=== PATIENT | male | born 1950 | race Caucasian/White ===

== ENCOUNTER 2017-11-30 08:11 | Emergency (ER) | payer MEDICARE, MEDICAID, SELFPAY ==
[2017-11-30 08:13] VITALS: BP 138/82; PULSE 72; RESP 18; TEMP 36.9; O2SAT 100; BMI 28.4
--- NOTE | 2017-11-30 08:28 | ED.DCSUM_ITS ---
- ER Visit Summary Date of Service: 11/30/17 Chief Complaint: Left-sided facial, jaw, throat pain History of Present Illness: The patient is a 67 M who presents with the above symptoms. Started last night. He states it hurts to eat and swallow. The pain is located on the left side of the face. He has not had a fever. He has no teeth on that side she states that that is not the cause of the issue. Denies any ear pain. Physical Examination: Vital signs are reviewed. HEENT exam reveals tenderness in the preauricular area. There is some swelling noted. TMs are clear bilaterally. Throat is not erythematous. Heart is regular. Lungs are clear. Abdomen is soft. Test Results: None indicated Emergency Department Course and Treatment: Patient likely has an acute parotitis on the left-hand side. He will be treated with naproxen and Keflex. He was also counseled to use hard candies. He will follow-up with his primary care physician Treatment Plan: [] Disposition: Discharge Impression: Left parotitis This note was generated with [employer] dictation software. It may contain incorrect words, spelling, and punctuation that were not noted in review of the chart prior to signing ED Disposition - Plan for ED Patient: Chief Complaint: Other, Pain/Inj Referrals: Jaswinder Hill DO [Primary Care Provider] -
--- NOTE | 2017-11-30 08:28 | ED.DEP ---
ED Disposition - Plan for ED Patient: Disposition: Home or Assisted Living Chief Complaint: Other, Pain/Inj Instructions: ED Sublingual Gland Swelling [facility] Prescriptions: Cephalexin [Keflex] 500 mg PO Q6 #28 cap Naproxen [Naprosyn] 500 mg PO BID PRN #20 tab Referrals: Jaswinder Hill DO [Primary Care Provider] -
[2017-11-30 09:00] VITALS: BP 142/67; PULSE 64; RESP 16; O2SAT 97
== END 2017-11-30 09:01 | disposition home or self-care (01) ==
LOC: ED 08:48
PROVIDERS: Emergency Provider Emergency Medicine; Family Provider Student in an Organized Health Care Education/Training Program; PCP Student in an Organized Health Care Education/Training Program
DX: K11.20 Sialoadenitis, unspecified (principal); I48.91 Unspecified atrial fibrillation; N40.0 Benign prostatic hyperplasia without lower urinary tract symptoms; Z72.0 Tobacco use; Z79.82 Long term (current) use of aspirin; Z79.899 Other long term (current) drug therapy
CPT/HCPCS: 99282

== ENCOUNTER → 2017-12-21 09:01 | Outpatient (CLI) | payer MEDICARE, MEDICAID, SELFPAY ==
--- NOTE | 2017-12-21 09:20 | CT_ITS ---
STUDY: CT SOFT TISSUE NECK WITHOUT CONTRAST REASON FOR EXAM: Male, 67 years old. Left facial pain and swelling RADIATION DOSAGE (If Supplied By Facility): CTDIvol = ( 18.65 ) mGy, DLP = ( 572.80 ) mGycm TECHNIQUE: The patient was scanned in a multi-detector CT scanner. High resolution transaxial imaging was performed without the administration of intravenous contrast material. Sagittal and coronal images were reconstructed. Individualized dose optimization techniques were used for this CT. COMPARISON: None. FINDINGS: Normal bilateral parotid glands. Normal bilateral dispatcher radio spaces. Normal bilateral parapharyngeal spaces. Normal bilateral carotid spaces. Normal bilateral sublingual and submandibular glands and spaces. Normal visualized nasopharynx. Normal retropharyngeal space. Normal perivertebral space. There are some calcifications within the tonsillar crypts. The visualized tongue, tongue base and oropharynx are normal. The visualized cervical lymph nodes (levels I-) are within normal size limits, and maintain normal morphology. There is no demonstrated solid or cystic mass lesion. Normal epiglottis, bilateral vallecula and hypopharynx. The pre-epiglottic and paraglottic adipose spaces are normal. Normal visualized bilateral piriform sinuses, aryepiglottic folds, vocal cords, and arytenoid-cricoid articulations. Normal subglottic trachea. Normal bilateral lobes of the thyroid gland. Emphysematous changes are seen within the lung apices. Normal visualized paranasal sinuses. Normal visualized cervical spine. CT/Soft Tissue Neck without Contr IMPRESSION: No abscess. Small calcifications within the palatine tonsils bilaterally consistent with tonsilloliths. Electronically Signed: Bebo Spangler DO at 9:59 EST Tel , Service support ,
== END ==
PROVIDERS: Family Provider Student in an Organized Health Care Education/Training Program; PCP Student in an Organized Health Care Education/Training Program; Visit Provider Otolaryngology
DX: R51 Headache (principal)
CPT/HCPCS: 70490

== ENCOUNTER → 2018-03-11 15:18 | Outpatient (CLI) | payer MEDICARE, SELFPAY ==
--- NOTE | 2018-03-11 13:30 | FLU_PTH ---
PATIENT: SERG ZAVALA LOC: [facility] U#:[id number] AGE/SX: 74/M ROOM: RE03/11/[address]: Dr. Manasa Carvajal MD : 1950 BED: DIS: SPEC #: [id number] RECD: 03/11/18 15:18 STATUS: JERRY TONE #: [id number] LUDIN: 03/11/18 13:[address]: Manasa Carvajal DEPT: CYTOLOGY RECD BY: Errol Mcmahon ENTERED: 03/12/18 12:39 SP TYPE: Fluid OTHR DR: Dr. Jaswinder Hill, DO Tissues: A - Thyroid gland, NOS B - Thyroid gland, NOS C - Thyroid gland, NOS D - Thyroid gland, NOS Procedures: Pap Stain (control) Special Stain Group II Surgery Specimen Level IV Cell Block Cytospin Fluid HEADER OPERATION: Ultrasound guided fine needle aspiration of bilateral thyroid PRE-OP DIAGNOSIS: Multinodular goiter TISSUE SUBMITTED: A. FNA right thyroid, fluid, B. FNA right thyroid, slides, C. FNA left thyroid, fluid, D. FNA left thyroid, slides DIAGNOSIS CYTOLOGY A. Right thyroid nodule, fluid, ultrasound-guided FNA (cytospin and cell block): The specimen entirely consists of blood only. B. Right thyroid nodule, ultrasound-guided FNA (smears): Nondiagnostic specimen. The specimen entirely consists of blood only. C. Left thyroid nodule, fluid, ultrasound-guided FNA (cytospin and cell block): Benign follicular cells noted. D. Left thyroid nodule, ultrasound-guided FNA (smears): Consistent with benign follicular nodule. See cytology study and comment. SJ:josue 03/13/18 COMMENT Immediate cytologic evaluation to determine adequacy is not applicable. CYTOLOGY STUDY Slides are reviewed. D. The specimen is adequate for evaluation. The specimen consists of benign follicular cells. A significant amount of colloid is not seen. CYTOLOGY GROSS A. Received is 32 ml of clear jesse fluid labeled with the patient's name and and designated per the requisition as FNA right thyroid. Submitted for cytology preparation including cell block. B. Received are 2 smears labeled with the patient's name and designated per the requisition as FNA right thyroid. Submitted for staining. C. Received is 35 ml of clear jesse fluid labeled with the patient's name and and designated per the requisition as FNA left thyroid. Submitted for cytology preparation including cell block. D. Received are 4 smears labeled with the patient's name and designated per the requisition as FNA left thyroid. Submitted for staining. / RB:cc 03/12/18 TC:5 CPT: 51613 x2, 60522 x2, 18798 x2
== END ==
PROVIDERS: Family Provider Student in an Organized Health Care Education/Training Program; PCP Student in an Organized Health Care Education/Training Program; Visit Provider Surgery
DX: E04.2 Nontoxic multinodular goiter (principal)
CPT/HCPCS: 88108; 88305; 88313

== ENCOUNTER → 2018-03-21 17:15 | Outpatient (CLI) | payer MEDICARE, MEDICAID, SELFPAY ==
--- NOTE | 2018-03-21 | FLU_PTH ---
PATIENT: SERG ZAVALA LOC: [facility] U#:[id number] AGE/SX: 74/M ROOM: RE03/21/[address]: Dr. Manasa Carvajal MD : 1950 BED: DIS: SPEC #: [id number] RECD: 03/21/18 16:58 STATUS: JERRY REWin #: [id number] LUDIN: 03/21/18 00:[address]: Manasa Carvajal DEPT: CYTOLOGY RECD BY: Binu Anaya ENTERED: 03/22/18 13:15 SP TYPE: Fluid OTHR DR: Dr. Jaswinder Hill, DO Tissues: A - Thyroid gland, NOS B - Thyroid gland, NOS Procedures: Pap Stain (control) Special Stain Group II Surgery Specimen Level IV Cell Block Cytospin Fluid HEADER OPERATION: Ultrasound-guided fine needle aspiration right thyroid PRE-OP DIAGNOSIS: Thyroid nodules TISSUE SUBMITTED: A ? FNA right thyroid nodule fluid for cytology, B - FNA right thyroid 4 slides DIAGNOSIS CYTOLOGY A. Right thyroid nodule fluid for cytology, ultrasound-guided FNA (cytospin and cell block): Macrophages and benign follicular cells are noted. See cytology study and comment. B. Right thyroid nodule, ultrasound-guided FNA (smears): Consistent with cystic follicular nodule. See cytology study and comment. SJ:rg 03/26/18 COMMENT Correlation with clinical, radiologic findings and appropriate follow up are necessary. Please make reference to previous specimen ([id number]) right thyroid nodule with diagnosis of nondiagnostic specimen, left thyroid nodule with diagnosis of consistent with benign follicular nodule. CYTOLOGY STUDY Slides are reviewed. A. The specimen consists of benign follicular cells and macrophages. B. The specimen predominantly consists of macrophages and a few benign follicular cells. The specimen meets the criteria for adequacy by combining presence of follicular cells in both specimen A and B. CYTOLOGY GROSS A - Received is 30 ml of brown, cloudy fluid labeled with the patient's name and and designated per the requisition as right thyroid. Submitted for cytology preparation including cell block. B - Received are four smears labeled with the patient's name and designated per the requisition as right thyroid. Submitted for staining. / 03/22/18 TC:5 CPT: 92488, 79378, 05261
== END ==
PROVIDERS: Family Provider Student in an Organized Health Care Education/Training Program; PCP Student in an Organized Health Care Education/Training Program; Visit Provider Surgery
DX: E04.1 Nontoxic single thyroid nodule (principal)
CPT/HCPCS: 88108; 88305; 88313

== ENCOUNTER → 2019-03-04 08:33 | Outpatient (CLI) | payer MEDICARE, MEDICAID, SELFPAY ==
--- NOTE | 2019-03-04 08:35 | ECHOD_ITS ---
Reason For Study: Afib/Flutter Procedure This was a 2D Doppler, Color Flow transthoracic echocardiogram. The exam was of adequate technical quality. Exam performed in department. Left Ventricle Normal LV size. Left ventricular systolic function is normal. The estimated ejection fraction is 60 %. The global longitudinal strain = -20 % (normal). No evidence for diastolic dysfunction. No regional wall motion abnormalities noted. Right Ventricle Normal RV size. Normal systolic function. Atria Normal left atrium. Normal right atrium. No doppler evidence for ASD. Mitral Valve There is no mitral annular calcification. Normal mitral valve. Trivial mitral valve insufficiency. Tricuspid Valve Normal tricuspid valve. Trivial tricuspid valve insufficiency. Right ventricular systolic pressure estimated to be 26 mmHg. Aortic Valve Trisinus/trileaflet aortic valve. Normal aortic valve. Trivial aortic valve insufficiency. Pulmonic Valve The pulmonic valve is not well visualized. Mild (1+) pulmonic valve insufficiency. Great Vessels Mildly dilated ascending aorta. Pericardium/Pleural No pericardial effusion. MMode/2D Measurements & Calculations LVIDd: 4.3 cm IVSd: 1.3 cm Ao root diam: 3.6 cm LVIDs: 2.5 cm LVPWd: 0.96 cm LA dimension: 4.5 cm RVDd: 2.9 cm FS: 42.0 % LAV(MOD-bp): 44.1 ml LA A4 area: 14.1 cm2 RA A4 area: 15.3 cm2 LAV(MOD-bp) Indexed: 22.1 ml/m2 LAV(MOD-sp2): 48.9 ml LAV(MOD-sp4): 37.8 ml Time Measurements MV dec time: 0.23 sec Doppler Measurements & Calculations MV E max juan ramon: 54.0 cm/sec Lat Peak E' Juan Ramon: 7.9 cm/sec Med Peak E' Juan Ramon: 4.4 cm/sec MV A max juan ramon: 77.8 cm/sec E/E' lat: 6.8 E/E' med: 12.3 MV E/A: 0.69 MV V2 max: 89.8 cm/sec MV P1/2t max juan ramon: 70.2 cm/sec Ao V2 max: 99.0 cm/sec MV max P.2 mmHg MV P1/2t: 95.6 msec Ao max P.9 mmHg MV V2 mean: 42.9 cm/sec MV dec slope: 215.2 cm/sec2 Ao V2 mean: 69.7 cm/sec MV mean P.87 mmHg MVA(P1/2t): 2.3 cm2 Ao mean P.2 mmHg MV V2 VTI: 28.0 cm Ao V2 VTI: 22.5 cm AI max juan ramon: 314.4 cm/sec LV V1 max: 80.8 cm/sec PA V2 max: 89.6 cm/sec AI max P.5 mmHg LV V1 max P.6 mmHg LV V1 mean P.1 mmHg AI dec slope: 114.5 cm/sec2 LV V1 mean: 47.0 cm/sec AI P1/2t: 804.4 msec LV V1 VTI: 17.6 cm TR max juan ramon: 237.7 cm/sec PI dec slope: 179.2 cm/sec2 TR max P.6 mmHg Interpretation Summary Left ventricular systolic function is normal. The estimated ejection fraction is 60 %. The global longitudinal strain = -20 % (normal). Trivial mitral valve insufficiency. Trivial tricuspid valve insufficiency. Trivial aortic valve insufficiency. Mild (1+) pulmonic valve insufficiency. Mildly dilated ascending aorta. (4.3 cm) Right ventricular systolic pressure estimated to be 26 mmHg. No evidence for diastolic dysfunction. Ordering Physician: Dayday Nguyen Referring Physician: Dayday Nguyen Performed By: Riley Kumari [facility]
== END ==
PROVIDERS: Family Provider Student in an Organized Health Care Education/Training Program; PCP Student in an Organized Health Care Education/Training Program; Referring Provider Internal Medicine Cardiovascular Disease; Visit Provider Internal Medicine Cardiovascular Disease
DX: I48.0 Paroxysmal atrial fibrillation (principal); I77.810 Thoracic aortic ectasia
CPT/HCPCS: 93306

== ENCOUNTER → 2019-06-17 11:15 | Outpatient (CLI) | payer MEDICARE, SELFPAY ==
[2019-03-17 14:04] VITALS: BMI 29.2
[2019-06-17 12:48] LABS: Erythrocyte Sedimentation Rate 11 mm/hr (0-20)
[2019-06-17 13:07] LABS: Vitamin B12 249 pg/mL (211-911)
[2019-06-17 13:08] LABS: Thyroid Stim Hormone (TSH) 0.15 uIU/mL (0.358-3.74)
== END ==
PROVIDERS: Family Provider Student in an Organized Health Care Education/Training Program; PCP Student in an Organized Health Care Education/Training Program; Referring Provider Psychiatry & Neurology Neurology; Visit Provider Psychiatry & Neurology Neurology
DX: R41.3 Other amnesia (principal)
CPT/HCPCS: 36415; 82607; 84443; 85652

== ENCOUNTER → 2019-06-20 12:36 | Outpatient (CLI) | payer MEDICARE, MEDICAID, SELFPAY ==
[2019-03-17 14:04] VITALS: BMI 29.2
--- NOTE | 2019-06-20 13:00 | MRI_ITS ---
STUDY: MRI BRAIN WITH AND WITHOUT CONTRAST REASON FOR EXAM: Male, 68 years old. Memory loss for one year TECHNIQUE: Standardized multiplanar fat and water weighted pulse sequences were obtained. 17 IV Dotarem was administered for the contrast portion of the examination. COMPARISON: None. FINDINGS: Normal size of the ventricles and extra-axial spaces for the patient's age. There are multiple white matter hyperintensities, distributed throughout the deep white matter tracts of the cerebral hemispheres, consistent with moderate chronic white matter ischemic changes. Normal bilateral basal ganglia. Normal thalami. There is no extra-axial fluid accumulation. Normal flow voids within the major intracranial circulation suggesting patency by spin echo criteria. Normal venous enhancement. There is no enhancing intra-axial or extra-axial abnormality. Normal sella turcica, pituitary gland, infundibular stalk, optic chiasm and hypothalamus. Normal tectal plate and pineal gland. Normal midbrain, kashmir and medulla. Normal cerebellum. Normal basal cisterns. Normal bilateral temporal bones. Normal bilateral internal auditory canals. No demonstrated orbital abnormality, within the constraints of a routine brain study. Cyst in the right maxillary sinus. Normal calvarium and skull base. Normal visualized soft tissue structures. Normal visualized upper cervical spine. MRI/Brain W/WO Contrast IMPRESSION: Moderate microangiopathic white matter disease. No evidence of acute infarct or hemorrhage. Electronically Signed: Yoshi De Dios MD at 17:59 EDT Tel , Service support ,
[2019-06-20 13:11] LABS: EGFR FINGERSTICK > 60.0000 mL/min (>60)
== END ==
PROVIDERS: Family Provider Student in an Organized Health Care Education/Training Program; PCP Student in an Organized Health Care Education/Training Program; Referring Provider Psychiatry & Neurology Neurology; Visit Provider Psychiatry & Neurology Neurology
DX: R41.3 Other amnesia (principal)
CPT/HCPCS: 70553; A9575

== ENCOUNTER → 2019-07-07 21:38 | Outpatient (CLI) | payer MEDICARE, MEDICAID, SELFPAY ==
[2019-03-17 14:04] VITALS: BMI 29.2
== END ==
PROVIDERS: Family Provider Student in an Organized Health Care Education/Training Program; PCP Student in an Organized Health Care Education/Training Program; Referring Provider Psychiatry & Neurology Neurology; Visit Provider Psychiatry & Neurology Neurology
DX: G47.33 Obstructive sleep apnea (adult) (pediatric) (principal)
CPT/HCPCS: 95810

== ENCOUNTER 2019-08-03 17:34 | Emergency (ER) | payer MEDICARE, SELFPAY ==
[2019-03-17 14:04] VITALS: BMI 29.2
[2019-08-03 17:35] VITALS: BP 140/79; PULSE 124; RESP 24; TEMP 36.4; O2SAT 98; BMI 29.5
--- NOTE | 2019-08-03 17:48 | EKG12_ITS ---
Test Reason : SOB Blood Pressure : / mmHG Vent. Rate : 118 BPM Atrial Rate : 081 BPM P-R Int : 000 ms QRS Dur : 082 ms QT Int : 456 ms P-R-T Axes : 000 012 067 degrees QTc Int : 639 ms Normal sinus rhythm Low voltage QRS Prolonged QT Abnormal ECG Confirmed by GRICELDA VALENTE ([id number]), sound editor JOSE FERRERA ([id number]) on 08/11/2019 3:52:48 PM Referred By: Clint Miller Confirmed By:GRICELDA VALENTE
--- NOTE | 2019-08-03 17:49 | ED.DCSUM_ITS ---
History of Present Illness Chief Complaint: Shortness of Breath Informant: Patient, Family Onset: Days - 2 to 3 days ago Context: Sudden Onset - At rest Timing: Continuous, Waxes and wanes - Worse with activity Quality: Shortness of breath Location: Not applicable Current Severity: Mild Maximum Severity: Severe Worsened by: Activity Relieved by: Nothing Associated Symptoms: No other symptoms Narrative: Patient is an elderly male who is a former smoker of 1.5 packs/day who presents with abrupt onset of shortness of breath that occurred at rest 2 to 3 days ago. He reports dyspnea on exertion. He denies chest pain at rest or activity. He denies pleuritic chest discomfort. He denies URI symptoms. He denies fever or chills. He denies history of PE or DVT. He denies leg pain, swelling discoloration. He has no risk factors. He denies symptoms of claudication. He denies abdominal pain. He denies food intolerance. According to daughter he has history of atrial fibrillation. He did require cardioversion. Prior similar symptoms: No Recent Illness/Hospitalization: No - Past Medical History (1) Ascending aorta dilation Status: Chronic Comment: 4.3 cm per ECHO 03/04/19 (2) Essential hypertension Status: Chronic (3) GERD (gastroesophageal reflux disease) Status: Chronic (4) Hyperlipemia Status: Chronic (5) Paroxysmal atrial fibrillation Status: Chronic Past Medical History - Allergies and Home Meds Allergies/Adverse Reactions: Allergies No Known Allergies Allergy (Verified 08/03/19 17:37) Primary Care Physician: Jaswinder Hill DO [Primary Care Provider] - Prior records reviewed: Yes Surgical History: - - parathyroidectomy Lives: Spouse/ Significant Other Smoking Status: Former smoker Alcohol: None Drugs: None - Family History Sibling Family History: Family History (Last Reviewed 09/05/18 @ 10:44 by Sandra Green) Mother Cancer Father Cancer Brother Seizures Sister Cancer Family History: Reports: - - sister- cancer Review of Systems General: Denies: Chills, Fever, Subjective, Sweats, Weight loss Eyes: Denies: Visual changes - bilaterally, Blurred Vision - bilaterally ENT: Denies: Bilateral ear pain, Rhinorrhea, Sore throat Cardiovascular: Denies: Chest pain, Palpitations, Heart racing Respiratory: Reports: Dyspnea, Dyspnea on exertion. Denies: Cough, Sputum, Orthopnea, Paroxysmal nocturnal dyspnea Gastrointestinal: Denies: Abdominal pain, Nausea, Vomiting, Diarrhea, Melena, Hematochezia Genitourinary: Denies: Dysuria, Hematuria, Frequency Musculoskeletal: Denies: Myalgias, Arthralgias, Neck pain, Back pain, Swelling, Extremity Pain, -, - Skin: Denies: Rash, Wounds Neurological: Denies: Headache, Weakness, Numbness Hematologic: Denies: Easy bruising, Easy bleeding Allergy: Denies: Uticaria Physical Exam Vital Signs/Narrative: Vital Signs Temp Pulse Resp BP Pulse Ox 08/03/19 17:35 97.6 F L 124 H 24 H 140/79 H 98 Inital Vital Signs reviewed: Yes - Patient is tachycardic and tachypneic. General: Well nourished, Well developed Head: Normocephalic, Atraumatic Eyes: Perrl, EOMI. Negative for: Pale conjunctiva, Scleral icterus ENT: Moist mucous membranes, No rhinorrhea Neck: Supple, Nontender, - - Trachea is midline. There is no cervical lymphadenopathy. There is no carotid bruit.. Negative for: No lymphadenopathy, No JVD Cardiovascular: Regular rhythm, No murmurs, Normal S1, Normal S2, Tachycardia Respiratory: CTA bilaterally, Chest nontender, Decreased Air Movement Abdomen: Soft, Nontender, Nondistended, Normal bowel sounds Rectal: Deferred Back: Nontender, Normal Inspection Extremities: Nontender, No edema, - - There is no asymmetry, swelling, discoloration, leg vein distention, palpable cords or tenderness along the distribution of the deep venous system. Skin: Normal color, No rash, No Trauma. Negative for: Cyanosis, Diaphoresis, Jaundice Neurological: Alert, Oriented x3, Cranial nerves II-XII grossly intact, Normal Strength, Normal Sensation Psychological: Normal affect Diagnostic/Tx/Re-eval Impressions Chest X-Ray 08/03/19 18:05 IMPRESSION: No acute thoracic pathology. Electronically Signed: Anirudh Sweet, at 18:23 EDT Tel , Service support , Chest CTA 08/03/19 20:05 IMPRESSION: No evidence of pulmonary embolus. Large pericardial effusion with findings suggesting right heart failure. Further evaluation with echocardiogram is recommended. Small to moderate right pleural effusion. Small left pleural effusion. No focal infiltrates. Mild emphysema. 5 mm nodule in the right middle lobe. A follow-up chest CT in 6 months is recommended. Electronically Signed: Anirudh Sweet, at 20:46 EDT Tel , Service support , ADDENDUM: 08/03/192056 IMPRESSION: No evidence of pulmonary embolus. Large pericardial effusion with findings suggesting right heart failure. Further evaluation with echocardiogram is recommended. Small to moderate right pleural effusion. Small left pleural effusion. No focal infiltrates. Mild emphysema. 5 mm nodule in the right middle lobe. A follow-up chest CT in 6 months is recommended. N.B. : The above information has been verbally conveyed by Anirudh Sweet to Michael Cannon MD, on 08/03/2019 20:50:41 (ET). Electronically Signed: Anirudh Sweet, at 20:46 EDT Tel , Service support , ADDENDUM: 08/03/192056 IMPRESSION: No evidence of pulmonary embolus. Large pericardial effusion with findings suggesting right heart failure. Further evaluation with echocardiogram is recommended. Small to moderate right pleural effusion. Small left pleural effusion. No focal infiltrates. Mild emphysema. 5 mm nodule in the right middle lobe. A follow-up chest CT in 6 months is recommended. N.B. : The above information has been verbally conveyed by Anirudh Sweet to Michael Cannon MD, on 08/03/2019 20:50:41 (ET). Electronically Signed: Anirudh Sweet, at 20:46 EDT Tel , Service support , 08/03/19 18:05 Chest PA and Lateral [RAD] Stat 08/03/19 20:05 CTA Chest W/WO Contrast [CT] Stat Laboratory Results 08/03/19 08/03/19 08/03/19 17:58 17:58 17:58 WBC 12.5 H RBC 4.98 Hgb 14.5 Hct 45.5 MCV 91.4 MCH 29.1 MCHC 31.9 L RDW Std Deviation 47.6 H RDW Coeff of Rosie 14.5 Plt Count 352 MPV 11.4 Immature Gran % (Auto) 0.400 Neut % (Auto) 68.2 Lymph % (Auto) 20.4 [place] % (Auto) 9.9 Eos % (Auto) 0.6 Baso % (Auto) 0.5 Absolute Neuts (auto) 8.5 H Absolute Lymphs (auto) 2.54 Nucleated RBC % 0 D-Dimer Quant (PE/DVT) 5.09 H* Sodium 137 Potassium 3.9 Chloride 104 Carbon Dioxide 25.0 Anion Gap 8 BUN 23 H Creatinine 1.28 Estim Creat Clear Calc 54.92 Est GFR (MDRD) Af Amer 72 Est GFR (MDRD) Non-Af 60 BUN/Creatinine Ratio 18.0 Glucose 159 H Calcium 9.1 Troponin I < 0.015 In light of work-up and findings Dr. Josue was contacted. Based on patient's symptomatology CT findings recommended transfer to [facility]. Informed patient is that he will need to be transferred to tertiary care facility and a Dr. Josue recommended at [facility]. Patient and were satisfied with this recommendation. Spoke with the nurse at the transfer line. She will contact appropriate physician partition assembler and will discuss case. Patient is presently getting a fluid bolus. - Rhythm Strip Rhythm Strip: Sinus Tach Rate: 123 Ectopy: None - EKG Initial EKG Interpretation: Sinus Tachycardia - Tachycardia with a ventricular rate of 118. NE interval is 160 ms. QRS duration 82 ms. QT duration 456 ms. There is low voltage. There is prolonged QT interval. The QTC is 639 ms. There is no acute ischemic changes noted. There is no ossific ST-T wave changes noted. - Medical Decision Making With acute onset of shortness of breath need to rule out cardiac etiology versus pulmonary. Specifically need to evaluate for pulmonary embolus since patient is tachycardic, sinus and tachypnic. Monitor reveals sinus tachycardia rate of 123. Spoke with Dr. Batista at [facility]. She accepted patient. Awaiting callback from transfer personnel with bed assignment. - Critical Care Time Critical care time (excluding procedures): 30-74 minutes - CC time 33 minutes., Discussing w/Patient &/or Family/[employer] Maker Helper, Discussing w/Consultants, Arranging Admission or Transfer ED Disposition - Plan for ED Patient: Disposition: [facility] Diagnosis: Pericardial effusion with cardiac tamponade, Sinus tachycardia by electrocardiogram, History of hypertension, History of hyperlipidemia Referrals: Jaswinder Hill DO [Primary Care Provider] -
[2019-08-03 17:53] VITALS: O2SAT 98
--- NOTE | 2019-08-03 18:05 | RAD_ITS ---
STUDY: X-RAY CHEST REASON FOR EXAM: Male, 68 years old. Shortness of breath TECHNIQUE: Frontal and lateral views of the chest COMPARISON: 04/23/2016. FINDINGS: The lungs are clear. There are no pleural effusions. There is no pneumothorax. The heart is at the upper limits of normal normal in size. The visualized osseous structures are within normal limits. RAD/Chest PA and Lateral IMPRESSION: No acute thoracic pathology. Electronically Signed: Anirudh Sweet, at 18:23 EDT Tel , Service support ,
[2019-08-03 18:12] LABS: Absolute Lymphocyte Count 2.54 X10^3/uL (0.83-4.51); Absolute Neutrophil Count 8.5 X10^3/uL (2.0-7.7); Basophil# 0.06 X10^3/uL; Basophil% 0.5 % (0-1); Eosinophil# 0.07 X10^3/uL; Eosinophils% 0.6 % (0-5); Hematocrit 45.5 % (40-54); Hemoglobin 14.5 g/dL (13.0-16.5); Lymphocyte # 2.54 X10^3/ul (4.0); Lymphocyte % 20.4 % (19-41); Mean Corp Hgb Conc 31.9 g/dL (32-36); Mean Corpuscular Hgb 29.1 pg (27.0-32.0); Mean Corpuscular Volume 91.4 fL (80-94); Mean Platelet Vol. 11.4 fl (6.2-12.0); Monocyte# 1.24 X10^3/uL; Monocyte% 9.9 % (0-10); NRBC Flagged by Analyzer 0 % (0-5); Neutrophil # 8.52 X10^3/uL (2.7-7.7); Neutrophil % 68.2 % (47-70); Platelet Count 352 K/mm3 (150-450); RBC Distribution Width CV 14.5 % (11.6-14.6); RBC Distribution Width SD 47.6 fl (35.1-43.9); Red Blood Count 4.98 M/mm3 (4.6-6.2); White Blood Count 12.5 K/mm3 (4.4-11.0)
[2019-08-03 18:48] LABS: Anion Gap 8 (5-15); BUN 23 mg/dL (7-18); Calcium,Total 9.1 mg/dL (8.5-10.1); Chloride 104 mmol/L (98-107); Creatinine, Serum 1.28 mg/dL (0.70-1.30); EST Glomerular Filtration Rate 60 mL/min (>60); Est Glom Filt Rate - Afr Amer 72 mL/min (>60); Estimated Creatinine Clearance 54.92 ml/min; Glucose 159 mg/dL (74-106); Potassium 3.9 mmol/L (3.5-5.1); Sodium Level 137 mmol/L (136-145)
[2019-08-03 19:54] VITALS: BP 138/124; PULSE 113; RESP 20; O2SAT 93
[2019-08-03 20:04] LABS: D-Dimer Quantitative (DVT/PE) 5.09 FEU/ug/m (0.27-0.49)
--- NOTE | 2019-08-03 20:04 | ED.RN ---
CRITICAL LAB VALUE RECEIVED FROM LAB. D-DIMER 5.09. DR. HENSON NOTIFIED.
--- NOTE | 2019-08-03 20:05 | CT_ITS ---
We are attempting to reach an attending provider to discuss findings. An addendum with communication details will be sent when the communication is complete. STUDY: CTA CHEST REASON FOR EXAM: Male, 68 years old. Shortness of breath. RADIATION DOSAGE (If Supplied By Facility): CTDIvol = ( 9.83 ) mGy, DLP = ( 470.83 ) mGycm TECHNIQUE: The examination was performed with the intravenous administration of IV 75mL [id number] 75. Post-processing of the angiographic images was performed, with multiplanar reformation and 3D reconstruction. Individualized dose optimization techniques were used for this CT. COMPARISON: None. FINDINGS: There is no evidence of pulmonary embolus. There is no evidence of thoracic aortic aneurysm. The contrast bolus is insufficient to exclude thoracic aortic dissection. There is a large pericardial effusion. The heart is normal in size. There is reflux of contrast into the IVC and hepatic veins, suggesting right heart failure. There is a [id number] right pleural effusion and a small left pleural effusion with overlying atelectasis. There are no focal infiltrates. There are mild emphysematous changes noted in the lungs. There is a 5 mm pleural-based nodule in the right middle lobe (image 121 series 2). There is no pneumothorax. Images through the upper abdomen demonstrate a small hiatal hernia. There are no destructive osseous lesions. CT/CTA Chest W/WO Contrast IMPRESSION: No evidence of pulmonary embolus. Large pericardial effusion with findings suggesting right heart failure. Further evaluation with echocardiogram is recommended. Small to moderate right pleural effusion. Small left pleural effusion. No focal infiltrates. Mild emphysema. 5 mm nodule in the right middle lobe. A follow-up chest CT in 6 months is recommended. Electronically Signed: Anirudh Sweet, at 20:46 EDT Tel , Service support ,
[2019-08-03 20:46] VITALS: BP 131/98; PULSE 108; RESP 30; O2SAT 96
[2019-08-03 21:44] VITALS: BP 144/105; PULSE 104; RESP 18; O2SAT 96
--- NOTE | 2019-08-03 21:47 | ED.RN ---
PATIENT HAS BEEN ACCEPTED TO [facility] [id number]
== END 2019-08-03 22:23 | disposition short-term general hospital (02) ==
PROVIDERS: Emergency Provider Emergency Medicine; Family Provider Student in an Organized Health Care Education/Training Program; PCP Student in an Organized Health Care Education/Training Program
DX: I31.3 Pericardial effusion (noninflammatory) (principal); I31.4 Cardiac tamponade; R00.0 Tachycardia, unspecified; R06.82 Tachypnea, not elsewhere classified; R94.31 Abnormal electrocardiogram [ECG] [EKG]; I48.0 Paroxysmal atrial fibrillation; I10 Essential (primary) hypertension; E78.5 Hyperlipidemia, unspecified; K21.9 Gastro-esophageal reflux disease without esophagitis; Z87.891 Personal history of nicotine dependence
CPT/HCPCS: 71046; 71275; 80048; 84484; 85025; 85379; 93005; 96360; 96361; 99285; J7030; Q9967; A4216

== ENCOUNTER → 2019-08-15 09:48 | Outpatient (CLI) | payer MEDICARE, SELFPAY ==
[2019-08-03 17:35] VITALS: BMI 29.5
--- NOTE | 2019-08-15 09:49 | ECHOL_ITS ---
Reason For Study: s/p Pericardiocentesis Procedure This was a limited 2D transthoracic echocardiogram. Myocardial strain analysis was performed in this exam to aid in the assessment of cardiac function. Limited views were obtained. Exam performed in department. Left Ventricle Normal LV size. Left ventricular systolic function is normal. The estimated ejection fraction is 65 %. The global longitudinal strain = -17% (borderline). Unable to assess diastolic dysfunction. No regional wall motion abnormalities noted. Right Ventricle Normal RV size. Normal systolic function. Atria Normal left atrium. Normal right atrium. No doppler evidence for ASD. Mitral Valve There is no mitral annular calcification. 2D echocardiographic images compatible with redundant mitral valve chordae tendonae. Trivial mitral valve insufficiency. Tricuspid Valve The tricuspid valve is not well visualized. Mild tricuspid valve insufficiency. Right ventricular systolic pressure estimated to be 27 mmHg. Aortic Valve Trisinus/trileaflet aortic valve. Normal aortic valve. Trivial aortic valve insufficiency. Pulmonic Valve The pulmonic valve is not well visualized. Great Vessels Mildly dilated ascending aorta. Pericardium/Pleural Trivial pericardial effusion. There are no echocardiographic indications of cardiac tamponade. MMode/2D Measurements & Calculations LVIDd: 3.9 cm IVSd: 1.4 cm Ao root diam: 4.3 cm LVIDs: 2.6 cm LVPWd: 1.2 cm FS: 34.0 % Doppler Measurements & Calculations TR max keysha: 244.1 cm/sec TR max P.8 mmHg Interpretation Summary Left ventricular systolic function is normal. The estimated ejection fraction is 65 %. The global longitudinal strain = -17% (borderline). 2D echocardiographic images compatible with redundant mitral valve chordae tendonae. Trivial mitral valve insufficiency. Mild tricuspid valve insufficiency. Trivial aortic valve insufficiency. Mildly dilated ascending aorta. Trivial pericardial effusion. There are no echocardiographic indications of cardiac tamponade. Right ventricular systolic pressure estimated to be 27 mmHg. Unable to assess diastolic dysfunction. Ordering Physician: Jamin Cole Referring Physician: Jaswinder Busch Performed By: Stephanie Cole, CARIDAD, RVT
== END ==
PROVIDERS: Family Provider Student in an Organized Health Care Education/Training Program; PCP Student in an Organized Health Care Education/Training Program; Referring Provider Internal Medicine Cardiovascular Disease; Visit Provider Internal Medicine Cardiovascular Disease
DX: I77.810 Thoracic aortic ectasia (principal); I48.0 Paroxysmal atrial fibrillation; I10 Essential (primary) hypertension; E78.5 Hyperlipidemia, unspecified; K21.9 Gastro-esophageal reflux disease without esophagitis; Z98.890 Other specified postprocedural states
CPT/HCPCS: 93308

== ENCOUNTER 2019-08-18 12:02 | Observation (INO) | payer MEDICARE, SELFPAY ==
[2019-08-18] VITALS (7 sets, daily range): BP systolic 96–152; BP diastolic 62–92; PULSE 65–99; RESP 16–27; TEMP 36.6; O2SAT 93–99; BMI 28.1; BMI 28.8; BMI 27.5; BMI 27.6
--- NOTE | 2019-08-18 12:18 | RAD_ITS ---
STUDY: X-RAY CHEST REASON FOR EXAM: Male, 68 years old. Dyspnea. Diaphoresis and dizziness. TECHNIQUE: Single AP portable view of the chest. COMPARISON: Comparison is made with prior study August 03, 2019. FINDINGS: EKG electrodes are seen. Scattered calcified granulomas. No acute abnormality is present. There is no demonstrated pleural abnormality. There is borderline cardiomegaly. Normal mediastinum and ashley. Normal visualized pulmonary arteries. There is atherosclerotic tortuosity of the aortic arch and descending thoracic aorta. There are diffuse degenerative changes of the visualized thoracic spine. Levoscoliosis. Normal visualized ribs, clavicles, and shoulders. There is no demonstrated abnormality of the visualized soft tissue structures of the upper abdomen. RAD/Chest 1 View (Portable) IMPRESSION: No acute abnormality is seen. Electronically Signed: Luis Darling, at 12:53 EDT , Service support ,
--- NOTE | 2019-08-18 12:19 | EKG12_ITS ---
Test Reason : PRE OP Blood Pressure : / mmHG Vent. Rate : 071 BPM Atrial Rate : 071 BPM P-R Int : 166 ms QRS Dur : 098 ms QT Int : 388 ms P-R-T Axes : 015 -29 -74 degrees QTc Int : 421 ms Normal sinus rhythm T wave abnormality, consider anterolateral ischemia Abnormal ECG When compared with ECG of 03-AUG-2019 18:03, Vent. rate has decreased BY 47 BPM Nonspecific T wave abnormality now evident in Inferior leads T wave inversion now evident in Anterolateral leads Confirmed by YESSI ZHANG, NHUNG ([id number]), book editor JOES FERRERA ([id number]) on 08/22/2019 11:44:37 AM Referred By: GUDELIA Confirmed By:NHUNG DICKSON MD
--- NOTE | 2019-08-18 12:24 | ED.DCSUM_ITS ---
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 He was seen by me earlier this month and transferred to [facility] because of concern for pericardial tamponade. He had a pericardial centesis performed with drainage of 800 cc of fluid. Fluid was positive for malignancy. Patient had recent biopsy of axillary nodes. Results are pending. He also had a PET scan. He is scheduled for chemotherapy on by Dr. Diamond Banks. He was scheduled to have a port placed by Dr. Manasa Carvajal this morning. Surgery was canceled because patient became diaphoretic with pallor and skinner in appearance and shortness of breath. EKG was obtained and reveals flipped T waves V2 through V6 which are new compared to August 03. Nitropaste was applied by anesthesia. I was informed a troponin was obtained. and daughter informed me he had a echo performed on Sunday. Echo was reviewed and interpretation reads: 1. Left ventricular systolic function is normal, EF 65% 2. Global longitudinal strain equals -17% (borderline) 3. 2D echo cardiographic images compatible with redundant mitral valve chordae tendon a 4. Trivial mitral valve insufficiency 5. Mild tricuspid valve insufficiency 6. Trivial aortic valve insufficiency 7. Mild dilatation ascending aorta 8. Trivial pericardial effusion 9. Right ventricular systolic pressure estimated to be 27 mmHg 10. Unable to assess diastolic dysfunction Prior similar symptoms: No Recent Illness/Hospitalization: Yes - Past Medical History (1) Atrial fibrillation with RVR Status: Acute (2) Malignant pericardial effusion Status: Acute (3) Ascending aorta dilation Status: Chronic Comment: 4.3 cm per ECHO 03/04/19 (4) Essential hypertension Status: Chronic (5) GERD (gastroesophageal reflux disease) Status: Chronic (6) Hyperlipemia Status: Chronic (7) Lung nodule Status: Chronic (8) Malignant neoplasm of urinary bladder Status: Chronic Past Medical History - Allergies and Home Meds Allergies/Adverse Reactions: Allergies No Known Allergies Allergy (Verified 08/18/19 12:06) Primary Care Physician: Jaswinder Hill DO [Primary Care Provider] - Prior records reviewed: Yes Surgical History: - - parathyroidectomy Lives: Spouse/ Significant Other Smoking Status: Former smoker Alcohol: None Drugs: None - Family History Sibling Family History: Family History (Last Reviewed 09/05/18 @ 10:44 by Sandra Green) Mother Cancer Father Cancer Brother Seizures Sister Cancer Family History: Reports: - - sister- cancer Review of Systems General: Reports: Weight loss. Denies: Chills, Fever, Malaise, Sweats Eyes: Denies: Visual changes - bilaterally, Blurred Vision - bilaterally, Diplopia ENT: Denies: Bilateral ear pain, Rhinorrhea, Sore throat Cardiovascular: Denies: Chest pain, Palpitations, Heart racing Respiratory: Reports: Dyspnea. Denies: Cough, Sputum, Dyspnea on exertion, Orthopnea Gastrointestinal: Denies: Abdominal pain, Nausea, Vomiting, Diarrhea, Melena, Hematochezia Genitourinary: Denies: Dysuria, Hematuria, Frequency Musculoskeletal: Reports: Neck pain - Anterior right neck and jaw pain awoke from sleep. Denies: Myalgias, Arthralgias, Back pain, Swelling, Extremity Pain, -, - Skin: Denies: Rash, Wounds Neurological: Denies: Headache, Weakness, Numbness Hematologic: Denies: Easy bruising, Easy bleeding Physical Exam Vital Signs/Narrative: Vital Signs Temp Pulse Resp BP Pulse Ox 08/18/19 12:03 98 F 65 27 H 152/92 H 98 General: Well nourished, Well developed, No Acute Distress Head: Normocephalic, Atraumatic Eyes: Perrl, EOMI ENT: Moist mucous membranes, No rhinorrhea Neck: Supple, Nontender, No lymphadenopathy, No JVD, - - Recent extraction of right lower molar. No swelling of the gum. There is no submandibular lymphadenopathy or anterior cervical lymphadenopathy. Trachea is midline. There is no stridor. There is no dysphonia. Cardiovascular: Regular rate, Regular rhythm, No murmurs, Normal S1, Normal S2 Respiratory: No distress, CTA bilaterally, Chest nontender Abdomen: Soft, Nontender, Nondistended, Normal bowel sounds Back: Nontender, Normal Inspection Extremities: Nontender, No edema, - - There is no asymmetry, swelling, di scoloration, leg vein distention, palpable cords or tenderness along the distribution of the deep venous system.. Negative for: Tenderness, Edema Skin: Normal color, No rash Neurological: Alert, Oriented x3, Cranial nerves II-XII grossly intact, Normal Strength, Normal Sensation Psychological: Normal affect, Normal Mood Diagnostic/Tx/Re-eval Chest X-Ray - ED: 1 View, Read by ED Physician, Normal, Lungs, Mediastinum, Bony Structures, No Acute Disease, - - Heart size is smaller compared to prior chest x-ray. Impressions Chest X-Ray 08/18/19 12:18 IMPRESSION: No acute abnormality is seen. Electronically Signed: Luis Lisset, at 12:53 EDT , Service support , 08/18/19 12:18 Chest 1 View (Portable) [RAD] Stat Laboratory Results 08/18/19 08/18/19 08/18/19 12:49 12:49 12:49 WBC 12.8 H RBC 5.01 Hgb 14.7 Hct 44.2 MCV 88.2 MCH 29.3 MCHC 33.3 RDW Std Deviation 43.1 RDW Coeff of Rosie 13.3 Plt Count 327 MPV 10.3 Immature Gran % (Auto) 0.500 Neut % (Auto) 79.9 H Lymph % (Auto) 12.8 L [place] % (Auto) 4.8 Eos % (Auto) 1.7 Baso % (Auto) 0.3 Absolute Neuts (auto) 10.2 H Absolute Lymphs (auto) 1.64 Nucleated RBC % 0 Sodium 139 Potassium 4.2 Chloride 106 Carbon Dioxide 27.0 Anion Gap 6 BUN 14 Creatinine 0.86 Estim Creat Clear Calc 81.74 Est GFR (MDRD) Af Amer 115 Est GFR (MDRD) Non-Af 95 BUN/Creatinine Ratio 16.4 Glucose 110 H Lactic Acid 2.0 Calcium 9.0 Total Bilirubin 0.80 AST 21 ALT 31 Alkaline Phosphatase 47 Total Protein 7.8 Albumin 3.6 Globulin 4.2 Albumin/Globulin Ratio 0.9 White count is elevated. This is a nonspecific marker. Suspect EKG changes may represent cardiac ischemia versus pericarditis. Most likely this represents pericarditis since patient had malignant pericardial effusion requiring paracentesis. Case was discussed with Dr. Waters. Recommended limited echo and serial enzymes. He suspects this represents pericarditis. He may not have pain since he is present on colchicine. - EKG Initial EKG Interpretation: Sinus Rhythm - Sinus rhythm with a ventricular rate of 66. There is evidence of incomplete right bundle branch block and lateral ischemic changes. The lateral ischemic changes are unchanged from EKG performed earlier today. These are new from August 03. CT interval is 170 ms. QS duration 94 ms. QT duration 398 ms. Walsh is to the right. The EKG is abnormal and changed from August 03. - Medical Decision Making In light of patient's history with new EKG changes EKG was repeated 30 minutes later. There is no interval change noted. With history of neck pain that awoke him from sleep and dyspnea with diaphoresis later this morning with EKG changes will obtain troponin appropriate blood work to assess for cardiac ischemia. Case will be discussed with cardiology. Since echo revealed no effusion on Sunday this was not repeated. ED Disposition - Plan for ED Patient: Disposition: Acute [facility] Diagnosis: ST segment changes on electrocardiogram, Malignant pericardial effusion Referrals: Jaswinder Hill DO [Primary Care Provider] -
[2019-08-18 13:03] LABS: Absolute Lymphocyte Count 1.64 X10^3/uL (0.83-4.51); Absolute Neutrophil Count 10.2 X10^3/uL (2.0-7.7); Basophil# 0.04 X10^3/uL; Basophil% 0.3 % (0-1); Eosinophil# 0.22 X10^3/uL; Eosinophils% 1.7 % (0-5); Hematocrit 44.2 % (40-54); Hemoglobin 14.7 g/dL (13.0-16.5); Lymphocyte # 1.64 X10^3/ul (4.0); Lymphocyte % 12.8 % (19-41); Mean Corp Hgb Conc 33.3 g/dL (32-36); Mean Corpuscular Hgb 29.3 pg (27.0-32.0); Mean Corpuscular Volume 88.2 fL (80-94); Mean Platelet Vol. 10.3 fl (6.2-12.0); Monocyte# 0.61 X10^3/uL; Monocyte% 4.8 % (0-10); NRBC Flagged by Analyzer 0 % (0-5); Neutrophil # 10.22 X10^3/uL (2.7-7.7); Neutrophil % 79.9 % (47-70); Platelet Count 327 K/mm3 (150-450); RBC Distribution Width CV 13.3 % (11.6-14.6); RBC Distribution Width SD 43.1 fl (35.1-43.9); Red Blood Count 5.01 M/mm3 (4.6-6.2); White Blood Count 12.8 K/mm3 (4.4-11.0)
[2019-08-18 13:13] LABS: ALB/GLOB Ratio 0.9 RATIO (0.9-2.4); AST(SGOT) 21 U/L (15-37); Alanine Aminotransfer ALT/SGPT 31 U/L (16-61); Albumin, Serum 3.6 g/dL (3.2-5.0); Alkaline Phosphatase 47 U/L (45-117); Anion Gap 6 (5-15); BUN 14 mg/dL (7-18); BUN/Creat Ratio 16.4 RATIO (10-20); Chloride 106 mmol/L (98-107); Creatinine, Serum 0.86 mg/dL (0.70-1.30); EST Glomerular Filtration Rate 95 mL/min (>60); Est Glom Filt Rate - Afr Amer 115 mL/min (>60); Estimated Creatinine Clearance 81.74 ml/min; Globulin 4.2 g/dL (2.2-4.2); Glucose 110 mg/dL (74-106); Potassium 4.2 mmol/L (3.5-5.1); Protein, Total 7.8 g/dL (6.4-8.2); Sodium Level 139 mmol/L (136-145)
--- NOTE | 2019-08-18 14:24 | ECHOL_ITS ---
Reason For Study: Abn EKG Procedure This was a limited 2D transthoracic echocardiogram. Exam performed portable in patient room. Left Ventricle Normal LV size. Left ventricular systolic function is normal. The estimated ejection fraction is 65 %. No regional wall motion abnormalities noted. Pericardium/Pleural No pericardial effusion. MMode/2D Measurements & Calculations LVIDd: 4.2 cm IVSd: 1.3 cm LVAd ap4: 23.0 cm2 LVIDs: 2.7 cm LVPWd: 0.95 cm EDV(MOD-sp4): 60.9 ml RVDd: 3.1 cm FS: 36.6 % EDV(sp4-el): 63.5 ml LVAs ap4: 11.4 cm2 ESV(MOD-sp4): 19.0 ml ESV(sp4-el): 19.5 ml EF(MOD-sp4): 68.7 % EF(sp4-el): 69.3 % SV(MOD-sp4): 41.8 ml SV(sp4-el): 44.0 ml Interpretation Summary Normal LV size. Left ventricular systolic function is normal. The estimated ejection fraction is 65 %. No pericardial effusion. Ordering Physician: Lio Stratton Referring Physician: Jaswinder Busch Performed By: Stephanie Cole RDCS, RVT
--- NOTE | 2019-08-18 15:36 | PCM.HP.STD ---
Problem List (1) Abnormal EKG Status: Acute (2) Neck pain on right side Status: Acute History of Present Illness Date of Admission: 08/18/19 Chief Complaint: Right-sided neck pain, EKG changes, diaphoresis The patient is a 68 year old M seen in the emergency room at [facility] with chief complaint of right-sided neck pain, right lower jaw pain, and diaphoresis. The right lower jaw pain occurred last night according to the patient but this morning he had right-sided neck pain today and he was in preop to have a Mediport inserted and he became diaphoretic and did not feel well so he was transferred to the emergency room for evaluation. Patient denied any chest pain, he denied any arm pain, patient did not complain of shortness of breath at this examiner. Patient had a history of pericardial effusion which was drained approximately 2 weeks ago at [facility], this pericardial effusion was the result of metastatic bladder cancer. Patient again was to have a Mediport inserted today for chemotherapy. Work-up in the emergency room included labs which showed a slightly elevated white blood cell count at 12.8, patient's troponin was unremarkable, and the remainder of the patient's chemistry profile was unremarkable. Patient's chest x-ray was unremarkable, his EKG showed ST-T wave changes over the anterior and lateral precordial leads-there appeared to be T wave inversions present. Cardiology was contacted by the emergency room physician, cardiology advised placing the patient in observation status, repeating a limited echocardiogram, and cycling cardiac enzymes. Cardiology did not feel they needed to see the patient unless his cardiac enzymes resulted positive or if his medical status change. Cardiology felt that the EKG changes may have been due to chronic pericarditis from the patient's metastatic bladder cancer. Patient will be placed in observation status on PCU, cardiac enzymes will be cycled, and he will have a limited echocardiogram. Past Medical History Past Medical History (Chronic Problems): Chronic Problems (Last Updated 08/15/19 @ 10:14 by Sandra Green) Lung nodule (Chronic) Malignant neoplasm of urinary bladder (Chronic) Ascending aorta dilation (Chronic) 4.3 cm per ECHO 03/04/19 GERD (gastroesophageal reflux disease) (Chronic) Essential hypertension (Chronic) Paroxysmal atrial fibrillation (Chronic) Hyperlipemia (Chronic) Medical History: Medical History (Last Updated 08/15/19 @ 10:14 by Sandra Green) Lung nodule (Chronic) R91.1 Malignant pericardial effusion (Acute) I31.3, C80.1 Malignant neoplasm of urinary bladder (Chronic) C67.9 Ascending aorta dilation (Chronic) I77.810 4.3 cm per ECHO 03/04/19 GERD (gastroesophageal reflux disease) (Chronic) K21.9 Essential hypertension (Chronic) I10 Paroxysmal atrial fibrillation (Chronic) I48.0 Hyperlipemia (Chronic) E78.5 Atrial fibrillation with RVR (Acute) I48.91 Bladder tumor D49.4 Allergies No Known Allergies Allergy (Verified 08/18/19 12:06) Home Medications: Ambulatory Orders Medication Instructions Recorded tamsulosin 0.4 mg capsule 0.4 mg PO QHS 09/03/18 sertraline 100 mg tablet 150 mg PO DAILY 03/17/19 Cyanocobalamin (Vitamin B-12) 1,000 mcg PO DAILY 08/03/19 [Vitamin B-12] Omeprazole Magnesium [Prilosec Otc] 20 mg PO DAILY 08/15/19 colchicine 0.6 mg capsule 0.6 mg PO BID 08/15/19 metoprolol tartrate 25 mg tablet 25 mg PO BID 08/15/19 ondansetron HCl 8 mg tablet 8 mg PO TID PRN 08/15/19 Cholecalciferol (Vitamin D3) 2,000 unit PO DAILY 08/18/19 [D3-2000] Rosuvastatin Calcium 10 mg PO QHS 08/18/19 Surgical History: Surgical History (Last Updated 08/15/19 @ 10:16 by Sandra Green) S/P pericardiocentesis (Resolved) Onset Date: ~08/04/19 Z98.890 History of bladder surgery Onset Date: ~06/03/18 Z98.890 x2 01/07/18, 06/03/18 History of parathyroidectomy Z98.890 Surgical History: - - parathyroidectomy Psychiatric History: No pertinent psych hx Lives: Spouse/ Significant Other Smoking Status: Former smoker Tobacco Use: Non-smoker Alcohol: None Drugs: None - *Family History Sibling Family History: Family History (Last Reviewed 09/05/18 @ 10:44 by Sandra Green) Mother Cancer Father Cancer Brother Seizures Sister Cancer History Items: - - sister- cancer Maternal Family History: Family History (Last Reviewed 09/05/18 @ 10:44 by Sandra Green) Mother Cancer Father Cancer Brother Seizures Sister Cancer History Items: No pertinent history Paternal Family History: Family History (Last Reviewed 09/05/18 @ 10:44 by Sandra Green) Mother Cancer Father Cancer Brother Seizures Sister Cancer History Items: No pertinent history Review of Systems Constitutional: Reports: Malaise, Fatigue. Denies: Anorexia, Chills, Fever, Night Sweats, Weakness, Weight Change Eyes: Denies: Cataracts, Conjunctivae Inflammation, Double vision, Drainage, Redness, Vision Change HEENT: Reports: - - Right lower tooth pain, - - Right-sided neck pain. Denies: Difficulty Swallowing, Dysphasia, Ear Pain, Eye Pain, Hearing Changes, Nasal bleeding, Nasal Congestion, Post Nasal Drip Cardiovascular: Denies: Chest Pain, Claudication, Chest Pressure, Chest Tightness, Edema, Heaviness, Palpitations Respiratory: Denies: Cough, Hemoptysis, Pleuritic Pain, Shortness of Breath, Shortness of breath at rest, Shortness of breath upon exertion, Sputum production Gastrointestinal: Reports: Nausea. Denies: Abdominal Pain, Constipation, Diarrhea, Hematemesis, Hematochezia, Melena, Vomiting Genitourinary: Denies: Dysuria, Frequency, Hematuria, Hesitancy, Nocturia, Retention, Urgency Musculoskeletal: Denies: Foot Pain, Hand Pain, Joint Pain, Joint stiffness, Joint swelling, Joint Tenderness, Leg Pain Skin: Denies: Dryness, Pruritis, Rash Neurological: Denies: Blurred vision, Double vision, Slurred speech, Difficulty swallowing, Focal weakness, Headaches, Numbness, Tingling Psychiatric: Denies: Anxiety, Depression, Homicidal Ideations, Suicidal Ideations Endocrine: Denies: Change in Body Habitus, Heat/ Cold Intolerance, Polydipsia, Polyuria Hematologic/ Lymphatic: Denies: Adenopathy, Anemia, Easy Bruising, Easy Bleeding, Petechiae, Purpura VTE Information - Inpt Only VTE Present on Admission: No VTE Mechan Device Prophylaxis: None VTE Pharm Prophylaxis ordered?: Yes Patient Problems: Active and Suspected Problems (Last Updated 08/15/19 @ 10:14 by Sandra Green) ST segment changes on electrocardiogram (Acute) Abnormal EKG (Acute) Neck pain on right side (Acute) Malignant pericardial effusion (Acute) - Physical Exam Vitals/I&O's: Vital Signs Temp Pulse Resp BP Pulse Ox 97.8 F 82 16 120/71 93 08/18/19 14:39 08/18/19 14:39 08/18/19 14:39 08/18/19 14:39 08/18/19 14:39 Oxygen Delivery Method Room Air Weight: 82.2 kg Body Mass Index (BMI) 27.5 General: Alert, Oriented x3, Cooperative, No apparent distress, Well developed, Well nourished HEENT: Atraumatic, PERRLA, EOMI, Normocephalic Oral: Moist Mucosa, No Gingival or Mucosal Lesions/ Ulcerations, - - Patient had pain on striking his right lower molar with a tongue depressor during my exam Neck: Supple, No JVD, Trachea Midline, Thyroid Normal Size and Texture Lungs: Clear to auscultation, Normal air movement, No rhonchi, No wheeze, No rales Cardiovascular: Regular rate, Regular Rhythm, Normal S1, Normal S2, No murmurs, PMI Normal, No rub noted Abdomen: Bowel Sounds Present, Soft, Non Tender, Non-Distended, No hernias noted Extremities: No clubbing, No cyanosis, No edema, Capillary Refill Less than 3 Seconds Skin: No rashes, No breakdown Musculoskeletal: No Tenderness to Palpation of Joints or Extremities Neurological: Cranial nerves II-XII grossly intact, Neuro grossly intact, Sensory exam intact to light touch and pain, Coordination normal Psych/Mental Status: Normal Affect, Appropriate, Alert and oriented to time, place, person, mood and affect Laboratory Results 08/18/19 12:49: WBC 12.8 H, RBC 5.01, Hgb 14.7, Hct 44.2, MCV 88.2, MCH 29.3, MCHC 33.3, RDW Std Deviation 43.1, RDW Coeff of Rosie 13.3, Plt Count 327, MPV 10.3, Immature Gran % (Auto) 0.500, Neut % (Auto) 79.9 H, Lymph % (Auto) 12.8 L, [place] % (Auto) 4.8, Eos % (Auto) 1.7, Baso % (Auto) 0.3, Absolute Neuts (auto) 10.2 H, Absolute Lymphs (auto) 1.64, Nucleated RBC % 0 08/18/19 12:49: Sodium 139, Potassium 4.2, Chloride 106, Carbon Dioxide 27.0, Anion Gap 6, BUN 14, Creatinine 0.86, Estim Creat Clear Calc 81.74, Est GFR (MDRD) Af Amer 115, Est GFR (MDRD) Non-Af 95, BUN/Creatinine Ratio 16.4, Glucose 110 H, Calcium 9.0, Total Bilirubin 0.80, AST 21, ALT 31, Alkaline Phosphatase 47, Total Protein 7.8, Albumin 3.6, Globulin 4.2, Albumin/Globulin Ratio 0.9 08/18/19 12:49: Lactic Acid 2.0 08/18/19 12:49: Troponin I < 0.015 Current Medications Atorvastatin Calcium (Lipitor) 20 mg PO QHS [facility] Colchicine (Colchicine) 0.6 mg PO BID [facility] Heparin Sodium (Porcine) (Heparin Na) 5,000 unit SC Q8 [facility] Metoprolol Tartrate (Lopressor (Beta Carlyle)) 25 mg PO BID [facility] Ondansetron HCl (Zofran Odt) 8 mg PO TID PRN PRN Reason: NAUSEA Pantoprazole Sodium (Protonix) 20 mg PO DAILY [facility] Sertraline HCl 100 mg/ (Sertraline HCl 50 mg) 150 mg PO DAILY [facility] Tamsulosin HCl (Flomax) 0.4 mg PO QHS [facility] Assessment/Plan All Active Problems (Last Updated 08/15/19 @ 10:14 by Sandra Green) ST segment changes on electrocardiogram (Acute) Abnormal EKG (Acute) Neck pain on right side (Acute) S/P pericardiocentesis (Resolved ~08/04/19) Malignant pericardial effusion (Acute) Pericardial effusion, acute (Acute) Atrial fibrillation with RVR (Acute) Hyperparathyroidism (Resolved) #1 ST-T wave changes over the anterior precordial leads extending into the lateral precordial leads-etiology could include chronic pericarditis, patient will be placed in observation status on PCU, limited echocardiogram will be performed, patient will have cardiac enzymes cycled. #2 chronic pericarditis-patient currently is taking colchicine, again he had a pericardiocentesis performed approximately 2 weeks ago with removal of approximately 1.2 L of fluid. #3 metastatic bladder cancer to the pericardium #4 right-sided neck pain-etiology unclear at this point, unknown whether this is an anginal equivalent #5 right lower tooth pain-this may be secondary to an infection in the right lower molar or caries, patient is to follow-up with his dentist concerning this #6 hyperlipidemia #7 history of paroxysmal atrial fib-patient is not currently on any anticoagulants secondary to his bladder cancer Code Visit OBSV E&M: 05251 Initial observation care L3
[2019-08-18 16:54] LABS: Reflex Lactate? Y
[2019-08-18] MEDS: Acetaminophen 500 MG Tablet 1000 MG PO (17:44)
[2019-08-18 18:34] LABS: Lactic Acid 1.2 mmol/L (0.4-2.0)
[2019-08-18] MEDS: Tamsulosin HCl 0.4 MG Capsule PO (21:02)
[2019-08-18] MEDS: Heparin Injection (Vial) 5,000 UNIT/ML VIAL 5000 UNIT SC (21:03)
[2019-08-18] MEDS: Atorvastatin Calcium 20 MG Tablet PO (21:03)
[2019-08-18] MEDS: Metoprolol Tartrate 25 MG Tablet PO (21:03)
[2019-08-19] VITALS (7 sets, daily range): BP systolic 96–127; BP diastolic 63–85; PULSE 66–87; RESP 16; TEMP 36.4–36.8; O2SAT 92–96
[2019-08-19] MEDS: Acetaminophen 500 MG Tablet 1000 MG PO ×2 (00:21→08:49)
[2019-08-19] MEDS: Heparin Injection (Vial) 5,000 UNIT/ML VIAL 5000 UNIT SC (05:57)
--- NOTE | 2019-08-19 09:57 | DCINST_ITS ---
- Discharge Diagnoses Current Active Problems: Current Active and Chronic Problems (Last Updated 08/15/19 @ 10:14 by Sandra Green) ST segment changes on electrocardiogram (Acute) Abnormal EKG (Acute) Neck pain on right side (Acute) Malignant pericardial effusion (Acute) You will use the following diet at home:: Cardiac Your food should be the consistency of: Regular Discharge Activity: May not drive while taking narcotic pain medications. Call your doctor if you observe: Fever of 101 or Higher, Change in Color, Inability to have a bowel movement, Shortness of breath, Dizziness, Fainting spells, Swelling in the ankles, Chest pain, Prolonged hiccoughing, Increased palpitations (irregular heartbeat), Calf discomfort, Uncontrolled pain Additional Instructions: F/U [facility] Urologist, Dr. Cobos this week Allergies/Adverse Reactions: Allergies No Known Allergies Allergy (Verified 08/18/19 12:06) Medications to take at Discharge tamsulosin 0.4 mg capsule 0.4 mg PO QHS 09/03/18 sertraline 100 mg tablet 150 mg PO DAILY 03/17/19 Cyanocobalamin (Vitamin B-12) [Vitamin B-12] 1,000 mcg PO DAILY 08/03/19 Omeprazole Magnesium [Prilosec Otc] 20 mg PO DAILY 08/15/19 colchicine 0.6 mg capsule 0.6 mg PO BID 08/15/19 metoprolol tartrate 25 mg tablet 25 mg PO BID 08/15/19 ondansetron HCl 8 mg tablet 8 mg PO TID PRN 08/15/19 Cholecalciferol (Vitamin D3) [D3-2000] 2,000 unit PO DAILY 08/18/19 Rosuvastatin Calcium 10 mg PO QHS 08/18/19 Primary Care Physician: Jaswinder Hill DO [Primary Care Provider] - Please follow up with your Primary Care Physician in: in 1-2 week Test Results: Test results from this visit will be discussed in further detail at your follow- up appointment, if applicable. Please Follow Up With: Dayday Nguyen MD When: as scheduled Please Follow Up With: Amarilis Kebede MD When: as scheduled
[2019-08-19] MEDS: Metoprolol Tartrate 25 MG Tablet PO (09:58)
[2019-08-19] MEDS: Pantoprazole Sodium 20 MG Tablet PO (09:59)
--- NOTE | 2019-08-19 09:59 | DS.PCM_ITS ---
Discharge Date and Diagnosis Date of Admission: 08/18/19 Date of Discharge: 08/19/19 - Primary Discharge Diagnosis Active and Suspected Problems (Last Updated 08/15/19 @ 10:14 by Sandra Green) ST segment changes on electrocardiogram (Acute) Abnormal EKG (Acute) Neck pain on right side (Acute) Malignant pericardial effusion (Acute) - Secondary Discharge Diagnosis Chronic Problems (Last Updated 08/15/19 @ 10:14 by Sandra Green) Lung nodule (Chronic) Malignant neoplasm of urinary bladder (Chronic) Ascending aorta dilation (Chronic) 4.3 cm per ECHO 03/04/19 GERD (gastroesophageal reflux disease) (Chronic) Essential hypertension (Chronic) Paroxysmal atrial fibrillation (Chronic) Hyperlipemia (Chronic) Hospital Course and Treatment Summary of Care Provided: The patient is a 68 year old M with recent diagnosis of bladder cancer status post BCG treatment and pericardial effusion with pericarditis about 2 weeks ago in [place] [facility] status post pericardiocentesis about 1.2 L on colchicine was admitted with EKG changes, right-sided jaw pain and diaphoresis in preop room prior to MediPort placement. [] #1 Abnormal EKG changes of ST-T wave changes over the anterior lateral precordial leads-, most likely related to recent pericarditis: Patient was admitted in PCU for observation. Serial troponin enzymes are negative. Limited echo was done. EF 65% no regional wall motion abnormality. Normal LV size and systolic function. No pericardial effusion. Acute coronary syndrome ruled out. #2 Recent/subacute pericarditis: Continue colchicine. As per patient's daughter, Rosy, US[employer], pericardiocentesis fluid was positive of bladder cancer cells. Therefore it seems most likely pericardial effusion secondary to metastatic bladder cancer. Patient had pericardiocentesis, approximately 1.2 L of fluid. #3 metastatic bladder cancer to the pericardium: Patient has follow-up with [facility] urologist, Dr. Cobos tomorrow for repeat cystoscopy. #4 right-sided neck pain-etiology unclear at this point, most likely positional. #5 right lower tooth pain, most likely the cause of right-sided neck pain-this may be secondary to right lower molar caries, patient is to follow-up with his dentist concerning this. #6 hyperlipidemia continue home medication Discharge medication reconciliation done. Discharge follow-up instructions comp leted. Discharge process discussed with the patient and all questions were answered to patient's satisfaction. Total time spent, exact 35 minutes on discharge meds reconciliation, examination, review of imaging and blood test and discussion with the patient on follow-up instructions. Subjective: Patient was admitted for right-sided neck pain, right lower jaw pain and d iaphoresis. Patient did not had chest pain but he felt diaphoretic, dizzy lightheaded in preop for MediPort placement. Of note, patient has history of bladder cancer and had cystoscopy with BCG treatment in [facility] by Dr. BAUM and he has follow-up with Dr. Cobos tomorrow. Patient had pericardial effusion and had 1.2 L pericardiocentesis about [address] [facility] and cytology came positive of bladder cancer cells as per the patient daughter, Rosy who is US[employer] in neurology. In the morning, patient is chest pain-free. There was some EKG change of T wave inversion in anterolateral leads may be related to pericarditis about 2 weeks ago. - Physical Exam Vitals/I&O's: Vital Signs Temp Pulse Resp BP Pulse Ox 97.6 F L 77 16 127/85 H 94 08/19/19 05:55 08/19/19 07:52 08/19/19 05:55 08/19/19 05:55 08/19/19 05:55 Oxygen Delivery Method Room Air Weight: 181 lb 3.52 oz Body Mass Index (BMI) 27.5 Intake and Output for Last 24 Hours 08/17/19 08/18/19 08/19/19 23:59 23:59 23:59 Intake Total 340 / 340 Balance 340 / 340 General: Alert, Oriented x3, Cooperative HEENT: Atraumatic, PERRLA, EOMI, Normocephalic Neck: Supple, No JVD, Negative Carotid Bruits Lungs: Clear to auscultation, Normal air movement, No rhonchi, No wheeze, No rales Cardiovascular: Regular rate, Regular Rhythm, Normal S1, Normal S2, No murmurs Abdomen: Bowel Sounds Present, Soft, Non Tender, Non-Distended Extremities: No edema, Capillary Refill Less than 3 Seconds Skin: No rashes, No breakdown Musculoskeletal: No Tenderness to Palpation of Joints or Extremities, Arthritic Changes Neurological: Cranial nerves II-XII grossly intact, Deep Tendon Reflexes 2+/4 and Symmetrical, Neuro grossly intact Psych/Mental Status: Normal Affect, Appropriate Laboratory Results 08/18/19 12:49: WBC 12.8 H, RBC 5.01, Hgb 14.7, Hct 44.2, MCV 88.2, MCH 29.3, MCHC 33.3, RDW Std Deviation 43.1, RDW Coeff of Rosie 13.3, Plt Count 327, MPV 10.3, Immature Gran % (Auto) 0.500, Neut % (Auto) 79.9 H, Lymph % (Auto) 12.8 L, Esmeralda % (Auto) 4.8, Eos % (Auto) 1.7, Baso % (Auto) 0.3, Absolute Neuts (auto) 10.2 H, Absolute Lymphs (auto) 1.64, Nucleated RBC % 0 08/18/19 12:49: Sodium 139, Potassium 4.2, Chloride 106, Carbon Dioxide 27.0, Anion Gap 6, BUN 14, Creatinine 0.86, Estim Creat Clear Calc 81.74, Est GFR (MDRD) Af Amer 115, Est GFR (MDRD) Non-Af 95, BUN/Creatinine Ratio 16.4, Glucose 110 H, Calcium 9.0, Total Bilirubin 0.80, AST 21, ALT 31, Alkaline Phosphatase 47, Total Protein 7.8, Albumin 3.6, Globulin 4.2, Albumin/Globulin Ratio 0.9 08/18/19 12:49: Lactic Acid 2.0 08/18/19 12:49: Troponin I < 0.015 08/18/19 15:58: Troponin I < 0.015 08/18/19 17:42: Troponin I < 0.015 08/18/19 17:42: Lactic Acid 1.2 Current Medications Acetaminophen (Tylenol) 1,000 mg PO Q6H PRN PRN Reason: Pain Score 1-08/07 Last Admin: 08/19/19 08:49 Dose: 1,000 mg Documented by: Atorvastatin Calcium (Lipitor) 20 mg PO QHS [facility] Last Admin: 08/18/19 21:03 Dose: 20 mg Documented by: Colchicine (Colchicine) 0.6 mg PO BID [facility] Last Admin: 08/18/19 21:02 Dose: 0.6 mg Documented by: Heparin Sodium (Porcine) (Heparin Na) 5,000 unit SC Q8 [facility] Last Admin: 08/19/19 05:57 Dose: 5,000 unit Documented by: Metoprolol Tartrate (Lopressor (Beta Carlyle)) 25 mg PO BID [facility] Last Admin: 08/18/19 21:03 Dose: 25 mg Documented by: Ondansetron HCl (Zofran Odt) 8 mg PO TID PRN PRN Reason: NAUSEA Pantoprazole Sodium (Protonix) 20 mg PO DAILY [facility] Sertraline HCl 100 mg/ (Sertraline HCl 50 mg) 150 mg PO DAILY [facility] Tamsulosin HCl (Flomax) 0.4 mg PO QHS [facility] Last Admin: 08/18/19 21:02 Dose: 0.4 mg Documented by: Discharge Activity: May not drive while taking narcotic pain medications. Call your doctor if you observe: Fever of 101 or Higher, Change in Color, Inability to have a bowel movement, Shortness of breath, Dizziness, Fainting spells, Swelling in the ankles, Chest pain, Prolonged hiccoughing, Increased palpitations (irregular heartbeat), Calf discomfort, Uncontrolled pain Home Medications: Medications to take at Discharge tamsulosin 0.4 mg capsule 0.4 mg PO QHS 09/03/18 sertraline 100 mg tablet 150 mg PO DAILY 03/17/19 Cyanocobalamin (Vitamin B-12) [Vitamin B-12] 1,000 mcg PO DAILY 08/03/19 Omeprazole Magnesium [Prilosec Otc] 20 mg PO DAILY 08/15/19 colchicine 0.6 mg capsule 0.6 mg PO BID 08/15/19 metoprolol tartrate 25 mg tablet 25 mg PO BID 08/15/19 ondansetron HCl 8 mg tablet 8 mg PO TID PRN 08/15/19 Cholecalciferol (Vitamin D3) [D3-2000] 2,000 unit PO DAILY 08/18/19 Rosuvastatin Calcium 10 mg PO QHS 08/18/19 Primary Care Physician: Jaswinder Hill DO [Primary Care Provider] - Please follow up with your Primary Care Physician in: in 1-2 week Please Follow Up With: Dayday Nguyen MD When: as scheduled Please Follow Up With: Amarilis Kebede MD When: as scheduled Medical Necessity - Tobacco Use Smoking Status: Former smoker Tobacco Use: Non-smoker Meaningful Use Info Meaningful Use Diagnoses (Choose all that apply): None applicable Code Visit OBSV E&M: 71158 Observation care discharge
--- NOTE | 2019-08-19 10:05 | PHA.DC.MR ---
Pharmacy Service has performed discharge medication reconciliation for this patient. Home Medications tamsulosin 0.4 mg capsule 0.4 mg PO QHS 09/03/18 sertraline 100 mg tablet 150 mg PO DAILY 03/17/19 Cyanocobalamin (Vitamin B-12) [Vitamin B-12] 1,000 mcg PO DAILY 08/03/19 Omeprazole Magnesium [Prilosec Otc] 20 mg PO DAILY 08/15/19 colchicine 0.6 mg capsule 0.6 mg PO BID 08/15/19 metoprolol tartrate 25 mg tablet 25 mg PO BID 08/15/19 ondansetron HCl 8 mg tablet 8 mg PO TID PRN 08/15/19 Cholecalciferol (Vitamin D3) [D3-2000] 2,000 unit PO DAILY 08/18/19 Rosuvastatin Calcium 10 mg PO QHS 08/18/19 The patient's discharge medication list was reviewed for discrepancies and discrepancies were resolved.
== END 2019-08-19 09:58 | disposition home or self-care (01) ==
LOC: ED 13:50 → PCU 14:02
PROVIDERS: Admitting Provider Internal Medicine; Emergency Provider Emergency Medicine; Family Provider Student in an Organized Health Care Education/Training Program; PCP Student in an Organized Health Care Education/Training Program; Visit Provider Internal Medicine
DX: R07.89 Other chest pain (principal); K08.89 Other specified disorders of teeth and supporting structures; M54.2 Cervicalgia; C67.9 Malignant neoplasm of bladder, unspecified; I10 Essential (primary) hypertension; K21.9 Gastro-esophageal reflux disease without esophagitis; I48.0 Paroxysmal atrial fibrillation; R91.1 Solitary pulmonary nodule; C79.89 Secondary malignant neoplasm of other specified sites; E78.5 Hyperlipidemia, unspecified; I31.3 Pericardial effusion (noninflammatory); R94.31 Abnormal electrocardiogram [ECG] [EKG]; Z87.891 Personal history of nicotine dependence; Z79.899 Other long term (current) drug therapy
CPT/HCPCS: 36415; 71045; 80053; 82962; 83605; 84484; 85025; 93005; 93308; 96372; 99218; 99285; J7120; A4216; G0378; J2405

== ENCOUNTER 2019-08-22 12:00 | Day surgery (SDC) | payer MEDICARE, SELFPAY ==
--- NOTE | 2019-08-17 09:48 | HP.PCM_ITS ---
History and Physical Date of Admission: 08/18/19 Gian David 1950 ? ? REFERRING PHYSICIAN: Amarilis Kebede MD ? CHIEF COMPLAINT: metastatic bladder cancer ? HPI: The patient is a 68 year old male presents with known metastatic bladder cancer. Patient requires IV access for chemotherapy. No previous central lines placed. Denies history of extremity DVT. Patient denies fevers. ? ? PAST MEDICAL HISTORY ? Arrhythmia ? ? Esophageal reflux ? ? History of adverse reaction to anesthesia ? ? Hypertension ? ? Other and unspecified hyperlipidemia ? ? Pneumothorax ? ? both at different times in the 's ? Pulmonary emphysema (HCC) 04/18/2017 ? Snoring ? ? Tamponade 08/08/2019 ? Tobacco use disorder ? ? PAST SURGICAL HISTORY ? BLADDER SURGERY HX ? 12/2017 ? COLONOS W/REM POLYP SNARE ? 05/22/2017 ? 3 [id number] year follow-up ? COLONOSCOP W/ OR W/O BRSH SPEC ? 04/06/16 ? PAST SURGICAL HISTORY OF? 1979's? collasped lung ?spontaneous ? PAST SURGICAL HISTORY OF 2 parathyroids removed ? ? Current Outpatient Medications: aspirin, enteric coated (ASPIRIN, ENTERIC COATED) 81 mg EC tablet Take 81 mg by mouth once daily. cyanocobalamin (VITAMIN B-12) 1,000 mcg tab Take 1,000 mcg by mouth once daily. ondansetron (ZOFRAN) 8 mg tablet Take 1 tablet by mouth every 8 hours as needed. OLANZapine (ZYPREXA) 5 mg tablet Take 1 tablet by mouth daily at bedtime for 3 days. After chemotherapy - cisplatin sertraline (ZOLOFT) 100 mg tablet take 1 & 1/2 pills by mouth daily at bedtime apixaban (ELIQUIS) 5 mg tab(s) Take 1 tablet by mouth twice daily. metoprolol tartrate, short acting, (LOPRESSOR) 25 mg tablet Take 1 tablet by mouth every 12 hours. colchicine 0.6 mg tablet Take 1 tablet by mouth twice daily. Blood Pressure Cuff - Home Use BLOOD PRESSURE CUFF FOR HOME USE. DX: LABILE BLOOD PRESSURE rosuvastatin (CRESTOR) 10 mg tablet Take 1 tablet by mouth once daily. tamsulosin ER (FLOMAX) 0.4 mg cap Take 1 capsule by mouth daily at bedtime. lidocaine urojet (XYLOCAINE, GLYDO) 2 % jelp Apply prior to procedure as directed. Cholecalciferol, Vitamin D3, (VITAMIN D-3) ,000 unit cap Take 1 capsule by mouth once daily. ? ? ALLERGIES: Patient has no known allergies. ? PERSONAL HISTORY: Social History Socioeconomic History Marital status: Spouse name: Erin Number of children: 3 Years of education: Not on file Highest education level: Not on file Occupational History Occupation: [email or web address] Employer: [employer] Tobacco Use Smoking status: Former Smoker Packs/day: 1.00 Years: 44.00 Pack years: 44 Types: Cigarettes Quit date: 12/17/2017 Years since quittin.6 Smokeless tobacco: Never Used Substance and Sexual Activity Alcohol use: Yes Comment: beer rarely Drug use: No ? FAMILY HISTORY ? Cancer Mother ? Lung ? Cancer Father ? stomach ? Seizures Brother ? ? Cancer Sister ? bone ? Cancer Paternal Grandmother ? ? ? REVIEW OF SYSTEMS: CONSTITUTIONAL: ?No fevers, chills, nightsweats, unintended weight loss HEENT: ?Denies frequent or severe heaches, nasal congestion/sinus symptoms, problematic allergy problems. +?Decreased hearing both?ears EYES: ?No diplopia or blurry vision. CARDIOVASCULAR: ?No chest pain, dyspnea, palpitations, orthopnea, PND, ankle edema. PULM: ?No dyspnea, unexplained cough. GI: ?No dysphagia/odynophagia, problematic reflux, constipation, diarrhea, changes in stool habits, hematochezia, melena. : ?No new urinary complaints, including dysuria, gross hematuria or pyuria. NEURO: ?No new balance problems, peripheral weakness/paresthesias or numbness of concern. MUSC-SKEL: ?No new joint pain, swelling, or erythema. PSY: ?No concerns regarding depression, anxiety or panic. INTEGUMENTARY: ?No new skin changes (rash, new or changing mole, new growth) ? PHYSICAL EXAMINATION: General: The patient is 68 year old male, well nourished, well hydrated in no acute distress. The patient is oriented to time, place, and person. VITALS: Blood pressure 108/56, pulse 96, temperature 36.7 ?C (98.1 ?F), temperature source Temporal Artery, resp. rate 20, height 172.7 cm (5' 8), weight 83.5 kg (184 lb), SpO2 93 %. Body mass index is 27.98 kg/m?. Head ? Normocephalic. EOM intact with sclera clear and no icterus noted. Mouth with mucus membranes moist. Neck - supple with no jugular venous distention noted. Trachea is midline. No carotid bruits noted. Healed collar incision from parathyroid surgery. No masses noted. Lungs ? normal breath sounds No rales/rhonchi/wheezing noted. No labored breathing noted, such as retractions.though patient is breathing heavily Heart ? normal heart sounds. No rubs/clicks/murmurs noted. Regular rate. Abdomen ? soft and benign. Normal bowel sounds Extremities ? no pitting edema noted. Skin ? normal skin integrity. Lymph ? no cervical adenopathy detected, no supraclavicular adenopathy detected, no axillary adenopathy detected Neurological ? gait normal, no focal deficits noted Psych ? calm and appropriatee ? IMPRESSION: metastatic bladder cancer, enlarged left axillary lymph node - probable metastatic disease, need for IV access for chemotherapy ? PLAN: I have discussed the above with the patient and his who is present with him. I have offered placement of portacath. I have explained the procedure to the patient. I have counseled the patient as to the risks of the procedure, including but not limited to: infection, bleeding, injury to any blood vessels/nerves, injury to the lung such as hemothorax or pneumothorax, thrombosis of vessels, non functioning of portacath, infection of portacath, scar tissue, wound infections, complications of anesthesia, etc. ? the patient understands. He agrees to proceed.? I have answered all questions to the patient?s satisfaction and the patient has no further questions. ? Diagnoses: (R59.9) Enlarged lymph nodes (primary encounter diagnosis) (C67.8) Malignant neoplasm of overlapping sites of bladder (HCC) (Z45.2) Encounter for fitting and adjustment of vascular catheter Return to Clinic: The patient is instructed to follow-up with me after the deanna damian
[2019-08-18] MEDS: Lactated Ringers 1,000 ML 75 ML IV (07:00)
[2019-08-18 11:27] VITALS: BP 122/80; PULSE 68; RESP 20; TEMP 35.8; O2SAT 100; BMI 28.1
--- NOTE | 2019-08-18 11:27 | EKG12_ITS ---
Test Reason : DIZZINESS Blood Pressure : / mmHG Vent. Rate : 066 BPM Atrial Rate : 066 BPM P-R Int : 170 ms QRS Dur : 094 ms QT Int : 398 ms P-R-T Axes : 014 -23 -55 degrees QTc Int : 417 ms Normal sinus rhythm Incomplete right bundle branch block ST & T wave abnormality, consider anterior-lateral ischemia Abnormal ECG Confirmed by GREYSON ZHANG, MARTHA ([id number]), online editor TEODORO WILSON ([id number]) on 08/27/2019 10:18:56 AM Referred By: Manasa Carvajal Confirmed By:MARTHA RUBI MD
[2019-08-18 11:30] LABS: Bedside Glucose 116 mg/dL (70-110)
[2019-08-18 14:23] VITALS: BMI 27.5
[2019-08-22 12:35] VITALS: BP 127/82; PULSE 82; RESP 16; TEMP 36.6; O2SAT 98; BMI 28.1
[2019-08-22] MEDS: Lactated Ringers 1,000 ML 100 ML IV (12:53)
--- NOTE | 2019-08-22 14:31 | SUR.OPER ---
DRESSING: CAVION, 1/4 STERI STRIPES,TELFA OPSITE X2
--- NOTE | 2019-08-22 15:12 | SUR.OPER ---
16CC OF IV NS PER DR TO IRRIGATE PORT
[2019-08-22 15:23] VITALS: BP 118/77; BP 127/82; PULSE 90; RESP 16; TEMP 36.3; O2SAT 99
[2019-08-22 15:25] VITALS: BP 114/72; BP 127/82; PULSE 92; RESP 16; O2SAT 96
--- NOTE | 2019-08-22 15:27 | RAD_ITS ---
STUDY: X-RAY CHEST REASON FOR EXAM: Male, 68 years old. Port placement. TECHNIQUE: Single AP portable view of the chest. COMPARISON: Prior chest radiograph of August 18, 2019 FINDINGS: Right jugular venous catheter ends in the proximal superior vena cava without complication of line placement. Since prior exam there is improved lung expansion with decreased evidence of right pleural effusion. Reduced cardiac/pericardial size. Normal mediastinum and ashley. Normal visualized pulmonary arteries. There is atherosclerotic tortuosity of the aortic arch and descending thoracic aorta. There are diffuse degenerative changes of the visualized thoracic spine. Normal visualized ribs, clavicles, and shoulders. There is no demonstrated abnormality of the visualized soft tissue structures of the upper abdomen. RAD/CXR for Line Placement IMPRESSION: Right jugular venous catheter ends in the proximal superior vena cava with no complication of line placement. Improved lung expansion, evidence of reduced right pleural effusion and pericardial effusion. Electronically Signed: Wendy Ba MD at 15:45 EDT , Service support ,
[2019-08-22 15:30] VITALS: BP 113/81; BP 127/82; PULSE 86; RESP 16; O2SAT 98
[2019-08-22 15:35] VITALS: BP 127/82; BP 128/80; PULSE 82; RESP 16; O2SAT 100
[2019-08-22 15:39] VITALS: BP 124/85; BP 127/82; PULSE 81; RESP 16; TEMP 36.5; O2SAT 100
--- NOTE | 2019-08-22 16:02 | PCM.DC.POR ---
Discharge Diet: No Restrictions Discharge Activity: Return to Normal Activity, May not drive while taking narcotic pain medications. Call your doctor if your incision/area has: Continuous Slow Oozing Call your doctor if you observe: Fever of 101 or Higher Additional Dressing/Incision Instructions:: Leave dressings in place. May get wet in shower. Do not soak - no tub baths/swimming Allergies/Adverse Reactions: Allergies No Known Allergies Allergy (Verified 08/22/19 12:33) Medications to take at Discharge tamsulosin 0.4 mg capsule 0.4 mg PO QHS 09/03/18 sertraline 100 mg tablet 150 mg PO DAILY 03/17/19 Cyanocobalamin (Vitamin B-12) [Vitamin B-12] 1,000 mcg PO DAILY 08/03/19 Omeprazole Magnesium [Prilosec Otc] 20 mg PO DAILY 08/15/19 colchicine 0.6 mg capsule 0.6 mg PO BID 08/15/19 metoprolol tartrate 25 mg tablet 25 mg PO BID 08/15/19 ondansetron HCl 8 mg tablet 8 mg PO TID PRN 08/15/19 Cholecalciferol (Vitamin D3) [D3-2000] 2,000 unit PO DAILY 08/18/19 Rosuvastatin Calcium 10 mg PO QHS 08/18/19 Hydrocodone Bitart/Apap 5-325 [[place] 5MG-325MG] 1 tab PO Q8H PRN PRN 5 Days #15 tab 08/22/19 The following prescriptions were given: Hydrocodone Bitart/Apap 5-325 [[place] 5MG-325MG] 1 tab PO Q8H PRN PRN 5 Days #15 tab PRN Reason: Pain Prescription Printed Primary Care Physician: Jaswinder Hill DO [Primary Care Provider] - Test Results: Test results from this visit will be discussed in further detail at your follow-up appointment, if applicable. Please Follow Up With: Manasa Carvajal MD - call When: to be seen in 7-10 days, please call for date and time, thank you
[2019-08-22] MEDS: Acetaminophen 325 MG Tablet 650 MG PO (16:04)
--- NOTE | 2019-08-22 16:09 | OP.PCM_ITS ---
Report of Operation Date of Procedure: 08/22/19 Pre-Operative Diagnosis: metastatic bladder cancer, need for IV access for chemotherapy Post-Operative Diagnosis: same Surgery/Procedure Performed:: placement of permanent indwelling tunnelled right internal jugular vein with subcutaneous port Description of Surgical Findings:: was able to aspirated right and left subclavian veins but could not advance wire, was able to enter left internal jugular vein but could not advance wire Type of Anesthesia:: Local MAC Anesthesiologist: Teresa Nieto Specimen's removed: none Estimated Blood Loss (mL): < 10 ml Fluids Replaced: see anesthesia note Description of Procedure: After informed consent was given, the patient was brought to the operating room. Appropriate time out protocol was followed. He was then placed in the supine position. He was then given IV conscious sedation for anesthesia. The patient?s upper chest and neck were then prepped with a surgical skin preparation and sterile surgical drapes were placed. After proper landmarks were ascertained, the skin at the upper right chest area was then infiltrated with 1% xylocaine with epinephrine. A needle trocar was then inserted into the right subclavian vein and there was good aspiration of venous blood. A wire was then threaded into the needle trocar. It could not be advanced, therefore the wire and needle trocar were removed and pressure applied to the insertion site. After proper landmarks were ascertained, the skin at the upper left chest area was then infiltrated with 1% xylocaine with epinephrine. A needle trocar was then inserted into the left subclavian vein and there was good aspiration of venous blood. A wire was then threaded into the needle trocar. It could not be advanced, therefore the wire and needle trocar were removed and pressure applied to the insertion site. Using the US transducer for real time ultrasound imaging, the left internal jugular vein was identified. After proper landmarks were ascertained, the skin was then infiltrated with 1% xylocaine with epinephrine. A needle trocar was then inserted into the left subclavian vein and there was good aspiration of venous blood. A wire was then threaded into the needle trocar. Under fluoroscopy, the wire was seen to be entering the left subclavian vein, it could not be manipulated toward the SVC, therefore the wire and needle trocar were removed and pressure applied to the insertion site. Using the US transducer for real time ultrasound imaging, the right internal jugular vein was identified. After proper landmarks were ascertained, the skin was then infiltrated with 1% xylocaine with epinephrine. A needle trocar was then inserted into the right internal jugular vein and there was good aspiration of venous blood. A wire was then threaded into the needle trocar and this was visualized under fluoroscopy to ensure that the wire was in the right internal jugular vein and could be advanced to the SVC. Once this was done, then the needle trocar was removed. A small skin reid was made with an 11 blade knife at the wire entrance site. The dilator with the introducer sheath attached was then placed over the wire into the right internal jugular vein via the Seldinger technique and this was visualized under fluoroscopy. The dilator and sheath were in proper position as visualized by fluoroscopy. The wire and dilator were then removed. The catheter was then threaded into the introducer sheath and was positioned with its tip at the junction of the superior vena cava and the right atrium as visualized under fluoroscopy. The catheter was flushed with a heparin saline mixture prior to placement. A subcutaneous pocket was then created caudad to the catheter insertion site. A transverse skin incision was made after the skin and subcutaneous tissues were infiltrated with local anesthetic. Blunt dissection was then used to create a space large enough for placement of the subcutaneous port. Hemostasis was carefully controlled with electrocautery. The port was sutured to the subcutaneous fascia using vicryl suture at three sites. The catheter was then tunneled into the subcutaneous pocket via the tunnelling device. The excess catheter was transected. The catheter was then attached to the subcutaneous port using gumming machine operator?s guidelines. The port was then placed in the subcutaneous pocket and the sutures were ligated. The subdermal incisional sites were reapproximated with interrupted vicryl suture. The skin was reapproximated with monocryl suture in a subcuticular fashion. Cavilon and steristrips were used for reinforcement of the skin closure and a sterile opsite dressing was applied. The patient was brought to the Recovery Room in stable condition. Grafts/Implants Used: see nursing note - Complications none noted - Admit VTE Documentation VTE Present on Admission: Yes VTE Mechan Device Prophylaxis: SCD's
== END 2019-08-22 16:35 | disposition home or self-care (01) ==
LOC: SDC 12:02 → AC 12:11
PROVIDERS: Anesthesiology; Family Provider Student in an Organized Health Care Education/Training Program; PCP Student in an Organized Health Care Education/Training Program; Referring Provider Surgery; Visit Provider Surgery
PROC: (CPT 36561; principal; 2019-08-22 13:15)
DX: Z45.2 Encounter for adjustment and management of vascular access device (principal); C67.8 Malignant neoplasm of overlapping sites of bladder; C79.9 Secondary malignant neoplasm of unspecified site; R59.0 Localized enlarged lymph nodes; J43.9 Emphysema, unspecified; I10 Essential (primary) hypertension; E78.49 Other hyperlipidemia; K21.9 Gastro-esophageal reflux disease without esophagitis; Z87.891 Personal history of nicotine dependence; Z79.899 Other long term (current) drug therapy
CPT/HCPCS: 00532; 36561; 71045; 77001; 82962; 84484; 93005; J7050; J7120; C1769; C1788; J2405

== ENCOUNTER → 2019-09-30 08:51 | Outpatient (CLI) | payer MEDICARE, SELFPAY ==
[2019-08-27 09:34] VITALS: BMI 29.2
--- NOTE | 2019-09-30 08:52 | ECHOLONC_ITS ---
Reason For Study: S/P Pericardiocentesis, Chemo Procedure This was a limited 2D transthoracic echocardiogram. Myocardial strain analysis was performed in this exam to aid in the assessment of cardiac function. The exam was of adequate technical quality. Exam performed in department. Left Ventricle Normal LV size. Left ventricular systolic function is normal. The estimated ejection fraction is 65 %. The global longitudinal strain = -19 % (normal). Unable to assess diastolic dysfunction. No regional wall motion abnormalities noted. Right Ventricle Normal RV size. Normal systolic function. Atria Normal left atrium. Normal right atrium. Agitated saline contrast study considered faintly positive for right to left interatrial shunt compatible with small PFO versus ASD. Mitral Valve There is no mitral annular calcification. 2D echocardiographic images compatible with redundant mitral valve chordae tendonae. Trivial mitral valve insufficiency. Tricuspid Valve Normal tricuspid valve. Trivial tricuspid valve insufficiency. Aortic Valve Trisinus/trileaflet aortic valve. Normal aortic valve. Pulmonic Valve The pulmonic valve is not well visualized. Trivial pulmonic valve insufficiency. Great Vessels Mildly dilated aortic root. Pericardium/Pleural Trivial pericardial effusion. There are no echocardiographic indications of cardiac tamponade. Medication Port Access. Performed a rapid injection of agitated mix of 9 cc saline and 1cc air to assess for atrial septal defect. MMode/2D Measurements & Calculations LVIDd: 3.9 cm IVSd: 1.3 cm Ao root diam: 4.3 cm LVIDs: 2.5 cm LVPWd: 1.1 cm LA dimension: 3.7 cm FS: 35.9 % LAV(MOD-sp4): 49.1 ml LVAd ap4: 25.4 cm2 SV(MOD-sp4): 45.7 ml EDV(MOD-sp4): 73.0 ml EDV(sp4-el): 74.5 ml LVAs ap4: 14.4 cm2 ESV(MOD-sp4): 27.3 ml ESV(sp4-el): 27.8 ml EF(MOD-sp4): 62.6 % EF(sp4-el): 62.6 % SV(sp4-el): 46.7 ml LA A4 area: 17.1 cm2 RA A4 area: 15.1 cm2 Interpretation Summary Left ventricular systolic function is normal. The estimated ejection fraction is 65 %. The global longitudinal strain = -19 % (normal). 2D echocardiographic images compatible with redundant mitral valve chordae tendonae. Trivial mitral valve insufficiency. Trivial tricuspid valve insufficiency. Trivial pulmonic valve insufficiency. Mildly dilated aortic root. Trivial pericardial effusion. There are no echocardiographic indications of cardiac tamponade. Agitated saline contrast study considered faintly positive for right to left interatrial shunt compatible with small PFO versus ASD. Unable to assess diastolic dysfunction. Ordering Physician: Jamin Cole Referring Physician: Jaswinder Busch Performed By: Riley Kumari RCS
== END ==
PROVIDERS: Family Provider Student in an Organized Health Care Education/Training Program; PCP Student in an Organized Health Care Education/Training Program; Referring Provider Internal Medicine Cardiovascular Disease; Visit Provider Internal Medicine Cardiovascular Disease
DX: C67.9 Malignant neoplasm of bladder, unspecified (principal); I31.3 Pericardial effusion (noninflammatory); Z98.890 Other specified postprocedural states
CPT/HCPCS: 0399T; 93308; A4216

== ENCOUNTER → 2019-12-23 10:34 | Outpatient (CLI) | payer MEDICARE, SELFPAY ==
[2019-10-08 11:38] VITALS: BMI 29.5
--- NOTE | 2019-12-23 10:38 | ECHOD_ITS ---
Reason For Study: High Risk Meds Procedure This was a 2D Doppler, Color Flow transthoracic echocardiogram. Myocardial strain analysis was performed in this exam to aid in the assessment of cardiac function. The exam was of adequate technical quality. Exam performed in department. Left Ventricle Normal LV size. Left ventricular systolic function is normal. The estimated ejection fraction is 55 %. The global longitudinal strain = -16% (abnormal). No evidence for diastolic dysfunction. No regional wall motion abnormalities noted. Right Ventricle Normal RV size. Normal systolic function. Atria Normal left atrium. Normal right atrium. No doppler evidence for ASD. Mitral Valve There is no mitral annular calcification. 2D echocardiographic images compatible with redundant mitral valve chordae tendonae. Trivial mitral valve insufficiency. Tricuspid Valve Normal tricuspid valve. Mild tricuspid valve insufficiency. Right ventricular systolic pressure estimated to be 25 mmHg. Aortic Valve Trisinus/trileaflet aortic valve. Normal aortic valve. Mild (1+) aortic valve insufficiency. Pulmonic Valve The pulmonic valve is not well visualized. Mild (1+) pulmonic valve insufficiency. Great Vessels Mildly dilated aortic root. Pericardium/Pleural No pericardial effusion. MMode/2D Measurements & Calculations LVIDd: 4.1 cm IVSd: 1.4 cm Ao root diam: 4.4 cm LVIDs: 2.6 cm LVPWd: 1.1 cm LA dimension: 3.7 cm RVDd: 3.4 cm FS: 37.1 % LAV(MOD-bp): 30.9 ml LVAd ap4: 26.4 cm2 SV(MOD-sp4): 38.7 ml LAV(MOD-bp) Indexed: 15.3 ml/m2 EDV(MOD-sp4): 77.3 ml LAV(MOD-sp2): 32.2 ml EDV(sp4-el): 80.1 ml LAV(MOD-sp4): 28.3 ml LVAs ap4: 17.0 cm2 ESV(MOD-sp4): 38.5 ml ESV(sp4-el): 38.5 ml EF(MOD-sp4): 50.1 % EF(sp4-el): 51.9 % SV(sp4-el): 41.6 ml LA A4 area: 12.4 cm2 RA A4 area: 12.3 cm2 Time Measurements MV dec time: 0.23 sec Doppler Measurements & Calculations MV E max juan ramon: 53.6 cm/sec Lat Peak E' Juan Ramon: 6.5 cm/sec Med Peak E' Juan Ramon: 5.9 cm/sec MV A max juan ramon: 77.4 cm/sec E/E' lat: 8.2 E/E' med: 9.0 MV E/A: 0.69 MV V2 max: 85.0 cm/sec MV P1/2t max juan ramon: 50.9 cm/sec Ao V2 max: 82.5 cm/sec MV max P.9 mmHg MV P1/2t: 75.5 msec Ao max P.7 mmHg MV V2 mean: 38.2 cm/sec MV mean P.72 mmHg MV dec slope: 197.4 cm/sec2 MV V2 VTI: 17.9 cm MVA(P1/2t): 2.9 cm2 AI max juan ramon: 344.2 cm/sec LV V1 max: 72.9 cm/sec PA V2 max: 100.2 cm/sec AI max P.4 mmHg LV V1 max P.1 mmHg AI dec slope: 170.8 cm/sec2 AI P1/2t: 590.2 msec PI end-d juan ramon: 106.9 cm/sec TR max juan ramon: 235.4 cm/sec TR max P.2 mmHg Interpretation Summary Left ventricular systolic function is normal. The estimated ejection fraction is 55 %. The global longitudinal strain = -16% (abnormal). 2D echocardiographic images compatible with redundant mitral valve chordae tendonae Trivial mitral valve insufficiency. Mild tricuspid valve insufficiency. Mild (1+) aortic valve insufficiency. Mild (1+) pulmonic valve insufficiency. Mildly dilated aortic root. Right ventricular systolic pressure estimated to be 25 mmHg. No evidence for diastolic dysfunction. Ordering Physician: Amarilis Kebede Referring Physician: Amarilis Kebede Performed By: Riley Kumari RCS
== END ==
PROVIDERS: PCP Student in an Organized Health Care Education/Training Program; Referring Provider Internal Medicine Hematology & Oncology; Visit Provider Internal Medicine Hematology & Oncology
DX: Z08 Encounter for follow-up examination after completed treatment for malignant neoplasm (principal); I31.3 Pericardial effusion (noninflammatory); C67.9 Malignant neoplasm of bladder, unspecified
CPT/HCPCS: 93306

== ENCOUNTER → 2020-07-23 | Outpatient (CLI) | payer MEDICARE, MEDICAID, SELFPAY ==
[2020-04-05 10:31] VITALS: BMI 30.4
--- NOTE | 2020-07-23 | AXNB_PTH ---
PATIENT: SERG ZAVALA LOC: [facility] U#:[id number] AGE/SX: 69/M ROOM: RE07/23/[address]: Dr. Manasa Carvajal MD : 1950 BED: DIS: 07/23/2020 SPEC #: [id number] RECD: 07/23/20 17:43 STATUS: JERRY REWin #: [id number] LUDIN: 07/23/20 00:[address]: Manasa Carvajal DEPT: SURGICAL PATHOLOGY RECD BY: Sneha Mosquera ENTERED: 07/26/20 10:48 SP TYPE: AX NODE BX OTHR DR: Dr. 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 See comment. AM:josue 07/27/20 COMMENT Immunohistochemistry ([id number]) supports the above diagnosis. MICROSCOPIC DESCRIPTION Slides are reviewed. GROSS DESCRIPTION Received in fixative is one container labeled with the patient's name and designated left axillary lymph node. The specimen consists of multiple elongated fragments of pink-smith soft tissue that in aggregate measure 1.5 x 1 x 0.1 cm. The specimen is totally submitted in one cassette. / AM:josue 07/26/20 TC:0 CPT: 02020 ADDENDUM ADDENDUM ADDENDUM ADDENDUM ADDENDUM ADDENDUM 08/04/2020 10:34 ADDENDUM 08/11/2020 09:15 ADDENDUM 08/16/2020 09:21 ADDENDUM 08/04/2020 10:34 ADDENDUM 08/04/2020 10:34 ADDENDUM 08/04/2020 10:34 ADDENDUM 08/04/2020 10:34 PD-L1 (KEYTRUDA) IMMUNOHISTOCHEMICAL ANALYSIS FROM [facility] RESULTS: Tumor proportion score: 5 (CPS>=1 / Expressed) Please see complete report in e-chart or EMR ONKOSIGHT NGS BRAF AND EGFR SEQUENCING REPORT FROM [facility] RESULT SUMMARY: Normal PERTINENT NEGATIVE RESULTS: The following genes are negative for clinically relevant mutations. Mutational hotspots and surrounding exonic regions were interrogated for DNA level point mutations and indels (fusions not assayed). BRAF (exons 11, 15) inclusive of V600 EGFR (exons 7, 12, 15, 18, 19, 20, 21) inclusive of T790M. Please see complete report in e-chart or EMR FLUORESCENCE IN SITU HYBRIDIZATION REPORT FROM [facility] INTERPRETATION: 1. No evidence of ALK gene rearrangement of deletion. 2. Negative for ROS1 gene rearrangement. RESULT: 2p23/ ALK rearrangement Normal Nuclei 100% XT ROS1 Normal Nuclei 100% Please see complete report in e-chart or EMR This addendum is added to incorporate an outside pathology consultation report. The case was examined at [facility] (#[id number]) and the following diagnosis was rendered. Lymph node, left axillary core biopsy: Consistent with metastatic urothelial carcinoma. Please see complete above mentioned consultation report in EMR
--- NOTE | 2020-07-23 | IMM_PTH ---
PATIENT: SERG ZAVALA LOC: [facility] U#:[id number] AGE/SX: 69/M ROOM: RE07/23/[address]: Dr. Manasa Carvajal MD : 1950 BED: DIS: 07/23/2020 SPEC #: [id number] RECD: 07/27/20 14:40 STATUS: JERRY REQ #: [id number] LUDIN: 07/23/20 00:[address]: Manasa Carvajal DEPT: IMMUNOHISTOCHEMISTRY RECD BY: Jennifer Marks ENTERED: 07/27/20 14:46 SP TYPE: IMMUNO OTHR DR: Dr. Jaswinder Hill DO Tissues: Axillary lymph node, NOS Procedures: CK20 (add) CK5-6 (add) CK7 (add) CK8 (add) SIMENTAL-2 (add) P53 (add) TTF1 (add) Vimentin (add) Pankeratin (initial) P40 (add) CD44 (add) PSAP (add) S-100 (add) PHYSICIAN [facility] INSTITUTION [address] [address] SPECIMEN INFORMATION: Tissue Source: Left axillary lymph node, core biopsy Clinical Info: Enlarged left axillary lymph node, history of bladder cancer Specimen Number: [id number] CPT code: 09234, 90273 x12 METHODOLOGY: Deparaffinized sections of prefer/formalin-fixed tissue or PAP/DQ stained slides are incubated with monoclonal/polyclonal antibodies/oligonucleotide probes. Localization is made via biotin free immunoperoxidase method. Appropriate controls are performed and reacted as expected. Results on target cell population are indicated in the following table: RESULTS: ANTIBODY / CLONE RESULT AE1-3 (AE1/AE3/PCK26) positive CK7 (OV-TL12/30) positive CK8 (62gkilZ45) positive CK20 (KS20.8) positive, focal, dim SIMENTAL-2 (SP21) positive Vimentin (V9) negative S-100 (4C4.9) negative TTF-1 (8G7G3/1) negative PSAP (PASE/4LJ) negative anti-CD44 (SP37) positive CK5-6 (D5 & 1684) positive P40 (BC28) positive P53 (DO-7) negative These tests were developed and their performance characteristics determined by [facility]. They may not have been cleared or approved by the U.S. Food and Drug Administration. The FDA has determined that such clearance or approval is not necessary. The above immunohistochemical/dualISH markers are ordered and reviewed by the Pathologist. INTERPRETATION: Left axillary lymph node, core biopsy: Metastatic non-small cell carcinoma with squamous differentiation. See comment. AM:josue 07/28/20 Comment: The IHC profile is consistent with metastatic urothelial carcinoma.
== END | disposition home or self-care (01) ==
LOC: LABSPEC 07-26 08:38
PROVIDERS: PCP Student in an Organized Health Care Education/Training Program; Referring Provider Surgery; Visit Provider Surgery
DX: R59.9 Enlarged lymph nodes, unspecified (principal); Z85.51 Personal history of malignant neoplasm of bladder
CPT/HCPCS: 88305; 88341; 88342

== ENCOUNTER 2020-10-29 17:44 | Inpatient (IN) | payer MEDICARE, MEDICAID, SELFPAY ==
[2020-04-05 10:31] VITALS: BMI 30.4
[2020-10-29] VITALS (9 sets, daily range): BP systolic 117–136; BP diastolic 65–80; PULSE 72–105; RESP 14–22; TEMP 36.4–37; O2SAT 94–99; BMI 31.8; BMI 31.3
--- NOTE | 2020-10-29 18:06 | EKG12_ITS ---
Test Reason : DYSRHYTHMIA Blood Pressure : / mmHG Vent. Rate : 084 BPM Atrial Rate : 084 BPM P-R Int : 164 ms QRS Dur : 090 ms QT Int : 374 ms P-R-T Axes : 026 -35 -07 degrees QTc Int : 441 ms Normal sinus rhythm Left axis deviation Low voltage QRS Abnormal ECG Confirmed by YESSI ZHANG, NHUNG ([id number]), newspaper editor TEODORO WILSON ([id number]) on 11/01/2020 8:55:51 AM Referred By: Confirmed By:NHUNG DICKSON MD
--- NOTE | 2020-10-29 18:07 | CT_ITS ---
STUDY: CTA CHEST REASON FOR EXAM: Male, 69 years old. SOB x 1 week, swelling to hands, feet and face, chemotherapy currently for stage IV bladder cancer, prior malignant pericardial effusion removed RADIATION DOSAGE (If Supplied By Facility): CTDIvol = ( 9.17 ) mGy, DLP = ( 485.15 ) mGycm TECHNIQUE: The examination was performed with the intravenous administration of IV 100mL Isovue-370. Post-processing of the angiographic images was performed, with multiplanar reformation and 3D reconstruction. Individualized dose optimization techniques were used for this CT. COMPARISON: 08/03/2019 FINDINGS: There is a stable subpleural 5 mm nodule within the right middle lobe. There are mild emphysematous changes present. There is minimal bilateral dependent atelectasis within the lower lobes. Normal enhancement of the main pulmonary artery and right and left pulmonary arteries. Normal enhancement of the bilateral peripheral pulmonary arteries. There is no demonstrated pulmonary embolism. There is atherosclerotic calcification of the aortic arch with tortuosity. There is a right-sided central venous catheter in place terminating within the superior vena cava. There is no demonstrated aortic dissection. There are calcifications of the coronary arteries. There is a hiatal hernia. Normal hilar regions. There are enlarged left axillary lymph nodes. Normal visualized trachea and bronchi. Normal chest wall structures. There are degenerative changes of thoracic spine. Normal visualized upper abdomen. CT/CTA Chest W/WO Contrast IMPRESSION: No demonstrated pulmonary embolism or arterial dissection. Enlarged left axillary lymph nodes, may be reactive however cannot exclude an underlying neoplastic process. Mild emphysema. Atherosclerosis. Electronically Signed: Paty Richardson MD at 20:04 EST Tel , Service support ,
--- NOTE | 2020-10-29 18:10 | ED.DCSUM_ITS ---
History of Present Illness Chief Complaint: Shortness of Breath Informant: Patient, Family Narrative: 69-year-old male presents with dyspnea on exertion and swelling of the bilateral hands and feet. Symptoms have been gradually worsening for 1 week. He has a history of stage IV bladder cancer. Just over 1 year ago he had a malignant pericardial effusion that was drained at [facility]. His last chemotherapy was almost 2 weeks ago. He denies any fevers. He notes a slight cough that is nonproductive. He notes that he has been urinating normally. He denies any chest pain or upper back pain. He states as long as he is at rest he feels okay. He denies any history of congestive heart failure. He does note a history of paroxysmal atrial fibrillation. He is not currently on any anticoagulants. - Past Medical History (1) Ascending aorta dilation Status: Chronic Comment: 4.3 cm per ECHO 03/04/19 (2) Essential hypertension Status: Chronic (3) GERD (gastroesophageal reflux disease) Status: Chronic (4) Hyperlipemia Status: Chronic (5) Malignant neoplasm of urinary bladder Status: Chronic (6) Paroxysmal atrial fibrillation Status: Chronic (7) Malignant pericardial effusion Status: Resolved Past Medical History - Allergies and Home Meds Allergies/Adverse Reactions: Allergies No Known Allergies Allergy (Verified 10/29/20 17:48) Primary Care Physician: Jaswinder Hill DO [Primary Care Provider] - Past Medical History: - - Emphysema Surgical History: - - parathyroidectomy Lives: Spouse/ Significant Other Smoking Status: Former smoker Drugs: None - Family History Maternal Family History: Family History (Last Reviewed 01/06/20 @ 10:04 by Sandra SELLERS, PA) Mother Cancer Father Cancer Brother Seizures Sister Cancer Family History: Reports: No pertinent history Paternal Family History: Family History (Last Reviewed 01/06/20 @ 10:04 by Sandra SELLERS, PA) Mother Cancer Father Cancer Brother Seizures Sister Cancer Family History: Reports: No pertinent history Sibling Family History: Family History (Last Reviewed 01/06/20 @ 10:04 by Sandra SELLERS, PA) Mother Cancer Father Cancer Brother Seizures Sister Cancer Family History: Reports: - - sister- cancer Review of Systems General: Denies: Chills, Fever, Sweats Eyes: Denies: Visual changes - bilaterally, Diplopia ENT: Denies: Rhinorrhea, Sore throat Cardiovascular: Denies: Chest pain, Palpitations Respiratory: Reports: Dyspnea, Cough. Denies: Dyspnea on exertion Gastrointestinal: Denies: Abdominal pain, Nausea, Vomiting, Diarrhea, Melena, Hematochezia Genitourinary: Denies: Dysuria, Hematuria, Frequency Musculoskeletal: Reports: Swelling. Denies: Back pain, Extremity Pain Skin: Denies: Rash, Wounds Neurological: Denies: Headache, Weakness, Numbness Physical Exam Vital Signs/Narrative: Vital Signs Temp Pulse Resp BP Pulse Ox 10/29/20 17:46 97.5 F L 93 22 H 135/65 H 99 Inital Vital Signs reviewed: Yes General: Well nourished, Well developed, No Acute Distress Head: Normocephalic, Atraumatic Eyes: Perrl, EOMI ENT: Moist mucous membranes, No rhinorrhea Neck: Supple, Nontender Cardiovascular: Regular rate, Regular rhythm, No murmurs Respiratory: No distress, CTA bilaterally, Chest nontender Abdomen: Soft, Nontender, Nondistended, Normal bowel sounds Back: Nontender, Normal Inspection Extremities: Nontender, Edema - Nonpitting edema of the feet and distal legs. Skin: Normal color, No rash Neurological: Alert, Oriented x3, Cranial nerves II-XII grossly intact, Normal Strength, Normal Sensation Psychological: Normal affect, Normal Mood Diagnostic/Tx/Re-eval Laboratory Last Values WBC 3.7 K/mm3 (4.4-11.0) L 10/29/20 18:40 RBC 1.83 M/mm3 (4.6-6.2) L 10/29/20 18:40 Hgb 6.1 g/dL (13.0-16.5) L 10/29/20 18:40 Hct 18.3 % (40-54) L 10/29/20 18:40 MCV 100.0 fL (80-94) H 10/29/20 18:40 MCH 33.3 pg (27.0-32.0) H 10/29/20 18:40 MCHC 33.3 g/dL (32-36) 10/29/20 18:40 RDW Std Deviation 61.9 fl (35.1-43.9) H 10/29/20 18:40 RDW Coeff of Rosie 18.6 % (11.6-14.6) H 10/29/20 18:40 Plt Count 26 K/mm3 (150-450) L* 10/29/20 18:40 MPV 13.3 fl (6.2-12.0) H 10/29/20 18:40 Immature Gran % (Auto) 1.600 % (0.0-0.9) H 10/29/20 18:40 Neut % (Auto) 52.4 % (47-70) 10/29/20 18:40 Lymph % (Auto) 19.2 % (19-41) 10/29/20 18:40 [place] % (Auto) 26.0 % (0-10) H 10/29/20 18:40 Eos % (Auto) 0.5 % (0-5) 10/29/20 18:40 Baso % (Auto) 0.3 % (0-1) 10/29/20 18:40 Absolute Neuts (auto) 1.9 X10^3/uL (2.0-7.7) L 10/29/20 18:40 Absolute Lymphs (auto) 0.70 X10^3/uL (0.83-4.51) L 10/29/20 18:40 Nucleated RBC % 3.8 % (0-5) 10/29/20 18:40 Diff Path Review February10/29/20 18:40 Platelet Estimate MKD DEC (ADEQ) 10/29/20 18:40 RBC Morphology N CHROM NORMAL (NORM C&C) 10/29/20 18:40 Polychromasia RARE 10/29/20 18:40 Hypochromasia 1+ 10/29/20 18:40 Anisocytosis 1+ 10/29/20 18:40 Macrocytosis 1+ 10/29/20 18:40 PT 13.6 SECONDS (11.7-14.9) 10/29/20 18:40 INR 1.1 10/29/20 18:40 APTT 44.0 Seconds (24.1-36.2) H 10/29/20 18:40 Sodium 142 mmol/L (136-145) 10/29/20 18:40 Potassium 4.1 mmol/L (3.5-5.1) 10/29/20 18:40 Chloride 110 mmol/L (98-107) H 10/29/20 18:40 Carbon Dioxide 27.0 mmol/L (21.0-32.0) 10/29/20 18:40 Anion Gap 5 (5-15) 10/29/20 18:40 BUN 20 mg/dL (7-18) H 10/29/20 18:40 Creatinine 1.13 mg/dL (0.70-1.30) 10/29/20 18:40 Estim Creat Clear Calc 61.37 ml/min 10/29/20 18:40 Est GFR (MDRD) Af Amer 83 mL/min (>60) 10/29/20 18:40 Est GFR (MDRD) Non-Af 69 mL/min (>60) 10/29/20 18:40 BUN/Creatinine Ratio 17.7 RATIO (10-20) 10/29/20 18:40 Glucose 79 mg/dL (74-106) 10/29/20 18:40 Calcium 8.2 mg/dL (8.5-10.1) L 10/29/20 18:40 Total Bilirubin 0.80 mg/dL (0.20-1.00) 10/29/20 18:40 AST 32 U/L (15-37) 10/29/20 18:40 ALT 45 U/L (16-61) 10/29/20 18:40 Alkaline Phosphatase 50 U/L (45-117) 10/29/20 18:40 Troponin I < 0.015 ng/mL (<0.045) 10/29/20 18:40 B-Natriuretic Peptide 73.8 pg/mL (0-100) 10/29/20 18:40 Total Protein 6.8 g/dL (6.4-8.2) 10/29/20 18:40 Albumin 3.1 g/dL (3.2-5.0) L 10/29/20 18:40 Globulin 3.7 g/dL (2.2-4.2) 10/29/20 18:40 Albumin/Globulin Ratio 0.8 RATIO (0.9-2.4) L 10/29/20 18:40 Clinical Impression(s) from Imaging Studies Chest CTA 10/29/20 18:07 IMPRESSION: No demonstrated pulmonary embolism or arterial dissection. Enlarged left axillary lymph nodes, may be reactive however cannot exclude an underlying neoplastic process. Mild emphysema. Atherosclerosis. Electronically Signed: Paty Richardson MD at 20:04 EST Tel , Service support , - EKG Initial EKG Interpretation: Sinus Rhythm - EKG demonstrates a normal sinus rhythm at a rate of 84. No concerning features of ACS or ectopy noted. - Medical Decision Making The patient has pancytopenia. His CTA of the chest is negative. His CMP troponin and BNP negative. I spoke with his oncologist Dr. Kebede. Patient will be transfused 2 units. He will speak with the hospitalist about admission. ED Disposition - Plan for ED Patient: Disposition: Acute Care Hospital [facility] Diagnosis: Leukopenia, Thrombocytopenia, Dyspnea, Anemia requiring transfusions Referrals: Jaswinder Hill DO [Primary Care Provider] -
[2020-10-29 19:00] LABS: Absolute Neutrophil Count 1.9 X10^3/uL (2.0-7.7); Basophil# 0.01 X10^3/uL; Basophil% 0.3 % (0-1); Eosinophil# 0.02 X10^3/uL; Eosinophils% 0.5 % (0-5); Hematocrit 18.3 % (40-54); Hemoglobin 6.1 g/dL (13.0-16.5); Lymphocyte % 19.2 % (19-41); Mean Corp Hgb Conc 33.3 g/dL (32-36); Mean Corpuscular Hgb 33.3 pg (27.0-32.0); Mean Platelet Vol. 13.3 fl (6.2-12.0); Monocyte# 0.95 X10^3/uL; NRBC Flagged by Analyzer 3.8 % (0-5); Neutrophil # 1.91 X10^3/uL (2.7-7.7); Neutrophil % 52.4 % (47-70); POSITIVE COUNT YES; RBC Distribution Width CV 18.6 % (11.6-14.6); RBC Distribution Width SD 61.9 fl (35.1-43.9); Red Blood Count 1.83 M/mm3 (4.6-6.2); White Blood Count 3.7 K/mm3 (4.4-11.0)
[2020-10-29 19:03] LABS: International Normalized Ratio 1.1; Prothrombin Time (Protime)PT. 13.6 SECONDS (11.7-14.9)
[2020-10-29 19:13] LABS: ALB/GLOB Ratio 0.8 RATIO (0.9-2.4); AST(SGOT) 32 U/L (15-37); Alanine Aminotransfer ALT/SGPT 45 U/L (16-61); Albumin, Serum 3.1 g/dL (3.2-5.0); Alkaline Phosphatase 50 U/L (45-117); Anion Gap 5 (5-15); BUN 20 mg/dL (7-18); BUN/Creat Ratio 17.7 RATIO (10-20); Calcium,Total 8.2 mg/dL (8.5-10.1); Chloride 110 mmol/L (98-107); Creatinine, Serum 1.13 mg/dL (0.70-1.30); EST Glomerular Filtration Rate 69 mL/min (>60); Est Glom Filt Rate - Afr Amer 83 mL/min (>60); Estimated Creatinine Clearance 61.37 ml/min; Globulin 3.7 g/dL (2.2-4.2); Glucose 79 mg/dL (74-106); Potassium 4.1 mmol/L (3.5-5.1); Protein, Total 6.8 g/dL (6.4-8.2); Sodium Level 142 mmol/L (136-145)
[2020-10-29 19:20] LABS: Differential Indicated SCAN CRITERIA MET
[2020-10-29 19:23] LABS: Platelet Count 26 K/mm3 (150-450)
[2020-10-29 19:27] LABS: Anisocytosis 1+; Hypochromasia 1+; Macrocytosis 1+; Platelet Estimate MKD DEC (ADEQ); Polychromasia RARE; Red Cell Morphology N CHROM NORMAL (NORM C&C)
[2020-10-29 19:50] LABS: BNP,B-Type NATRIURETIC PEPTIDE 73.8 pg/mL (0-100)
--- NOTE | 2020-10-29 20:23 | HP.PCM_ITS ---
Problem List (1) Pancytopenia Status: Acute (2) Malignant pericardial effusion Status: Resolved (3) Malignant neoplasm of urinary bladder Status: Chronic Qualifiers: Bladder location: unspecified site Qualified Code(s): C67.9 - Malignant neoplasm of bladder, unspecified (4) Ascending aorta dilation Status: Chronic Comment: 4.3 cm per ECHO 03/04/19 (5) GERD (gastroesophageal reflux disease) Status: Chronic Qualifiers: Esophagitis presence: esophagitis presence not specified Qualified Code(s): K21.9 - Gastro-esophageal reflux disease without esophagitis (6) Essential hypertension Status: Chronic (7) Paroxysmal atrial fibrillation Status: Chronic (8) Former tobacco use Status: Chronic (9) Hyperlipemia Status: Chronic Qualifiers: Hyperlipidemia type: unspecified Qualified Code(s): E78.5 - Hyperlipidemia, unspecified History of Present Illness Date of Admission: 10/29/20 Chief Complaint: Dyspnea, worsening with edema. The patient is a 69 y/o M w/ PMHx: Hx Ascending aortic dilation (03/04/19 4.3 cm), PAF, HTN, HLD, Metastatic Bladder CA with history of pericardial tamponade history noted to be malignant with ongoing chemotherapy with chronic pancytopenia following w/ Dr. Kebede with most recent chemotherapy 2 weeks prior to current presentation with recent acute onset x 1 week notable dyspnea, more exertional with onset BL hand and pedal mild non-pitting edema x 2 days prompting discussion with his Hand Funnel Coater who referred him to the ED. he does admit also recently having fallen the week prior with dizziness, appearance has been more pale and over the last 2 days he has had an occasional left-sided nosebleed which seem to have resolved. Work-up in the ED included T 97.5, heart rate 93, BP 135/65, respiratory rate 22, 99% on room air, CBC with WC 3.7, hemoglobin 6.1, platelet 26 with neutropenia with ANC 1.9 and lymphopenia with absolute lymphs 0.70, coags with PT 13.6, INR 1.1, PTT 44, CMP with chloride 110, BUN/1020/1.13, troponin less than 0.015, BNP 73.8, unremarkable hepatic profile, CTPA with no demonstrated pulmonary emboli or arterial dissection, enlarged left axillary lymph nodes possibly reactive however unable to exclude neoplastic process, emphysematous changes, atherosclerosis, EKG with sinus rhythm with no acute evidence of ischemia. Past Medical History Past Medical History (Chronic Problems): Chronic Problems (Last Reviewed 01/06/20 @ 10:04 by Sandra SELLERS, PA) Former tobacco use (Chronic) Lung nodule (Chronic) Malignant neoplasm of urinary bladder (Chronic) Ascending aorta dilation (Chronic) 4.3 cm per ECHO 03/04/19 GERD (gastroesophageal reflux disease) (Chronic) Essential hypertension (Chronic) Paroxysmal atrial fibrillation (Chronic) Hyperlipemia (Chronic) Medical History: Medical History (Last Reviewed 01/06/20 @ 10:04 by Sandra SELLERS, PA) Lung nodule (Chronic) R91.1 Malignant pericardial effusion (Resolved) I31.3, C80.1 Malignant neoplasm of urinary bladder (Chronic) C67.9 Ascending aorta dilation (Chronic) I77.810 4.3 cm per ECHO 03/04/19 GERD (gastroesophageal reflux disease) (Chronic) K21.9 Essential hypertension (Chronic) I10 Paroxysmal atrial fibrillation (Chronic) I48.0 Hyperlipemia (Chronic) E78.5 Atrial fibrillation with RVR (Acute) I48.91 Bladder tumor D49.4 Allergies No Known Allergies Allergy (Verified 10/29/20 17:48) Home Medications: Ambulatory Orders Medication Instructions Recorded tamsulosin 0.4 mg capsule 0.4 mg PO QHS 09/03/18 Cyanocobalamin (Vitamin B-12) 1,000 mcg PO DAILY 08/03/19 [Vitamin B-12] Cholecalciferol (Vitamin D3) 2,000 unit PO DAILY 08/18/19 [D3-2000] Rosuvastatin Calcium 10 mg PO QHS 08/18/19 aspirin 81 mg tablet,delayed 81 mg PO DAILY 08/27/19 release metoprolol tartrate 25 mg tablet 25 mg PO BID #180 tab 10/18/20 Ascorbic Acid [Vitamin C] 500 mg PO DAILY 10/29/20 Duloxetine Hcl [Cymbalta] 60 mg PO DAILY 10/29/20 Pantoprazole Sodium [Protonix] 20 mg PO DAILY 10/29/20 Surgical History: Surgical History (Last Reviewed 01/06/20 @ 10:04 by Sandra SELLERS, PA) S/P pericardiocentesis (Resolved) Onset Date: ~08/04/19 Z98.890 History of bladder surgery Onset Date: ~06/03/18 Z98.890 x2 01/07/18, 06/03/18 History of parathyroidectomy Z98.890 Surgical History: - - Parathyroidectomy, bladder surgery x2, pericardiocentesis, remote history of chest tube placement secondary to pneumothorax (left-sided). Psychiatric History: Anxiety, Depression Lives: Spouse/ Significant Other Smoking Status: Former smoker - Patient quit cigarette tobacco usage approximately 3 years prior to current presentation with prior to this tramaine roximately 1 pack/day cigarette tobacco usage since he had been a teenager. Tobacco Use: Non-smoker Alcohol: None Drugs: None - *Family History Sibling Family History: Family History (Last Reviewed 01/06/20 @ 10:04 by Sandra SELLERS, PA) Mother Cancer Father Cancer Brother Seizures Sister Cancer History Items: - - sister- cancer Maternal Family History: Family History (Last Reviewed 01/06/20 @ 10:04 by Sandra SELLERS, PA) Mother Cancer Father Cancer Brother Seizures Sister Cancer History Items: Cancer - Mother with a history of lung cancer. Paternal Family History: Family History (Last Reviewed 01/06/20 @ 10:04 by Sandra SELLERS, PA) Mother Cancer Father Cancer Brother Seizures Sister Cancer History Items: Cancer - Father with a history of stomach cancer. Review of Systems Constitutional: Reports: Malaise, Weakness, Fatigue. Denies: Anorexia, Chills, Fever, Weight Change HEENT: Reports: Hard of Hearing, Nasal bleeding. Denies: Head Aches, Sinus Congestion, Sinus Drainage Cardiovascular: Reports: Light Headedness. Denies: Chest Pain, Palpitations Respiratory: Reports: Shortness of Breath, Shortness of breath upon exertion. Denies: Cough, Shortness of breath at rest, Sputum production Gastrointestinal: Denies: Abdominal Pain, Nausea, Vomiting Genitourinary: Denies: Dysuria Musculoskeletal: Reports: Joint Pain. Denies: Joint Tenderness Skin: Denies: Rash, Wounds Neurological: Denies: Numbness, Tingling, Focal weakness Psychiatric: Reports: Anxiety, Depression. Denies: Homicidal Ideations, Suicidal Ideations Hematologic/ Lymphatic: Reports: Anemia, Easy Bruising, Easy Bleeding VTE Information - Inpt Only VTE Present on Admission: No VTE Mechan Device Prophylaxis: SCD's VTE Pharm Prophylaxis ordered?: No Reason prophylaxis not ordered:: Medical Contraindication - Significant pancytopenia as noted. Patient Problems: Active and Suspected Problems (Last Reviewed 01/06/20 @ 10:04 by Sandra Curry PA, PA) Leukopenia (Acute) Thrombocytopenia (Acute) Dyspnea (Acute) Anemia requiring transfusions (Acute) Subjective: Patient laying in the ED bed, fatigued appearing, pale, no acute distress. Objective: Physical Examination: General: awake, alert, oriented x 3 and cooperative, hard of hearing, seated upright in the ED bed in no apparent distress. Skin: Pale color, normal turgor, no icterus, no cyanosis. HEENT: AT/NC, EOMI, PERRLA, moderately dry MM, no carotid bruits or JVD noted, mild lower lid edema. Lungs: Diminished breath sounds, greater bases, moderate effort, no rales, ronchi or wheezing. Heart: Regular rate and rhythm; no gallop, rub audible. Abdomen: soft, NTTP, ND, mildly hyperactive BS, no HSM. Extremities: no cyanosis or clubbing, very minimal hand and pedal nonpitting edema. Neurological: patient awake, alert, oriented as noted; cognitive function appears baseline intact; pupils equally reactive to light and accomodation; cranial nerves II-XII grossly normal, moving all 4 extremities, no focal deficits, strength moderately to severely globally decreased secondary to acute presentation. Psychiatric: affect appears fatigued otherwise normal, no acute evidence of depressive or anxiety feelings. - Physical Exam Vitals/I&O's: Vital Signs Temp Pulse Resp BP Pulse Ox 97.5 F L 83 16 117/77 96 10/29/20 17:46 10/29/20 19:00 10/29/20 19:00 10/29/20 19:00 10/29/20 19:00 Oxygen Delivery Method Room Air Weight: 209 lb 10.554 oz Body Mass Index (BMI) 31.8 Laboratory Results 10/29/20 18:40: WBC 3.7 L, RBC 1.83 L, Hgb 6.1 L, Hct 18.3 L, MCV 100.0 H, MCH 33.3 H, MCHC 33.3, RDW Std Deviation 61.9 H, RDW Coeff of Rosie 18.6 H, Plt Count 26 L*, MPV 13.3 H, Immature Gran % (Auto) 1.600 H, Neut % (Auto) 52.4, Lymph % (Auto) 19.2, [place] % (Auto) 26.0 H, Eos % (Auto) 0.5, Baso % (Auto) 0.3, Absolute Neuts (auto) 1.9 L, Absolute Lymphs (auto) 0.70 L, Nucleated RBC % 3.8, Diff Path Review February, Platelet Estimate MKD DEC, RBC Morphology N CHROM, Polychromasia RARE, Hypochromasia 1+, Anisocytosis 1+, Macrocytosis 1+ 10/29/20 18:40: PT 13.6, INR 1.1, APTT 44.0 H 10/29/20 18:40: Sodium 142, Potassium 4.1, Chloride 110 H, Carbon Dioxide 27.0, Anion Gap 5, BUN 20 H, Creatinine 1.13, Estim Creat Clear Calc 61.37, Est GFR (MDRD) Af Amer 83, Est GFR (MDRD) Non-Af 69, BUN/Creatinine Ratio 17.7, Glucose 79, Calcium 8.2 L, Total Bilirubin 0.80, AST 32, ALT 45, Alkaline Phosphatase 50, Troponin I < 0.015, Total Protein 6.8, Albumin 3.1 L, Globulin 3.7, Albumin/Globulin Ratio 0.8 L 10/29/20 18:40: B-Natriuretic Peptide 73.8 Assessment/Plan All Active Problems (Last Reviewed 01/06/20 @ 10:04 by Sandra Curry PA, PA) Leukopenia (Acute) Thrombocytopenia (Acute) Dyspnea (Acute) Anemia requiring transfusions (Acute) Pancytopenia (Acute) ST segment changes on electrocardiogram (Acute) Abnormal EKG (Acute) Neck pain on right side (Acute) S/P pericardiocentesis (Resolved ~08/04/19) Malignant pericardial effusion (Resolved) Pericardial effusion, acute (Resolved) Atrial fibrillation with RVR (Acute) Hyperparathyroidism (Resolved) The patient is a 69 y/o M w/ PMHx: Hx Ascending aortic dilation (03/04/19 4.3 cm), PAF, HTN, HLD, Metastatic Bladder CA with history of pericardial tamponade history noted to be malignant with ongoing chemotherapy with chronic pancytopenia following w/ Dr. Yandy with most recent chemotherapy 2 weeks prior to current presentation with recent acute onset x 1 week notable dyspnea, more exertional with onset BL hand and pedal mild non-pitting edema x 2 days, occasional epistasis and dizziness with fall associated. 1. Acute on Chronic pancytopenia with worsening acute macrocytic anemia, acute thrombocytopenia, acute leukopenia likely secondary to recent chemotherapy with metastatic stage IV bladder cancer: Per discussion with ED physician most recent [facility] records approximately 2 weeks ago CBC w/ WBC 2.4, Hgb 9.4, Plts 180, [facility], maintain on fall precautions, monitor blood pressures with hold parameters to his medications given significantly low hemoglobin, per oncology recommendations will continue with plan 2 unit PRBC administration, plan repeat following, will continue to trend, will avoid transfusion of platelets at this time per their preference given no bleeding but will plan repeat CBC with differential in a.m., will consult oncology to follow in house, magnesium and phosphorus levels requested and will supplement if appropriate, PT/OT/case management consultation for discharge planning. 2. History of pericardial tamponade, malignant, secondary to as noted #1 metastatic bladder cancer: Recent 12/23/2019 echocardiogram with normal LV systolic function, EF 55%, trivial MVI, mild TVI, mild HU, mild PVI, mildly dilated RA aortic root, RVSP 25 mmHg, no evidence for diastolic dysfunction. 3. PAF: We will continue patient home metoprolol regimen with hold parameters, given presentation will hold aspirin therapy, not anticoagulated. 4. Ascending aortic dilation: CTPA with no mention, likely more distal, noted most recent evaluation 03/04/2019 4.3 cm, encourage outpatient continued follow- up. 5. Hypertension: Continue home regimen including metoprolol with hold parameters, PRN hydralazine. 6. Hyperlipidemia: We will continue patient home statin regimen. 7. BPH, complication secondary to #1: We will continue patient home Flomax regimen. 8. Anxiety and depression: We will continue patient home Cymbalta regimen. 9. GERD: We will continue patient PPI. 10. DVT prophylaxis: SCDs, defer any chemoprophylaxis given acute presentation with acute on chronic pancytopenia requiring blood transfusion. 11. CODE status: Patient HCPGAGANDEEP is his Daughter Rosy Louise, an ART PROFESSOR working with Dr. Miller in Neurology. She notes also his living will is in place. Discussed CODE status at length including difference between FULL code, DNR-CCA and DNR-CC status. Following discussions about the differences in these status, requested continued Full Code status. Advanced Care Planning Face to Face Time: 16 minutes. Inpatient E&M: 21933 Init Hosp L3 Procedures: 29577 Advncd Care Plan 30 Min
[2020-10-29 20:42] LABS: Bacteria 0 SEEN /hpf (None Seen); Mucous, Urine 0 SEEN /hpf (<or=2+); Squamous Epithelial Cells - UA 0 SEEN /hpf (0-5)
[2020-10-29 20:52] LABS: Color, Urine Yellow (Yellow); Glucose, Dipstick Normal (Normal); Ketone-Dipstick Negative (Negative); Leukocyte Esterase-Dipstick 25 /ul (Negative); Nitrite-Dipstick Negative (Negative); Occult Blood-Urine 150 /ul (Negative); Protein-Dipstick 15 mg/dl (Negative); Specific Gravity, Urine 1.005 (1.002-1.030); Urine Bilirubin Dipstick Negative (Negative); Urine Clarity Clear (Clear); Urine Urobilinogen 8 mg/dl (Normal)
[2020-10-29 21:06] LABS: Hyaline Cast 0-5 SEEN /lpf (0-5); Red Blood Cells-Urine 5-10 SEEN /hpf (0-5); White Blood Cells 0-5 SEEN /hpf (0-5)
[2020-10-29] MEDS: 0.9% Normal Saline 1,000 ML 100 ML IV (23:23)
[2020-10-29 23:27] LABS: Magnesium 1.5 mg/dL (1.6-2.6); Phosphorus 2.5 mg/dL (2.5-4.9)
[2020-10-29] MEDS: Acetaminophen 325 MG Tablet 650 MG PO (23:46)
[2020-10-29] MEDS: Metoprolol Tartrate 25 MG Tablet PO (23:48)
[2020-10-29] MEDS: Tamsulosin HCl 0.4 MG Capsule PO (23:48)
[2020-10-30] VITALS (22 sets, daily range): BP systolic 105–141; BP diastolic 59–90; PULSE 63–82; RESP 14–20; TEMP 36.4–36.9; O2SAT 94–99
[2020-10-30] MEDS: 0.9% Saline Lock 10 ML Syringe IV ×2 (00:38→21:14)
[2020-10-30 08:06] LABS: Absolute Lymphocyte Count 0.64 X10^3/uL (0.83-4.51); Absolute Neutrophil Count 1.7 X10^3/uL (2.0-7.7); Basophil# 0.01 X10^3/uL; Basophil% 0.3 % (0-1); Eosinophil# 0.04 X10^3/uL; Eosinophils% 1.2 % (0-5); Hematocrit 23.4 % (40-54); Hemoglobin 7.6 g/dL (13.0-16.5); Lymphocyte # 0.64 X10^3/ul (4.0); Mean Corp Hgb Conc 32.5 g/dL (32-36); Mean Corpuscular Hgb 31.7 pg (27.0-32.0); Mean Corpuscular Volume 97.5 fL (80-94); Mean Platelet Vol. 12.3 fl (6.2-12.0); Monocyte# 0.87 X10^3/uL; Monocyte% 25.9 % (0-10); NRBC Flagged by Analyzer 2.4 % (0-5); Neutrophil # 1.73 X10^3/uL (2.7-7.7); Neutrophil % 51.5 % (47-70); POSITIVE COUNT YES; RBC Distribution Width CV 19.3 % (11.6-14.6); RBC Distribution Width SD 61.3 fl (35.1-43.9); White Blood Count 3.4 K/mm3 (4.4-11.0)
[2020-10-30 08:29] LABS: ALB/GLOB Ratio 0.8 RATIO (0.9-2.4); AST(SGOT) 31 U/L (15-37); Alanine Aminotransfer ALT/SGPT 39 U/L (16-61); Alkaline Phosphatase 45 U/L (45-117); Anion Gap 5 (5-15); BUN 17 mg/dL (7-18); BUN/Creat Ratio 17.3 RATIO (10-20); Calcium,Total 8.2 mg/dL (8.5-10.1); Chloride 110 mmol/L (98-107); Creatinine, Serum 0.98 mg/dL (0.70-1.30); EST Glomerular Filtration Rate 81 mL/min (>60); Est Glom Filt Rate - Afr Amer 97 mL/min (>60); Estimated Creatinine Clearance 70.77 ml/min; Globulin 3.6 g/dL (2.2-4.2); Glucose 91 mg/dL (74-106); Magnesium 1.9 mg/dL (1.6-2.6); Potassium 4.3 mmol/L (3.5-5.1); Protein, Total 6.6 g/dL (6.4-8.2); Sodium Level 142 mmol/L (136-145)
[2020-10-30 08:34] LABS: Platelet Count 26 K/mm3 (150-450)
[2020-10-30 08:41] LABS: Differential Indicated SCAN CRITERIA MET
[2020-10-30 08:43] LABS: Differential Comment SCANNED; Platelet Estimate MKD DEC (ADEQ)
[2020-10-30] MEDS: Cyanocobalamin 500 MCG Tablet 1000 MCG PO (10:18)
[2020-10-30] MEDS: DULoxetine Hcl 60 MG Capsule PO (10:19)
[2020-10-30] MEDS: Metoprolol Tartrate 25 MG Tablet PO ×2 (10:19→21:13)
[2020-10-30] MEDS: Ascorbic Acid 500 MG Tablet PO (10:20)
[2020-10-30] MEDS: Pantoprazole Sodium 20 MG Tablet PO (10:20)
--- NOTE | 2020-10-30 12:03 | PCM.PROGNOTE ---
<AníbalMiriam AGING DEPARTMENT SUPERVISOR - Last Filed: 10/30/20 12:17> Patient Problems: Active and Suspected Problems (Last Reviewed 01/06/20 @ 10:04 by Sandra Curry PA, PA) Leukopenia (Acute) Thrombocytopenia (Acute) Dyspnea (Acute) Anemia requiring transfusions (Acute) Pancytopenia (Acute) Subjective: Patient seen and examined. Denies chest pain, shortness of breath, lightheadedness. Reports he feels tired. Denies other associated symptoms or complaints. Denies any blood in stool or dark stools. - Physical Exam Vitals/I&O's: Vital Signs Temp Pulse Resp BP Pulse Ox 97.9 F 69 14 126/77 H 97 10/30/20 10:13 10/30/20 10:19 10/30/20 10:13 10/30/20 10:13 10/30/20 10:13 Oxygen Delivery Method Room Air Weight: 207 lb 7.28 oz Body Mass Index (BMI) 31.3 Intake and Output for Last 24 Hours 10/28/20 10/29/20 10/30/20 23:59 23:59 23:59 Intake Total 43.33 / 163.33 1024 / 1024 Output Total 275 / 275 Balance 43.33 / 163.33 749 / 749 General: Alert, Oriented x3, Cooperative HEENT: Atraumatic, PERRLA, EOMI, Normocephalic Neck: Supple, No JVD, Negative Carotid Bruits Lungs: Clear to auscultation, Diminished Cardiovascular: Regular rate, No murmurs Abdomen: Bowel Sounds Present, Soft, Non Tender, Non-Distended Extremities: No clubbing, No cyanosis, No edema, Capillary Refill Less than 3 Seconds Skin: No rashes, No breakdown Musculoskeletal: No Tenderness to Palpation of Joints or Extremities Neurological: Cranial nerves II-XII grossly intact, Neuro grossly intact Psych/Mental Status: Normal Affect, Appropriate Microbiology Past 72 Hours 10/29/20 21:15 Mucosa - Nose SARS-CoV-2 Antigen (Rapid) - Final Laboratory Results 10/29/20 18:40: WBC 3.7 L, RBC 1.83 L, Hgb 6.1 L, Hct 18.3 L, MCV 100.0 H, MCH 33.3 H, MCHC 33.3, RDW Std Deviation 61.9 H, RDW Coeff of Rosie 18.6 H, Plt Count 26 L*, MPV 13.3 H, Immature Gran % (Auto) 1.600 H, Neut % (Auto) 52.4, Lymph % (Auto) 19.2, [place] % (Auto) 26.0 H, Eos % (Auto) 0.5, Baso % (Auto) 0.3, Absolute Neuts (auto) 1.9 L, Absolute Lymphs (auto) 0.70 L, Nucleated RBC % 3.8, Diff Path Review February foll, Platelet Estimate MKD DEC, RBC Morphology N CHROM, Polychromasia RARE, Hypochromasia 1+, Anisocytosis 1+, Macrocytosis 1+ 10/29/20 18:40: PT 13.6, INR 1.1, APTT 44.0 H 10/29/20 18:40: Sodium 142, Potassium 4.1, Chloride 110 H, Carbon Dioxide 27.0, Anion Gap 5, BUN 20 H, Creatinine 1.13, Estim Creat Clear Calc 61.37, Est GFR (MDRD) Af Amer 83, Est GFR (MDRD) Non-Af 69, BUN/Creatinine Ratio 17.7, Glucose 79, Calcium 8.2 L, Total Bilirubin 0.80, AST 32, ALT 45, Alkaline Phosphatase 50, Troponin I < 0.015, Total Protein 6.8, Albumin 3.1 L, Globulin 3.7, Albumin/Globulin Ratio 0.8 L 10/29/20 18:40: B-Natriuretic Peptide 73.8 10/29/20 18:40: Phosphorus 2.5, Magnesium 1.5 L 10/29/20 20:40: Urine Color Yellow, Urine Clarity Clear, Urine pH 7.0, Ur Specific Ta[place] 1.005, Urine Protein 15 H, Urine Glucose (UA) Normal, Urine Ketones Negative, Urine Occult Blood 150 H, Urine Nitrite Negative, Urine Bilirubin Negative, Urine Urobilinogen 8 H, Ur Leukocyte Esterase 25 H, Urine RBC 5-10 SEEN, Urine WBC 0-5 SEEN, Ur Squamous Epith Cells 0 SEEN, Urine Bacteria 0 SEEN, Hyaline Casts 0-5 SEEN, Urine Mucus 0 SEEN 10/29/20 20:45: Blood Type O POSITIVE, Antibody Screen NEGATIVE, Crossmatch See Detail 10/30/20 07:35: WBC 3.4 L, RBC 2.40 L, Hgb 7.6 L, Hct 23.4 L, MCV 97.5 H, MCH 31.7, MCHC 32.5, RDW Std Deviation 61.3 H, RDW Coeff of Rosie 19.3 H, Plt Count 26 L*, MPV 12.3 H, Immature Gran % (Auto) 2.100 H, Neut % (Auto) 51.5, Lymph % (Auto) 19.0, [place] % (Auto) 25.9 H, Eos % (Auto) 1.2, Baso % (Auto) 0.3, Absolute Neuts (auto) 1.7 L, Absolute Lymphs (auto) 0.64 L, Nucleated RBC % 2.4, Differential Comment SCANNED, Diff Path Review February celia, Platelet Estimate MKD 10/30/20 07:35: Sodium 142, Potassium 4.3, Chloride 110 H, Carbon Dioxide 27.0, Anion Gap 5, BUN 17, Creatinine 0.98, Estim Creat Clear Calc 70.77, Est GFR (MDRD) Af Amer 97, Est GFR (MDRD) Non-Af 81, BUN/Creatinine Ratio 17.3, Glucose 91, Calcium 8.2 L, Magnesium 1.9, Total Bilirubin 1.10 H, AST 31, ALT 39, Alkaline Phosphatase 45, Total Protein 6.6, Albumin 3.0 L, Globulin 3.6, Albumin/Globulin Ratio 0.8 L Current Medications Acetaminophen (Acetaminophen 325 Mg Tablet) 650 mg PO Q6H PRN PRN PRN Reason: Pain Score 1-10/Temp > 100.7 F Last Admin: 10/29/20 23:46 Dose: 650 mg Documented by: Al Hydroxide/Mg Hydroxide (Mag Hydrox/Al Hydrox/Simeth 30 Ml Udc) 30 ml PO Q6H PRN PRN PRN Reason: Gastric Burning Albuterol Sulfate (Albuterol 2.5 Mg/3 Ml Vial.Neb.) 2.5 mg INHALATION Q2H PRN PRN PRN Reason: Dyspnea, wheezing Ascorbic Acid (Ascorbic Acid 500 Mg Tablet) 500 mg PO DAILY [facility] Last Admin: 10/30/20 10:20 Dose: 500 mg Documented by: Atorvastatin Calcium (Atorvastatin Calcium 20 Mg Tablet) 20 mg PO QHS [facility] Cholecalciferol (Cholecalciferol (Vit D3) 1,000 Unit (25mcg)) 2,000 unit PO DAILY [facility] Last Admin: 10/30/20 10:20 Dose: 2,000 unit Documented by: Cyanocobalamin (Cyanocobalamin 500 Mcg Tablet) 1,000 mcg PO DAILY [facility] Last Admin: 10/30/20 10:18 Dose: 1,000 mcg Documented by: Duloxetine HCl (Duloxetine Hcl 60 Mg Capsule) 60 mg PO DAILY [facility] Last Admin: 10/30/20 10:19 Dose: 60 mg Documented by: Guaifenesin (Guaifenesin 10 Ml Udc (200mg/10ml)) 20 ml PO Q4H PRN PRN PRN Reason: COUGH Heparin Sodium (Beef Lung) (Heparin Pf Lock 10 Units/Ml 50 Units/5 Ml Syringe) 50 units IV UD PRN PRN Reason: Port-a-Cath (VAD)Heparin Flush Hydralazine HCl (Hydralazine 20 Mg/Ml Vial) 10 mg IV Q4H PRN PRN PRN Reason: SBP > 160 Magnesium Hydroxide (Magnesium Hydroxide 30 Ml Udc) 30 ml PO DAILY PRN PRN PRN Reason: Constipation Metoprolol Tartrate (Metoprolol Tartrate 25 Mg Tablet) 25 mg PO BID [facility] Last Admin: 10/30/20 10:19 Dose: 25 mg Documented by: Ondansetron HCl (Ondansetron 4 Mg/2 Ml Vial) 4 mg IV Q8H PRN PRN PRN Reason: NAUSEA/VOMITING Pantoprazole Sodium (Pantoprazole Sodium 20 Mg Tablet) 20 mg PO DAILY [facility] Last Admin: 10/30/20 10:20 Dose: 20 mg Documented by: Prochlorperazine Edisylate (Prochlorperazine 10 Mg/2 Ml Vial) 5 mg IV Q4H PRN PRN PRN Reason: Breakthrough nausea/vomiting Psyllium Hydrophilic Mucilloid (Psyllium 1 Packet) 1 packet PO DAILY PRN PRN PRN Reason: Constipation Senna/Docusate Sodium (Senna/Docusate Sodium 1 Tablet) 2 tablet PO BID PRN PRN PRN Reason: Constipation Sodium Chloride (0.9 % Nacl (Sterile) Posiflush 10 Ml) 10 - 40 ml IV UD PRN PRN Reason: Port access or dressing change Sodium Chloride (0.9% Saline Lock 10 Ml Syringe) 10 - 40 ml IV UD PRN PRN Reason: Port-a-Cath (VAD) Flush Last Admin: 10/30/20 00:38 Dose: 10 ml Documented by: Tamsulosin HCl (Tamsulosin Hcl 0.4 Mg Capsule) 0.[address] Last Admin: 10/29/20 23:48 Dose: 0.4 mg Documented by: Temazepam (Temazepam 15 Mg Capsule) 15 mg PO QHS PRN PRN PRN Reason: INSOMNIA Throat Lozenges (Benzocaine/Menthol 1 Lozenge) 1 lozenge MUCOUS MEM Q2H PRN PRN PRN Reason: SORE THROAT Medical Necessity - Tobacco Use Smoking Status: Former smoker Tobacco Use: Non-smoker Assessment/Plan All Active Problems (Last Reviewed 01/06/20 @ 10:04 by Sandra Curry PA, PA) Leukopenia (Acute) Thrombocytopenia (Acute) Dyspnea (Acute) Anemia requiring transfusions (Acute) Pancytopenia (Acute) ST segment changes on electrocardiogram (Acute) Abnormal EKG (Acute) Neck pain on right side (Acute) S/P pericardiocentesis (Resolved ~08/04/19) Malignant pericardial effusion (Resolved) Pericardial effusion, acute (Resolved) Atrial fibrillation with RVR (Acute) Hyperparathyroidism (Resolved) 1. Acute on chronic pancytopenia, anemia-secondary to chemotherapy regimen. Status post 2 units PRBC. Repeat hemoglobin 7.6. [facility] oncology consulted. Plan for additional PRBC if hemoglobin less than 7. Platelets stable. No evidence of active bleeding. ANC 1.7. Trend CBC. 2. Metastatic stage IV bladder cancer-oncology consulted as noted above. 3. History of malignant pericardial effusion status post pericardiocentesis at [facility] 08/04/2019 4. Paroxysmal atrial fibrillation-continue metoprolol. Aspirin on hold. Not on anticoagulation. 5. Ascending aortic aneurysm-continue outpatient follow-up. 6. Hypertension-stable, continue metoprolol. 7. Hyperlipidemia-continue statin. 8. BPH-continue Flomax. 9. Anxiety/depression-continue Cymbalta. 10. GERD-continue PPI. DVT prophylaxis-SCDs This patient was seen by EVER Schroeder under the supervision of Dr. Khan. <Christian Khan - Last Filed: 10/30/20 12:35> - Physical Exam Vitals/I&O's: Vital Signs Temp Pulse Resp BP Pulse Ox 97.9 F 69 14 126/77 H 97 10/30/20 10:13 10/30/20 10:19 10/30/20 10:13 10/30/20 10:13 10/30/20 10:13 Oxygen Delivery Method Room Air Weight: 94.1 kg Body Mass Index (BMI) 31.3 Intake and Output for Last 24 Hours 10/28/20 10/29/20 10/30/20 23:59 23:59 23:59 Intake Total 43.33 / 163.33 1024 / 1024 Output Total 275 / 275 Balance 43.33 / 163.33 749 / 749 Microbiology Past 72 Hours 10/29/20 21:15 Mucosa - Nose SARS-CoV-2 Antigen (Rapid) - Final Laboratory Results 10/29/20 18:40: WBC 3.7 L, RBC 1.83 L, Hgb 6.1 L, Hct 18.3 L, MCV 100.0 H, MCH 33.3 H, MCHC 33.3, RDW Std Deviation 61.9 H, RDW Coeff of Rosie 18.6 H, Plt Count 26 L*, MPV 13.3 H, Immature Gran % (Auto) 1.600 H, Neut % (Auto) 52.4, Lymph % (Auto) 19.2, [place] % (Auto) 26.0 H, Eos % (Auto) 0.5, Baso % (Auto) 0.3, Absolute Neuts (auto) 1.9 L, Absolute Lymphs (auto) 0.70 L, Nucleated RBC % 3.8, Diff Path Review February, Platelet Estimate MKD DEC, RBC Morphology N CHROM, Polychromasia RARE, Hypochromasia 1+, Anisocytosis 1+, Macrocytosis 1+ 10/29/20 18:40: PT 13.6, INR 1.1, APTT 44.0 H 10/29/20 18:40: Sodium 142, Potassium 4.1, Chloride 110 H, Carbon Dioxide 27.0, Anion Gap 5, BUN 20 H, Creatinine 1.13, Estim Creat Clear Calc 61.37, Est GFR (MDRD) Af Amer 83, Est GFR (MDRD) Non-Af 69, BUN/Creatinine Ratio 17.7, Glucose 79, Calcium 8.2 L, Total Bilirubin 0.80, AST 32, ALT 45, Alkaline Phosphatase 50, Troponin I < 0.015, Total Protein 6.8, Albumin 3.1 L, Globulin 3.7, Albumin/Globulin Ratio 0.8 L 10/29/20 18:40: B-Natriuretic Peptide 73.8 10/29/20 18:40: Phosphorus 2.5, Magnesium 1.5 L 10/29/20 20:40: Urine Color Yellow, Urine Clarity Clear, Urine pH 7.0, Ur Specific [place] 1.005, Urine Protein 15 H, Urine Glucose (UA) Normal, Urine Ketones Negative, Urine Occult Blood 150 H, Urine Nitrite Negative, Urine Bilirubin Negative, Urine Urobilinogen 8 H, Ur Leukocyte Esterase 25 H, Urine RBC 5-10 SEEN, Urine WBC 0-5 SEEN, Ur Squamous Epith Cells 0 SEEN, Urine Bacteria 0 SEEN, Hyaline Casts 0-5 SEEN, Urine Mucus 0 SEEN 10/29/20 20:45: Blood Type O POSITIVE, Antibody Screen NEGATIVE, Crossmatch See Detail 10/30/20 07:35: WBC 3.4 L, RBC 2.40 L, Hgb 7.6 L, Hct 23.4 L, MCV 97.5 H, MCH 31.7, MCHC 32.5, RDW Std Deviation 61.3 H, RDW Coeff of Rosie 19.3 H, Plt Count 26 L*, MPV 12.3 H, Immature Gran % (Auto) 2.100 H, Neut % (Auto) 51.5, Lymph % (Auto) 19.0, [place] % (Auto) 25.9 H, Eos % (Auto) 1.2, Baso % (Auto) 0.3, Absolute Neuts (auto) 1.7 L, Absolute Lymphs (auto) 0.64 L, Nucleated RBC % 2.4, Differential Comment SCANNED, Diff Path Review February celia, Platelet Estimate MKD 10/30/20 07:35: Sodium 142, Potassium 4.3, Chloride 110 H, Carbon Dioxide 27.0, Anion Gap 5, BUN 17, Creatinine 0.98, Estim Creat Clear Calc 70.77, Est GFR (MDRD) Af Amer 97, Est GFR (MDRD) Non-Af 81, BUN/Creatinine Ratio 17.3, Glucose 91, Calcium 8.2 L, Magnesium 1.9, Total Bilirubin 1.10 H, AST 31, ALT 39, Alkaline Phosphatase 45, Total Protein 6.6, Albumin 3.0 L, Globulin 3.6, Albumin/Globulin Ratio 0.8 L Current Medications Acetaminophen (Acetaminophen 325 Mg Tablet) 650 mg PO Q6H PRN PRN PRN Reason: Pain Score 1-10/Temp > 100.7 F Last Admin: 10/29/20 23:46 Dose: 650 mg Documented by: Al Hydroxide/Mg Hydroxide (Mag Hydrox/Al Hydrox/Simeth 30 Ml Udc) 30 ml PO Q6H PRN PRN PRN Reason: Gastric Burning Albuterol Sulfate (Albuterol 2.5 Mg/3 Ml Vial.Neb.) 2.5 mg INHALATION Q2H PRN PRN PRN Reason: Dyspnea, wheezing Ascorbic Acid (Ascorbic Acid 500 Mg Tablet) 500 mg PO DAILY [facility] Last Admin: 10/30/20 10:20 Dose: 500 mg Documented by: Atorvastatin Calcium (Atorvastatin Calcium 20 Mg Tablet) 20 mg PO QHS [facility] Cholecalciferol (Cholecalciferol (Vit D3) 1,000 Unit (25mcg)) 2,000 unit PO DAILY [facility] Last Admin: 10/30/20 10:20 Dose: 2,000 unit Documented by: Cyanocobalamin (Cyanocobalamin 500 Mcg Tablet) 1,000 mcg PO DAILY [facility] Last Admin: 10/30/20 10:18 Dose: 1,000 mcg Documented by: Duloxetine HCl (Duloxetine Hcl 60 Mg Capsule) 60 mg PO DAILY [facility] Last Admin: 10/30/20 10:19 Dose: 60 mg Documented by: Guaifenesin (Guaifenesin 10 Ml Udc (200mg/10ml)) 20 ml PO Q4H PRN PRN PRN Reason: COUGH Heparin Sodium (Beef Lung) (Heparin Pf Lock 10 Units/Ml 50 Units/5 Ml Syringe) 50 units IV UD PRN PRN Reason: Port-a-Cath (VAD)Heparin Flush Hydralazine HCl (Hydralazine 20 Mg/Ml Vial) 10 mg IV Q4H PRN PRN PRN Reason: SBP > 160 Magnesium Hydroxide (Magnesium Hydroxide 30 Ml Udc) 30 ml PO DAILY PRN PRN PRN Reason: Constipation Metoprolol Tartrate (Metoprolol Tartrate 25 Mg Tablet) 25 mg PO BID [facility] Last Admin: 10/30/20 10:19 Dose: 25 mg Documented by: Ondansetron HCl (Ondansetron 4 Mg/2 Ml Vial) 4 mg IV Q8H PRN PRN PRN Reason: NAUSEA/VOMITING Pantoprazole Sodium (Pantoprazole Sodium 20 Mg Tablet) 20 mg PO DAILY [facility] Last Admin: 10/30/20 10:20 Dose: 20 mg Documented by: Prochlorperazine Edisylate (Prochlorperazine 10 Mg/2 Ml Vial) 5 mg IV Q4H PRN PRN PRN Reason: Breakthrough nausea/vomiting Psyllium Hydrophilic Mucilloid (Psyllium 1 Packet) 1 packet PO DAILY PRN PRN PRN Reason: Constipation Senna/Docusate Sodium (Senna/Docusate Sodium 1 Tablet) 2 tablet PO BID PRN PRN PRN Reason: Constipation Sodium Chloride (0.9 % Nacl (Sterile) Posiflush 10 Ml) 10 - 40 ml IV UD PRN PRN Reason: Port access or dressing change Sodium Chloride (0.9% Saline Lock 10 Ml Syringe) 10 - 40 ml IV UD PRN PRN Reason: Port-a-Cath (VAD) Flush Last Admin: 10/30/20 00:38 Dose: 10 ml Documented by: Tamsulosin HCl (Tamsulosin Hcl 0.4 Mg Capsule) 0.4 mg PO QHS [facility] Last Admin: 10/29/20 23:48 Dose: 0.4 mg Documented by: Temazepam (Temazepam 15 Mg Capsule) 15 mg PO QHS PRN PRN PRN Reason: INSOMNIA Throat Lozenges (Benzocaine/Menthol 1 Lozenge) 1 lozenge MUCOUS MEM Q2H PRN PRN PRN Reason: SORE THROAT Assessment/Plan This patient was seen in conjunction with EVER Schroeder . I have independently interviewed and examined the patient and reviewed pertinent historical, laboratory, and other data. Please refer to EVER Schroeder note for details of this patient's presentation, findings, and recommendations. I have reviewed EVER Schroeder note and concur with documented findings. In brief, patient is a 69-year-old gentleman with metastatic bladder CA stage IV admitted with progressive generalized weakness and shortness of breath. Patient was found to be pancytopenic with hemoglobin of 6.1, platelet count of 26 WBC count of 3.4 Physical Examination: GENERAL: cooperative HEENT: Atraumatic; EYES; Anicteric, Normal Conjunctiva NECK; supple, normal thyroid, RESPIRATORY: Diminished to auscultation CARDIOVASCULAR: Regular S1 S2, GI: soft, normoactive bowel sounds, : No Renal angle tenderness; NEURO: Awake; no lateralizing signs. SKIN: No Rash PSYCH; Flat affect Assessment: 1. Chemo induced pancytopenia 2. Status post 2 unit PRBC transfusion 3. Stage IV bladder CA with metastasis 4. Paroxysmal A. fib 5. Essential hypertension 6. Dyslipidemia 7. BPH 8. Depression with anxiety 9. GERD 10. Ascending aortic aneurysm-continue outpatient follow-up. 11. DVT prophylaxis-SCDs Recommendations: 1. I have discussed the results of my overview and impressions with the patient 2. Options for management were reviewed Inpatient E&M: [id number] [facility] L[facility]
--- NOTE | 2020-10-30 13:30 | CASEMGMT ---
SANCHEZ SORIANO assessment: Face to Face with patient for initial transition planning/care coordination assessment. SANCHEZ SORIANO introduced self and role at [facility], pt voices understanding and consents to assessment at this time. Pt is sitting up in chair in no distress at this time. Pt is A/Ox4 at this time and answers all questions appropriately at this time. Pt's daughter is at bedside during assessment. Pt does wear hearing aides. Care providers, pharmacy, and demographics verified at this time. Presentation: Pt w/ SOB for about a week, has worsened the last 2 days-Pt also w/ swelling to bilat hands, feet, face Admitting dx: Acute on chronic pancytopenia PCP: Sergio Specialists: Quiana, cardio; Yandy, onc Preferred Pharmacy: [facility] Insurance: [employer] Prescription Benefit: Yes Living Will/HPOA: Pt has LW/HPOA and is aware that they are not on file at [facility] at this time. LNOK: Stacy David, ; Rosy Louise, daughter Living Arrangements: Pt states lives with in 1 story home with 3 steps in and states no concerns at home at this time. Pt states is independent with ADL's. Transportation: Pt states drives self and states no transportation concerns at this time. DME/HHC: Pt states no current DME or need for any further DME at this time. Pt states no hx of HHC or SNF. Pt states no concerns with going home at time of discharge. Pt states is retired. Pt states does not smoke cigarettes or drink ETOH. Pt states no further concerns/needs at this time. CM to follow for any further discharge planning/needs. Advised pt to ask for CM if any further questions/concerns/needs arise, voices understanding. Pt Goal: Home Plan[place] SANCHEZ SORIANO
[2020-10-30 20:11] LABS: Hematocrit 26.7 % (40-54); Hemoglobin 8.9 g/dL (13.0-16.5); Mean Corp Hgb Conc 33.3 g/dL (32-36); Mean Corpuscular Hgb 31.9 pg (27.0-32.0); Mean Corpuscular Volume 95.7 fL (80-94); Mean Platelet Vol. 12.8 fl (6.2-12.0); POSITIVE COUNT YES; RBC Distribution Width CV 19.6 % (11.6-14.6); RBC Distribution Width SD 59.7 fl (35.1-43.9); Red Blood Count 2.79 M/mm3 (4.6-6.2); White Blood Count 3.4 K/mm3 (4.4-11.0)
[2020-10-30 20:13] LABS: Platelet Count 36 K/mm3 (150-450); Scan Indicated on CBC? Y/N YES- FLAGS NOTED
[2020-10-30] MEDS: Tamsulosin HCl 0.4 MG Capsule PO (21:13)
[2020-10-30] MEDS: Atorvastatin Calcium 20 MG Tablet PO (21:13)
[2020-10-31 03:30] VITALS: BP 121/63; PULSE 74; RESP 16; TEMP 36.6; O2SAT 95
[2020-10-31 03:52] VITALS: PULSE 69
[2020-10-31 07:00] VITALS: PULSE 73
[2020-10-31 07:05] VITALS: O2SAT 96
[2020-10-31 07:47] LABS: Hematocrit 27.5 % (40-54); Mean Corp Hgb Conc 32.7 g/dL (32-36); Mean Corpuscular Hgb 31.6 pg (27.0-32.0); Mean Corpuscular Volume 96.5 fL (80-94); Mean Platelet Vol. 12.7 fl (6.2-12.0); POSITIVE COUNT YES; POSITIVE MORPHOLOGY YES; RBC Distribution Width CV 20.9 % (11.6-14.6); RBC Distribution Width SD 62.3 fl (35.1-43.9); Red Blood Count 2.85 M/mm3 (4.6-6.2); White Blood Count 3.4 K/mm3 (4.4-11.0)
[2020-10-31 07:54] LABS: Platelet Count 39 K/mm3 (150-450); Scan Indicated on CBC? Y/N YES- FLAGS NOTED
[2020-10-31 08:01] LABS: Anion Gap 6 (5-15); BUN 15 mg/dL (7-18); BUN/Creat Ratio 15.8 RATIO (10-20); Calcium,Total 8.2 mg/dL (8.5-10.1); Chloride 109 mmol/L (98-107); Creatinine, Serum 0.95 mg/dL (0.70-1.30); EST Glomerular Filtration Rate 84 mL/min (>60); Est Glom Filt Rate - Afr Amer 102 mL/min (>60); Glucose 91 mg/dL (74-106); Potassium 3.8 mmol/L (3.5-5.1); Sodium Level 142 mmol/L (136-145)
[2020-10-31 09:07] VITALS: BP 138/97; PULSE 88; RESP 16; TEMP 36.3; O2SAT 96
[2020-10-31] MEDS: Ascorbic Acid 500 MG Tablet PO (09:07)
[2020-10-31 09:08] VITALS: PULSE 88
[2020-10-31] MEDS: DULoxetine Hcl 60 MG Capsule PO (09:08)
[2020-10-31] MEDS: Cyanocobalamin 500 MCG Tablet 1000 MCG PO (09:08)
[2020-10-31] MEDS: Pantoprazole Sodium 20 MG Tablet PO (09:08)
[2020-10-31] MEDS: Metoprolol Tartrate 25 MG Tablet PO (09:08)
[2020-10-31 09:20] LABS: Differential Comment SCANNED
--- NOTE | 2020-10-31 09:41 | DCINST_ITS ---
- Discharge Diagnoses Current Active Problems: Current Active and Chronic Problems (Last Reviewed 01/06/20 @ 10:04 by Sandra Curry PA, PA) Leukopenia (Acute) Thrombocytopenia (Acute) Dyspnea (Acute) Anemia requiring transfusions (Acute) Pancytopenia (Acute) Former tobacco use (Chronic) Malignant neoplasm of urinary bladder (Chronic) Ascending aorta dilation (Chronic) 4.3 cm per ECHO 03/04/19 GERD (gastroesophageal reflux disease) (Chronic) Essential hypertension (Chronic) Paroxysmal atrial fibrillation (Chronic) Hyperlipemia (Chronic) You will use the following diet at home:: No restrictions Discharge Activity: Return to Normal Activity Call your doctor if you observe: Shortness of breath, Dizziness, Fainting spells, Chest pain Additional Instructions: You will need repeat CBC in 3-5 days which can be ordered and followed by oncology. Allergies/Adverse Reactions: Allergies No Known Allergies Allergy (Verified 10/29/20 17:48) Medications to take at Discharge tamsulosin 0.4 mg capsule 0.4 mg PO QHS 09/03/18 Cyanocobalamin (Vitamin B-12) [Vitamin B-12] 1,000 mcg PO DAILY 08/03/19 Cholecalciferol (Vitamin D3) [D3-2000] 2,000 unit PO DAILY 08/18/19 Rosuvastatin Calcium 10 mg PO QHS 08/18/19 aspirin 81 mg tablet,delayed release 81 mg PO DAILY 08/27/19 metoprolol tartrate 25 mg tablet 25 mg PO BID #180 tab 10/18/20 Ascorbic Acid [Vitamin C] 500 mg PO DAILY 10/29/20 Duloxetine Hcl [Cymbalta] 60 mg PO DAILY 10/29/20 Pantoprazole Sodium [Protonix] 20 mg PO DAILY 10/29/20 Primary Care Physician: Jaswinder Hill DO [Primary Care Provider] - Please follow up with your Primary Care Physician in: 1 Week Test Results: Test results from this visit will be discussed in further detail at your follow- up appointment, if applicable. Please Follow Up With: Amarilis Kebede MD When: 3-5 Days Proposed Discharge Date: 10/31/20
--- NOTE | 2020-10-31 09:43 | PCM.DC.SUM ---
<AníbalMiriam PHYSICIAN/ALLERGY/IMMUNOLOGY - Last Filed: 10/31/20 09:47> Discharge Date and Diagnosis - Problem List Patient Problems: Active and Suspected Problems (Last Reviewed 01/06/20 @ 10:04 by Sandra SELLERS, PA) Leukopenia (Acute) Thrombocytopenia (Acute) Dyspnea (Acute) Anemia requiring transfusions (Acute) Pancytopenia (Acute) Date of Admission: 10/29/20 Date of Discharge: 10/31/20 - Primary Discharge Diagnosis Acute Problems: Active Problems (Last Reviewed 01/06/20 @ 10:04 by Sandra SELLERS, PA) 1. Acute on chronic pancytopenia, anemia-secondary to chemotherapy regimen. 2. Metastatic stage IV bladder cancer 3. History of malignant pericardial effusion status post pericardiocentesis at [facility] 08/04/2019 4. Paroxysmal atrial fibrillation 5. Ascending aortic aneurysm 6. Hypertension 7. Hyperlipidemia 8. BPH 9. Anxiety/depression 10. GERD - Secondary Discharge Diagnosis Chronic Problems: Chronic Problems (Last Reviewed 01/06/20 @ 10:04 by Sandra SELLERS, PA) Former tobacco use (Chronic) Lung nodule (Chronic) Malignant neoplasm of urinary bladder (Chronic) Ascending aorta dilation (Chronic) 4.3 cm per ECHO 03/04/19 GERD (gastroesophageal reflux disease) (Chronic) Essential hypertension (Chronic) Paroxysmal atrial fibrillation (Chronic) Hyperlipemia (Chronic) Hospital Course and Treatment Imaging Results: Diagnostic Data Chest CTA 10/29/20 18:07 IMPRESSION: No demonstrated pulmonary embolism or arterial dissection. Enlarged left axillary lymph nodes, may be reactive however cannot exclude an underlying neoplastic process. Mild emphysema. Atherosclerosis. Electronically Signed: Paty Richardson MD at 20:04 EST Tel , Service support , Operations: None Procedures: None Summary of Care Provided: The patient is a 69 year old M admitted 10/29/2020 due to dyspnea. 1. Acute on chronic pancytopenia, anemia-secondary to chemotherapy regimen. Status post 3 units PRBC. Platelets stable. No evidence of active bleeding. Hemoglobin 9.0-day of discharge. Follow-up with oncology in 3 to 5 days. Recommend repeat CBC at that time for further monitoring. 2. Metastatic stage IV bladder [id number] with oncology as noted above. 3. History of malignant pericardial effusion status post pericardiocentesis at [facility] 08/04/2019 4. Paroxysmal atrial fibrillation-continue metoprolol, aspirin. Not on anticoagulation. 5. Ascending aortic aneurysm-continue outpatient follow-up. 6. Hypertension-stable, continue metoprolol. 7. Hyperlipidemia-continue statin. 8. BPH-continue Flomax. 9. Anxiety/depression-continue Cymbalta. 10. GERD-continue PPI. General: Alert, Oriented x3, Cooperative HEENT: Atraumatic, PERRLA, EOMI, Normocephalic Neck: Supple, No JVD, Negative Carotid Bruits Lungs: Clear to auscultation, Diminished Cardiovascular: Regular rate, No murmurs Abdomen: Bowel Sounds Present, Soft, Non Tender, Non-Distended Extremities: No clubbing, No cyanosis, No edema, Capillary Refill Less than 3 Seconds Skin: No rashes, No breakdown Musculoskeletal: No Tenderness to Palpation of Joints or Extremities Neurological: Cranial nerves II-XII grossly intact, Neuro grossly intact Psych/Mental Status: Normal Affect, Appropriate Patient seen and examined prior to discharge. Physical assessment as noted above. Patient is stable for discharge with follow up recommendations as noted above. This patient was seen by EVER Schroeder under the supervision of Dr. Khan. Patient Problems: Active and Suspected Problems (Last Reviewed 01/06/20 @ 10:04 by Sandra SELLERS, PA) Leukopenia (Acute) Thrombocytopenia (Acute) Dyspnea (Acute) Anemia requiring transfusions (Acute) Pancytopenia (Acute) - Physical Exam Vitals/I&O's: Vital Signs Temp Pulse Resp BP Pulse Ox 97.4 F L 88 16 138/97 H 96 10/31/20 09:07 10/31/20 09:08 10/31/20 09:07 10/31/20 09:07 10/31/20 09:07 Oxygen Delivery Method Room Air Weight: 210 lb 3 oz Body Mass Index (BMI) 31.3 Intake and Output for Last 24 Hours 10/29/20 10/30/20 10/31/20 23:59 23:59 23:59 Intake Total 43.33 / 163.33 1024 / 1024 Output Total 275 / 275 Balance 43.33 / 163.33 749 / 749 Microbiology Past 72 Hours 01/01/21 21:15 Mucosa - Nose SARS-CoV-2 Antigen (Rapid) - Final Laboratory Results 10/29/20 20:45: Crossmatch See Detail 10/29/20 20:45: Crossmatch See Detail 10/30/20 20:00: WBC 3.4 L, RBC 2.79 L, Hgb 8.9 L, Hct 26.7 L, MCV 95.7 H, MCH 31.9, MCHC 33.3, RDW Std Deviation 59.7 H, RDW Coeff of Rosie 19.6 H, Plt Count 36 L*, MPV 12.8 H, Differential Comment , Diff Path Review February [facility] 10/31/20 05:13: WBC 3.4 L, RBC 2.85 L, Hgb 9.0 L, Hct 27.5 L, MCV 96.5 H, MCH 31.6, MCHC 32.7, RDW Std Deviation 62.3 H, RDW Coeff of Rosie 20.9 H, Plt Count 39 L*, MPV 12.7 H, Differential Comment SCANNED, Diff Path Review February [facility] 10/31/20 05:13: Sodium 142, Potassium 3.8, Chloride 109 H, Carbon Dioxide 27.0, Anion Gap 6, BUN 15, Creatinine 0.95, Estim Creat Clear Calc 73.00, Est GFR (MDRD) Af Amer 102, Est GFR (MDRD) Non-Af 84, BUN/Creatinine Ratio 15.8, Glucose 91, Calcium 8.2 L Current Medications Acetaminophen (Acetaminophen 325 Mg Tablet) 650 mg PO Q6H PRN PRN PRN Reason: Pain Score 1-10/Temp > 100.7 F Last Admin: 10/29/20 23:46 Dose: 650 mg Documented by: Al Hydroxide/Mg Hydroxide (Mag Hydrox/Al Hydrox/Simeth 30 Ml Udc) 30 ml PO Q6H PRN PRN PRN Reason: Gastric Burning Albuterol Sulfate (Albuterol 2.5 Mg/3 Ml Vial.Neb.) 2.5 mg INHALATION Q2H PRN PRN PRN Reason: Dyspnea, wheezing Ascorbic Acid (Ascorbic Acid 500 Mg Tablet) 500 mg PO DAILY [facility] Last Admin: 10/31/20 09:07 Dose: 500 mg Documented by: Atorvastatin Calcium (Atorvastatin Calcium 20 Mg Tablet) 20 mg PO QHS [facility] Last Admin: 10/30/20 21:13 Dose: 20 mg Documented by: Cholecalciferol (Cholecalciferol (Vit D3) 1,000 Unit (25mcg)) 2,000 unit PO DAILY [facility] Last Admin: 10/31/20 09:08 Dose: 2,000 unit Documented by: Cyanocobalamin (Cyanocobalamin 500 Mcg Tablet) 1,000 mcg PO DAILY [facility] Last Admin: 10/31/20 09:08 Dose: 1,000 mcg Documented by: Duloxetine HCl (Duloxetine Hcl 60 Mg Capsule) 60 mg PO DAILY [facility] Last Admin: 10/31/20 09:08 Dose: 60 mg Documented by: Guaifenesin (Guaifenesin 10 Ml Udc (200mg/10ml)) 20 ml PO Q4H PRN PRN PRN Reason: COUGH Heparin Sodium (Beef Lung) (Heparin Pf Lock 10 Units/Ml 50 Units/5 Ml Syringe) 50 units IV UD PRN PRN Reason: Port-a-Cath (VAD)Heparin Flush Hydralazine HCl (Hydralazine 20 Mg/Ml Vial) 10 mg IV Q4H PRN PRN PRN Reason: SBP > 160 Magnesium Hydroxide (Magnesium Hydroxide 30 Ml Udc) 30 ml PO DAILY PRN PRN PRN Reason: Constipation Metoprolol Tartrate (Metoprolol Tartrate 25 Mg Tablet) 25 mg PO BID [facility] Last Admin: 10/31/20 09:08 Dose: 25 mg Documented by: Ondansetron HCl (Ondansetron 4 Mg/2 Ml Vial) 4 mg IV Q8H PRN PRN PRN Reason: NAUSEA/VOMITING Pantoprazole Sodium (Pantoprazole Sodium 20 Mg Tablet) 20 mg PO DAILY [facility] Last Admin: 10/31/20 09:08 Dose: 20 mg Documented by: Prochlorperazine Edisylate (Prochlorperazine 10 Mg/2 Ml Vial) 5 mg IV Q4H PRN PRN PRN Reason: Breakthrough nausea/vomiting Psyllium Hydrophilic Mucilloid (Psyllium 1 Packet) 1 packet PO DAILY PRN PRN PRN Reason: Constipation Senna/Docusate Sodium (Senna/Docusate Sodium 1 Tablet) 2 tablet PO BID PRN PRN PRN Reason: Constipation Sodium Chloride (0.9 % Nacl (Sterile) Posiflush 10 Ml) 10 - 40 ml IV UD PRN PRN Reason: Port access or dressing change Sodium Chloride (0.9% Saline Lock 10 Ml Syringe) 10 - 40 ml IV UD PRN PRN Reason: Port-a-Cath (VAD) Flush Last Admin: 10/30/20 21:14 Dose: 20 ml Documented by: Tamsulosin HCl (Tamsulosin Hcl 0.4 Mg Capsule) 0.[address] Last Admin: 10/30/20 21:13 Dose: 0.4 mg Documented by: Temazepam (Temazepam 15 Mg Capsule) 15 mg PO QHS PRN PRN PRN Reason: INSOMNIA Throat Lozenges (Benzocaine/Menthol 1 Lozenge) 1 lozenge MUCOUS MEM Q2H PRN PRN PRN Reason: SORE THROAT Discharge Diet: No Restrictions Discharge Activity: Return to Normal Activity Call your doctor if you observe: Shortness of breath, Dizziness, Fainting spells, Chest pain Home Medications: Medications to take at Discharge tamsulosin 0.4 mg capsule 0.4 mg PO QHS 09/03/18 Cyanocobalamin (Vitamin B-12) [Vitamin B-12] 1,000 mcg PO DAILY 08/03/19 Cholecalciferol (Vitamin D3) [D3-2000] 2,000 unit PO DAILY 08/18/19 Rosuvastatin Calcium 10 mg PO QHS 08/18/19 aspirin 81 mg tablet,delayed release 81 mg PO DAILY 08/27/19 metoprolol tartrate 25 mg tablet 25 mg PO BID #180 tab 10/18/20 Ascorbic Acid [Vitamin C] 500 mg PO DAILY 10/29/20 Duloxetine Hcl [Cymbalta] 60 mg PO DAILY 10/29/20 Pantoprazole Sodium [Protonix] 20 mg PO DAILY 10/29/20 Primary Care Physician: Jaswinder Hill DO [Primary Care Provider] - Please follow up with your Primary Care Physician in: 1 Week Please Follow Up With: Amarilis Kebede MD When: 3-5 Days Disposition: Home Minutes spent on discharge:: 35 Patient Condition:: Stable Medical Necessity - Tobacco Use Smoking Status: Former smoker Tobacco Use: Non-smoker Meaningful Use Info Meaningful Use Diagnoses (Choose all that apply): None applicable <Christian Khan - Last Filed: 10/31/20 11:10> Discharge Date and Diagnosis - Primary Discharge Diagnosis Acute Problems: Active Problems (Last Reviewed 01/06/20 @ 10:04 by Sandra SELLERS, PA) Leukopenia (Acute) Thrombocytopenia (Acute) Dyspnea (Acute) Anemia requiring transfusions (Acute) Pancytopenia (Acute) - Secondary Discharge Diagnosis Chronic Problems: Chronic Problems (Last Reviewed 01/06/20 @ 10:04 by Sandra SELLERS, PA) Former tobacco use (Chronic) Lung nodule (Chronic) Malignant neoplasm of urinary bladder (Chronic) Ascending aorta dilation (Chronic) 4.3 cm per ECHO 03/04/19 GERD (gastroesophageal reflux disease) (Chronic) Essential hypertension (Chronic) Paroxysmal atrial fibrillation (Chronic) Hyperlipemia (Chronic) Hospital Course and Treatment Summary of Care Provided: This patient was seen in conjunction with EVER Schroeder . I have independently interviewed and examined the patient and reviewed pertinent historical, laboratory, and other data. Please refer to EVER Schroeder note for details of this patient's presentation, findings, and recommendations. I have reviewed EVER Schroeder note and concur with documented findings. In brief, patient is a 69-year-old gentleman with metastatic bladder CA stage IV admitted with progressive generalized weakness and shortness of breath. Patient was found to be pancytopenic with hemoglobin of 6.1, platelet count of 26 WBC count of 3.4 Assessment: 1. Chemo induced pancytopenia 2. Status post 2 unit PRBC transfusion 3. Stage IV bladder CA with metastasis 4. Paroxysmal A. fib 5. Essential hypertension 6. Dyslipidemia 7. BPH 8. Depression with anxiety 9. GERD 10. Ascending aortic aneurysm-continue outpatient follow-up. 11. DVT prophylaxis-SCDs Hospital course; as documented above - Physical Exam Vitals/I&O's: Vital Signs Temp Pulse Resp BP Pulse Ox 97.4 F L 88 16 138/97 H 96 10/31/20 09:07 10/31/20 09:08 10/31/20 09:07 10/31/20 09:07 10/31/20 09:07 Oxygen Delivery Method Room Air Weight: 95.339 kg Body Mass Index (BMI) 31.3 Intake and Output for Last 24 Hours 10/29/20 10/30/20 10/31/20 23:59 23:59 23:59 Intake Total 43.33 / 163.33 1024 / 1024 Output Total 275 / 275 Balance 43.33 / 163.33 749 / 749 Microbiology Past 72 Hours 10/29/20 21:15 Mucosa - Nose SARS-CoV-2 Antigen (Rapid) - Final Laboratory Results 10/29/20 20:45: Crossmatch See Detail 10/29/20 20:45: Crossmatch See Detail 10/30/20 20:00: WBC 3.4 L, RBC 2.79 L, Hgb 8.9 L, Hct 26.7 L, MCV 95.7 H, MCH 31.9, MCHC 33.3, RDW Std Deviation 59.7 H, RDW Coeff of Rosie 19.6 H, Plt Count 36 L*, MPV 12.8 H, Differential Comment , Diff Path Review February [facility] 10/31/20 05:13: WBC 3.4 L, RBC 2.85 L, Hgb 9.0 L, Hct 27.5 L, MCV 96.5 H, MCH 31.6, MCHC 32.7, RDW Std Deviation 62.3 H, RDW Coeff of Rosie 20.9 H, Plt Count 39 L*, MPV 12.7 H, Differential Comment SCANNED, Diff Path Review February [facility] 10/31/20 05:13: Sodium 142, Potassium 3.8, Chloride 109 H, Carbon Dioxide 27.0, Anion Gap 6, BUN 15, Creatinine 0.95, Estim Creat Clear Calc 73.00, Est GFR (MDRD) Af Amer 102, Est GFR (MDRD) Non-Af 84, BUN/Creatinine Ratio 15.8, Glucose 91, Calcium 8.2 L Current Medications Acetaminophen (Acetaminophen 325 Mg Tablet) 650 mg PO Q6H PRN PRN PRN Reason: Pain Score 1-10/Temp > 100.7 F Last Admin: 10/29/20 23:46 Dose: 650 mg Documented by: Al Hydroxide/Mg Hydroxide (Mag Hydrox/Al Hydrox/Simeth 30 Ml Udc) 30 ml PO Q6H PRN PRN PRN Reason: Gastric Burning Albuterol Sulfate (Albuterol 2.5 Mg/3 Ml Vial.Neb.) 2.5 mg INHALATION Q2H PRN PRN PRN Reason: Dyspnea, wheezing Ascorbic Acid (Ascorbic Acid 500 Mg Tablet) 500 mg PO DAILY [facility] Last Admin: 10/31/20 09:07 Dose: 500 mg Documented by: Atorvastatin Calcium (Atorvastatin Calcium 20 Mg Tablet) 20 mg PO QHS [facility] Last Admin: 10/30/20 21:13 Dose: 20 mg Documented by: Cholecalciferol (Cholecalciferol (Vit D3) 1,000 Unit (25mcg)) 2,000 unit PO DAILY [facility] Last Admin: 10/31/20 09:08 Dose: 2,000 unit Documented by: Cyanocobalamin (Cyanocobalamin 500 Mcg Tablet) 1,000 mcg PO DAILY [facility] Last Admin: 10/31/20 09:08 Dose: 1,000 mcg Documented by: Duloxetine HCl (Duloxetine Hcl 60 Mg Capsule) 60 mg PO DAILY [facility] Last Admin: 10/31/20 09:08 Dose: 60 mg Documented by: Guaifenesin (Guaifenesin 10 Ml Udc (200mg/10ml)) 20 ml PO Q4H PRN PRN PRN Reason: COUGH Heparin Sodium (Beef Lung) (Heparin Pf Lock 10 Units/Ml 50 Units/5 Ml Syringe) 50 units IV UD PRN PRN Reason: Port-a-Cath (VAD)Heparin Flush Hydralazine HCl (Hydralazine 20 Mg/Ml Vial) 10 mg IV Q4H PRN PRN PRN Reason: SBP > 160 Magnesium Hydroxide (Magnesium Hydroxide 30 Ml Udc) 30 ml PO DAILY PRN PRN PRN Reason: Constipation Metoprolol Tartrate (Metoprolol Tartrate 25 Mg Tablet) 25 mg PO BID [facility] Last Admin: 10/31/20 09:08 Dose: 25 mg Documented by: Ondansetron HCl (Ondansetron 4 Mg/2 Ml Vial) 4 mg IV Q8H PRN PRN PRN Reason: NAUSEA/VOMITING Pantoprazole Sodium (Pantoprazole Sodium 20 Mg Tablet) 20 mg PO DAILY [facility] Last Admin: 10/31/20 09:08 Dose: 20 mg Documented by: Prochlorperazine Edisylate (Prochlorperazine 10 Mg/2 Ml Vial) 5 mg IV Q4H PRN PRN PRN Reason: Breakthrough nausea/vomiting Psyllium Hydrophilic Mucilloid (Psyllium 1 Packet) 1 packet PO DAILY PRN PRN PRN Reason: Constipation Senna/Docusate Sodium (Senna/Docusate Sodium 1 Tablet) 2 tablet PO BID PRN PRN PRN Reason: Constipation Sodium Chloride (0.9 % Nacl (Sterile) Posiflush 10 Ml) 10 - 40 ml IV UD PRN PRN Reason: Port access or dressing change Sodium Chloride (0.9% Saline Lock 10 Ml Syringe) 10 - 40 ml IV UD PRN PRN Reason: Port-a-Cath (VAD) Flush Last Admin: 10/30/20 21:14 Dose: 20 ml Documented by: Tamsulosin HCl (Tamsulosin Hcl 0.4 Mg Capsule) 0.4 mg PO QHS [facility] Last Admin: 10/30/20 21:13 Dose: 0.4 mg Documented by: Temazepam (Temazepam 15 Mg Capsule) 15 mg PO QHS PRN PRN PRN Reason: INSOMNIA Throat Lozenges (Benzocaine/Menthol 1 Lozenge) 1 lozenge MUCOUS MEM Q2H PRN PRN PRN Reason: SORE THROAT Inpatient E&M: [id number] Disch Hosp
[2020-10-31] MEDS: 0.9% Saline Lock 10 ML Syringe IV (11:16)
[2020-11-01 13:02] LABS: Pathologist Review Reviewed
[2020-11-01 13:02] LABS: Pathologist Review Reviewed
[2020-11-01 13:03] LABS: Pathologist Review Reviewed
[2020-11-01 13:03] LABS: Pathologist Review Reviewed
--- NOTE | 2020-11-01 15:24 | CASEMGMT ---
SANCHEZ SORIANO Discharge F/U Phone Call LACE: 10 Strata: 3 Discharge date: 10/31/20 Call date: 11/01/20 Call time: 1525 Admission dx: Acute on Chronic pancytopenia Pt states is a 'little tired' since discharge but 'other than that I'm good.' Pt states no questions regarding discharge instructions/medications at this time. Pt states has f/u appt's set up and plans to keep. Pt states no suggestions for [facility] at this time. Pt voices no further questions/concerns/needs at this time. [place] SANCHEZ SORIANO
== END 2020-10-31 11:51 | disposition home or self-care (01) | DRG 809 ==
LOC: ED 20:17 → PCU 10-30 07:24
PROVIDERS: Nurse Practitioner Family; Admitting Provider Family Medicine; Emergency Provider Emergency Medicine; PCP Student in an Organized Health Care Education/Training Program; Visit Provider Internal Medicine
DX: D61.810 Antineoplastic chemotherapy induced pancytopenia (principal); T45.1X5A Adverse effect of antineoplastic and immunosuppressive drugs, initial encounter; C67.9 Malignant neoplasm of bladder, unspecified; C79.9 Secondary malignant neoplasm of unspecified site; I48.0 Paroxysmal atrial fibrillation; J43.9 Emphysema, unspecified; Z20.828 Contact with and (suspected) exposure to other viral communicable diseases; I10 Essential (primary) hypertension; E78.5 Hyperlipidemia, unspecified; N40.0 Benign prostatic hyperplasia without lower urinary tract symptoms; K21.9 Gastro-esophageal reflux disease without esophagitis; F32.9 Major depressive disorder, single episode, unspecified; F41.9 Anxiety disorder, unspecified; Z79.82 Long term (current) use of aspirin; Z79.899 Other long term (current) drug therapy; Z87.891 Personal history of nicotine dependence
CPT/HCPCS: 36415; 71275; 80048; 80053; 81001; 83735; 83880; 84100; 84484; 85025; 85027; 85610; 85730; 86850; 86900; 86901; 86920; 86922; 87426; 93005; 99285; J7030; J7040; P9016; Q9967; A4216

== ENCOUNTER → 2021-07-21 13:58 | Outpatient (CLI) | payer MEDICARE, MEDICAID, SELFPAY ==
--- NOTE | 2021-07-21 13:58 | ECHODONC_ITS ---
Reason For Study: High risk meds, PAF Procedure This was a 2D Doppler, Color Flow transthoracic echocardiogram. Myocardial strain analysis was performed in this exam to aid in the assessment of cardiac function. The exam was of adequate technical quality. Exam performed in department. Left Ventricle Normal LV size. Left ventricular systolic function is normal. The estimated ejection fraction is 55 %. The global longitudinal strain = -21 % (normal). No evidence for diastolic dysfunction. No regional wall motion abnormalities noted. Right Ventricle Normal RV size. Normal systolic function. Atria Normal left atrium. Normal right atrium. No doppler evidence for ASD. Mitral Valve There is no mitral annular calcification. 2D echocardiographic images compatible with redundant mitral valve chordae tendonae. Trivial mitral valve insufficiency. Tricuspid Valve Normal tricuspid valve. Trivial tricuspid valve insufficiency. Right ventricular systolic pressure estimated to be 22 mmHg. Aortic Valve Trisinus/trileaflet aortic valve. Normal aortic valve. Mild (1+) eccentric aortic valve insufficiency. Pulmonic Valve The pulmonic valve is not well visualized. Trivial pulmonic valve insufficiency. Great Vessels Mildly dilated aortic root. Pericardium/Pleural No pericardial effusion. MMode/2D Measurements & Calculations LVIDd: 4.1 cm IVSd: 1.3 cm Ao root diam: 4.3 cm LVIDs: 2.5 cm LVPWd: 1.2 cm RVDd: 2.9 cm FS: 38.8 % LAV(MOD-bp): 28.0 ml LVAd ap4: 23.4 cm2 LVAd ap2: 24.0 cm2 LAV(MOD-bp) Indexed: 14.2 ml/m2 LVLd ap4: 7.4 cm LVLd ap2: 7.9 cm LAV(MOD-sp2): 31.4 ml EDV(MOD-sp4): 61.9 ml EDV(MOD-sp2): 63.1 ml LAV(MOD-sp4): 25.4 ml EDV(sp4-el): 62.8 ml EDV(sp2-el): 62.1 ml LVAs ap4: 15.0 cm2 LVAs ap2: 14.4 cm2 LVLs ap4: 7.0 cm LVLs ap2: 7.2 cm ESV(MOD-sp4): 27.7 ml ESV(MOD-sp2): 26.5 ml ESV(sp4-el): 27.4 ml ESV(sp2-el): 24.5 ml EF(MOD-sp4): 55.3 % EF(MOD-sp2): 58.0 % EF(sp4-el): 56.3 % SV(MOD-sp4): 34.2 ml SV(MOD-sp2): 36.6 ml SV(sp4-el): 35.4 ml LA dimension(2D): 4.4 cm LA A4 area: 12.1 cm2 RA A4 area: 11.4 cm2 Doppler Measurements & Calculations MV E max juan ramon: 42.7 cm/sec Lat Peak E' Juan Ramon: 8.0 cm/sec Med Peak E' Juan Ramon: 4.1 cm/sec MV A max juan ramon: 74.1 cm/sec E/E' lat: 5.4 E/E' med: 10.3 MV E/A: 0.58 Ao V2 max: 139.6 cm/sec LV V1 max: 93.9 cm/sec PA V2 max: 101.0 cm/sec Ao max P.8 mmHg LV V1 max P.5 mmHg TR max juan ramon: 220.0 cm/sec TR max P.4 mmHg ECHO/ONC Echo Complete Interpretation Summary Left ventricular systolic function is normal. The estimated ejection fraction is 55 %. The global longitudinal strain = -21 % (normal). 2D echocardiographic images compatible with redundant mitral valve chordae tend onae. Trivial mitral valve insufficiency. Trivial tricuspid valve insufficiency. Mild (1+) eccentric aortic valve insufficiency. Trivial pulmonic valve insufficiency. Mildly dilated aortic root. Right ventricular systolic pressure estimated to be 22 mmHg. No evidence for diastolic dysfunction. Ordering Physician: Jamin Cole/Dayday Nguyen Referring Physician: Jaswinder Hill Performed By: Nhi Diez RDCS
== END ==
PROVIDERS: PCP Student in an Organized Health Care Education/Training Program; Referring Provider Nurse Practitioner Family; Visit Provider Nurse Practitioner Family
DX: I48.0 Paroxysmal atrial fibrillation (principal); Z79.899 Other long term (current) drug therapy
CPT/HCPCS: 93306; 93356

== ENCOUNTER 2021-08-07 17:38 | Inpatient (IN) | payer MEDICARE, MEDICAID, SELFPAY ==
[2021-08-07] VITALS (13 sets, daily range): BP systolic 97–140; BP diastolic 55–105; PULSE 84–115; RESP 17–32; TEMP 36.6–37.3; O2SAT 93–97; BMI 28.7; BMI 27.8
--- NOTE | 2021-08-07 18:00 | EKG12_ITS ---
Test Reason : Blood Pressure : / mmHG Vent. Rate : 109 BPM Atrial Rate : 109 BPM P-R Int : 136 ms QRS Dur : 084 ms QT Int : 350 ms P-R-T Axes : 034 -39 -04 degrees QTc Int : 471 ms Sinus tachycardia Left axis deviation Nonspecific ST abnormality Abnormal ECG Confirmed by YESSI ZHANG, NHUNG ([id number]), non linear editor TEODORO WILSON ([id number]) on 08/08/2021 1:08:37 PM Referred By: NATIVIDAD Confirmed By:NHUNG DICKSON MD
--- NOTE | 2021-08-07 18:00 | RAD_ITS ---
STUDY: X-RAY CHEST REASON FOR EXAM: Male, 70 years old. Fever and dyspnea TECHNIQUE: 1 view COMPARISON: 08/18/2019 FINDINGS: There has been interval placement of a right-sided implanted port terminating in the mid to distal SVC. Cardiomediastinal silhouette is unremarkable. Costophrenic angles are sharp. Tiny calcified granuloma in the right midlung zone. Lungs otherwise clear. The trachea is midline. There is no pneumothorax. Multilevel thoracic spondylosis noted. RAD/Chest 1 View (Portable) IMPRESSION: No acute cardiopulmonary process. Electronically Signed: Luis Stringer MD at 19:33 EDT Tel , Service support ,
[2021-08-07 18:39] LABS: Absolute Lymphocyte Count 1.15 X10^3/uL (0.83-4.51); Absolute Neutrophil Count 8.9 X10^3/uL (2.0-7.7); Basophil# 0.03 X10^3/uL; Basophil% 0.3 % (0-1); Eosinophil# 0.12 X10^3/uL; Eosinophils% 1.1 % (0-5); Hematocrit 33.4 % (40-54); Hemoglobin 9.9 g/dL (13.0-16.5); Lymphocyte # 1.15 X10^3/ul (0.83-4.51); Lymphocyte % 10.3 % (19-41); Mean Corp Hgb Conc 29.6 g/dL (32-36); Mean Corpuscular Hgb 26.2 pg (27.0-32.0); Mean Corpuscular Volume 88.4 fL (80-94); Mean Platelet Vol. 10.2 fl (6.2-12.0); Monocyte# 0.85 X10^3/uL; Monocyte% 7.6 % (0-10); NRBC Flagged by Analyzer 0 % (0-5); Neutrophil # 8.93 X10^3/uL (2.7-7.7); Neutrophil % 80.3 % (47-70); Platelet Count 410 K/mm3 (150-450); RBC Distribution Width CV 16.2 % (11.6-14.6); RBC Distribution Width SD 52.5 fl (35.1-43.9); Red Blood Count 3.78 M/mm3 (4.6-6.2); White Blood Count 11.1 K/mm3 (4.4-11.0)
[2021-08-07 18:45] LABS: Mucous, Urine 0 SEEN /hpf (<or=2+); Squamous Epithelial Cells - UA 0 SEEN /hpf (0-5)
--- NOTE | 2021-08-07 18:52 | ED.RN ---
Pt. brought in by family for fever, increasing weakness and N/V for the last several days. Pt. recently had double nephrostomy the end of June.
[2021-08-07 19:00] LABS: Color, Urine Yellow (Yellow); Glucose, Dipstick Normal (Normal); Ketone-Dipstick 5 mg/dl (Negative); Leukocyte Esterase-Dipstick 500 /ul (Negative); Nitrite-Dipstick Negative (Negative); Occult Blood-Urine 250 /ul (Negative); Protein-Dipstick 500 mg/dl (Negative); Urine Bilirubin Dipstick Negative (Negative); Urine Clarity Cloudy (Clear); Urine Urobilinogen 4 mg/dl (Normal)
[2021-08-07 19:01] LABS: International Normalized Ratio 1.2; Prothrombin Time (Protime)PT. 14.2 SECONDS (11.7-14.9)
[2021-08-07 19:02] LABS: Partial Thromboplast Time 35.9 Seconds (24.1-36.2)
[2021-08-07 19:07] LABS: Lactic Acid 2.5 mmol/L (0.4-1.9)
[2021-08-07] MEDS: Ondansetron 4 MG/2 ML Vial IV (19:13)
[2021-08-07] MEDS: Morphine 4 MG/ML Syringe IV (19:13)
[2021-08-07 19:14] LABS: Bacteria 2+ /hpf (None Seen); Red Blood Cells-Urine 10-25 SEEN /hpf (0-5); White Blood Cells 50-100 SEEN /hpf (0-5)
[2021-08-07 19:18] LABS: ALB/GLOB Ratio 0.5 RATIO (0.9-2.4); AST(SGOT) 30 U/L (15-37); Alanine Aminotransfer ALT/SGPT 20 U/L (16-61); Albumin, Serum 2.7 g/dL (3.2-5.0); Alkaline Phosphatase 40 U/L (45-117); Anion Gap 9 (5-15); BUN 14 mg/dL (7-18); BUN/Creat Ratio 13.5 RATIO (10-20); Calcium,Total 9.2 mg/dL (8.5-10.1); Chloride 101 mmol/L (98-107); Creatinine, Serum 1.04 mg/dL (0.70-1.30); EST Glomerular Filtration Rate 75 mL/min (>60); Est Glom Filt Rate - Afr Amer 91 mL/min (>60); Estimated Creatinine Clearance 65.77 ml/min; Globulin 5.2 g/dL (2.2-4.2); Glucose 121 mg/dL (74-106); Potassium 4.1 mmol/L (3.5-5.1); Protein, Total 7.9 g/dL (6.4-8.2); Sodium Level 138 mmol/L (136-145)
--- NOTE | 2021-08-07 19:27 | EX.ED.DYSGE1 ---
HPI History of Present Illness Chief Complaint: Fever Detail of Chief Complaint: Fever and intermittent confusion Informant: patient, spouse/S.O. and family Onset/Context/Timing Onset: Today Context: Sudden Onset Timing: Intermittent Quality: Fever and confusion Location: Home Current Severity: Gone Maximum Severity: Mild Worsened by: Nothing Relieved by: Nothing Associated Symptoms Associated Symptoms: Recent nephrostomy tube placement right and left side at [facility] Narrative Narrative: Patient is a 70-year-old male with history of bladder cancer that metastasized to his left axilla status post radiation therapy with chronic left upper extremity swelling who presents because of document temperature 101.0 ?F with shaking chills and confusion. He also has gross hematuria. He was admitted the end of June and had a nephrostomy tube placed on the right and left side. He has follow-up this coming week. He has not had any recent chemo or radiation therapy. He does have history of pancytopenia and anemia. He did not require transfusion last time he was admitted. His presentation for the metastatic bladder cancer was a malignant pericardial effusion. He subsequently developed left axillary lymphadenopathy and now has recurrence in his bladder and positive lymph nodes on the right side. Prior similar symptoms: Yes Recent Illness/Hospitalization: Yes [facility] Medical History (Updated 08/07/21 @ 19:[address] Michael Cannon MD) Ascending aorta dilation Atrial fibrillation with RVR Bladder tumor Essential hypertension GERD (gastroesophageal reflux disease) Hyperlipemia Lung nodule Malignant neoplasm of urinary bladder Malignant pericardial effusion Paroxysmal atrial fibrillation Home Medications tamsulosin 0.4 mg capsule 0.4 mg PO QHS 09/03/18 [History Last Taken 08/17/19] cyanocobalamin (vitamin B-12) 1,000 mcg PO DAILY 08/03/19 [History Last Taken 08/17/19] cholecalciferol (vitamin D3) 2,000 unit PO DAILY 08/18/19 [History Last Taken 08/15/19] rosuvastatin 10 mg PO QHS 08/18/19 [History Last Taken 08/17/19] aspirin 81 mg tablet,delayed release 81 mg PO DAILY 08/27/19 [History Last Taken Unknown] metoprolol tartrate 25 mg tablet 25 mg PO BID #180 tab 10/18/20 [Rx Last Taken Unknown] ascorbic acid (vitamin C) 500 mg PO DAILY 10/29/20 [History Last Taken Unknown] duloxetine 60 mg PO DAILY 10/29/20 [History Last Taken Unknown] pantoprazole 20 mg PO DAILY 10/29/20 [History Last Taken Unknown] Allergy/AdvReac Type Severity Reaction Status Date / Time No Known Allergies Allergy Verified 10/29/20 17:48 Family History Mother Cancer Lung Father Cancer Stomach Brother Seizures Sister Cancer Bone Surgical History History of bladder surgery (~06/03/18) History of parathyroidectomy S/P pericardiocentesis (~08/04/19) Social History (Updated 08/07/21 @ 19:[address] Michael Cannon MD) household members: significant other Smoking Status: Former smoker alcohol intake: current details: rare substance use type: does not use ROS ROS ED Constitutional Constitutional ED: Reports chills, fever(s) and sweats; Denies subjective or weight loss Eyes Eyes: Denies blurry vision, change in vision or diplopia ENT ENT ED: Reports ear pain and other Details: Complains of hoarse voice ; Denies rhinorrhea or sore throat Cardiovascular Cardiovascular: Denies chest pain, orthopnea, palpitations, paroxysmal nocturnal dyspnea or racing heartbeat Respiratory/Chest Respiratory/Chest: Reports cough and dyspnea; Denies dyspnea on exertion, orthopnea, paroxysmal nocturnal dyspnea or sputum Gastrointestinal Gastrointestinal: Reports nausea; Denies abdominal pain, diarrhea or vomiting Genitourinary Genitourinary ED: Reports hematuria; Denies dysuria or urinary frequency Musculoskeletal Musculoskeletal: Reports arthralgias and myalgias; Denies back pain or neck pain Integumentary Denies rash Neurologic Neurologic: Reports weakness; Denies headache(s) or paresthesias Endocrine Endocrinology: Denies polydipsia, polyphagia or polyuria Hematologic/Lymphatic Hematologic/Lymphatic: Reports anemia; Denies easy bleeding or easy bruising EXAM Physical Exam Const Vital Signs: 08/07/21 17:38 08/07/21 17:44 08/07/21 18:35 Temperature 97.9 F 98.5 F Temperature Source Oral Oral Pulse Rate 109 H 115 H Respiratory Rate 32 H 18 Respiratory Effort Respiratory Pattern Blood Pressure 125/83 H 130/105 H Blood Pressure Mean 97 113 Pulse Ox 95 96 Oxygen Delivery Method Room Air Room Air Room Air 08/07/21 18:37 08/07/21 18:39 08/07/21 18:44 Temperature 98.5 F 98.5 F Temperature Source Oral Oral Pulse Rate 115 H 115 H Respiratory Rate 18 18 Respiratory Effort Respiratory Pattern Blood Pressure 130/105 H 130/105 H Blood Pressure Mean 113 113 Pulse Ox 96 96 Oxygen Delivery Method Room Air Room Air 08/07/21 18:52 08/07/21 19:17 Temperature 98.9 F Temperature Source Temporal Pulse Rate 105 H Respiratory Rate 17 Respiratory Effort Non-Labored Short of Breath Respiratory Pattern Normal Blood Pressure 109/80 Blood Pressure Mean 89 Pulse Ox 96 Oxygen Delivery Method Room Air Positive well nourished and well developed General Appearance ED: well developed, pallor and other He appears pale. His mentation is slow. ; Negative for cyanotic or diaphoretic HEENT Reports dry mucous membranes HEENT Narrative: Head is atraumatic normocephalic. Conjunctive is pale. Ears are normal. Nares patent. Mouth ED: Yes dry mucous membranes Mouth: dry mucous membranes Eyes PERRL and EOMs intact bilaterally General Eye ED: Yes pale conjunctiva; Negative for scleral icterus Neck no lymphadenopathy, supple and no JVD General: Negative for tenderness Chest Wall inspection of chest normal and palpation of chest normal Resp normal respiratory effort and clear to auscultation bilaterally Effort and Inspection: Negative for pain with movement Cardio regular rate, regular rhythm, S1 normal heart sound, S2 normal heart sound and no murmurs GI normal to inspection, nondistended, normoactive bowel sounds and non-tender Palpation: soft Narrative: Nephrostomy tube noted right and left. These are sutured in place with what appears to be recent fresh dressing change. Bladder / Kidney Exam: other Back/Spine no CVA tenderness Cervical Spine: Negative for cervical spine tenderness Thoracic Spine / Upper Back: Negative for thoracic spinal tenderness or paraspinal muscle tenderness Extremity normal to inspection Extremity Narrative: Patient has lymphedema of the left upper extremity. There is mild pedal edema bilaterally. General Extremety ED: Negative for edema or tenderness General Extremity: Negative for edema Neuro oriented x3 and CN's II-XII intact bilaterally Sensorium / Orientation: orientation impaired Motor Exam: strength 5/5 throughout Psych mental status grossly normal Skin no rashes or lesions noted and no wounds General Skin Exam: pallor; Negative for jaundice MDM MDM MDM Narrative Medical decision making narrative: With recent hospitalization recent procedure need infectious work-up. Will obtain urine from both nephrostomy tubes and culture both. Because he has slight cough and shortness of breath chest x-ray was obtained. Lactate was obtained to assess for severe sepsis with organ dysfunction. Electrolyte panel to assess anion gap and renal function. Lab Data Attestation: I reviewed the patient's lab results. Lab results narrative: Since patient has source with tachycardia and documented fever at home and elevated lactate concern patient has severe sepsis with organ dysfunction. Urine is consistent with infection from the right nephrostomy tube. Will treat with Rocephin since he does not have any antibiotic allergies. If blood cultures were not ordered initially will order prior to ministration of antibiotics. Labs: Laboratory Results - last 24 hr 08/07/21 08/07/21 08/07/21 18:18 18:18 18:18 WBC 11.1 H RBC 3.78 L Hgb 9.9 L Hct 33.4 L MCV 88.4 MCH 26.2 L MCHC 29.6 L RDW Std Deviation 52.5 H RDW Coeff of Rosie 16.2 H Plt Count 410 MPV 10.2 Immature Gran % (Auto) 0.400 Neut % (Auto) 80.3 H Lymph % (Auto) 10.3 L [place] % (Auto) 7.6 Eos % (Auto) 1.1 Baso % (Auto) 0.3 Absolute Neuts (auto) 8.9 H Absolute Lymphs (auto) 1.15 Nucleated RBC % 0 PT 14.2 INR 1.2 APTT 35.9 Sodium 138 Potassium 4.1 Chloride 101 Carbon Dioxide 28.0 Anion Gap 9 BUN 14 Creatinine 1.04 Estim Creat Clear Calc 65.77 Est GFR (MDRD) Af Amer 91 Est GFR (MDRD) Non-Af 75 BUN/Creatinine Ratio 13.5 Glucose 121 H Lactic Acid Calcium 9.2 Total Bilirubin 0.60 AST 30 ALT 20 Alkaline Phosphatase 40 L Total Protein 7.9 Albumin 2.7 L Globulin 5.2 H Albumin/Globulin Ratio 0.5 L Urine Color Urine Clarity Urine pH Ur Specific [place] Urine Protein Urine Glucose (UA) Urine Ketones Urine Occult Blood Urine Nitrite Urine Bilirubin Urine Urobilinogen Ur Leukocyte Esterase Urine RBC Urine WBC Ur Squamous Epith Cells Urine Bacteria Urine Mucus 08/07/21 08/07/21 18:18 18:24 WBC RBC Hgb Hct MCV MCH MCHC RDW Std Deviation RDW Coeff of Rosie Plt Count MPV Immature Gran % (Auto) Neut % (Auto) Lymph % (Auto) [place] % (Auto) Eos % (Auto) Baso % (Auto) Absolute Neuts (auto) Absolute Lymphs (auto) Nucleated RBC % PT INR APTT Sodium Potassium Chloride Carbon Dioxide Anion Gap BUN Creatinine Estim Creat Clear Calc Est GFR (MDRD) Af Amer Est GFR (MDRD) Non-Af BUN/Creatinine Ratio Glucose Lactic Acid 2.5 H* Calcium Total Bilirubin AST ALT Alkaline Phosphatase Total Protein Albumin Globulin Albumin/Globulin Ratio Urine Color Yellow Urine Clarity Cloudy Urine pH 7.0 Ur Specific [place] 1.010 Urine Protein 500 H Urine Glucose (UA) Normal Urine Ketones 5 H Urine Occult Blood 250 H Urine Nitrite Negative Urine Bilirubin Negative Urine Urobilinogen 4 H Ur Leukocyte Esterase 500 H Urine RBC 10-25 SEEN Urine WBC 50-100 SEEN Ur Squamous Epith Cells 0 SEEN Urine Bacteria 2+ Urine Mucus 0 SEEN Radiography Diagnostic Testing: Clinical Impression(s) from Imaging Studies Chest X-Ray 08/07/21 18:00 IMPRESSION: No acute cardiopulmonary process. Electronically Signed: Luis Stringer MD at 19:33 EDT Tel , Service support , EKG Initial EKG: Attestation: I personally reviewed and interpreted this EKG as follows: Interpretation: Sinus Tachycardia (Ventricular rate is 109. LA interval is 136 ms. QRS duration 84 ms QT duration 3 to 50 ms. [place] to the left. There is density changes which is actually artifact.) Critical Care Time Critical Care Time: Yes Critical care time (excluding procedures): 30-74 minutes (Minutes 32), Including time spent: (History, physical, documentation, review of prior records), Discussing w/Patient &/or Family/[employer], Discussing w/Consultants and Arranging Admission or Transfer Discharge Plan Triage Chief Complaint: Fever ED Provider: Michael Cannon Dx/Rx/DC Orders Clinical Impression: Severe sepsis with acute organ dysfunction, Acute pyelonephritis due to bacteria, Encephalopathy due to infection, Cancer of the bladder, stage IV, Hematuria, gross Prescriptions: No Action tamsulosin 0.4 mg capsule 0.4 mg PO QHS RF: 0 aspirin [Adult Aspirin Regimen] 81 mg tablet,delayed release (DR/EC) 81 mg PO DAILY RF: 0 cyanocobalamin (vitamin B-12) 1,000 MCG tablet 1,000 mcg PO DAILY RF: 0 rosuvastatin 10 MG tablet 10 mg PO QHS RF: 0 cholecalciferol (vitamin D3) 2,000 UNIT capsule 2,000 unit PO DAILY RF: 0 pantoprazole 20 MG tablet 20 mg PO DAILY RF: 0 ascorbic acid (vitamin C) 500 MG tablet 500 mg PO DAILY RF: 0 duloxetine 60 MG capsule 60 mg PO DAILY RF: 0 metoprolol tartrate 25 mg tablet 25 mg PO BID Qty: 180 RF: 3 Primary Care Provider: Jaswinder Hill Referrals: Jaswinder Hill DO [Primary Care Provider] -
--- NOTE | 2021-08-07 19:56 | HP.PCM.HOS_ITS ---
HPI - General General Date of Admission: 08/07/21 HPI Narrative SERG ZAVALA, is a 70 M with a significant history of stage IV bladder cancer with metastasis to left axilla status post bilateral nephrectomy tube who presents to the emergency department with fever that started on the same day of presentation. Reportedly at home his temperature was 101 Fahrenheit. Associated with symptoms is nausea, vomiting, chills, shortness of breath, weakness, and lightheadedness. The rest of his symptoms started a day before presentation. Patient follows up with urology in the [facility] system. Patient has gross hematuria for about a month that reportedly his urologist said is expect ed. [facility] Medical History (Updated 08/07/21 @ 22:[address] Santosh Perez MD) Ascending aorta dilation Atrial fibrillation with RVR Bladder tumor Essential hypertension GERD (gastroesophageal reflux disease) Hyperlipemia Lung nodule Malignant neoplasm of urinary bladder Malignant pericardial effusion Paroxysmal atrial fibrillation Home Medications tamsulosin 0.4 mg capsule 0.4 mg PO QHS 09/03/18 [History Last Taken 08/17/19] cyanocobalamin (vitamin B-12) 1,000 mcg PO DAILY 08/03/19 [History Last Taken 08/17/19] cholecalciferol (vitamin D3) 2,000 unit PO DAILY 08/18/19 [History Last Taken 08/15/19] rosuvastatin 10 mg PO QHS 08/18/19 [History Last Taken 08/17/19] aspirin 81 mg tablet,delayed release 81 mg PO DAILY 08/27/19 [History Last Taken Unknown] duloxetine 60 mg PO DAILY 10/29/20 [History Last Taken Unknown] duloxetine 30 mg PO DAILY 08/07/21 [History Last Taken Unknown] metoprolol tartrate 25 mg PO BID 08/07/21 [History Last Taken Unknown] omeprazole 20 mg PO DAILY 08/07/21 [History Last Taken Unknown] oxybutynin chloride 10 mg PO DAILY 08/07/21 [History Last Taken Unknown] Allergy/AdvReac Type Severity Reaction Status Date / Time No Known Allergies Allergy Verified 10/29/20 17:48 Family History Mother Cancer Lung Father Cancer Stomach Brother Seizures Sister Cancer Bone Surgical History History of bladder surgery (~06/03/18) History of parathyroidectomy S/P pericardiocentesis (~08/04/19) Social History household members: significant other Smoking Status: Former smoker alcohol intake: current details: rare substance use type: does not use ROS ROS Narrative Constitutional: Reports fever, chills, fatigue, and anorexia . Eyes: Denies blurry vision, change in eye color, change in vision, discharge from eye(s), double vision, erythema, eye pain, loss of vision or other HEENT: Denies abnormal hearing, dysphagia, ear pain, epistaxis, headache(s), hearing loss, nasal congestion, nasal discharge, post nasal drip, sinus pressure, sore throat or other Cardiovascular: Denies chest pain or palpitations. Respiratory/Chest: Reports shortness of breath. Denies cough. Gastrointestinal: Reports abdominal pain, nausea and vomiting. Denies , hematemesis, hematochezia, loose stools, melena, or other Genitourinary: Reports gross hematuria. Has nephrostomy tube bilaterally. Musculoskeletal: Denies arthralgias, back pain, joint pain, joint stiffness, joint swelling, myalgias, neck pain or other Neurologic: Reports abnormal gait and some confusion. Denies paresthesias, seizure-like activity, seizures, syncope, tingling, tremor(s) or other Psychiatric: Denies homicidal ideation, suicidal ideation or other Endocrinology: Denies change in body appearance, cold intolerance, excessive sweating, heat intolerance, polydipsia, polyuria or other Hematologic/Lymphatic: Denies easy bruising. Integumentary: Denies rashes Allergic/Immunologic: Denies rhinitis, hives, eczema, asthma or other Vital Signs Vital Signs Vital Signs: 08/07/21 17:38 08/07/21 17:44 08/07/21 18:35 Temperature 97.9 F 98.5 F Temperature Source Oral Oral Pulse Rate 109 H 115 H Respiratory Rate 32 H 18 Respiratory Effort Respiratory Pattern Blood Pressure 125/83 H 130/105 H Blood Pressure Mean 97 113 Pulse Ox 95 96 Oxygen Delivery Method Room Air Room Air Room Air 08/07/21 18:37 08/07/21 18:39 08/07/21 18:44 Temperature 98.5 F 98.5 F Temperature Source Oral Oral Pulse Rate 115 H 115 H Respiratory Rate 18 18 Respiratory Effort Respiratory Pattern Blood Pressure 130/105 H 130/105 H Blood Pressure Mean 113 113 Pulse Ox 96 96 Oxygen Delivery Method Room Air Room Air 08/07/21 18:52 08/07/21 19:17 Temperature 98.9 F Temperature Source Temporal Pulse Rate 105 H Respiratory Rate 17 Respiratory Effort Non-Labored Short of Breath Respiratory Pattern Normal Blood Pressure 109/80 Blood Pressure Mean 89 Pulse Ox 96 Oxygen Delivery Method Room Air Weight Weight: 85.729 kg Body Mass Index (BMI) 28.7 Physical Exam Narrative Physical exam: General: Sickly looking. Head: Normocephalic, atraumatic, no tenderness Eyes: PERRLA, EOMI ENT, no trauma, moist mucous membranes, no rhinorrhea Neck: Nontender, full range of motion. CVS: Tachycardia. S1-S2 present. No murmur, gallop or rub. Respiratory : Tachypnea; clear to auscultation bilaterally, chest wall nontender, no wheezing Abdomen: Soft, nontender, nondistended, normal bowel sounds. Bilateral nephrostomy tube in place. : Deferred Back: Nontender, no CVA tenderness, no midline spinal tenderness, deformities, step-offs Extremities: Swelling of left upper extremity; no trauma Skin: Normal color, no trauma, abrasions Neuro: Lethargic, oriented, cranial nerves II through XII grossly intact. Psychiatry: Depressed. Not anxious. Results Lab / Micro Data Result Diagrams: 08/07/21 18:18 08/07/21 18:18 Labs: Laboratory Results - last 24 hr 08/07/21 18:18: WBC 11.1 H, RBC 3.78 L, Hgb 9.9 L, Hct 33.4 L, MCV 88.4, MCH 26.2 L, MCHC 29.6 L, RDW Std Deviation 52.5 H, RDW Coeff of Rosie 16.2 H, Plt Count 410, MPV 10.2, Immature Gran % (Auto) 0.400, Neut % (Auto) 80.3 H, Lymph % (Auto) 10.3 L, [place] % (Auto) 7.6, Eos % (Auto) 1.1, Baso % (Auto) 0.3, Absolute Neuts (auto) 8.9 H, Absolute Lymphs (auto) 1.15, Nucleated RBC % 0 08/07/21 18:18: PT 14.2, INR 1.2, APTT 35.9 08/07/21 18:18: Sodium 138, Potassium 4.1, Chloride 101, Carbon Dioxide 28.0, Anion Gap 9, BUN 14, Creatinine 1.04, Estim Creat Clear Calc 65.77, Est GFR (MDRD) Af Amer 91, Est GFR (MDRD) Non-Af 75, BUN/Creatinine Ratio 13.5, Glucose 121 H, Calcium 9.2, Total Bilirubin 0.60, AST 30, ALT 20, Alkaline Phosphatase 40 L, Total Protein 7.9, Albumin 2.7 L, Globulin 5.2 H, Albumin/Globulin Ratio 0.5 L 08/07/21 18:18: Lactic Acid 2.5 H* 08/07/21 18:24: Urine Color Yellow, Urine Clarity Cloudy, Urine pH 7.0, Ur Specific [place] 1.010, Urine Protein 500 H, Urine Glucose (UA) Normal, Urine Ketones 5 H, Urine Occult Blood 250 H, Urine Nitrite Negative, Urine Bilirubin Negative, Urine Urobilinogen 4 H, Ur Leukocyte Esterase 500 H, Urine RBC 10-25 SEEN, Urine WBC 50-100 SEEN, Ur Squamous Epith Cells 0 SEEN, Urine Bacteria 2+, Urine Mucus 0 SEEN Radiology Impression Chest X-Ray 08/07/21 18:00 IMPRESSION: No acute cardiopulmonary process. Electronically Signed: Luis Stringer MD at 19:33 EDT Tel , Service support , Assessment & Plan Assessment/Plan (1) Sepsis: QUALIFIERS: Sepsis acute organ dysfunction status: with acute o rgan dysfunction Sepsis type: sepsis due to unspecified organism Severe sepsis acute organ dysfunction type: unspecified Severe sepsis shock status: without septic shock Qualified Code(s): A41.9 - Sepsis, unspecified organism; R65.20 - Severe sepsis without septic shock (2) Pyelonephritis: PLAN: Sepsis secondary to pyonephritis SIRS criteria: Respiratory rate more than 20; heart rate more than 90. Organ dysfunction: Lactic acid of 2.5. Trend lactic acid. Review of records shows that on 10/31/2020 white count was 3.4. And on 10/30/2020 white count was 3.4. On presentation white count is 11.1. Review of records in October 2020 patient had a platelet count of 26 239. On presentation platelet count was 410. Likely reactive. qSOFA criteria: Reported confusion; respiratory rate more than 22 Source of infection: Urinalysis reviewed showed abnormal urinalysis. Urine culture was ordered at the emergency department; follow. Gentle IV hydration. With nephrectomy tube placed about a month ago: Received cefepime at emergency department and continued. Admit intensive care unit and consults general internal medicine doctor. Chest x-ray independently interpreted by myself and by radiology showed no acute cardiopulmonary process. Patient has been vaccinated against Covid 19 virus. Chest x-ray does not look like Covid. Hold home metoprolol and monitor blood pressure. Gross hematuria Noted gross hematuria in urinal at the ED. Family states this been ongoing for about 1 month. Hold aspirin. Trend CBC. BPH Tamsulosin continued. DVT prophylaxis: SCD. Patient is not a candidate for chemical thromboprophylaxis secondary to gross hematuria. Charges/Coding Visit Charges Inpatient E&M: 76763 Init Hosp L3
--- NOTE | 2021-08-07 20:27 | ED.RN ---
report given to ICU nurse
[2021-08-07] MEDS: 0.9% Normal Saline 1,000 ML 75 ML IV (22:08)
[2021-08-07 22:35] LABS: Reflex Lactate? Y
[2021-08-07 23:24] LABS: Lactic Acid 1.1 mmol/L (0.4-1.9)
[2021-08-08] VITALS (19 sets, daily range): BP systolic 99–142; BP diastolic 56–91; PULSE 73–132; RESP 12–26; TEMP 36.3–37.4; O2SAT 88–99
[2021-08-08] MEDS: Acetaminophen 325 MG Tablet 650 MG PO ×3 (01:38→19:32)
[2021-08-08] MEDS: Morphine 4 MG/ML Syringe IV (02:20)
[2021-08-08 04:45] LABS: Absolute Lymphocyte Count 0.88 X10^3/uL (0.83-4.51); Absolute Neutrophil Count 6.7 X10^3/uL (2.0-7.7); Basophil# 0.01 X10^3/uL; Basophil% 0.1 % (0-1); Eosinophil# 0.13 X10^3/uL; Eosinophils% 1.5 % (0-5); Hematocrit 28.2 % (40-54); Hemoglobin 8.3 g/dL (13.0-16.5); Lymphocyte # 0.88 X10^3/ul (0.83-4.51); Lymphocyte % 10.1 % (19-41); Mean Corp Hgb Conc 29.4 g/dL (32-36); Mean Corpuscular Hgb 26.3 pg (27.0-32.0); Mean Corpuscular Volume 89.2 fL (80-94); Mean Platelet Vol. 9.5 fl (6.2-12.0); Monocyte# 1.01 X10^3/uL; Monocyte% 11.6 % (0-10); NRBC Flagged by Analyzer 0 % (0-5); Neutrophil # 6.67 X10^3/uL (2.7-7.7); Neutrophil % 76.2 % (47-70); Platelet Count 279 K/mm3 (150-450); RBC Distribution Width CV 16.2 % (11.6-14.6); RBC Distribution Width SD 53.5 fl (35.1-43.9); Red Blood Count 3.16 M/mm3 (4.6-6.2); White Blood Count 8.7 K/mm3 (4.4-11.0)
[2021-08-08 05:25] LABS: Anion Gap 9 (5-15); BUN 16 mg/dL (7-18); BUN/Creat Ratio 17.5 RATIO (10-20); Calcium,Total 8.5 mg/dL (8.5-10.1); Chloride 102 mmol/L (98-107); Creatinine, Serum 0.91 mg/dL (0.70-1.30); EST Glomerular Filtration Rate 88 mL/min (>60); Est Glom Filt Rate - Afr Amer 106 mL/min (>60); Estimated Creatinine Clearance 75.16 ml/min; Glucose 115 mg/dL (74-106); Potassium 3.2 mmol/L (3.5-5.1); Sodium Level 140 mmol/L (136-145)
--- NOTE | 2021-08-08 07:38 | EX.PCM.CONCC ---
Assessment & Plan Assessment/Plan (1) Sepsis: QUALIFIERS: Sepsis type: sepsis due to unspecified organism Sepsis acute organ dysfunction status: with acute organ dysfunction Severe sepsis acute organ dysfunction type: unspecified Severe sepsis shock status: without septic shock Qualified Code(s): A41.9 - Sepsis, unspecified organism; R65.20 - Severe sepsis without septic shock (2) Cancer of the bladder, stage IV: (3) Ascending aorta dilation: (4) Malignant pericardial effusion: (5) Paroxysmal atrial fibrillation: PLAN: RECOMMENDATIONS: 1. Continue empiric antibiotics pending culture results 2. Encourage incentive spirometer. Wean oxygen as tolerated 3. Transfuse for hemoglobin less than 8 4. Potentially transfer from the intensive care unit later today 5. Okay to reinitiate baseline antihypertensives from my perspective IMPRESSIONS: 1. Severe sepsis secondary to probable UTI with nephrostomy tubes Patient's UA is suggestive of a possible urinary tract infection complicated by indwelling nephrostomy tubes. Patient is on empiric antibiotics at this time. We will continue with gentle IV hydration. Patient is not requiring pressor therapy. High clinical suspicion for gram-negative's, but given nephrostomy tubes, gram-positive's cannot be excluded. We will add vancomycin if patient starts to decompensate. 2. Acute blood loss anemia secondary to hematuria secondary to bladder cancer Clinical suspicion for drop in hemoglobin secondary to acute blood loss from urination versus hemodilution. No indication for transfusion at this time, but will have to follow closely. 3. Stage IV bladder cancer/recent malignant pericardial effusion/GERD/hypertension/history of A. fib Complicates care, management, recovery and prognosis. Majority of care at the [facility]. Patient is currently a full code, but long-term prognosis is guarded. We will have to watch closely for signs or symptoms of recurrent pericardial effusion. Okay to continue with baseline medications for hypertension from my perspective. Patient does not appear to be in A. fib, but this would be more likely if pericardial effusion recurs. HPI Consult Data Date of Consult: 08/08/21 HPI Narrative HPI Narrative: SERG ZAVALA is a 70 M, with past medical history listed below, who presents [facility] on 08/07/2021 secondary to fever while at home. Patient had reportedly also had confusion associated with this fever. Patient recently had a nephrostomy placed at [facility] and is status post radiation therapy in his left upper axilla secondary to bladder cancer. Patient reportedly is expected to have hematuria for the next month, but has not recently had any chemo or radiation. Patient does have a history of pancytopenia, but did not require transfusion his last admission. In the ER, patient was afebrile and normotensive. Patient was tachycardic as high as 115 bpm. Patient was saturating well on room air. Patient was noted to have significantly enlarged left upper extremity, but this is reportedly his baseline. Patient had a hemoglobin of 9.9 and a white blood cell count of 11.1 with 80% neutrophils. Coagulation studies and chemistries were relatively unremarkable. Patient did have an elevated lactate of 2.5 and a urinalysis suggestive of possible urinary tract infection. Chest x-ray was unremarkable. EKG showed sinus tachycardia. There is clinical suspicion for possible infection of the right nephrostomy tube, so patient was given Rocephin and admitted to the intensive care unit. On my evaluation the intensive care unit, patient was refusing to provide additional history. Patient states he did not get much sleep overnight secondary to his ER visit and being moved to the ICU. Patient did not report any significant pain, nausea or vomiting. Patient was unaware of any recurrence of fever. Patient does not normally require supplemental oxygen. Unable to obtain a full review of systems secondary to patient cooperation. [facility] Medical History (Updated 08/07/21 @ 22:[address] Santosh Perez MD) Ascending aorta dilation Atrial fibrillation with RVR Bladder tumor Essential hypertension GERD (gastroesophageal reflux disease) Hyperlipemia Lung nodule Malignant neoplasm of urinary bladder Malignant pericardial effusion Paroxysmal atrial fibrillation Home Medications tamsulosin 0.4 mg capsule 0.4 mg PO QHS 09/03/18 [History Last Taken 08/17/19] cyanocobalamin (vitamin B-12) 1,000 mcg PO DAILY 08/03/19 [History Last Taken 08/17/19] cholecalciferol (vitamin D3) 2,000 unit PO DAILY 08/18/19 [History Last Taken 08/15/19] rosuvastatin 10 mg PO QHS 08/18/19 [History Last Taken 08/17/19] aspirin 81 mg tablet,delayed release 81 mg PO DAILY 08/27/19 [History Last Taken Unknown] duloxetine 60 mg PO DAILY 10/29/20 [History Last Taken Unknown] duloxetine 30 mg PO DAILY 08/07/21 [History Last Taken Unknown] metoprolol tartrate 25 mg PO BID 08/07/21 [History Last Taken Unknown] omeprazole 20 mg PO DAILY 08/07/21 [History Last Taken Unknown] oxybutynin chloride 10 mg PO DAILY 08/07/21 [History Last Taken Unknown] Allergy/AdvReac Type Severity Reaction Status Date / Time No Known Allergies Allergy Verified 10/29/20 17:48 Family History Mother Cancer Lung Father Cancer Stomach Brother Seizures Sister Cancer Bone Surgical History History of bladder surgery (~06/03/18) History of parathyroidectomy S/P pericardiocentesis (~08/04/19) Social History household members: significant other Smoking Status: Former smoker alcohol intake: current details: rare substance use type: does not use ROS Review of Systems ROS Unobtainable: other Details: Patient cooperation Physical Exam Const alert and oriented x3 General Appearance: cooperative and ill appearing Positive for acutely HEENT normocephalic, head/scalp atraumatic and moist oral mucous membranes Eyes PERRL and EOMs intact bilaterally Neck full ROM and no lymphadenopathy Chest inspection of chest normal Resp normal respiratory effort and no use of accessory muscles Effort and Inspection: able to speak in complete sentences Auscultation: clear to auscultation bilaterally; Negative for rales, rhonchi or wheezes Percussion: Negative for dullness Cardio regular rhythm, S1 normal heart sound, S2 normal heart sound, no murmurs, no rub and no gallops Rate: tachycardic GI normal to inspection, nondistended, normoactive bowel sounds Narrative: Bilateral nephrostomy tubes Extremity Extremity Narrative: Significant swelling of left upper extremity. General Extremity: Negative for clubbing or cyanosis Skin no rashes or lesions noted Neuro oriented x3, CN's II-XII intact bilaterally, moves all extremities and no focal motor deficits Psych cooperative and affect normal Lab / Micro Data Result Diagrams: 08/08/21 04:25 08/08/21 04:25 Labs: Laboratory Results - last 24 hr 08/07/21 18:18: WBC 11.1 H, RBC 3.78 L, Hgb 9.9 L, Hct 33.4 L, MCV 88.4, MCH 26.2 L, MCHC 29.6 L, RDW Std Deviation 52.5 H, RDW Coeff of Rosie 16.2 H, Plt Count 410, MPV 10.2, Immature Gran % (Auto) 0.400, Neut % (Auto) 80.3 H, Lymph % (Auto) 10.3 L, [place] % (Auto) 7.6, Eos % (Auto) 1.1, Baso % (Auto) 0.3, Absolute Neuts (auto) 8.9 H, Absolute Lymphs (auto) 1.15, Nucleated RBC % 0 08/07/21 18:18: PT 14.2, INR 1.2, APTT 35.9 08/07/21 18:18: Sodium 138, Potassium 4.1, Chloride 101, Carbon Dioxide 28.0, Anion Gap 9, BUN 14, Creatinine 1.04, Estim Creat Clear Calc 65.77, Est GFR (MDRD) Af Amer 91, Est GFR (MDRD) Non-Af 75, BUN/Creatinine Ratio 13.5, Glucose 121 H, Calcium 9.2, Total Bilirubin 0.60, AST 30, ALT 20, Alkaline Phosphatase 40 L, Total Protein 7.9, Albumin 2.7 L, Globulin 5.2 H, Albumin/Globulin Ratio 0.5 L 08/07/21 18:18: Lactic Acid 2.5 H* 08/07/21 18:24: Urine Color Yellow, Urine Clarity Cloudy, Urine pH 7.0, Ur Specific [place] 1.010, Urine Protein 500 H, Urine Glucose (UA) Normal, Urine Ketones 5 H, Urine Occult Blood 250 H, Urine Nitrite Negative, Urine Bilirubin Negative, Urine Urobilinogen 4 H, Ur Leukocyte Esterase 500 H, Urine RBC 10-25 SEEN, Urine WBC 50-100 SEEN, Ur Squamous Epith Cells 0 SEEN, Urine Bacteria 2+, Urine Mucus 0 SEEN 08/07/21 22:55: Lactic Acid 1.1 08/08/21 04:25: WBC 8.7, RBC 3.16 L, Hgb 8.3 L, Hct 28.2 L, MCV 89.2, MCH 26.3 L, MCHC 29.4 L, RDW Std Deviation 53.5 H, RDW Coeff of Rosie 16.2 H, Plt Count 279, MPV 9.5, Immature Gran % (Auto) 0.500, Neut % (Auto) 76.2 H, Lymph % (Auto) 10.1 L, [place] % (Auto) 11.6 H, Eos % (Auto) 1.5, Baso % (Auto) 0.1, Absolute Neuts (auto) 6.7, Absolute Lymphs (auto) 0.88, Nucleated RBC % 0 08/08/21 04:25: Sodium 140, Potassium 3.2 L, Chloride 102, Carbon Dioxide 29.0, Anion Gap 9, BUN 16, Creatinine 0.91, Estim Creat Clear Calc 75.16, Est GFR (MDRD) Af Amer 106, Est GFR (MDRD) Non-Af 88, BUN/Creatinine Ratio 17.5, Glucose 115 H, Calcium 8.5 Radiology Impression Chest X-Ray 08/07/21 18:00 IMPRESSION: No acute cardiopulmonary process. Electronically Signed: Luis Stringer MD at 19:33 EDT Tel , Service support , Charges/Coding Visit Charges Inpatient E&M: 56599 Init Hosp L3
[2021-08-08] MEDS: Potassium Chloride Oral Tablet 20 MEQ 40 MEQ PO (10:25)
[2021-08-08] MEDS: DULoxetine Hcl 30 MG Capsule PO (10:25)
[2021-08-08] MEDS: Pantoprazole Sodium 20 MG Tablet PO (10:25)
[2021-08-08] MEDS: DULoxetine Hcl 60 MG Capsule PO (11:54)
[2021-08-08] MEDS: Cyanocobalamin 500 MCG Tablet 1000 MCG PO (11:55)
[2021-08-08] MEDS: Cholecalciferol (VIT D3) 25 MCG TABLET (1,000 UNITS) 50 MCG PO (11:55)
[2021-08-08] MEDS: Tolterodine Tartrate 2 MG CAP.SA PO (11:55)
[2021-08-08] MEDS: 0.9% Saline Lock 10 ML Syringe IV ×3 (12:14→22:50)
--- NOTE | 2021-08-08 15:13 | PCM.CONS.P ---
Assessment & Plan Assessment/Plan (1) Dyspnea: QUALIFIERS: Dyspnea type: dyspnea on exertion Qualified Code(s): R06.00 - Dyspnea, unspecified (2) Cancer of the bladder, stage IV: (3) Nausea: (4) Pancytopenia: (5) Acute pyelonephritis due to bacteria: (6) Encephalopathy due to infection: (7) Ascending aorta dilation: PLAN: 70-year-old male with stage IV metastatic bladder cancer, presented with fever and chills, confusion, and weakness. Seen today for palliative consultation for symptom management of chemo-induced neuropathy, anxiety, and cancer related pain. Patient was actually set up for an outpatient consultation with palliative, however ended up in the hospital. 1. Dyspnea: Has a history of malignant pericardial effusions, none currently. He was initially on oxygen but is now saturating well on room air. He does have a known lung nodule. Follows at the [facility]. No indication for opioids to manage shortness of breath at this time. We will continue to follow him closely as an outpatient. 2. Stage IV bladder cancer: Follows at [facility]. No significant cancer related pain at this time. He does take Tylenol as needed at home. He had a prescription for Percocet after his surgery, however reports it was ineffective for his surgical pain. I will obtain his records and follow-up as an outpatient. 3. Nausea: Acute, has had intermittent for the last couple of days. He has Zofran 4 mg IV every 8 hours already ordered, we can increase this to every 6 hours if need be. 4. Acute pyelonephritis/pancytopenia/encephalopathy/ascending aorta dilation: Complicates overall care, management, recovery, and prognosis. Patient was in remission however recent new findings. Recent nephrostomy tubes placed. He is feeling quite weak. He would benefit from some therapy. I called his daughter, Rosy and discussed plan of care, medications, and further history. Thank you for the opportunity to participate in this patient's care, please do not hesitate to contact [facility] with any further questions or concerns. Palliative direct line is [phone]. Patient already signed consents for palliative prior to his admission to the hospital. Greater than 50% of F visit dedicated to education and counseling of palliative care services, medications, comorbid conditions and potential assistance with management, and plan of care moving forward. Start time: 1513 End time: 1639 HPI Consult Data Date of Consult: 08/08/21 HPI Narrative HPI Narrative: SERG ZAVALA, is a 70 M who presented to [facility] 08/07/2021 with complaints of fever, chills, and intermittent confusion. There is a history of stage IV metastatic bladder cancer involving left axilla s/p radiation and chemotherapy. Patient had been doing fairly well with his bladder cancer the past few years up until June of this year, at which time he had some complications and bilateral nephrostomy tubes placed. He has required pericardiocentesis in the past. Work-up in the ED showed evidence of urinary infection and severe sepsis with organ dysfunction. Chest x-ray was unremarkable. He was placed on antibiotics and admitted to the ICU for further evaluation and management. Glove Turner was consulted. Patient has chronic gross hematuria and follows with urologist from [facility], Dr. Rey. Most of his care is provided through [facility]. Other history includes ascending aorta dilation, A. fib with RVR, HTN, lung nodule, malignant pericardial effusions, and PAF. He is not currently anticoagulated. It appears his white count has returned within normal limits. His hemoglobin dropped a little from 9.9-8.3. He did have some IV fluids for hydration and sepsis protocol. Lactate has returned to normal. BP currently 99/57, pulse has improved to 79. T-high during this hospitalization was today at noon with a temp of 99.4 ?F. Patient reports he feels much better since being admitted to the hospital. He is having some intermittent nausea, mostly with movement. He has not had any emesis. Takes Zofran at home as needed. He denies any dizziness or syncope. No abdominal pain. He does have chronic bladder spasms for which he takes oxybutynin at home. He does have some chronic back pain and takes as needed Tylenol. In the acute setting, he has morphine sulfate 4 mg IV every 3 hours as needed for pain. 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 Also complains of insomnia and anxiety. His left upper extremity is chronically edematous related to his cancer and radiation. He denies any lower extremity edema. No chest pain. He does have dyspnea on exertion, none at rest and no orthopnea. He is currently on room air and appears comfortable. He feels very fatigued and weak. Patient lives at home with his , Stacy, in a one-story home, 3 steps to enter. He is independent with ADLs and drives himself. He does not currently have any DME. He is retired and denies any alcohol consumption or smoking. He is hard of hearing but has hearing aids that help. Reports he was told he needs a sleep study but declines. He does not wear oxygen at home. Patient has 3 daughters. His daughter Rosy is an INSERTING MACHINE OPERATOR and his HC POA. [facility] Medical History (Updated 08/08/21 @ 16:51 by Vanessa Jones NP-Yam[place]) Ascending aorta dilation Atrial fibrillation with RVR Bladder tumor Essential hypertension GERD (gastroesophageal reflux disease) Hyperlipemia Lung nodule Malignant neoplasm of urinary bladder Malignant pericardial effusion Paroxysmal atrial fibrillation Home Medications tamsulosin 0.4 mg capsule 0.4 mg PO QHS 09/03/18 [History Last Taken 08/17/19] cyanocobalamin (vitamin B-12) 1,000 mcg PO DAILY 08/03/19 [History Last Taken 08/17/19] cholecalciferol (vitamin D3) 2,000 unit PO DAILY 08/18/19 [History Last Taken 08/15/19] rosuvastatin 10 mg PO QHS 08/18/19 [History Last Taken 08/17/19] aspirin 81 mg tablet,delayed release 81 mg PO DAILY 08/27/19 [History Last Taken Unknown] duloxetine 60 mg PO DAILY 10/29/20 [History Last Taken Unknown] duloxetine 30 mg PO DAILY 08/07/21 [History Last Taken Unknown] metoprolol tartrate 25 mg PO BID 08/07/21 [History Last Taken Unknown] omeprazole 20 mg PO DAILY 08/07/21 [History Last Taken Unknown] oxybutynin chloride 10 mg PO DAILY 08/07/21 [History Last Taken Unknown] Allergy/AdvReac Type Severity Reaction Status Date / Time No Known Allergies Allergy Verified 10/29/20 17:48 Family History Mother Cancer Lung Father Cancer Stomach Brother Seizures Sister Cancer Bone Surgical History History of bladder surgery (~06/03/18) History of parathyroidectomy S/P pericardiocentesis (~08/04/19) Social History household members: significant other Smoking Status: Former smoker alcohol intake: current details: rare substance use type: does not use ROS ROS Narrative Review of systems otherwise negative from a constitutional, HEENT, respiratory, cardiovascular, GI, genitourinary, musculoskeletal, skin, neurologic, psychiatric and hematologic system unless stated above. Physical Exam Const alert, oriented x3 and no apparent distress General Appearance: cooperative and comfortable HEENT normocephalic Eyes General Eye: normal appearance of both eyes Neck supple General: trachea midline Lymph Lymphatic: lymphedema moderate (LUE) Resp normal respiratory effort Effort and Inspection: able to speak in complete sentences and symmetric chest movement Auscultation: clear to auscultation bilaterally and diminished lung sounds Cardio regular rate, regular rhythm, S1 normal heart sound and S2 normal heart sound GI normal to inspection, nondistended, normoactive bowel sounds Bladder / Kidney Exam: other Bilateral nephrostomy tubes draining dark/jesse urine Extremity General Extremity: edema Skin General Skin Exam: no breakdown Neuro CN's II-XII intact bilaterally, moves all extremities and no focal motor deficits Psych Appearance: grossly normal Attitude: calm and engaged Activity / Motor Behavior: appropriate eye contact Speech: normal speech Mood & Affect: flat affect
--- NOTE | 2021-08-08 15:15 | CASEMGMT ---
Addendum entered by Gennaro Metzger 08/08/21 18:46: Palliative Care: Per [facility], pt just signed up w/them recently and 1st home-visit scheduled for next week. Dr Kapoor made aware and asks for Palliative care to come see pt while admitted. Call placed to [facility] and they were notified. Rosy, dtr, was made aware and she voices appreciation. Original Note: RN CM FREIGHT BRAKEMAN CM to room to meet with patient for initial transition planning/care coordination assessment. SANCHEZ SORIANO introduced self and role at [facility]. Pt resting in bed in no distress at this time. Pt voices understanding and able to answer some questions, but asked SANCHEZ SORIANO to call his daughter, Rosy, stating, She takes care of everything. He also stated re: discharge planning, Whatever she decides. Call placed to dtr, Rosy. The following information obtained. Care providers, pharmacy, and demographics verified/updated at this time. PCP: Dr Hill Specialists: Dr Santiago and Dr Bravo--urology @ [facility], Dr Christie-oncology @ [facility] Preferred Pharmacy: [facility] Retail Insurance: [employer] Prescription Benefit: Yes Living Will/HPOA: Has both LW and HPOA and Rosy states she is POA. She was made aware copies are not on e-file @ [facility]. She states she will bring these in. LNOK: , Stacy. Dtr/POA, Rosy. 2 other dtrs Living Arrangements: Lives w/ in mobile home in a group home community. 4 steps to enter. Pt able to navigate the stairs w/one assist. Pt able to mostly bath and dress himself. assists w/his back and nephrostomy tubes. does home mgmt tasks. Rosy manages medications and appts. Transportation: and Rosy. Rosy takes him to his appts. DME: States has the following DME: shower chair, walker. Rosy states pt needs a W/C w/leg rests and wants to get it through [employer]. States no need for further DME at this time. HHC/SNF: No hx of SNF. Active w/[facility]: SN only. Pt and Rosy wish for pt to return home w/[facility]. Rosy asks for PT to be added. Call placed to [facility]. They were notified pt has been admitted to [facility] and that plans are to return home w/[facility] and for PT to be added. CM to follow for any further discharge planning/needs. Rosy voices no further concerns/needs at this time. PLAN: Home w/family support and [facility] for SN. Add PT Dtr would like W/C w/leg rests through [facility] JULIENN RN CM
--- NOTE | 2021-08-08 16:26 | PN.HOSP_ITS ---
Subjective Subjective Follow-up on severe sepsis/acute complicated UTI: Patient was seen and examined. His is at the bedside. Not on pressors. Urine cultures growing gram-negative sid, possible Pseudomonas Objective Data Objective Data Vital Signs: Vital Signs Temp Pulse Resp BP Pulse Ox 97.7 F L 92 20 H 119/73 93 08/08/21 15:45 08/08/21 15:45 08/08/21 15:45 08/08/21 15:45 08/08/21 15:53 Oxygen Flow Rate (L/min) 2 Oxygen Delivery Method Room Air Weight: 84.504 kg Body Mass Index (BMI) 27.8 Intake & Output: Intake and Output for Last 24 Hours 08/06/21 08/07/21 08/08/21 23:59 23:59 23:59 Intake Total 100 / 100 1250 / 1250 Output Total 725 / 725 Balance 85 / 35 525 / 525 Lab / Micro Data Result Diagrams: 08/08/21 04:25 08/08/21 04:25 Labs: Laboratory Results - last 24 hr 08/07/21 18:18: WBC 11.1 H, RBC 3.78 L, Hgb 9.9 L, Hct 33.4 L, MCV 88.4, MCH 26.2 L, MCHC 29.6 L, RDW Std Deviation 52.5 H, RDW Coeff of Rosie 16.2 H, Plt Count 410, MPV 10.2, Immature Gran % (Auto) 0.400, Neut % (Auto) 80.3 H, Lymph % (Auto) 10.3 L, [place] % (Auto) 7.6, Eos % (Auto) 1.1, Baso % (Auto) 0.3, Absolute Neuts (auto) 8.9 H, Absolute Lymphs (auto) 1.15, Nucleated RBC % 0 08/07/21 18:18: PT 14.2, INR 1.2, APTT 35.9 08/07/21 18:18: Sodium 138, Potassium 4.1, Chloride 101, Carbon Dioxide 28.0, Anion Gap 9, BUN 14, Creatinine 1.04, Estim Creat Clear Calc 65.77, Est GFR (MDRD) Af Amer 91, Est GFR (MDRD) Non-Af 75, BUN/Creatinine Ratio 13.5, Glucose 121 H, Calcium 9.2, Total Bilirubin 0.60, AST 30, ALT 20, Alkaline Phosphatase 40 L, Total Protein 7.9, Albumin 2.7 L, Globulin 5.2 H, Albumin/Globulin Ratio 0.5 L 08/07/21 18:18: Lactic Acid 2.5 H* 08/07/21 18:24: Urine Color Yellow, Urine Clarity Cloudy, Urine pH 7.0, Ur Specific [place] 1.010, Urine Protein 500 H, Urine Glucose (UA) Normal, Urine Ketones 5 H, Urine Occult Blood 250 H, Urine Nitrite Negative, Urine Bilirubin Negative, Urine Urobilinogen 4 H, Ur Leukocyte Esterase 500 H, Urine RBC 10-25 SEEN, Urine WBC 50-100 SEEN, Ur Squamous Epith Cells 0 SEEN, Urine Bacteria 2+, Urine Mucus 0 SEEN 08/07/21 22:55: Lactic Acid 1.1 08/08/21 04:25: WBC 8.7, RBC 3.16 L, Hgb 8.3 L, Hct 28.2 L, MCV 89.2, MCH 26.3 L , MCHC 29.4 L, RDW Std Deviation 53.5 H, RDW Coeff of Rosie 16.2 H, Plt Count 279, MPV 9.5, Immature Gran % (Auto) 0.500, Neut % (Auto) 76.2 H, Lymph % (Auto) 10.1 L, [place] % (Auto) 11.6 H, Eos % (Auto) 1.5, Baso % (Auto) 0.1, Absolute Neuts (auto) 6.7, Absolute Lymphs (auto) 0.88, Nucleated RBC % 0 08/08/21 04:25: Sodium 140, Potassium 3.2 L, Chloride 102, Carbon Dioxide 29.0, Anion Gap 9, BUN 16, Creatinine 0.91, Estim Creat Clear Calc 75.16, Est GFR (MDRD) Af Amer 106, Est GFR (MDRD) Non-Af 88, BUN/Creatinine Ratio 17.5, Glucose 115 H, Calcium 8.5 Micro: Microbiology 08/07/21 18:30 Urine, Nephrostomy Urine Culture - Preliminary GNR Poss Pseudomonas sp 08/07/21 18:24 Urine, Nephrostomy Urine Culture - Preliminary GNR Poss Pseudomonas sp Radiography Diagnostic Testing: Radiology Impression Chest X-Ray 08/07/21 18:00 IMPRESSION: No acute cardiopulmonary process. Electronically Signed: Luis Stringer MD at 19:33 EDT Tel , Service support , Physical Exam Narrative Physical exam: General: Alert, Oriented x3, Cooperative, appears unwell, not on oxygen HEENT: Atraumatic Oral: Moist Mucosa Neck: Supple Lungs: Clear to auscultation Cardiovascular: HS I+II, regular, no murmurs Abdomen: Bowel Sounds Present, Soft, Non Tender, bilateral nephrostomy tubes with cloudy urine Extremities: No edema Assessment & Plan Assessment/Plan (1) Severe sepsis with acute organ dysfunction: (2) Pyelonephritis: (3) Hypokalemia: (4) UTI (urinary tract infection): QUALIFIERS: Urinary tract infection type: acute pyelonephritis Qualified Code(s): N10 - Acute pyelonephritis PLAN: 1. Severe sepsis secondary to acute bilateral pyelonephritis, l ikely secondary to bilateral nephrostomy tubes Patient with bilateral nephrostomy tubes. History of bladder CA with metastasis Urine cultures growing gram-negative sid, possibly pseudomonas Continue on IV cefepime, follow-up on cultures 2. Gross hematuria, chronic secondary to bladder CA with mets Charges/Coding Visit Charges Inpatient E&M: 71460 Subs Hosp L3
[2021-08-08] MEDS: Ondansetron 4 MG/2 ML Vial IV (20:38)
[2021-08-08] MEDS: Tamsulosin HCl 0.4 MG Capsule PO (21:27)
[2021-08-08] MEDS: Atorvastatin Calcium 20 MG Tablet PO (21:27)
[2021-08-09] MEDS: Acetaminophen 325 MG Tablet 650 MG PO (01:32)
[2021-08-09 03:20] VITALS: BP 120/78; PULSE 98; RESP 16; TEMP 36.1; O2SAT 95
[2021-08-09 06:36] LABS: Absolute Lymphocyte Count 0.95 X10^3/uL (0.83-4.51); Absolute Neutrophil Count 6.1 X10^3/uL (2.0-7.7); Basophil# 0.02 X10^3/uL; Basophil% 0.3 % (0-1); Eosinophils% 2.5 % (0-5); Hematocrit 28.9 % (40-54); Hemoglobin 8.4 g/dL (13.0-16.5); Lymphocyte # 0.95 X10^3/ul (0.83-4.51); Mean Corp Hgb Conc 29.1 g/dL (32-36); Mean Corpuscular Hgb 25.8 pg (27.0-32.0); Mean Corpuscular Volume 88.7 fL (80-94); Mean Platelet Vol. 9.5 fl (6.2-12.0); Monocyte% 7.6 % (0-10); NRBC Flagged by Analyzer 0 % (0-5); Neutrophil % 77.1 % (47-70); Platelet Count 275 K/mm3 (150-450); RBC Distribution Width CV 15.8 % (11.6-14.6); Red Blood Count 3.26 M/mm3 (4.6-6.2); White Blood Count 7.9 K/mm3 (4.4-11.0)
[2021-08-09 07:27] LABS: ALB/GLOB Ratio 0.4 RATIO (0.9-2.4); AST(SGOT) 28 U/L (15-37); Alanine Aminotransfer ALT/SGPT 17 U/L (16-61); Alkaline Phosphatase 31 U/L (45-117); Anion Gap 8 (5-15); BUN 16 mg/dL (7-18); BUN/Creat Ratio 19.4 RATIO (10-20); Calcium,Total 8.7 mg/dL (8.5-10.1); Chloride 105 mmol/L (98-107); Creatinine, Serum 0.82 mg/dL (0.70-1.30); EST Glomerular Filtration Rate 99 mL/min (>60); Est Glom Filt Rate - Afr Amer 119 mL/min (>60); Estimated Creatinine Clearance 83.41 ml/min; Globulin 4.5 g/dL (2.2-4.2); Glucose 111 mg/dL (74-106); Potassium 4.2 mmol/L (3.5-5.1); Protein, Total 6.5 g/dL (6.4-8.2); Sodium Level 141 mmol/L (136-145)
[2021-08-09] MEDS: Morphine 4 MG/ML Syringe IV (08:00)
[2021-08-09] MEDS: 0.9% Saline Lock 10 ML Syringe IV ×2 (08:01→13:06)
--- NOTE | 2021-08-09 08:19 | PN.CC_ITS ---
Assessment & Plan Assessment/Plan (1) Sepsis: QUALIFIERS: Sepsis type: sepsis due to unspecified organism Sepsis acute organ dysfunction status: with acute organ dysfunction Severe sepsis acute organ dysfunction type: unspecified Severe sepsis shock status: without septic shock Qualified Code(s): A41.9 - Sepsis, unspecified organism; R65.20 - Severe sepsis without septic shock (2) Cancer of the bladder, stage IV: (3) Ascending aorta dilation: (4) Malignant pericardial effusion: (5) Paroxysmal atrial fibrillation: PLAN: RECOMMENDATIONS: 1. Continue IV antibiotics for now, likely okay to transition to p.o. antibiotics to complete 10 days 2. Encourage incentive spirometer. Walking oximetry prior to discharge 3. Transfuse for hemoglobin less than 8 4. Hemodynamically stable on room air. Will sign off from a critical care perspective 5. Okay to reinitiate baseline antihypertensives from my perspective IMPRESSIONS: 1. Severe sepsis secondary to Pseudomonas UTI with nephrostomy tubes Patient's UA is suggestive of a possible urinary tract infection complicated by indwelling nephrostomy tubes. Patient is on empiric antibiotics, but appears to be growing pansensitive Pseudomonas from the nephrostomy tubes. We will continue with gentle IV hydration. Patient is not requiring pressor therapy. Patient should likely continue IV antibiotics while in the hospital, but can be transitioned to p.o. to complete a 10-day course on discharge. Patient currently is hemodynamically stable on room air. Will sign off from a critical care perspective 2. Acute blood loss anemia secondary to hematuria secondary to bladder cancer Clinical suspicion for drop in hemoglobin secondary to acute blood loss from urination versus hemodilution. No indication for transfusion at this time, but will have to follow closely. H&H has been stable. 3. Stage IV bladder cancer/recent malignant pericardial effusion/GERD/hy pertension/history of A. fib Complicates care, management, recovery and prognosis. Majority of care at the [facility]. Patient is currently a full code, but long-term prognosis is guarded. We will have to watch closely for signs or symptoms of recurrent pericardial effusion. Okay to continue with baseline medications for hypertension from my perspective. Patient does not appear to be in A. fib, but this would be more likely if pericardial effusion recurs. Subjective Subjective Patient did well overnight. No acute issues were reported. Patient currently tolerating room air and asking to go home. Patient states pain is controlled. Objective Data Objective Data Vital Signs: Vital Signs Temp Pulse Resp BP Pulse Ox 36.1 C L 98 16 120/78 95 08/09/21 03:20 08/09/21 03:20 08/09/21 03:20 08/09/21 03:20 08/09/21 03:20 Oxygen Flow Rate (L/min) 2 Oxygen Delivery Method Room Air Weight: 84.5 kg Body Mass Index (BMI) 27.8 Intake & Output: Intake and Output for Last 24 Hours 08/07/21 08/08/21 08/09/21 23:59 23:59 23:59 Intake Total 100 / 100 1590 / 1590 220 / 220 Output Total 15 / 65 1015 / 1015 210 / 210 Balance 85 / 35 575 / 575 Lab / Micro Data Result Diagrams: 08/09/21 06:20 08/09/21 06:20 Labs: Laboratory Results - last 24 hr 08/07/21 18:24: Urine Color Yellow, Urine Clarity Cloudy, Urine pH 7.0, Ur Specific [place] 1.010, Urine Protein 500 H, Urine Glucose (UA) Normal, Urine Ketones 5 H, Urine Occult Blood 250 H, Urine Nitrite Negative, Urine Bilirubin Negative, Urine Urobilinogen 4 H, Ur Leukocyte Esterase 500 H, Urine RBC 10-25 SEEN, Urine WBC 50-100 SEEN, Ur Squamous Epith Cells 0 SEEN, Urine Bacteria 2+, Urine Mucus 0 SEEN 08/09/21 06:20: WBC 7.9, RBC 3.26 L, Hgb 8.4 L, Hct 28.9 L, MCV 88.7, MCH 25.8 L , MCHC 29.1 L, RDW Std Deviation 51.0 H, RDW Coeff of Rosie 15.8 H, Plt Count 275, MPV 9.5, Immature Gran % (Auto) 0.500, Neut % (Auto) 77.1 H, Lymph % (Auto) 12.0 L, [place] % (Auto) 7.6, Eos % (Auto) 2.5, Baso % (Auto) 0.3, Absolute Neuts (auto) 6.1, Absolute Lymphs (auto) 0.95, Nucleated RBC % 0 08/09/21 06:20: Sodium 141, Potassium 4.2, Chloride 105, Carbon Dioxide 28.0, Anion Gap 8, BUN 16, Creatinine 0.82, Estim Creat Clear Calc 83.41, Est GFR (MDRD) Af Amer 119, Est GFR (MDRD) Non-Af 99, BUN/Creatinine Ratio 19.4, Glucose 111 H, Calcium 8.7, Total Bilirubin 0.30, AST 28, ALT 17, Alkaline Phosphatase 31 L, Total Protein 6.5, Albumin 2.0 L, Globulin 4.5 H, Albumin/Globulin Ratio 0.4 L Micro: Microbiology 08/07/21 18:30 Urine, Nephrostomy Urine Culture - Preliminary Pseudomonas aeroginosa 08/07/21 18:24 Urine, Nephrostomy Urine Culture - Final Pseudomonas aeroginosa Physical Exam Const alert and oriented x3 General Appearance: cooperative HEENT normocephalic, head/scalp atraumatic and moist oral mucous membranes Eyes PERRL and EOMs intact bilaterally Neck full ROM and no lymphadenopathy Chest inspection of chest normal Resp normal respiratory effort and no use of accessory muscles Effort and Inspection: able to speak in complete sentences Auscultation: clear to auscultation bilaterally; Negative for rales, rhonchi or wheezes Percussion: Negative for dullness Cardio regular rhythm, S1 normal heart sound, S2 normal heart sound, no murmurs, no rub and no gallops Rate: tachycardic GI normal to inspection, nondistended, normoactive bowel sounds Narrative: Bilateral nephrostomy tubes Extremity Extremity Narrative: Significant swelling of left upper extremity. General Extremity: Negative for clubbing or cyanosis Skin no rashes or lesions noted Neuro oriented x3, CN's II-XII intact bilaterally, moves all extremities and no focal motor deficits Psych cooperative and affect normal Charges/Coding Visit Charges Inpatient E&M: 44679 Subs Hosp L2
[2021-08-09 09:20] VITALS: BP 110/65; PULSE 109; RESP 18; TEMP 35.9; O2SAT 99
[2021-08-09 09:30] VITALS: BP 110/65; PULSE 109; RESP 18; TEMP 35.9; O2SAT 99
[2021-08-09] MEDS: Tolterodine Tartrate 2 MG CAP.SA PO (09:44)
[2021-08-09] MEDS: Cyanocobalamin 500 MCG Tablet 1000 MCG PO (09:44)
[2021-08-09] MEDS: Pantoprazole Sodium 20 MG Tablet PO (09:45)
[2021-08-09] MEDS: DULoxetine Hcl 60 MG Capsule PO (09:45)
[2021-08-09] MEDS: DULoxetine Hcl 30 MG Capsule PO (09:45)
[2021-08-09] MEDS: Cholecalciferol (VIT D3) 25 MCG TABLET (1,000 UNITS) 50 MCG PO (09:45)
--- NOTE | 2021-08-09 09:46 | CASEMGMT ---
Social Work Note Per street roller engineer questions, pt has completed HCPOA and LW, hasn't provided copies to [facility] and pt unable to bring in copies. Araceli Tomlinson BIAZZI NITRATOR OPERATOR, CONTINUOUS IMPROVEMENT ENGINEER
[2021-08-09 10:00] VITALS: O2SAT 99
[2021-08-09] MEDS: oxyCODONE 5 MG Tablet 10 MG PO ×2 (10:21→18:35)
--- NOTE | 2021-08-09 12:13 | PN.HOSP_ITS ---
Subjective Subjective Follow-up on severe sepsis/acute complicated UTI: Patient was seen and examined. He was in severe pain earlier on. IV morphine was not holding for him. Oxycodone was added and that was better for him. He denied any fever or chills. Objective Data Objective Data Vital Signs: Vital Signs Temp Pulse Resp BP Pulse Ox 96.7 F L 109 H 18 110/65 99 08/09/21 09:20 08/09/21 09:20 08/09/21 09:20 08/09/21 09:20 08/09/21 10:00 Oxygen Flow Rate (L/min) 2 Oxygen Delivery Method Room Air Weight: 84.5 kg Body Mass Index (BMI) 27.8 Intake & Output: Intake and Output for Last 24 Hours 08/07/21 08/08/21 08/09/21 23:59 23:59 23:59 Intake Total 100 / 100 1590 / 1590 220 / 220 Output Total 15 / 65 1015 / 1015 510 / 510 Balance 85 / 35 575 / 575 -290 / -290 Lab / Micro Data Result Diagrams: 08/09/21 06:20 08/09/21 06:20 Labs: Laboratory Results - last 24 hr 08/09/21 06:20: WBC 7.9, RBC 3.26 L, Hgb 8.4 L, Hct 28.9 L, MCV 88.7, MCH 25.8 L , MCHC 29.1 L, RDW Std Deviation 51.0 H, RDW Coeff of Rosie 15.8 H, Plt Count 275, MPV 9.5, Immature Gran % (Auto) 0.500, Neut % (Auto) 77.1 H, Lymph % (Auto) 12.0 L, [place] % (Auto) 7.6, Eos % (Auto) 2.5, Baso % (Auto) 0.3, Absolute Neuts (auto) 6.1, Absolute Lymphs (auto) 0.95, Nucleated RBC % 0 08/09/21 06:20: Sodium 141, Potassium 4.2, Chloride 105, Carbon Dioxide 28.0, Anion Gap 8, BUN 16, Creatinine 0.82, Estim Creat Clear Calc 83.41, Est GFR (MDRD) Af Amer 119, Est GFR (MDRD) Non-Af 99, BUN/Creatinine Ratio 19.4, Glucose 111 H, Calcium 8.7, Total Bilirubin 0.30, AST 28, ALT 17, Alkaline Phosphatase 31 L, Total Protein 6.5, Albumin 2.0 L, Globulin 4.5 H, Albumin/Globulin Ratio 0.4 L Micro: Microbiology 08/07/21 18:30 Urine, Nephrostomy Urine Culture - Preliminary Pseudomonas aeroginosa 08/07/21 18:24 Urine, Nephrostomy Urine Culture - Final Pseudomonas aeroginosa Physical Exam Narrative Physical exam: General: Alert, Oriented x3, Cooperative, appears unwell, not on oxygen HEENT: Atraumatic Oral: Moist Mucosa Neck: Supple Lungs: Clear to auscultation Cardiovascular: HS I+II, regular, no murmurs Abdomen: Bowel Sounds Present, Soft, non-tender, bilateral nephrostomy tubes with cloudy urine Extremities: No edema Assessment & Plan Assessment/Plan (1) Severe sepsis with acute organ dysfunction: (2) Pyelonephritis: (3) Hypokalemia: (4) UTI (urinary tract infection): QUALIFIERS: Urinary tract infection type: acute pyelonephritis Qualified Code(s): N10 - Acute pyelonephritis PLAN: 1. Severe sepsis secondary to acute bilateral pseudomonas pyelonephritis, likely secondary to bilateral nephrostomy tubes Patient with bilateral nephrostomy tubes. History of bladder CA with metastasis Urine cultures growing pseudomonas, pansensitive Continue on IV cefepime for today and switch to IV Levaquin from tomorrow 2. Gross hematuria, chronic secondary to bladder CA with mets Palliative care consulted Charges/Coding Visit Charges Inpatient E&M: 09079 Subs Hosp L3
[2021-08-09] MEDS: Ondansetron 4 MG/2 ML Vial IV (13:06)
[2021-08-09 14:00] VITALS: BP 141/84; PULSE 113; RESP 16; TEMP 36.4; O2SAT 96
[2021-08-09] MEDS: Tamsulosin HCl 0.4 MG Capsule PO (21:35)
[2021-08-09] MEDS: Atorvastatin Calcium 20 MG Tablet PO (21:35)
[2021-08-09] MEDS: Senna/Docusate Sodium 1 Tablet 2 TABLET PO (21:36)
[2021-08-09] MEDS: Acetaminophen 500 MG Tablet 1000 MG PO (21:36)
[2021-08-09 22:00] VITALS: BP 110/63; PULSE 114; RESP 16; TEMP 36.6; O2SAT 92; O2SAT 93
[2021-08-10 03:14] VITALS: BP 89/54; PULSE 81; RESP 16; TEMP 36.3; O2SAT 94
[2021-08-10 05:00] VITALS: BP 138/98; PULSE 92; RESP 22; TEMP 36.4; O2SAT 98
[2021-08-10] MEDS: Acetaminophen 500 MG Tablet 1000 MG PO (05:04)
[2021-08-10 07:04] VITALS: BP 101/60; PULSE 80; RESP 16; TEMP 36.4; O2SAT 94
[2021-08-10 07:11] LABS: Absolute Lymphocyte Count 0.79 X10^3/uL (0.83-4.51); Absolute Neutrophil Count 6.4 X10^3/uL (2.0-7.7); Basophil# 0.02 X10^3/uL; Basophil% 0.2 % (0-1); Eosinophil# 0.26 X10^3/uL; Eosinophils% 3.2 % (0-5); Hematocrit 28.4 % (40-54); Hemoglobin 8.2 g/dL (13.0-16.5); Lymphocyte # 0.79 X10^3/ul (0.83-4.51); Lymphocyte % 9.8 % (19-41); Mean Corp Hgb Conc 28.9 g/dL (32-36); Mean Corpuscular Hgb 25.5 pg (27.0-32.0); Mean Corpuscular Volume 88.5 fL (80-94); Mean Platelet Vol. 9.8 fl (6.2-12.0); Monocyte# 0.61 X10^3/uL; Monocyte% 7.5 % (0-10); NRBC Flagged by Analyzer 0 % (0-5); Neutrophil # 6.37 X10^3/uL (2.7-7.7); Neutrophil % 78.8 % (47-70); Platelet Count 309 K/mm3 (150-450); RBC Distribution Width CV 15.9 % (11.6-14.6); RBC Distribution Width SD 51.4 fl (35.1-43.9); Red Blood Count 3.21 M/mm3 (4.6-6.2); White Blood Count 8.1 K/mm3 (4.4-11.0)
[2021-08-10 07:40] LABS: ALB/GLOB Ratio 0.5 RATIO (0.9-2.4); AST(SGOT) 25 U/L (15-37); Alanine Aminotransfer ALT/SGPT 15 U/L (16-61); Alkaline Phosphatase 32 U/L (45-117); Anion Gap 7 (5-15); BUN 16 mg/dL (7-18); BUN/Creat Ratio 22.8 RATIO (10-20); Calcium,Total 8.9 mg/dL (8.5-10.1); Chloride 106 mmol/L (98-107); EST Glomerular Filtration Rate 119 mL/min (>60); Est Glom Filt Rate - Afr Amer 143 mL/min (>60); Globulin 4.4 g/dL (2.2-4.2); Glucose 105 mg/dL (74-106); Potassium 3.3 mmol/L (3.5-5.1); Protein, Total 6.4 g/dL (6.4-8.2); Sodium Level 140 mmol/L (136-145)
[2021-08-10 08:03] VITALS: O2SAT 95
[2021-08-10] MEDS: DULoxetine Hcl 30 MG Capsule PO ×2 (09:46)
[2021-08-10] MEDS: Tolterodine Tartrate 2 MG CAP.SA PO (09:47)
[2021-08-10] MEDS: DULoxetine Hcl 60 MG Capsule PO (09:47)
[2021-08-10] MEDS: Pantoprazole Sodium 20 MG Tablet PO (09:48)
[2021-08-10] MEDS: Senna/Docusate Sodium 1 Tablet 2 TABLET PO (09:48)
[2021-08-10] MEDS: Cyanocobalamin 500 MCG Tablet 1000 MCG PO (09:49)
[2021-08-10] MEDS: Cholecalciferol (VIT D3) 25 MCG TABLET (1,000 UNITS) 50 MCG PO (09:49)
[2021-08-10] MEDS: Potassium Chloride Oral Tablet 20 MEQ 60 MEQ PO (09:59)
[2021-08-10] MEDS: levoFLOXacin IV 500 MG/100 ML BAG 100 MG IV (10:00)
[2021-08-10] MEDS: 0.9% Saline Lock 10 ML Syringe IV (10:09)
--- NOTE | 2021-08-10 10:29 | PCM.DC ---
Discharge Instructions Diet Discharge Diet: No restrictions Activity Discharge Activity: Return to Normal Activity Follow Up Care Test Results: Test results from this visit will be discussed in further detail at your follow-up appointment, if applicable. Discharge Plan Admission Admit Date/Time: 08/07/21 19:48 Primary Reason for Your Visit: Severe sepsis/acute pyelonephritis Attending Provider: Eveline Kapoor Primary Care Provider: Jaswinder Hill Consulting Providers: Wilmer Calzada Instructions Additional Instructions / Restrictions: Take note of changes to your medications. You have been prescribed oxycodone and Lidoderm patches for your back pain. Complete your antibiotics. Take your potassium pills as prescribed. You will need repeat blood work within 1 week. Start to take your metoprolol from tomorrow. Take your blood pressure every day and monitor for extremely low blood pressures less than 90 persistently. You will be followed up with home health care and palliative care. Discharge Orders/Prescriptions Prescriptions: New sennosides-docusate sodium [Stool Softener-Stimulant Laxat] 8.6-50 mg Tablet 2 tab PO BID 30 Days Qty: 120 RF: 0 acetaminophen 500 mg Tablet 1,000 mg PO TID Qty: 0 RF: 0 ondansetron HCl [Zofran] 4 mg tablet 4 mg PO Q8H 10 Days Qty: 30 RF: 0 lidocaine 5 % Adhesive Patch,Medicated 3 patch topical DAILY 20 Days Qty: 60 RF: 0 potassium chloride [Klor-Con M20] 20 mEq tablet,ER particles/crystals 20 meq PO DAILY 5 Days Qty: 5 RF: 0 metoprolol succinate 25 mg tablet extended release 24 hr 12.5 mg PO DAILY 30 Days Qty: 15 RF: 0 oxycodone 5 mg Tablet 10 mg PO Q4H PRN PRN (Reason: Pain Score 6-10) 7 Days Qty: 28 RF: 0 levofloxacin 500 mg tablet 500 mg PO DAILY 5 Days Qty: 5 RF: 0 Continued tamsulosin 0.4 mg capsule 0.4 mg PO QHS RF: 0 aspirin [Adult Aspirin Regimen] 81 mg tablet,delayed release (DR/EC) 81 mg PO DAILY RF: 0 cyanocobalamin (vitamin B-12) 1,000 MCG tablet 1,000 mcg PO DAILY RF: 0 rosuvastatin 10 MG tablet 10 mg PO QHS RF: 0 cholecalciferol (vitamin D3) 2,000 UNIT capsule 2,000 unit PO DAILY RF: 0 duloxetine 60 MG capsule 60 mg PO DAILY RF: 0 omeprazole 20 mg Capsule,Delayed Release(Dr/Ec) 20 mg PO DAILY RF: 0 duloxetine 30 mg capsule,delayed release(DR/EC) 30 mg PO DAILY RF: 0 oxybutynin chloride 10 mg tablet extended release 24hr 10 mg PO DAILY RF: 0 Discontinued metoprolol tartrate 25 mg tablet 25 mg PO BID RF: 0 Referrals / Follow Up: Jaswinder Hill DO [Primary Care Provider] - Within 2 Weeks Disposition Disposition (needs filled in before D/C Order can be placed): Home Health Service
[2021-08-10] MEDS: Lidocaine 5% Patch 3 PATCH TOPICAL ×2 (10:39→11:53)
--- NOTE | 2021-08-10 10:54 | CASEMGMT ---
Addendum entered by Araceli Wong 08/10/21 12:22: Clinical information faxed to [facility] urologist. SANCHEZ SORIANO faxed discharge instructions and summary with KAHLIL order to [facility]. SANCHEZ SORIANO updated patient and , had no further questions or concerns. Original Note: SANCHEZ SORIANO spoke with daughterRosy regarding discharge to home with wheelchair. Daughter prefers wheelchair be delivered to patient's room. Daughter Rosy requesting clinical information be faxed to patient's Urologist, Demetrio Fall at [phone]. SANCHEZ SORIANO will faxed discharge information when available to urologist and [facility]. SANCHEZ SORIANO called and faxed referral for wheelchair to [facility] [place] and arranged for delivery to patient's room prior to discharge.
--- NOTE | 2021-08-10 10:58 | PCM.DC.SUM ---
Providers Date of Admission: 08/07/21 Date of Discharge: 08/10/21 Primary Care Physician: Dr. Jaswinder Hill, Consultations 08/07/21 21:44 Consult: Investment Accountant / Pulmonary Medicine Routine Consulting Provider: Wilmer Calzada Reason for Consult: Pyelonephritis with sepsis EMERGENT Consult: No MD Notified: Yes Date Notified: 08/07/21 Time Notified: 19:53 Method of Notification: Text Reason For Visit: SEPSIS Diagnosis Discharge Diagnosis (1) Severe sepsis with acute organ dysfunction: Status: Resolved Code(s): A41.9 - Sepsis, unspecified organism; R65.20 - Severe sepsis without septic shock (2) Pyelonephritis: Status: Acute Code(s): N12 - Tubulo-interstitial nephritis, not specified as acute or chronic (3) Hypokalemia: Status: Acute Code(s): E87.6 - Hypokalemia (4) UTI (urinary tract infection): Status: Acute Code(s): N39.0 - Urinary tract infection, site not specified Qualifiers: Urinary tract infection type: acute pyelonephritis Qualified Code(s): N10 - Acute pyelonephritis Medications at Discharge Home Medications tamsulosin 0.4 mg capsule 0.4 mg PO QHS 09/03/18 cyanocobalamin (vitamin B-12) 1,000 mcg PO DAILY 08/03/19 cholecalciferol (vitamin D3) 2,000 unit PO DAILY 08/18/19 rosuvastatin 10 mg PO QHS 08/18/19 aspirin 81 mg tablet,delayed release 81 mg PO DAILY 08/27/19 duloxetine 60 mg PO DAILY 10/29/20 duloxetine 30 mg PO DAILY 08/07/21 omeprazole 20 mg PO DAILY 08/07/21 oxybutynin chloride 10 mg PO DAILY 08/07/21 acetaminophen 1,000 mg PO TID #0 tab 08/10/21 levofloxacin 500 mg PO DAILY 5 Days #5 tab 08/10/21 lidocaine 3 patch TOPICAL DAILY 20 Days #60 ea 08/10/21 metoprolol succinate 12.5 mg PO DAILY 30 Days #15 tab 08/10/21 ondansetron HCl [Zofran] 4 mg PO Q8H 10 Days #30 tab 08/10/21 oxycodone 10 mg PO Q4H PRN PRN 7 Days #28 tab 08/10/21 potassium chloride [Klor-Con M20] 20 meq PO DAILY 5 Days #5 tab 08/10/21 sennosides-docusate sodium [Stool Softener-Stimulant Laxat] 2 tab PO BID 30 Days #120 tab 08/10/21 Hospital Course Operations None Procedures None Summary of Care Provided Minutes Spent on Discharge: 45 Hospital Course: 70-year-old male with past medical history of stage IV bladder CA with mets to the left axilla, status post bilateral nephrectomy tube comes in with fever, shortness of breath, nausea and vomiting. Patient usually follows up with urology in the [facility]. He has gross hematuria that has been ongoing. Patient was initially admitted to ICU with severe sepsis secondary to acute pyelonephritis. His urine cultures grew Pseudomonas that was pansensitive. Patient was initially managed on IV cefepime and that was transitioned to Levaquin for total of 10 days at discharge. He had relative hypotension and did not have his metoprolol continued. His metoprolol dose was decreased to 12.5 mg daily at discharge. He had hypokalemia that was replaced. He was discharged home also with potassium pills and will need repeat BMP within a week to follow-up on kidney function. Palliative care was consulted during this admission. Patient had intractable back pain that improved with scheduled Tylenol as well as oxycodone and Lidoderm patches. He was given a wheelchair at discharge to assist with ambulation with the intractable back pain. Physical Exam Narrative Physical exam: General: Alert, Oriented x3, Cooperative, appears comfortable today HEENT: Atraumatic Oral: Moist Mucosa Neck: Supple Lungs: Clear to auscultation Cardiovascular: HS I+II, regular, no murmurs Abdomen: Bowel Sounds Present, Soft, non-tender, bilateral nephrostomy tubes with cloudy urine Extremities: No edema Weight / BMI Weight Weight: 84.8 kg Body Mass Index (BMI) 27.8 ABG / Lab / Microbiology Data Result Diagrams: 08/10/21 06:40 08/10/21 06:40 Laboratory: Laboratory Results - last 24 hr 08/07/21 18:24: Urine Color Yellow, Urine Clarity Cloudy, Urine pH 7.0, Ur Specific [place] 1.010, Urine Protein 500 H, Urine Glucose (UA) Normal, Urine Ketones 5 H, Urine Occult Blood 250 H, Urine Nitrite Negative, Urine Bilirubin Negative, Urine Urobilinogen 4 H, Ur Leukocyte Esterase 500 H, Urine RBC 10-25 SEEN, Urine WBC 50-100 SEEN, Ur Squamous Epith Cells 0 SEEN, Urine Bacteria 2+, Urine Mucus 0 SEEN 08/10/21 06:40: WBC 8.1, RBC 3.21 L, Hgb 8.2 L, Hct 28.4 L, MCV 88.5, MCH 25.5 L, MCHC 28.9 L, RDW Std Deviation 51.4 H, RDW Coeff of Rosie 15.9 H, Plt Count 309, MPV 9.8, Immature Gran % (Auto) 0.500, Neut % (Auto) 78.8 H, Lymph % (Auto) 9.8 L, [place] % (Auto) 7.5, Eos % (Auto) 3.2, Baso % (Auto) 0.2, Absolute Neuts (auto) 6.4, Absolute Lymphs (auto) 0.79 L, Nucleated RBC % 0 08/10/21 06:40: Sodium 140, Potassium 3.3 L, Chloride 106, Carbon Dioxide 27.0, Anion Gap 7, BUN 16, Creatinine 0.70, Estim Creat Clear Calc 68.40, Est GFR (MDRD) Af Amer 143, Est GFR (MDRD) Non-Af 119, BUN/Creatinine Ratio 22.8 H, Glucose 105, Calcium 8.9, Total Bilirubin 0.40, AST 25, ALT 15 L, Alkaline Phosphatase 32 L, Total Protein 6.4, Albumin 2.0 L, Globulin 4.4 H, Albumin/Globulin Ratio 0.5 L Microbiology: Microbiology 08/07/21 18:30 Urine, Nephrostomy Urine Culture - Preliminary Pseudomonas aeroginosa GPC Poss Enterococcus sp 08/07/21 18:24 Urine, Nephrostomy Urine Culture - Preliminary Pseudomonas aeroginosa GPC Poss Enterococcus sp D/C Instructions Discharge Diet: No restrictions Meaningful Use Info Meaningful Use Diagnoses (Choose all that apply): None applicable Discharge Plan Admission Admit Date/Time: 08/07/21 19:48 Primary Reason for Your Visit: Severe sepsis/acute pyelonephritis Attending Provider: Eveline Kapoor Primary Care Provider: Jaswinder Hill Consulting Providers: Wilmer Calzada Instructions Additional Instructions / Restrictions: Take note of changes to your medications. You have been prescribed oxycodone and Lidoderm patches for your back pain. Complete your antibiotics. Take your potassium pills as prescribed. You will need repeat blood work within 1 week. Start to take your metoprolol from tomorrow. Take your blood pressure every day and monitor for extremely low blood pressures less than 90 persistently. You will be followed up with home health care and palliative care. Discharge Orders/Prescriptions Prescriptions: New sennosides-docusate sodium [Stool Softener-Stimulant Laxat] 8.6-50 mg Tablet 2 tab PO BID 30 Days Qty: 120 RF: 0 acetaminophen 500 mg Tablet 1,000 mg PO TID Qty: 0 RF: 0 ondansetron HCl [Zofran] 4 mg tablet 4 mg PO Q8H 10 Days Qty: 30 RF: 0 lidocaine 5 % Adhesive Patch,Medicated 3 patch topical DAILY 20 Days Qty: 60 RF: 0 potassium chloride [Klor-Con M20] 20 mEq tablet,ER particles/crystals 20 meq PO DAILY 5 Days Qty: 5 RF: 0 metoprolol succinate 25 mg tablet extended release 24 hr 12.5 mg PO DAILY 30 Days Qty: 15 RF: 0 oxycodone 5 mg Tablet 10 mg PO Q4H PRN PRN (Reason: Pain Score 6-10) 7 Days Qty: 28 RF: 0 levofloxacin 500 mg tablet 500 mg PO DAILY 5 Days Qty: 5 RF: 0 Continued tamsulosin 0.4 mg capsule 0.4 mg PO QHS RF: 0 aspirin [Adult Aspirin Regimen] 81 mg tablet,delayed release (DR/EC) 81 mg PO DAILY RF: 0 cyanocobalamin (vitamin B-12) 1,000 MCG tablet 1,000 mcg PO DAILY RF: 0 rosuvastatin 10 MG tablet 10 mg PO QHS RF: 0 cholecalciferol (vitamin D3) 2,000 UNIT capsule 2,000 unit PO DAILY RF: 0 duloxetine 60 MG capsule 60 mg PO DAILY RF: 0 omeprazole 20 mg Capsule,Delayed Release(Dr/Ec) 20 mg PO DAILY RF: 0 duloxetine 30 mg capsule,delayed release(DR/EC) 30 mg PO DAILY RF: 0 oxybutynin chloride 10 mg tablet extended release 24hr 10 mg PO DAILY RF: 0 Discontinued metoprolol tartrate 25 mg tablet 25 mg PO BID RF: 0 Referrals / Follow Up: Hill,Jaswinder, DO [Primary Care Provider] - Within 2 Weeks Disposition Disposition (needs filled in before D/C Order can be placed): Home Health Service Charges/Coding Visit Charges Inpatient E&M: 17330 Disch Hosp
[2021-08-10 11:08] LABS: Platelet Count 313 K/mm3 (150-450); RET-HE 25.4 pg (30-35); Reticulocyte Count 2.76 % (0.5-1.5)
[2021-08-10 11:23] LABS: Ferritin 474 ng/mL (26-388); Iron 32 ug/dL (65-175); Iron Binding Capacity,Total 210 ug/dL (250-450); PERCENT IRON SATURATION 15.2 % (15.0-55.0)
[2021-08-10] MEDS: oxyCODONE 5 MG Tablet 10 MG PO (11:35)
[2021-08-10 12:01] VITALS: BP 130/90; PULSE 102; RESP 16; TEMP 36; O2SAT 99
--- NOTE | 2021-08-11 14:26 | CASEMGMT ---
SANCHEZ SORIANO Discharge Follow-up Phone Call: YSABEL: Elizabeth Strata: 3 Call Date: 08/11/21 Discharge Date: 08/10/21 Time of Call: 1425 Duration: 1 min Admitting Diagnosis: Sepsis RN CHRISTIE attempted to complete follow-up phone call after recent hospitalization. No answer, voice message left with return contact information.
== END 2021-08-10 14:48 | disposition home health service (06) | DRG 698 ==
LOC: ED 19:43 → ICU 21:28 → MS2 08-08 19:12
PROVIDERS: Admitting Provider Hospitalist; Emergency Provider Emergency Medicine; PCP Student in an Organized Health Care Education/Training Program; Visit Provider Internal Medicine
DX: T83.512A Infection and inflammatory reaction due to nephrostomy catheter, initial encounter (principal); R65.20 Severe sepsis without septic shock; A41.52 Sepsis due to Pseudomonas; N10 Acute pyelonephritis; B96.5 Pseudomonas (aeruginosa) (mallei) (pseudomallei) as the cause of diseases classified elsewhere; G93.49 Other encephalopathy; E87.6 Hypokalemia; C67.9 Malignant neoplasm of bladder, unspecified; R31.0 Gross hematuria; I48.0 Paroxysmal atrial fibrillation; I10 Essential (primary) hypertension; E78.5 Hyperlipidemia, unspecified; I89.0 Lymphedema, not elsewhere classified; Y73.8 Miscellaneous gastroenterology and urology devices associated with adverse incidents, not elsewhere classified; Y92.9 Unspecified place or not applicable; G62.9 Polyneuropathy, unspecified; G89.29 Other chronic pain; N40.0 Benign prostatic hyperplasia without lower urinary tract symptoms; K21.9 Gastro-esophageal reflux disease without esophagitis; G47.00 Insomnia, unspecified; F41.9 Anxiety disorder, unspecified; Z79.82 Long term (current) use of aspirin; Z79.890 Hormone replacement therapy; Z85.51 Personal history of malignant neoplasm of bladder; Z92.3 Personal history of irradiation; Z87.891 Personal history of nicotine dependence; Z93.6 Other artificial openings of urinary tract status; Z92.21 Personal history of antineoplastic chemotherapy
CPT/HCPCS: 36415; 71045; 80048; 80053; 81001; 82728; 83540; 83550; 83605; 85025; 85045; 85610; 85730; 87040; 87077; 87086; 87088; 87184; 87186; 93005; 97162; 97166; 97530; 99285; J7030; A4216; J2405

== ENCOUNTER → 2021-08-18 09:08 | Outpatient (CLI) | payer MEDICARE, MEDICAID, SELFPAY ==
--- NOTE | 2021-08-18 09:13 | RAD_ITS ---
PROCEDURE: Right nephrostomy tube exchange. DATE OF EXAMINATION: 08/18/2021. INDICATION: Male, 70 years old. Right ureteral obstruction. PHYSICIAN: Dr. CAPRI Matute FLUOROSCOPY TIME (if supplied): (85 seconds) minutes/seconds. 2 images were obtained. Under direct fluoroscopic guidance, the indwelling 8 [place] catheter was replaced with a new 10 [place] nephrostomy catheter. There is good positioning. RAD/Nephrostomy Tube Exchange IMPRESSION: Successful exchange of the indwelling 8 [place] nephrostomy catheter with a new 10 [place] nephrostomy catheter. Electronically Signed: Luis Darling MD at 12:36 EDT , Service support ,
--- NOTE | 2021-08-18 09:17 | RAD_ITS ---
PROCEDURE: Left nephrostomy catheter exchange. DATE OF EXAMINATION: 08/18/2021. INDICATION: Male, 70 years old. Chronic ureteral obstruction. PHYSICIAN: Dr. CAPRI Matute FLUOROSCOPY TIME (if supplied): (55 seconds) minutes/seconds. One image was obtained. Under direct fluoroscopic guidance, the indwelling 8 [place] nephrostomy catheter was removed over a glide wire. Following this, a 10 [place] nephrostomy tube was placed. The tip is in the renal pelvis. RAD/Nephrostomy Tube Exchange IMPRESSION: Exchange of the 8 [place] percutaneous nephrostomy catheter for a new 10 [place] nephrostomy catheter. Electronically Signed: Luis Darling MD at 12:35 EDT , Service support ,
[2021-08-18] MEDS: Lidocaine 2% (5ml sdv) 5 ML VIAL.MPF INFILT (09:30)
== END | disposition home or self-care (01) ==
PROVIDERS: PCP Student in an Organized Health Care Education/Training Program
DX: C67.9 Malignant neoplasm of bladder, unspecified (principal); N29 Other disorders of kidney and ureter in diseases classified elsewhere
CPT/HCPCS: 50435

== ENCOUNTER 2021-08-18 10:25 | Inpatient (IN) | payer MEDICARE, MEDICAID, SELFPAY ==
[2021-08-18] VITALS (20 sets, daily range): BP systolic 98–141; BP diastolic 67–86; PULSE 84–113; RESP 13–24; TEMP 36.1–36.9; O2SAT 94–100; BMI 28.7; BMI 27.4
--- NOTE | 2021-08-18 10:50 | EDS_ITS ---
HPI History of Present Illness Chief Complaint: Complaint Informant: patient and family Narrative Narrative: 70-year-old male presenting to the emergency department out of concern for pyelonephritis. Patient has a history of stage IV bladder cancer. He is currently in palliative care. He has bilateral nephrostomy tubes. His care team is at the [facility]. Patient was admitted here recently with pyelonephritis. Today he came to have his nephrostomy tubes replaced. Per the radiologist when they removed him there was a significant amount of purulence with them. Patient continues to have significant right flank pain that is not new. He is now having chills and nausea vomiting. Family notes some mild confusion. They have not documented a fever but states this is how it started the last presentation. Reportedly he grew out Pse udomonas and was discharged home with 5 additional days of Levaquin. [facility] Medical History (Updated 08/18/21 @ 13:[address] Javon Hernandez, DO) Ascending aorta dilation Atrial fibrillation with RVR Bladder tumor Essential hypertension GERD (gastroesophageal reflux disease) Hyperlipemia Lung nodule Malignant neoplasm of urinary bladder Malignant pericardial effusion Paroxysmal atrial fibrillation Home Medications tamsulosin 0.4 mg capsule 0.4 mg PO QHS 09/03/18 [History Last Taken 08/17/19] cyanocobalamin (vitamin B-12) 1,000 mcg PO DAILY 08/03/19 [History Last Taken 08/17/19] cholecalciferol (vitamin D3) 2,000 unit PO DAILY 08/18/19 [History Last Taken 08/15/19] rosuvastatin 10 mg PO QHS 08/18/19 [History Last Taken 08/17/19] aspirin 81 mg tablet,delayed release 81 mg PO DAILY 08/27/19 [History Last Taken Unknown] duloxetine 60 mg PO DAILY 10/29/20 [History Last Taken Unknown] duloxetine 30 mg PO DAILY 08/07/21 [History Last Taken Unknown] omeprazole 20 mg PO DAILY 08/07/21 [History Last Taken Unknown] oxybutynin chloride 10 mg PO DAILY 08/07/21 [History Last Taken Unknown] acetaminophen 1,000 mg PO TID #0 tab 08/10/21 [Rx Last Taken Unknown] lidocaine 3 patch TOPICAL DAILY 20 Days #60 ea 08/10/21 [Rx Last Taken Unknown] metoprolol succinate 12.5 mg PO DAILY 30 Days #15 tab 08/10/21 [Rx Last Taken Unknown] ondansetron HCl [Zofran] 4 mg PO Q8H 10 Days #30 tab 08/10/21 [Rx Last Taken Unknown] oxycodone 10 mg PO Q4H PRN PRN 7 Days #28 tab 08/10/21 [Rx Last Taken Unknown] potassium chloride [Klor-Con M20] 20 meq PO DAILY 5 Days #5 tab 08/10/21 [Rx Last Taken Unknown] sennosides-docusate sodium [Stool Softener-Stimulant Laxat] 2 tab PO BID 30 Days #120 tab 08/10/21 [Rx Last Taken Unknown] Allergy/AdvReac Type Severity Reaction Status Date / Time No Known Allergies Allergy Verified 10/29/20 17:48 Family History Mother Cancer Lung Father Cancer Stomach Brother Seizures Sister Cancer Bone Surgical History History of bladder surgery (~06/03/18) History of parathyroidectomy S/P pericardiocentesis (~08/04/19) Social History household members: significant other Smoking Status: Former smoker alcohol intake: current details: rare substance use type: does not use ROS ROS ED Constitutional Constitutional ED: Reports chills and sweats; Denies fever(s) or weight loss Eyes Eyes: Denies change in vision or diplopia ENT ENT ED: Denies ear pain, rhinorrhea or sore throat Cardiovascular Cardiovascular: Denies chest pain, orthopnea, palpitations or racing heartbeat Respiratory/Chest Respiratory/Chest: Denies cough, dyspnea or orthopnea Gastrointestinal Gastrointestinal: Reports abdominal pain, nausea and vomiting; Denies diarrhea Genitourinary Genitourinary ED: Denies dysuria, hematuria or urinary frequency Musculoskeletal Musculoskeletal: Reports back pain; Denies arthralgias or myalgias Integumentary Denies abscess or rash Neurologic Neurologic: Reports other Details: Mild confusion ; Denies headache(s) or weakness Psychiatric Psychiatric: Denies anxiety, depression, suicidal ideation or suicidal thoughts Endocrine Endocrinology: Denies polydipsia, polyphagia or polyuria Allergic/Immunologic Allergic/Immunologic ED: Denies mouth swelling, tongue swelling or urticaria EXAM Physical Exam Const Vital Signs: 08/18/21 10:26 08/18/21 11:20 08/18/21 11:29 Temperature 97 F L 97.5 F L Temperature Source Temporal Temporal Pulse Rate 98 93 Respiratory Rate 18 14 Blood Pressure 117/79 138/74 H 129/81 H Blood Pressure Mean 91 95 97 Pulse Ox 100 97 Oxygen Delivery Method Room Air Nasal Cannula Oxygen Flow Rate (L/min) 2 08/18/21 12:00 08/18/21 13:00 Temperature 98 F 97.9 F Temperature Source Temporal Temporal Pulse Rate 103 H 107 H Respiratory Rate 14 18 Blood Pressure 110/72 98/67 Blood Pressure Mean 84 77 Pulse Ox 95 96 Oxygen Delivery Method Nasal Cannula Nasal Cannula Oxygen Flow Rate (L/min) 2 2 Positive well nourished and well developed General Appearance ED: well developed HEENT Reports normocephalic, head/scalp atraumatic, TM's clear and moist mucous membranes Negative for trauma Tympanic Membrane ED: Yes TM's clear Eyes PERRL and EOMs intact bilaterally Neck no lymphadenopathy, supple and no JVD Resp normal respiratory effort and clear to auscultation bilaterally Cardio regular rate, regular rhythm and no murmurs GI normal to inspection, nondistended, normoactive bowel sounds and non-tender Palpation: soft Back/Spine normal ROM Back/Spine Narrative: Bilateral nephrostomy tubes are present. General Back: CVA tenderness right Extremity normal to inspection General Extremety ED: Yes edema General Extremity: edema Neuro oriented x3 and CN's II-XII intact bilaterally Sensorium / Orientation: alert Motor Exam: strength 5/5 throughout Psych mental status grossly normal Mood & Affect: Negative for depressed or tearful Skin no rashes or lesions noted and no wounds MDM MDM MDM Narrative Medical decision making narrative: Patient's white blood cell count is 12.2. Lactic acid slightly elevated 2.2. We obtained urine from each of the nephrostomy tubes. Because of the Pseudomonas infection he received cefepime. Plan will be to admit the patient to the hospital for further care Lab Data Attestation: I reviewed the patient's lab results. Labs: Laboratory Results - last 24 hr 08/18/21 08/18/21 08/18/21 11:15 11:15 11:15 WBC 12.2 H RBC 3.55 L Hgb 9.2 L Hct 30.2 L MCV 85.1 MCH 25.9 L MCHC 30.5 L RDW Std Deviation 49.8 H RDW Coeff of Rosie 16.0 H Plt Count 350 MPV 9.9 Immature Gran % (Auto) 0.600 Neut % (Auto) 85.4 H Lymph % (Auto) 5.6 L [place] % (Auto) 7.2 Eos % (Auto) 1.0 Baso % (Auto) 0.2 Absolute Neuts (auto) 10.4 H Absolute Lymphs (auto) 0.68 L Nucleated RBC % 0 PT 13.7 INR 1.1 APTT 40.0 H Sodium 138 Potassium 3.4 L Chloride 99 Carbon Dioxide 28.0 Anion Gap 11 BUN 19 H Creatinine 0.88 Estim Creat Clear Calc 77.73 Est GFR (MDRD) Af Amer 111 Est GFR (MDRD) Non-Af 91 BUN/Creatinine Ratio 21.6 H Glucose 112 H Lactic Acid Calcium 8.8 Total Bilirubin 0.50 AST 40 H ALT 21 Alkaline Phosphatase 41 L Troponin I High Sens 5 Total Protein 7.2 Albumin 2.3 L Globulin 4.9 H Albumin/Globulin Ratio 0.5 L Urine Color Urine Clarity Urine pH Ur Specific [place] Urine Protein Urine Glucose (UA) Urine Ketones Urine Occult Blood Urine Nitrite Urine Bilirubin Urine Urobilinogen Ur Leukocyte Esterase Urine RBC Urine WBC Ur Squamous Epith Cells Urine Bacteria Urine Mucus 08/18/21 08/18/21 08/18/21 11:15 12:00 12:05 WBC RBC Hgb Hct MCV MCH MCHC RDW Std Deviation RDW Coeff of Rosie Plt Count MPV Immature Gran % (Auto) Neut % (Auto) Lymph % (Auto) [place] % (Auto) Eos % (Auto) Baso % (Auto) Absolute Neuts (auto) Absolute Lymphs (auto) Nucleated RBC % PT INR APTT Sodium Potassium Chloride Carbon Dioxide Anion Gap BUN Creatinine Estim Creat Clear Calc Est GFR (MDRD) Af Amer Est GFR (MDRD) Non-Af BUN/Creatinine Ratio Glucose Lactic Acid 2.2 H* Calcium Total Bilirubin AST ALT Alkaline Phosphatase Troponin I High Sens Total Protein Albumin Globulin Albumin/Globulin Ratio Urine Color Yellow Ema Urine Clarity Sl. Cloudy Cloudy Urine pH 6.0 5.0 Ur Specific [place] 1.020 1.015 Urine Protein 100 H 500 H Urine Glucose (UA) Normal Normal Urine Ketones 5 H 5 H Urine Occult Blood 250 H 250 H Urine Nitrite Negative Positive H Urine Bilirubin Negative 1 H Urine Urobilinogen 1 H 1 H Ur Leukocyte Esterase 500 H 500 H Urine RBC 25-50 SEEN 25-50 SEEN Urine WBC 25-50 SEEN 25-50 SEEN Ur Squamous Epith Cells 0-5 SEEN 0-5 SEEN Urine Bacteria 0 SEEN 1+ Urine Mucus 0 SEEN 0 SEEN EKG Initial EKG: Attestation: I personally reviewed and interpreted this EKG as follows: Comments: Sinus tachycardia with a ventricular rate of 115 bpm Discharge Plan Dx/Rx/DC Orders Clinical Impression: Acute pyelonephritis due to bacteria, Cancer of the bladder, stage IV, Sepsis Disposition Disposition: Acute Care Hospital [facility]
[2021-08-18 11:28] LABS: Absolute Lymphocyte Count 0.68 X10^3/uL (0.83-4.51); Absolute Neutrophil Count 10.4 X10^3/uL (2.0-7.7); Basophil# 0.03 X10^3/uL; Basophil% 0.2 % (0-1); Eosinophil# 0.12 X10^3/uL; Hematocrit 30.2 % (40-54); Hemoglobin 9.2 g/dL (13.0-16.5); Lymphocyte # 0.68 X10^3/ul (0.83-4.51); Lymphocyte % 5.6 % (19-41); Mean Corp Hgb Conc 30.5 g/dL (32-36); Mean Corpuscular Hgb 25.9 pg (27.0-32.0); Mean Corpuscular Volume 85.1 fL (80-94); Mean Platelet Vol. 9.9 fl (6.2-12.0); Monocyte# 0.88 X10^3/uL; Monocyte% 7.2 % (0-10); NRBC Flagged by Analyzer 0 % (0-5); Neutrophil # 10.37 X10^3/uL (2.7-7.7); Neutrophil % 85.4 % (47-70); Platelet Count 350 K/mm3 (150-450); RBC Distribution Width SD 49.8 fl (35.1-43.9); Red Blood Count 3.55 M/mm3 (4.6-6.2); White Blood Count 12.2 K/mm3 (4.4-11.0)
[2021-08-18] MEDS: Ondansetron 4 MG/2 ML Vial IV (11:30)
[2021-08-18] MEDS: HYDROmorphone 1 MG/ML Syringe IV (11:30)
[2021-08-18 11:40] LABS: International Normalized Ratio 1.1; Prothrombin Time (Protime)PT. 13.7 SECONDS (11.7-14.9)
[2021-08-18 11:48] LABS: ALB/GLOB Ratio 0.5 RATIO (0.9-2.4); AST(SGOT) 40 U/L (15-37); Alanine Aminotransfer ALT/SGPT 21 U/L (16-61); Albumin, Serum 2.3 g/dL (3.2-5.0); Alkaline Phosphatase 41 U/L (45-117); Anion Gap 11 (5-15); BUN 19 mg/dL (7-18); BUN/Creat Ratio 21.6 RATIO (10-20); Calcium,Total 8.8 mg/dL (8.5-10.1); Chloride 99 mmol/L (98-107); Creatinine, Serum 0.88 mg/dL (0.70-1.30); EST Glomerular Filtration Rate 91 mL/min (>60); Est Glom Filt Rate - Afr Amer 111 mL/min (>60); Estimated Creatinine Clearance 77.73 ml/min; Globulin 4.9 g/dL (2.2-4.2); Glucose 112 mg/dL (74-106); Potassium 3.4 mmol/L (3.5-5.1); Protein, Total 7.2 g/dL (6.4-8.2); Sodium Level 138 mmol/L (136-145); Troponin-I HS 5 pg/mL (3.0-78.0)
[2021-08-18 11:54] LABS: Lactic Acid 2.2 mmol/L (0.4-1.9)
[2021-08-18] MEDS: 0.9% Normal Saline 1,000 ML 150 ML IV (11:54)
[2021-08-18 12:24] LABS: Mucous, Urine 0 SEEN /hpf (<or=2+)
[2021-08-18 12:24] LABS: Bacteria 0 SEEN /hpf (None Seen); Mucous, Urine 0 SEEN /hpf (<or=2+)
[2021-08-18 12:58] LABS: Color, Urine Yellow (Yellow); Glucose, Dipstick Normal (Normal); Ketone-Dipstick 5 mg/dl (Negative); Leukocyte Esterase-Dipstick 500 /ul (Negative); Nitrite-Dipstick Negative (Negative); Occult Blood-Urine 250 /ul (Negative); Protein-Dipstick 100 mg/dl (Negative); Urine Bilirubin Dipstick Negative (Negative); Urine Clarity Sl. Cloudy (Clear); Urine Urobilinogen 1 mg/dl (Normal)
[2021-08-18 12:59] LABS: Color, Urine Amber (Yellow); Glucose, Dipstick Normal (Normal); Ketone-Dipstick 5 mg/dl (Negative); Leukocyte Esterase-Dipstick 500 /ul (Negative); Nitrite-Dipstick Positive (Negative); Occult Blood-Urine 250 /ul (Negative); Protein-Dipstick 500 mg/dl (Negative); Specific Gravity, Urine 1.015 (1.002-1.030); Urine Clarity Cloudy (Clear); Urine Urobilinogen 1 mg/dl (Normal)
[2021-08-18 13:06] LABS: Urine Bilirubin Dipstick 1 mg/dL (Negative)
[2021-08-18 13:09] LABS: Red Blood Cells-Urine 25-50 SEEN /hpf (0-5); Squamous Epithelial Cells - UA 0-5 SEEN /hpf (0-5); White Blood Cells 25-50 SEEN /hpf (0-5)
[2021-08-18 13:11] LABS: Bacteria 1+ /hpf (None Seen); Red Blood Cells-Urine 25-50 SEEN /hpf (0-5); Squamous Epithelial Cells - UA 0-5 SEEN /hpf (0-5); White Blood Cells 25-50 SEEN /hpf (0-5)
[2021-08-18] MEDS: 0.9% Normal Saline 1,000 ML 1000 ML IV (13:59)
--- NOTE | 2021-08-18 14:02 | PCM.HP.STD ---
HPI - General HPI Narrative SERG ZAVALA, is a 70 M who presented to the department [facility] on 08/18/2021 after being seen by interventional radiology for nephrostomy tube replacement. Per the radiologist, when bilateral nephrology ostomy tubes were removed there was a significant amount of purulent drainage with them. The patient indicates he has not been feeling well since approximately Sunday and feels like he has in the past when he is getting pyelonephritis. He was recently admitted here from August 07, 2021 until August 10, 2021 for similar symptoms and had urine culture growth of Pseudomonas, Enterococcus, and Propionibacterium acnes. Blood cultures were negative at that time. He was discharged home and has completed his antibiotics. At baseline he has stage IV bladder cancer and is no longer undergoing aggressive management and is involved with palliative care. He reports they he has chronic low back pain that has been worse in the recent few days and that is why he is also concerned he has pyelonephritis. He states that he is to be started on methadone by palliative care but has not started the medication yet. He complains of chills, nausea, and vomiting along with his back pain. He has chronic gross hematuria and constipation with 3 relationship to his chronic pain medication. At his last hospitalization the bacterium were pansensitive and he was discharged home on Levaquin. In the emergency department he was noted to be tachycardic, relatively hypotensive, have a leukocytosis of 12.2 with a left shift, mild mental status changes, and elevated lactate with mild AST elevation. His troponin was normal and his renal function was normal at this time. A UA was obtained from both nephrostomy tubes and they both appear consistent with acute urinary tract infection. He was initiated on cefepime in the emergency department and 1 L IV fluid bolus was given. He will be admitted to the intensive care unit for gram-negative pyelonephritis with possible bacteremia. Blood cultures are pending and were obtained prior to antibiotics being given. [facility] Medical History (Updated 08/18/21 @ 14:[address] Solange Cantu DO) Ascending aorta dilation Atrial fibrillation with RVR Bladder tumor Essential hypertension GERD (gastroesophageal reflux disease) Hyperlipemia Lung nodule Malignant neoplasm of urinary bladder Malignant pericardial effusion Paroxysmal atrial fibrillation Home Medications tamsulosin 0.4 mg capsule 0.4 mg PO QHS 09/03/18 [History Last Taken 08/17/19] cyanocobalamin (vitamin B-12) 1,000 mcg PO DAILY 08/03/19 [History Last Taken 08/17/19] cholecalciferol (vitamin D3) 2,000 unit PO DAILY 08/18/19 [History Last Taken 08/15/19] rosuvastatin 10 mg PO QHS 08/18/19 [History Last Taken 08/17/19] aspirin 81 mg tablet,delayed release 81 mg PO DAILY 08/27/19 [History Last Taken Unknown] duloxetine 60 mg PO DAILY 10/29/20 [History Last Taken Unknown] duloxetine 30 mg PO DAILY 08/07/21 [History Last Taken Unknown] omeprazole 20 mg PO DAILY 08/07/21 [History Last Taken Unknown] oxybutynin chloride 10 mg PO DAILY 08/07/21 [History Last Taken Unknown] acetaminophen 1,000 mg PO TID #0 tab 08/10/21 [Rx Last Taken Unknown] lidocaine 3 patch TOPICAL DAILY 20 Days #60 ea 08/10/21 [Rx Last Taken Unknown] metoprolol succinate 12.5 mg PO DAILY 30 Days #15 tab 08/10/21 [Rx Last Taken Unknown] ondansetron HCl [Zofran] 4 mg PO Q8H 10 Days #30 tab 08/10/21 [Rx Last Taken Unknown] oxycodone 10 mg PO Q4H PRN PRN 7 Days #28 tab 08/10/21 [Rx Last Taken Unknown] potassium chloride [Klor-Con M20] 20 meq PO DAILY 5 Days #5 tab 08/10/21 [Rx Last Taken Unknown] sennosides-docusate sodium [Stool Softener-Stimulant Laxat] 2 tab PO BID 30 Days #120 tab 08/10/21 [Rx Last Taken Unknown] Allergy/AdvReac Type Severity Reaction Status Date / Time No Known Allergies Allergy Verified 10/29/20 17:48 Family History Mother Cancer Lung Father Cancer Stomach Brother Seizures Sister Cancer Bone Surgical History History of bladder surgery (~06/03/18) History of parathyroidectomy S/P pericardiocentesis (~08/04/19) Social History household members: significant other Smoking Status: Former smoker alcohol intake: current details: rare substance use type: does not use ROS Constitutional Constitutional: Reports chills, fatigue, malaise and weakness; Denies anorexia, change in weight, fever(s), night sweats or other Eyes Eyes: Denies blurry vision, change in eye color, change in vision, discharge from eye(s), double vision, erythema, eye pain, loss of vision or other ENT HEENT: Denies abnormal hearing, dysphagia, ear pain, epistaxis, headache(s), hearing loss, nasal congestion, nasal discharge, post nasal drip, sinus pressure, sore throat or other Cardiovascular Cardiovascular: Denies chest pain, claudication, dyspnea on exertion, edema, lightheadedness, orthopnea, palpitations, paroxysmal nocturnal dyspnea, rapid heart rate, syncope or other Respiratory/Chest Respiratory/Chest: Denies cough, dyspnea, excessive phlegm production, hemoptysis, productive cough, shortness of breath at rest, shortness of breath with exertion, wheezing or other Gastrointestinal Gastrointestinal: Reports constipation; Denies abdominal pain, coffee ground emesis, diarrhea, dyspepsia, hematemesis, hematochezia, loose stools, melena, nausea, vomiting or other Genitourinary Genitourinary: Reports hematuria and other Details: Back pain ; Denies burning urination, difficulty urinating, dysuria, nocturia, urinary frequency, urinary hesitancy, urinary incontinence or urinary urgency Musculoskeletal Musculoskeletal: Reports back pain; Denies arthralgias, joint pain, joint stiffness, joint swelling, myalgias, neck pain or other Neurologic Neurologic: Denies abnormal gait, abnormal speech, confusion, disequilibrium, dizziness, focal weakness, headache(s), numbness, paresthesias, seizure-like activity, seizures, syncope, tingling, tremor(s) or other Psychiatric Psychiatric: Denies anxiety, depression, homicidal ideation, suicidal ideation or other Endocrine Endocrinology: Denies change in body appearance, cold intolerance, excessive sweating, heat intolerance, polydipsia, polyuria or other Hematologic/Lymphatic Hematologic/Lymphatic: Denies anemia, easy bleeding, easy bruising, lymphadenopathy or other Allergic/Immunologic Allergic/Immunologic: Denies rhinitis, hives, eczemia, asthma or other Vital Signs Vital Signs Vital Signs: 10/21/21 10:26 08/18/21 11:20 08/18/21 11:29 Temperature 97 F L 97.5 F L Temperature Source Temporal Temporal Pulse Rate 98 93 Respiratory Rate 18 14 Blood Pressure 117/79 138/74 H 129/81 H Blood Pressure Mean 91 95 97 Pulse Ox 100 97 Oxygen Delivery Method Room Air Nasal Cannula Oxygen Flow Rate (L/min) 2 08/18/21 12:00 08/18/21 13:00 Temperature 98 F 97.9 F Temperature Source Temporal Temporal Pulse Rate 103 H 107 H Respiratory Rate 14 18 Blood Pressure 110/72 98/67 Blood Pressure Mean 84 77 Pulse Ox 95 96 Oxygen Delivery Method Nasal Cannula Nasal Cannula Oxygen Flow Rate (L/min) 2 2 Weight Weight: 85.729 kg Body Mass Index (BMI) 28.7 Physical Exam Const alert Constitutional Narrative: Upper middle-aged white male who appears much older than stated age, lying in left side-lying on a hospital bed, nontoxic but appears as if he is not feeling well, oriented x3 but intermittent confusion, is at the bedside General Appearance: cooperative HEENT normocephalic, head/scalp atraumatic, hearing grossly normal bilaterally, moist oral mucous membranes and oropharynx normal HEENT Narrative: Fair dentition, Mallampati 2 Mouth: oral and palatal mucosa normal Eyes PERRL, EOMs intact bilaterally and conjunctivae normal Eyes Narrative: No scleral icterus Neck no lymphadenopathy, supple and no JVD Neck Narrative: Trachea midline without thyroid enlargement Resp normal respiratory effort, no retractions, no use of accessory muscles and clear to auscultation bilaterally Resp Narrative: Diminished diffusely bilaterally Auscultation: Negative for crackles, rales, rhonchi or wheezes Cardio regular rhythm, S1 normal heart sound, S2 normal heart sound, no murmurs, no rub, no gallops, no clicks and no JVD Cardio Narrative: Mild tachycardia GI normal to inspection, nondistended, normoactive bowel sounds, soft to palpation, non-tender and non-distended Extremity no clubbing, cyanosis or edema Peripheral Pulses: Yes pulses 2+ throughout Skin no rashes or lesions noted, no wounds, skin turgor normal, no jaundice, no petechiae and no mottling Neuro oriented x3, CN's II-XII intact bilaterally, moves all extremities and no focal motor deficits Neuro Narrative: Generalized weakness Sensorium / Orientation: awake and alert Speech: speech normal Psych Psych Narrative: Intermittent confusion, affect is flat, mood seems depressed Results Lab / Micro Data Attestation: I reviewed the patient's lab results. Result Diagrams: 08/18/21 11:15 08/18/21 11:15 Labs: Laboratory Results - last 24 hr 08/18/21 11:15: WBC 12.2 H, RBC 3.55 L, Hgb 9.2 L, Hct 30.2 L, MCV 85.1, MCH 25.9 L, MCHC 30.5 L, RDW Std Deviation 49.8 H, RDW Coeff of Rosie 16.0 H, Plt Count 350, MPV 9.9, Immature Gran % (Auto) 0.600, Neut % (Auto) 85.4 H, Lymph % (Auto) 5.6 L, [place] % (Auto) 7.2, Eos % (Auto) 1.0, Baso % (Auto) 0.2, Absolute Neuts (auto) 10.4 H, Absolute Lymphs (auto) 0.68 L, Nucleated RBC % 0 08/18/21 11:15: PT 13.7, INR 1.1, APTT 40.0 H 08/18/21 11:15: Sodium 138, Potassium 3.4 L, Chloride 99, Carbon Dioxide 28.0, Anion Gap 11, BUN 19 H, Creatinine 0.88, Estim Creat Clear Calc 77.73, Est GFR (MDRD) Af Amer 111, Est GFR (MDRD) Non-Af 91, BUN/Creatinine Ratio 21.6 H, Glucose 112 H, Calcium 8.8, Total Bilirubin 0.50, AST 40 H, ALT 21, Alkaline Phosphatase 41 L, Troponin I High Sens 5, Total Protein 7.2, Albumin 2.3 L, Globulin 4.9 H, Albumin/Globulin Ratio 0.5 L 08/18/21 11:15: Lactic Acid 2.2 H* 08/18/21 12:00: Urine Color Yellow, Urine Clarity Sl. Cloudy, Urine pH 6.0, Ur Specific [place] 1.020, Urine Protein 100 H, Urine Glucose (UA) Normal, Urine Ketones 5 H, Urine Occult Blood 250 H, Urine Nitrite Negative, Urine Bilirubin Negative, Urine Urobilinogen 1 H, Ur Leukocyte Esterase 500 H, Urine RBC 25-50 SEEN, Urine WBC 25-50 SEEN, Ur Squamous Epith Cells 0-5 SEEN, Urine Bacteria 0 SEEN, Urine Mucus 0 SEEN 08/18/21 12:05: Urine Color Ema, Urine Clarity Cloudy, Urine pH 5.0, Ur Specific [place] 1.015, Urine Protein 500 H, Urine Glucose (UA) Normal, Urine Ketones 5 H, Urine Occult Blood 250 H, Urine Nitrite Positive H, Urine Bilirubin 1 H, Urine Urobilinogen 1 H, Ur Leukocyte Esterase 500 H, Urine RBC 25-50 SEEN, Urine WBC 25-50 SEEN, Ur Squamous Epith Cells 0-5 SEEN, Urine Bacteria 1+, Urine Mucus 0 SEEN Micro: Microbiology 08/18/21 12:00 Nasal Secretion SARS-CoV-2 Antigen (Rapid) - Final Assessment & Plan Assessment/Plan (1) Sepsis: (2) Acute pyelonephritis due to bacteria: (3) Intractable back pain: (4) Hypokalemia: (5) Lactic acidosis: (6) Chronic anemia: (7) Cancer of the bladder, stage IV: PLAN: Sepsis secondary to acute pyelonephritis/UTI -tachycardic, relatively hypotensive, have a leukocytosis of 12.2 with a left shift, mild mental status changes, and elevated lactate with mild AST elevation -Patient has chronic bilateral nephrostomy tubes secondary to stage IV bladder CA -Has frequent infections -Nephrostomy tubes were changed today by IR with purulent drainage noted -Blood and urine cultures are pending -Check MRSA PCR -Most recent cultures grew Pseudomonas, Enterococcus, and Propionibacterium acnes -Continue cefepime and vancomycin -Fluid bolus with 30 cc/kg -We will monitor in the ICU Hypokalemia -We will replace with IV replacement given nausea and vomiting -Check a.m. magnesium level -Repeat a.m. BMP Lactic acidosis -Likely related to #1 -Should resolve with volume replacement Intractable back pain -Continue home oxycodone -Patient was recently started on methadone--> patient has not yet started taking -Discussed with palliative care and dosing was 5 mg 1/2 tablet in the morning and 5 mg at at bedtime -We will use Dilaudid for breakthrough pain -Stool regimen is ordered -Palliative care is following as an outpatient Chronic normocytic anemia -Hemoglobin is stable -Patient with chronic gross hematuria -We will continue to monitor Chronic hematuria -Mild as patient has nephrostomy tubes -Monitor hemoglobin -We will use SCDs as DVT prophylaxis GERD -Continue Meprazole Hypertension -Hold metoprolol 12.5 mg twice daily for now given blood pressure and restart when able Hyperlipidemia -Continue Crestor Stage IV bladder CA -No further options for aggressive treatment -Patient is enrolled in palliative care -Continue chronic medications Depression -Continue duloxetine DVT prophylaxis -With gross hematuria will avoid chemical prophylaxis -SCDs CODE STATUS -DNR CCA no intubation as per discussion the emergency department upon admission Charges/Coding Visit Charges Inpatient E&M: 13611 Init Hosp L3
[2021-08-18 15:24] LABS: Reflex Lactate? Y
[2021-08-18 16:33] LABS: Lactic Acid 1.4 mmol/L (0.4-1.9)
[2021-08-18] MEDS: 0.9% Normal Saline 1,000 ML 999 ML IV ×2 (18:10→19:14)
[2021-08-18] MEDS: oxyCODONE 5 MG Tablet 10 MG PO ×2 (18:34→22:33)
[2021-08-18] MEDS: Atorvastatin Calcium 20 MG Tablet PO (20:50)
[2021-08-18] MEDS: Tamsulosin HCl 0.4 MG Capsule PO (20:50)
[2021-08-18] MEDS: Senna/Docusate Sodium 1 Tablet 2 TABLET PO (20:51)
[2021-08-18] MEDS: Acetaminophen 325 MG Tablet 650 MG PO (22:33)
[2021-08-18 22:47] LABS: M R Staph aureus DNA By PCR Negative (Negative); Probe Check PASS; Specimen Processing Control PASS
[2021-08-18] MEDS: 0.9% Normal Saline 1,000 ML 75 ML IV (23:45)
[2021-08-19] VITALS (14 sets, daily range): BP systolic 108–131; BP diastolic 57–81; PULSE 67–107; RESP 12–20; TEMP 36.6–36.8; O2SAT 93–100
[2021-08-19 03:35] LABS: Absolute Neutrophil Count 8.2 X10^3/uL (2.0-7.7); Basophil# 0.02 X10^3/uL; Basophil% 0.2 % (0-1); Eosinophil# 0.11 X10^3/uL; Eosinophils% 1.1 % (0-5); Hematocrit 28.2 % (40-54); Hemoglobin 8.3 g/dL (13.0-16.5); Lymphocyte % 8.9 % (19-41); Mean Corp Hgb Conc 29.4 g/dL (32-36); Mean Corpuscular Hgb 25.5 pg (27.0-32.0); Mean Corpuscular Volume 86.8 fL (80-94); Mean Platelet Vol. 9.8 fl (6.2-12.0); Monocyte# 0.89 X10^3/uL; Monocyte% 8.8 % (0-10); NRBC Flagged by Analyzer 0 % (0-5); Neutrophil # 8.15 X10^3/uL (2.7-7.7); Neutrophil % 80.6 % (47-70); Platelet Count 303 K/mm3 (150-450); RBC Distribution Width SD 51.2 fl (35.1-43.9); Red Blood Count 3.25 M/mm3 (4.6-6.2); White Blood Count 10.1 K/mm3 (4.4-11.0)
[2021-08-19 03:51] LABS: ALB/GLOB Ratio 0.5 RATIO (0.9-2.4); AST(SGOT) 32 U/L (15-37); Alanine Aminotransfer ALT/SGPT 15 U/L (16-61); Albumin, Serum 1.9 g/dL (3.2-5.0); Alkaline Phosphatase 34 U/L (45-117); Anion Gap 7 (5-15); BUN 15 mg/dL (7-18); BUN/Creat Ratio 21.5 RATIO (10-20); Calcium,Total 8.3 mg/dL (8.5-10.1); Chloride 105 mmol/L (98-107); EST Glomerular Filtration Rate 119 mL/min (>60); Est Glom Filt Rate - Afr Amer 144 mL/min (>60); Globulin 4.1 g/dL (2.2-4.2); Glucose 101 mg/dL (74-106); Magnesium 1.2 mg/dL (1.6-2.6); Potassium 3.7 mmol/L (3.5-5.1); Sodium Level 140 mmol/L (136-145)
[2021-08-19] MEDS: 0.9% Saline Lock 10 ML Syringe IV ×4 (05:08→18:48)
[2021-08-19] MEDS: Magnesium Sulfate 4gm/100mL 4 GM/100 ML IV.SOLN. IV (07:05)
[2021-08-19] MEDS: oxyCODONE 5 MG Tablet 10 MG PO ×2 (08:13→14:53)
[2021-08-19] MEDS: Ondansetron 4 MG/2 ML Vial IV ×2 (09:18→18:47)
[2021-08-19] MEDS: HYDROmorphone 0.5 MG/0.5 ML SYRINGE IV ×3 (09:18→18:48)
--- NOTE | 2021-08-19 09:23 | PCS.PANDOC ---
PANDEMIC DOCUMENTATION INITIATED: Date: 06/13/2021 Time: 190
[2021-08-19] MEDS: Pantoprazole Sodium 20 MG Tablet PO (09:30)
[2021-08-19] MEDS: DULoxetine Hcl 30 MG Capsule PO (09:30)
[2021-08-19] MEDS: Aspirin E.C. 81 MG Tablet PO (09:31)
[2021-08-19] MEDS: Senna/Docusate Sodium 1 Tablet 2 TABLET PO ×2 (09:31→21:17)
[2021-08-19] MEDS: Cyanocobalamin 500 MCG Tablet 1000 MCG PO (09:38)
[2021-08-19] MEDS: Lidocaine 5% Patch 3 PATCH TOPICAL (09:38)
[2021-08-19] MEDS: DULoxetine Hcl 60 MG Capsule PO (09:38)
[2021-08-19] MEDS: Tolterodine Tartrate 2 MG CAP.SA PO (09:38)
[2021-08-19] MEDS: Enoxaparin 40 MG/0.4 ML Syringe SC (09:39)
--- NOTE | 2021-08-19 11:37 | CASEMGMT ---
SW spoke w/ and pt in room, offered support. spoke about pt's nephrostomy tubes, states that this is the first time since pt had the tubes placed on July 27 that pt has not had blood in his urine. spoke about being very glad about this. states pt has had the diagnosis of bladder cancer for four years. Pt is current w/palliative and with [facility] home health. does not anticipate any additional homegoing needs. SW called [facility], spoke w/Sapna in palliative at [facility], let her know pt is here. SW remains available for any additional support or needs. KATHRYN Davidson
--- NOTE | 2021-08-19 13:19 | PCM.PN.HOSP ---
Subjective Subjective Patient reports he is feeling better today. Back pain is much improved, although he states he started to have pain again now. Feels that the methadone was helpful. Is asking if he can go home today. Was a bit frustrated when I told him he is not yet ready. Objective Data Objective Data Vital Signs: Vital Signs Temp Pulse Resp BP Pulse Ox 98.2 F 87 18 123/75 H 100 08/19/21 08:58 08/19/21 08:58 08/19/21 08:58 08/19/21 08:58 08/19/21 07:00 Oxygen Flow Rate (L/min) 2 Oxygen Delivery Method Room Air Weight: 83.5 kg Body Mass Index (BMI) 27.4 Intake & Output: Intake and Output for Last 24 Hours 08/17/21 08/18/21 08/19/21 23:59 23:59 23:59 Intake Total 4450 / 4450 1380 / 1380 Output Total 450 / 450 585 / 585 Balance 4000 / 4000 795 / 795 Lab / Micro Data Result Diagrams: 08/19/21 03:25 08/19/21 03:25 Labs: Laboratory Results - last 24 hr 08/18/21 15:47: Lactic Acid 1.4 08/18/21 21:15: MRSA (PCR) Negative 08/19/21 03:25: WBC 10.1, RBC 3.25 L, Hgb 8.3 L, Hct 28.2 L, MCV 86.8, MCH 25.5 L, MCHC 29.4 L, RDW Std Deviation 51.2 H, RDW Coeff of Rosie 16.0 H, Plt Count 303, MPV 9.8, Immature Gran % (Auto) 0.400, Neut % (Auto) 80.6 H, Lymph % (Auto) 8.9 L, [place] % (Auto) 8.8, Eos % (Auto) 1.1, Baso % (Auto) 0.2, Absolute Neuts (auto) 8.2 H, Absolute Lymphs (auto) 0.90, Nucleated RBC % 0 08/19/21 03:25: Sodium 140, Potassium 3.7, Chloride 105, Carbon Dioxide 28.0, Anion Gap 7, BUN 15, Creatinine 0.70, Estim Creat Clear Calc 68.40, Est GFR (MDRD) Af Amer 144, Est GFR (MDRD) Non-Af 119, BUN/Creatinine Ratio 21.5 H, Glucose 101, Calcium 8.3 L, Phosphorus 4.0, Magnesium 1.2 L, Total Bilirubin 0.40, AST 32, ALT 15 L, Alkaline Phosphatase 34 L, Total Protein 6.0 L, Albumin 1.9 L, Globulin 4.1, Albumin/Globulin Ratio 0.5 L Micro: Microbiology 08/18/21 12:05 Urine, Nephrostomy Urine Culture - Preliminary Culture exhibits no growth. 08/18/21 12:00 Urine, Nephrostomy Urine Culture - Preliminary Culture exhibits no growth. 08/18/21 12:00 Nasal Secretion SARS-CoV-2 Antigen (Rapid) - Final Physical Exam Const alert Constitutional Narrative: Upper middle-aged white male who appears much older than stated age, lying in right side-lying on a hospital bed, appears as if he is feeling much better today, nontoxic General Appearance: cooperative Exam Limitations: no limitations HEENT normocephalic, head/scalp atraumatic, hearing grossly normal bilaterally, moist oral mucous membranes and oropharynx normal Head and Scalp: normocephalic Eyes Eyes Narrative: s Resp normal respiratory effort, no retractions, no use of accessory muscles and clear to auscultation bilaterally Resp Narrative: Diminished diffusely bilaterally Auscultation: Negative for crackles, rales, rhonchi or wheezes Cardio regular rate, regular rhythm, S1 normal heart sound, S2 normal heart sound, no murmurs, no rub, no gallops, no clicks and no JVD GI normal to inspection, nondistended, normoactive bowel sounds, soft to palpation, non-tender and non-distended Extremity no clubbing, cyanosis or edema Peripheral Pulses: Yes pulses 2+ throughout Skin Skin Narrative: Bilateral nephrostomy tubes in place Neuro oriented x3, moves all extremities and no focal motor deficits Neuro Narrative: Generalized weakness Sensorium / Orientation: awake and alert Speech: speech normal Psych affect normal Psych Narrative: Frustrated that he is not able to go home yet today Assessment & Plan Assessment/Plan (1) Sepsis: (2) Acute pyelonephritis due to bacteria: (3) Intractable back pain: (4) Hypokalemia: (5) Lactic acidosis: (6) Chronic anemia: (7) Cancer of the bladder, stage IV: PLAN: Sepsis secondary to acute pyelonephritis/UTI -Resolving -tachycardic, relatively hypotensive, have a leukocytosis of 12.2 with a left shift, mild mental status changes, and elevated lactate with mild AST elevation -All above factors are resolving and sepsis is clearing -Patient has chronic bilateral nephrostomy tubes secondary to stage IV bladder CA -Has frequent infections -Nephrostomy tubes were changed on 08/18/2021 by IR with purulent drainage noted -Shockingly both urine cultures are showing no growth from bilateral nephrostomy tubes -Blood cultures are pending -MRSA PCR is negative -Most recent cultures grew Pseudomonas, Enterococcus, and Propionibacterium acnes -ID has switched the patient to Zosyn -Transfer to general medical floor -Probable discharge tomorrow if remains stable Hypokalemia -Resolved Hypomagnesemia -4 g placement -Recheck in a.m. Lactic acidosis -Resolved Intractable back pain -Improved with made changes -Continue home oxycodone -Patient was recently started on methadone--> patient has not yet started taking -Discussed with palliative care and dosing was 5 mg 1/2 tablet in the morning and 5 mg at at bedtime -We will use Dilaudid for breakthrough pain -Stool regimen is ordered -Palliative care is following as an outpatient Chronic normocytic anemia -Hemoglobin is stable -Patient with chronic gross hematuria -We will continue to monitor Chronic hematuria -Mild as patient has nephrostomy tubes -Monitor hemoglobin -We will use SCDs as DVT prophylaxis GERD -Continue Meprazole Hypertension -Hold metoprolol 12.5 mg twice daily for now given blood pressure and restart when able Hyperlipidemia -Continue Crestor Stage IV bladder CA -No further options for aggressive treatment -Patient is enrolled in palliative care -Continue chronic medications Depression -Continue duloxetine DVT prophylaxis -With gross hematuria will avoid chemical prophylaxis -SCDs CODE STATUS -DNR CCA no intubation as per discussion the emergency department upon admission Charges/Coding Visit Charges Inpatient E&M: 65142 Subs Hosp L2
[2021-08-19 13:59] LABS: Magnesium 2.1 mg/dL (1.6-2.6)
[2021-08-19] MEDS: Ascorbic Acid 500 MG Tablet PO (14:49)
[2021-08-19] MEDS: Metoprolol(XL)Succ 25 MG Tablet 12.5 MG PO (14:50)
[2021-08-19] MEDS: Acetaminophen 325 MG Tablet 650 MG PO (14:53)
[2021-08-19] MEDS: 0.9% Normal Saline 1,000 ML 75 ML IV (15:02)
--- NOTE | 2021-08-19 15:24 | CON.PCM.ID_ITS ---
Assessment & Plan Assessment/Plan (1) Acute pyelonephritis due to bacteria: PLAN: Ucxs from both neph tubes is pending. Recent admit with ucx with PsA, enterococcus, and p.acnes. On cefepime, will change to zosyn to cover those previous organisms. Will follow, thank you (2) Cancer of the bladder, stage IV: HPI Consult Data Date of Consult: 08/19/21 HPI Narrative HPI Narrative: SERG ZAVALA, is a 70 M who presented with 3-4 days of back pain, not feeling well. Has bilat neph tubes with associated purulence; changed by IR 08/18. Admitted here for uti, ucx with PsA, enterococcus, and p. acnes. Given cefepime inpatient, discharged on levaquin. Developed new symptoms after abx completed, now admitted on cefepime, feeling better. He and are covid vaccinated. Full ROS performed and neg except as noted above. [facility], [facility] Medical History Ascending aorta dilation Atrial fibrillation with RVR Bladder tumor Chronic pain Essential hypertension Former smoker GERD (gastroesophageal reflux disease) GERD (gastroesophageal reflux disease) Hyperlipemia Kidney disease Lung nodule Malignant neoplasm of urinary bladder Malignant pericardial effusion Paroxysmal atrial fibrillation Home Medications tamsulosin 0.4 mg capsule 0.4 mg PO QHS 09/03/18 [History Last Taken 08/17/21] cyanocobalamin (vitamin B-12) 1,000 mcg PO DAILY 08/03/19 [History Last Taken 08/17/21] cholecalciferol (vitamin D3) 2,000 unit PO DAILY 08/18/19 [History Last Taken 08/17/21] rosuvastatin 10 mg PO QHS 08/18/19 [History Last Taken 08/17/21] aspirin 81 mg tablet,delayed release 81 mg PO DAILY 08/27/19 [History Last Taken 08/17/21] duloxetine 60 mg PO DAILY 10/29/20 [History Last Taken 08/17/21] duloxetine 30 mg PO DAILY 08/07/21 [History Last Taken 08/17/21] oxybutynin chloride 10 mg PO DAILY 08/07/21 [History Last Taken 08/17/21] oxycodone 10 mg PO Q4H PRN PRN 7 Days #28 tab 08/10/21 [Rx Last Taken 08/17/21] acetaminophen 1,000 mg PO TID PRN 08/18/21 [History Last Taken 08/17/21] ascorbic acid (vitamin C) 500 mg PO DAILY 08/18/21 [History Last Taken 08/17/21] ferrous sulfate 325 mg PO DAILY 08/18/21 [History Last Taken 08/17/21] lidocaine 3 patch TOPICAL DAILY 08/18/21 [History Last Taken 08/17/21] methadone 5 mg PO BID 08/18/21 [History Last Taken Unknown] metoprolol succinate 12.5 mg PO DAILY 08/18/21 [History Last Taken 08/16/21] omeprazole magnesium [Prilosec OTC] 20 mg PO DAILY 08/18/21 [History Last Taken 08/18/21] ondansetron HCl [Zofran] 4 mg PO Q8H 08/18/21 [History Last Taken 08/18/21] polyethylene glycol 3350 [Miralax] 17 g PO DAILY PRN 08/18/21 [History Last Taken 08/17/21] sennosides-docusate sodium [Stool Softener-Stimulant Laxat] 2 tab PO BID 08/18/21 [History Last Taken Unknown] Allergy/AdvReac Type Severity Reaction Status Date / Time No Known Allergies Allergy Verified 10/29/20 17:48 Family History Mother Cancer Lung Father Cancer Stomach Brother Seizures Sister Cancer Bone Surgical History History of bladder surgery (~06/03/18) History of parathyroidectomy S/P pericardiocentesis (~08/04/19) Social History household members: significant other Smoking Status: Former smoker alcohol intake: current details: rare substance use type: does not use Physical Exam Const alert, oriented x3 and no apparent distress General Appearance: cooperative Exam Limitations: no limitations HEENT normocephalic and head/scalp atraumatic Eyes PERRL and EOMs intact bilaterally Neck supple and No nodes Resp normal air movement and clear to auscultation bilaterally Cardio regular rate and regular rhythm GI normal to inspection, nondistended, normoactive bowel sounds Extremity no clubbing, cyanosis or edema Skin no rashes or lesions noted Neuro CN's II-XII intact bilaterally Medical Records Data Medical Nutrition Assessment Dietitian: Malnutrition Criteria Met Start: 08/19/21 14:25 Freq: Status: Active Protocol: Document 08/19/21 14:25 AG (Rec: 08/19/21 14:25 AG [id number]) Nutrition Malnutrition Evidence of Malnutrition Exists Yes Malnutrition (moderate): Chronic Evidenced By Suboptimal Energy Intake ( Moderate),Weight Loss ( Moderate) Clinical Problem Chronic Disease or Condition Related Malnutrition Etiology moderate, chronic malnutrition r/t inadequate energy intake w/ increased energy needs d/t stage IV bladder cancer Signs/Symptoms as evidenced by unintentional wt loss of 26.1#/12.4% wt loss x 9 months, estimated PO intake meeting <75% of estimated nutritional needs >3 months Status Active Problem Recommendation Dietitian Recommendations/Changes continue regular diet; will add 120mL ensure enlive 4x/day w/ medpass for additional calories/protein if consumed. Lab / Micro Data Result Diagrams: 08/19/21 03:25 08/19/21 03:25 Labs: Laboratory Results - last 24 hr 08/18/21 15:47: Lactic Acid 1.4 08/18/21 21:15: MRSA (PCR) Negative 08/19/21 03:25: WBC 10.1, RBC 3.25 L, Hgb 8.3 L, Hct 28.2 L, MCV 86.8, MCH 25.5 L, MCHC 29.4 L, RDW Std Deviation 51.2 H, RDW Coeff of Rosie 16.0 H, Plt Count 303, MPV 9.8, Immature Gran % (Auto) 0.400, Neut % (Auto) 80.6 H, Lymph % (Auto) 8.9 L, Pet[place] % (Auto) 8.8, Eos % (Auto) 1.1, Baso % (Auto) 0.2, Absolute Neuts (auto) 8.2 H, Absolute Lymphs (auto) 0.90, Nucleated RBC % 0 08/19/21 03:25: Sodium 140, Potassium 3.7, Chloride 105, Carbon Dioxide 28.0, Anion Gap 7, BUN 15, Creatinine 0.70, Estim Creat Clear Calc 68.40, Est GFR (MDRD) Af Amer 144, Est GFR (MDRD) Non-Af 119, BUN/Creatinine Ratio 21.5 H, Glucose 101, Calcium 8.3 L, Phosphorus 4.0, Magnesium 1.2 L, Total Bilirubin 0.40, AST 32, ALT 15 L, Alkaline Phosphatase 34 L, Total Protein 6.0 L, Albumin 1.9 L, Globulin 4.1, Albumin/Globulin Ratio 0.5 L 08/19/21 13:40: Magnesium 2.1 Micro: Microbiology 08/18/21 12:05 Urine, Nephrostomy Urine Culture - Preliminary Culture exhibits no growth. 08/18/21 12:00 Urine, Nephrostomy Urine Culture - Preliminary Culture exhibits no growth. 08/18/21 12:00 Nasal Secretion SARS-CoV-2 Antigen (Rapid) - Final
--- NOTE | 2021-08-19 15:33 | CASEMGMT ---
SANCHEZ SORIANO Chart review: Patient was admitted 08/07/21-08/10/21 for sepsis. See SANCHEZ SORIANO assessment from 08/08/21. Patient was discharged home with resumption of HHC with [facility], wheelchair, PO Levaquin, and palliative care. Patient returned to [facility] on 08/18/21 for complaint. Patient follows urologist at [facility] [place] and had nephrostomy tubes replaced, per patient had purulence. Patient currently on zosyn and ID consulted. Patient to return home with resumption of HHC wiht [facility]. Green sheet on chart for discharge.
[2021-08-19] MEDS: Tamsulosin HCl 0.4 MG Capsule PO (21:17)
[2021-08-19] MEDS: Atorvastatin Calcium 20 MG Tablet PO (21:17)
[2021-08-20 03:35] VITALS: BP 108/50; PULSE 88; RESP 18; TEMP 36.9; O2SAT 93
[2021-08-20] MEDS: 0.9% Normal Saline 1,000 ML 75 ML IV (03:37)
[2021-08-20] MEDS: oxyCODONE 5 MG Tablet 10 MG PO ×2 (04:26→09:59)
[2021-08-20] MEDS: Acetaminophen 325 MG Tablet 650 MG PO (04:26)
[2021-08-20] MEDS: HYDROmorphone 0.5 MG/0.5 ML SYRINGE IV ×2 (06:23→10:17)
[2021-08-20] MEDS: 0.9% Saline Lock 10 ML Syringe IV ×2 (06:23→14:28)
[2021-08-20 08:13] VITALS: O2SAT 95
[2021-08-20 08:20] LABS: Absolute Lymphocyte Count 0.75 X10^3/uL (0.83-4.51); Absolute Neutrophil Count 8.2 X10^3/uL (2.0-7.7); Basophil# 0.02 X10^3/uL; Basophil% 0.2 % (0-1); Eosinophil# 0.19 X10^3/uL; Eosinophils% 1.9 % (0-5); Hematocrit 29.6 % (40-54); Hemoglobin 8.9 g/dL (13.0-16.5); Lymphocyte # 0.75 X10^3/ul (0.83-4.51); Lymphocyte % 7.4 % (19-41); Mean Corp Hgb Conc 30.1 g/dL (32-36); Mean Corpuscular Hgb 26.1 pg (27.0-32.0); Mean Corpuscular Volume 86.8 fL (80-94); Mean Platelet Vol. 10.2 fl (6.2-12.0); Monocyte# 0.88 X10^3/uL; Monocyte% 8.7 % (0-10); NRBC Flagged by Analyzer 0 % (0-5); Neutrophil # 8.24 X10^3/uL (2.7-7.7); Neutrophil % 81.2 % (47-70); Platelet Count 324 K/mm3 (150-450); RBC Distribution Width CV 15.9 % (11.6-14.6); RBC Distribution Width SD 50.5 fl (35.1-43.9); Red Blood Count 3.41 M/mm3 (4.6-6.2); White Blood Count 10.1 K/mm3 (4.4-11.0)
[2021-08-20 08:36] LABS: Anion Gap 6 (5-15); BUN 14 mg/dL (7-18); BUN/Creat Ratio 19.3 RATIO (10-20); Calcium,Total 8.4 mg/dL (8.5-10.1); Chloride 106 mmol/L (98-107); Creatinine, Serum 0.72 mg/dL (0.70-1.30); EST Glomerular Filtration Rate 114 mL/min (>60); Est Glom Filt Rate - Afr Amer 138 mL/min (>60); Glucose 110 mg/dL (74-106); Magnesium 1.5 mg/dL (1.6-2.6); Potassium 3.4 mmol/L (3.5-5.1); Sodium Level 139 mmol/L (136-145)
[2021-08-20] MEDS: Pantoprazole Sodium 20 MG Tablet PO (09:37)
[2021-08-20] MEDS: DULoxetine Hcl 30 MG Capsule PO (09:37)
[2021-08-20] MEDS: Aspirin E.C. 81 MG Tablet PO (09:37)
[2021-08-20] MEDS: Senna/Docusate Sodium 1 Tablet 2 TABLET PO (09:37)
[2021-08-20] MEDS: Ascorbic Acid 500 MG Tablet PO (09:37)
[2021-08-20] MEDS: Polyethylene Glycol 3350 17 GM PACKET PO (09:37)
[2021-08-20] MEDS: DULoxetine Hcl 60 MG Capsule PO (09:38)
[2021-08-20] MEDS: Tolterodine Tartrate 2 MG CAP.SA PO (09:38)
[2021-08-20] MEDS: Lidocaine 5% Patch 3 PATCH TOPICAL (09:38)
[2021-08-20] MEDS: Ferrous Sulfate 325 MG Tablet PO (09:39)
[2021-08-20] MEDS: Enoxaparin 40 MG/0.4 ML Syringe SC (09:39)
[2021-08-20] MEDS: Cyanocobalamin 500 MCG Tablet 1000 MCG PO (09:39)
[2021-08-20 09:41] VITALS: PULSE 87
[2021-08-20] MEDS: Metoprolol(XL)Succ 25 MG Tablet 12.5 MG PO (09:41)
[2021-08-20 10:28] VITALS: BP 101/60; PULSE 89; RESP 18; TEMP 36.8; O2SAT 95
--- NOTE | 2021-08-20 11:19 | PCM.DC.SUM ---
Providers Date of Admission: 08/18/21 Primary Care Physician: Dr. Jaswinder Hill DO Consultations 08/18/21 17:23 Consult: Infectious Disease Routine Consulting Provider: Reymundo Campuzano Reason for Consult: Complicated UTI/Pyelo EMERGENT Consult: No MD Notified: Yes Date Notified: 08/18/21 Time Notified: 18:08 Method of Notification: Text Reason For Visit: SEPSIS 2/2 PYELONEPHRITIS Diagnosis Discharge Diagnosis (1) Acute pyelonephritis due to bacteria: Status: Acute Code(s): N10 - Acute pyelonephritis; B96.89 - Other specified bacterial agents as the cause of diseases classified elsewhere (2) Cancer of the bladder, stage IV: Status: Acute Code(s): C67.9 - Malignant neoplasm of bladder, unspecified Medications at Discharge Home Medications tamsulosin 0.4 mg capsule 0.4 mg PO QHS 09/03/18 cyanocobalamin (vitamin B-12) 1,000 mcg PO DAILY 08/03/19 cholecalciferol (vitamin D3) 2,000 unit PO DAILY 08/18/19 rosuvastatin 10 mg PO QHS 08/18/19 aspirin 81 mg tablet,delayed release 81 mg PO DAILY 08/27/19 duloxetine 60 mg PO DAILY 10/29/20 duloxetine 30 mg PO DAILY 08/07/21 oxybutynin chloride 10 mg PO DAILY 08/07/21 oxycodone 10 mg PO Q4H PRN PRN 7 Days #28 tab 08/10/21 acetaminophen 1,000 mg PO TID PRN 08/18/21 ascorbic acid (vitamin C) 500 mg PO DAILY 08/18/21 ferrous sulfate 325 mg PO DAILY 08/18/21 lidocaine 3 patch TOPICAL DAILY 08/18/21 methadone 5 mg PO BID 08/18/21 metoprolol succinate 12.5 mg PO DAILY 08/18/21 omeprazole magnesium [Prilosec OTC] 20 mg PO DAILY 08/18/21 ondansetron HCl [Zofran] 4 mg PO Q8H 08/18/21 polyethylene glycol 3350 [Miralax] 17 g PO DAILY PRN 08/18/21 sennosides-docusate sodium [Stool Softener-Stimulant Laxat] 2 tab PO BID 08/18/21 levofloxacin 750 mg PO DAILY #10 tab 08/20/21 Hospital Course Operations None Procedures None Summary of Care Provided Minutes Spent on Discharge: 41 Hospital Course: Mr. David is a 70-year-old male who presented to the emergency department at [facility] on 2021-08-18 after being seen by interventional radiology for nephrostomy tube replacements. Per the radiologist who was performing the procedure, when bilateral nephrostomy tubes were removed there was a significant amount of purulent drainage with them and the patient was complaining of increased back pain. In the emergency department the patient indicated that he had not been feeling well since approximately Sunday prior to admission and he felt like he has in the past when he is getting pyelonephritis. He had a recent admission here from August 07 until July 31 for similar symptoms and had a urine culture that grew out Pseudomonas, Enterococcus, and Propionibacterium acnes. Blood cultures were negative at that time. He was discharged home and completed 5 days of Levaquin. At baseline he has stage IV bladder cancer and is no longer undergoing aggressive management and is involved with palliative care. On admission he complained of chills, nausea, and vomiting along with his back pain. He has chronic gross hematuria and constipation. In the emergency department he was noted to be tachycardic, relatively hypotensive, to have a leukocytosis of 12.2 with a left shift, and mild mental status changes along with an elevated lactate and a mild AST elevation. His troponin and renal function were normal on admission. UAs were obtained from both nephrostomy tubes and both of them appeared consistent with acute urinary tract infection. He was initiated on vancomycin and cefepime and a 1 L fluid bolus was given in emergency department. He was admitted to the intensive care and treated with broad-spectrum antibiotics as well as given 30 cc/kg bolus of IV fluids for his septic picture. Blood and urine cultures from both nephrostomy tubes were obtained prior to antibiotics. On 2021-08-19 he had stabilized his heart rate was better and his blood pressures were stable with a normalized leukocytosis and we will able to transfer him out of the ICU. He never required vasopressors. Blood and urine were followed and actually had no growth. There is some question whether or not his urine cultures did not have a growth because he was recently on oral antibiotics. ID was consulted on the day of admission and they recommended continuing Levaquin for 10 days at discharge with follow-up in the infectious disease office in 2 weeks. Early on the day of discharge I went and evaluated the patient he appeared to have mental status change. I discussed the case with his daughter who came in and initially felt that his mentation was not his baseline. Later in the afternoon he had worked with therapy and family was still at bedside and reported that he had returned to baseline and would like to be able to take him home if he was still medically stable to do so. Given his resolution of mental status and family wanting to take him home he was discharged home with a course of 10 days of Levaquin and instructions to follow-up with ID in 2 weeks and his PCP in 1 week. Prescription for the Levaquin was faxed to his pharmacy. Prior to discharge she was bolused with magnesium and potassium for low levels on a.m. lab. Discharge diagnoses: Sepsis secondary to acute pyelonephritis/UTI-resolved Hypokalemia Hypomagnesemia Lactic acid elevation Intractable low back pain Metabolic encephalopathy Chronic normocytic anemia Chronic hematuria GERD Hypertension Hyperlipidemia Stage IV bladder CA Depression/anxiety Physical Exam Const alert, no apparent distress, average body habitus and no limitations Constitutional Narrative: Oriented only to self General Appearance: comfortable, well kempt, well developed and uncooperative Orientation / Consciousness: awake Nutritional Appearance: overweight HEENT normocephalic, head/scalp atraumatic, hearing grossly normal bilaterally and moist oral mucous membranes Eyes PERRL, EOMs intact bilaterally and conjunctivae normal Eyes Narrative: No scleral icterus Neck no lymphadenopathy, supple and no JVD Neck Narrative: Trachea midline, no thyroid enlargement Resp normal respiratory effort, no retractions, no use of accessory muscles and clear to auscultation bilaterally Auscultation: Negative for crackles, rales, rhonchi or wheezes Cardio regular rate, regular rhythm, S1 normal heart sound, S2 normal heart sound, no murmurs, no rub, no gallops, no clicks and no JVD GI normal to inspection, nondistended, normoactive bowel sounds, soft to palpation, non-tender and non-distended; Negative for hepatosplenomegaly Extremity normal to inspection and no clubbing, cyanosis or edema Skin no rashes or lesions noted, no wounds, skin turgor normal and no jaundice Skin Narrative: Bilateral nephrostomy tubes in place with dressings intact no drainage Neuro Neuro Narrative: Oriented only to self, knew he was in the hospital, told me it was August 2012 and was unable to come up with the name of the executive vice president Sensorium / Orientation: awake and alert Psych Psych Narrative: Agitated Medical Records Data Medical Nutrition Assessment Dietitian: Malnutrition Criteria Met Start: 08/19/21 14:25 Freq: Status: Active Protocol: Document 08/19/21 14:25 AG (Rec: 08/19/21 14:25 AG [id number]) Nutrition Malnutrition Evidence of Malnutrition Exists Yes Malnutrition (moderate): Chronic Evidenced By Suboptimal Energy Intake ( Moderate),Weight Loss ( Moderate) Clinical Problem Chronic Disease or Condition Related Malnutrition Etiology moderate, chronic malnutrition r/t inadequate energy intake w/ increased energy needs d/t stage IV bladder cancer Signs/Symptoms as evidenced by unintentional wt loss of 26.1#/12.4% wt loss x 9 months, estimated PO intake meeting <75% of estimated nutritional needs >3 months Status Active Problem Recommendation Dietitian Recommendations/Changes continue regular diet; will add 120mL ensure enlive 4x/day w/ medpass for additional calories/protein if consumed. Weight / BMI Weight Weight: 85.7 kg Body Mass Index (BMI) 27.4 ABG / Lab / Microbiology Data Result Diagrams: 08/20/21 07:38 08/20/21 07:38 Laboratory: Laboratory Results - last 24 hr 08/19/21 13:40: Magnesium 2.1 08/20/21 07:38: WBC 10.1, RBC 3.41 L, Hgb 8.9 L, Hct 29.6 L, MCV 86.8, MCH 26.1 L, MCHC 30.1 L, RDW Std Deviation 50.5 H, RDW Coeff of Rosie 15.9 H, Plt Count 324, MPV 10.2, Immature Gran % (Auto) 0.600, Neut % (Auto) 81.2 H, Lymph % (Auto) 7.4 L, [place] % (Auto) 8.7, Eos % (Auto) 1.9, Baso % (Auto) 0.2, Absolute Neuts (auto) 8.2 H, Absolute Lymphs (auto) 0.75 L, Nucleated RBC % 0 08/20/21 07:38: Sodium 139, Potassium 3.4 L, Chloride 106, Carbon Dioxide 27.0, Anion Gap 6, BUN 14, Creatinine 0.72, Estim Creat Clear Calc 68.40, Est GFR (MDRD) Af Amer 138, Est GFR (MDRD) Non-Af 114, BUN/Creatinine Ratio 19.3, Glucose 110 H, Calcium 8.4 L, Magnesium 1.5 L Microbiology: Microbiology 08/18/21 11:05 Blood Culture (Wb) - Anticubital Left Blood Culture - Preliminary No growth in 48 hours. 08/18/21 11:15 Blood Culture (Wb) - Port Blood Culture - Preliminary No growth in 48 hours. 08/18/21 12:05 Urine, Nephrostomy Urine Culture - Preliminary Culture exhibits no growth. 08/18/21 12:00 Urine, Nephrostomy Urine Culture - Preliminary Culture exhibits no growth. 08/18/21 12:00 Nasal Secretion SARS-CoV-2 Antigen (Rapid) - Final D/C Instructions Discharge Diet: No restrictions Discharge Activity: Return to Normal Activity Meaningful Use Info Meaningful Use Diagnoses (Choose all that apply): None applicable Discharge Plan Admission Admit Date/Time: 08/18/21 13:38 Primary Reason for Your Visit: Sepsis 2/2 Pyelonephritis Attending Provider: Solange Cantu Primary Care Provider: Jaswinder Hill Consulting Providers: Reymundo Campuzano Instructions Additional Instructions / Restrictions: -I would recommend not starting the methadone until the Levaquin has completed course as both can prolong QT interval and cause cardiac arrhythmias -If there is a need to start methadone prior I would recommend an EKG with an 48 hours of starting the methadone Discharge Orders/Prescriptions Prescriptions: New levofloxacin 750 mg tablet 750 mg PO DAILY Qty: 10 RF: 0 Continued tamsulosin 0.4 mg capsule 0.4 mg PO QHS RF: 0 aspirin [Adult Aspirin Regimen] 81 mg tablet,delayed release (DR/EC) 81 mg PO DAILY RF: 0 cyanocobalamin (vitamin B-12) 1,000 MCG tablet 1,000 mcg PO DAILY RF: 0 rosuvastatin 10 MG tablet 10 mg PO QHS RF: 0 cholecalciferol (vitamin D3) 2,000 UNIT capsule 2,000 unit PO DAILY RF: 0 duloxetine 60 MG capsule 60 mg PO DAILY RF: 0 duloxetine 30 mg capsule,delayed release(DR/EC) 30 mg PO DAILY RF: 0 oxybutynin chloride 10 mg tablet extended release 24hr 10 mg PO DAILY RF: 0 oxycodone 5 mg Tablet 10 mg PO Q4H PRN PRN (Reason: Pain Score 6-10) 7 Days Qty: 28 RF: 0 ascorbic acid (vitamin C) 500 mg Tablet 500 mg PO DAILY RF: 0 ferrous sulfate 325 mg (65 mg iron) Tablet 325 mg PO DAILY RF: 0 polyethylene glycol 3350 [Miralax] 17 gram/dose Powder 17 g PO DAILY PRN (Reason: Constipation) RF: 0 methadone 5 mg Tablet 5 mg PO BID RF: 0 omeprazole magnesium [Prilosec OTC] 20 mg Tablet,Delayed Release (Dr/Ec) 20 mg PO DAILY RF: 0 ondansetron HCl [Zofran] 4 mg tablet 4 mg PO Q8H RF: 0 sennosides-docusate sodium [Stool Softener-Stimulant Laxat] 8.6-50 mg tablet 2 tab PO BID RF: 0 acetaminophen 500 mg tablet 1,000 mg PO TID PRN (Reason: Pain) RF: 0 lidocaine 5 % adhesive patch,medicated 3 patch topical DAILY RF: 0 metoprolol succinate 25 mg tablet extended release 24 hr 12.5 mg PO DAILY RF: 0 Referrals / Follow Up: Jaswinder Hill DO [Primary Care Provider] - In 1 Week Reymundo Campuzano MD [STAFF PHYSICIAN] - Within 2 Weeks Disposition Disposition (needs filled in before D/C Order can be placed): Home, Self Care Charges/Coding Visit Charges Inpatient E&M: 02205 Disch Hosp
--- NOTE | 2021-08-20 11:32 | PCM.DC ---
Discharge Instructions Diet Discharge Diet: No restrictions Follow Up Care Test Results: Test results from this visit will be discussed in further detail at your follow-up appointment, if applicable. Discharge Plan Admission Admit Date/Time: 08/18/21 13:38 Primary Reason for Your Visit: Sepsis 2/2 Pyelonephritis Attending Provider: Solange Cantu Primary Care Provider: Jaswinder Hill Consulting Providers: Reymundo Campuzano Instructions Additional Instructions / Restrictions: -I would recommend not starting the methadone until the Levaquin has completed course as both can prolong QT interval and cause cardiac arrhythmias -If there is a need to start methadone prior I would recommend an EKG with an 48 hours of starting the methadone Discharge Orders/Prescriptions Prescriptions: New levofloxacin 750 mg tablet 750 mg PO DAILY Qty: 10 RF: 0 Continued tamsulosin 0.4 mg capsule 0.4 mg PO QHS RF: 0 aspirin [Adult Aspirin Regimen] 81 mg tablet,delayed release (DR/EC) 81 mg PO DAILY RF: 0 cyanocobalamin (vitamin B-12) 1,000 MCG tablet 1,000 mcg PO DAILY RF: 0 rosuvastatin 10 MG tablet 10 mg PO QHS RF: 0 cholecalciferol (vitamin D3) 2,000 UNIT capsule 2,000 unit PO DAILY RF: 0 duloxetine 60 MG capsule 60 mg PO DAILY RF: 0 duloxetine 30 mg capsule,delayed release(DR/EC) 30 mg PO DAILY RF: 0 oxybutynin chloride 10 mg tablet extended release 24hr 10 mg PO DAILY RF: 0 oxycodone 5 mg Tablet 10 mg PO Q4H PRN PRN (Reason: Pain Score 6-10) 7 Days Qty: 28 RF: 0 ascorbic acid (vitamin C) 500 mg Tablet 500 mg PO DAILY RF: 0 ferrous sulfate 325 mg (65 mg iron) Tablet 325 mg PO DAILY RF: 0 polyethylene glycol 3350 [Miralax] 17 gram/dose Powder 17 g PO DAILY PRN (Reason: Constipation) RF: 0 methadone 5 mg Tablet 5 mg PO BID RF: 0 omeprazole magnesium [Prilosec OTC] 20 mg Tablet,Delayed Release (Dr/Ec) 20 mg PO DAILY RF: 0 ondansetron HCl [Zofran] 4 mg tablet 4 mg PO Q8H RF: 0 sennosides-docusate sodium [Stool Softener-Stimulant Laxat] 8.6-50 mg tablet 2 tab PO BID RF: 0 acetaminophen 500 mg tablet 1,000 mg PO TID PRN (Reason: Pain) RF: 0 lidocaine 5 % adhesive patch,medicated 3 patch topical DAILY RF: 0 metoprolol succinate 25 mg tablet extended release 24 hr 12.5 mg PO DAILY RF: 0 Referrals / Follow Up: Jaswinder Hill DO [Primary Care Provider] - In 1 Week Reymundo Campuzano MD [STAFF PHYSICIAN] - Within 2 Weeks Disposition Disposition (needs filled in before D/C Order can be placed): Home, Self Care
[2021-08-20] MEDS: Potassium Chloride Oral Tablet 20 MEQ 60 MEQ PO (11:59)
[2021-08-20 14:31] VITALS: BP 142/72; PULSE 84; RESP 20; TEMP 36.1; O2SAT 94
--- NOTE | 2021-08-22 14:54 | CASEMGMT ---
RN CM Discharge Follow-up Phone Call: YSABEL: Elizabeth Strata: 3 Call Date: 08/22/21 Discharge Date: 08/20/21 Time of Call: 1455 Duration: 1 min Admitting Diagnosis: sepsis secondary to pyelonephritis RN CHRISTIE attempted to complete follow-up phone call after recent hospitalization. No answer, voice message left with return contact information.
== END 2021-08-20 14:40 | disposition home or self-care (01) | DRG 698 ==
LOC: ED 13:58 → ICU 15:05 → MS2 08-19 08:29
PROVIDERS: Family Medicine; Admitting Provider Internal Medicine; Emergency Provider Emergency Medicine; PCP Student in an Organized Health Care Education/Training Program; Visit Provider Internal Medicine
DX: T83.512A Infection and inflammatory reaction due to nephrostomy catheter, initial encounter (principal); A41.9 Sepsis, unspecified organism; E87.2 Acidosis; N10 Acute pyelonephritis; C67.9 Malignant neoplasm of bladder, unspecified; D64.9 Anemia, unspecified; E78.5 Hyperlipidemia, unspecified; I48.0 Paroxysmal atrial fibrillation; E83.42 Hypomagnesemia; E87.6 Hypokalemia; I10 Essential (primary) hypertension; K21.9 Gastro-esophageal reflux disease without esophagitis; F41.9 Anxiety disorder, unspecified; G89.29 Other chronic pain; R31.0 Gross hematuria; Y84.6 Urinary catheterization as the cause of abnormal reaction of the patient, or of later complication, without mention of misadventure at the time of the procedure; Y92.9 Unspecified place or not applicable; Z20.822 Contact with and (suspected) exposure to COVID-19; F32.A Depression, unspecified; Z79.82 Long term (current) use of aspirin; Z79.890 Hormone replacement therapy; Z79.899 Other long term (current) drug therapy; Z87.891 Personal history of nicotine dependence
CPT/HCPCS: 36415; 50435; 80048; 80053; 81001; 83605; 83735; 84100; 84484; 85025; 85610; 85730; 87040; 87086; 87426; 87641; 93005; 97162; 97165; 97802; 99251; 99283; J7030; J7050; A4216; G0463; J2405

== ENCOUNTER → 2021-08-23 07:59 | Outpatient (CLI) | payer MEDICARE, MEDICAID, SELFPAY ==
[2021-08-23] VITALS (10 sets, daily range): BP systolic 103–170; BP diastolic 74–137; PULSE 108–129; RESP 18–30; TEMP 36.8–36.9; O2SAT 90–98; BMI 28.7
--- NOTE | 2021-08-23 08:02 | CT_ITS ---
PROCEDURE: COMPUTER TOMOGRAPHIC GUIDANCE DURING PERCUTANEOUS NEPHROSTOMY PROCEDURE. DATE OF EXAMINATION: 08/23/2021. INDICATION: Male, 70 years old. Bilateral ureteral obstruction. PHYSICIAN: Luis Darling M.D. CONSENT: The patient''s history and physical findings were reviewed. Prior to the procedure the percutaneous nephrostomy insertion and possible complications including infection and bleeding were described to the patient who then signed a consent. SEDATION: 4 mg of VERSED and 50 mcg of FENTANYL intravenously. Conscious sedation was started at 9:18 AM and terminated at 10:09 AM. The patient was independently monitored by the department nurse. In the visualized vessels optimization techniques were utilized. CTDl vol: 14. DLP : 1189.15 TECHNIQUE: A percutaneous 8 Slovak right nephrostomy catheter was inserted under CT guidance. Contrast was injected through the right nephrostomy catheter which opacified the right upper collecting system and right ureter. A loop of the pigtail catheter was formed within the right renal pelvis and locked in this position. There is dilatation of the upper collecting system and dilatation of the right ureter to the bladder. No contrast passed into the urinary bladder. . The catheter was secured to the skin surface and covered with a sterile dressing. The catheter was attached to a drainage bag attached to the patient''s leg. CT/Nephrotube Placement CT IMPRESSION: 1. The percutaneous right nephrostomy catheter is in good position with the pigtail portion located in the right renal pelvis. 2. Conscious sedation protocol was followed. Electronically Signed: Luis Darling MD at 11:00 EDT , Service support ,
--- NOTE | 2021-08-23 08:04 | CT_ITS ---
PROCEDURE: COMPUTED TOMOGRAPHIC GUIDANCE DURING PERCUTANEOUS NEPHROSTOMY PROCEDURE. DATE OF EXAMINATION: 08/23/2021. INDICATION: Male, 70 years old. Bilateral ureteral obstruction. PHYSICIAN: Luis Darling M.D. CONSENT: The patient''s history and physical findings were reviewed. Prior to the procedure the percutaneous nephrostomy and possible complications including infection and bleeding were described to the patient who then signed a consent. SEDATION: 4 mg of VERSED and 50 mcg of FENTANYL intravenously. Conscious sedation was started at 9:18 AM activity at 10 0 9:00 AM. The patient was independently monitored by the department nurse. TECHNIQUE: A percutaneous left nephrostomy catheter was inserted under CT guidance. Contrast was injected through the right nephrostomy catheter which opacified the left upper collecting system and left ureter. A loop of the pigtail catheter was formed within the left renal pelvis and locked in this position. There is dilatation of the upper collecting system and dilatation of the left ureter to the bladder. No contrast passed into the urinary bladder. The catheter was secured to the skin surface and covered with a sterile dressing. The catheter was attached to a drainage bag attached to the patient''s leg. CT/Nephrotube Placement CT IMPRESSION: 1. The percutaneous left nephrostomy catheter is in good position with the pigtail portion located in the right renal pelvis. 2. The conscious sedation protocol was followed. Electronically Signed: Luis Darling MD at 11:02 EDT , Service support ,
[2021-08-23] MEDS: 0.9 % NaCl (Sterile) Posiflush 10 mL IV (08:30)
[2021-08-23] MEDS: Midazolam 2 MG/2 ML Syringe IV ×2 (09:18→09:42)
[2021-08-23] MEDS: fentaNYL 100 MCG/2 ML Ampul IV (09:21)
[2021-08-23] MEDS: Lidocaine 2% (20 ml mdv) 20 ML Vial INFILT (09:26)
[2021-08-23] MEDS: 0.9% Saline Lock 10 ML Syringe IV (11:15)
== END | disposition home or self-care (01) ==
PROVIDERS: PCP Student in an Organized Health Care Education/Training Program
DX: C67.9 Malignant neoplasm of bladder, unspecified (principal); N13.5 Crossing vessel and stricture of ureter without hydronephrosis
CPT/HCPCS: 50432; 99156; 99157; J7040; A4216

== ENCOUNTER → 2021-08-31 11:33 | Outpatient (CLI) | payer MEDICARE, MEDICAID, SELFPAY ==
[2021-08-31] VITALS (9 sets, daily range): BP systolic 114–146; BP diastolic 68–104; PULSE 102–115; RESP 16–27; TEMP 36.6; O2SAT 2–97; BMI 28.7
--- NOTE | 2021-08-31 11:37 | CT_ITS ---
PROCEDURE: COMPUTER TOMOGRAPHIC GUIDANCE DURING PERCUTANEOUS NEPHROSTOMY PROCEDURE. DATE OF EXAMINATION: 08/31/2021. INDICATION: Male, 70 years old. Right ureteral obstruction. PHYSICIAN: Luis Darling M.D. CONSENT: The patient''s history and physical findings were reviewed. Prior to the procedure the percutaneous nephrostomy as well as the benefits and possible complications were described to the patient and his daughter who then signed a consent. SEDATION: Conscious sedation was performed. The patient received 2 mg of VERSED and 50 mcg of FENTANYL intravenously. Conscious sedation was started at 1:02 PM and terminated at 1:34 PM. The patient was independently monitored by the department nurse. CTDIvol : 19.89 DLP : 1751.63. Individualized dose optimization techniques were utilized. TECHNIQUE: A percutaneous 8 Nepali right nephrostomy catheter was inserted under CT guidance. Contrast was injected through the right nephrostomy catheter which opacified the right upper collecting system and right ureter. A loop of the pigtail catheter was formed within the right renal pelvis and locked in this position. There is dilatation of the upper collecting system and dilatation of the right ureter to the bladder. No contrast passed into the urinary bladder. The catheter was secured to the skin surface and covered with a sterile dressing. The catheter was attached to a drainage bag attached to the patient''s leg. CT/Nephrotube Placement CT IMPRESSION: 1. The percutaneous right nephrostomy catheter is in good position with the pigtail portion located in the right renal pelvis. 2. Conscious sedation protocol was followed. The patient tolerated the procedure well. Electronically Signed: Luis Darling MD at 14:08 EDT , Service support ,
[2021-08-31] MEDS: Midazolam 2 MG/2 ML Syringe IV (13:02)
[2021-08-31] MEDS: fentaNYL 100 MCG/2 ML Ampul IV (13:04)
== END ==
PROVIDERS: PCP Student in an Organized Health Care Education/Training Program
DX: C67.9 Malignant neoplasm of bladder, unspecified (principal); N13.5 Crossing vessel and stricture of ureter without hydronephrosis
CPT/HCPCS: 50432; 99156; 99157; J7040; A4216

== ENCOUNTER → 2021-09-06 09:54 | Outpatient (CLI) | payer MEDICARE, MEDICAID, SELFPAY ==
--- NOTE | 2021-09-06 10:00 | VDLE_ITS ---
Reason For Study: edema Procedure LEFT This is a venous duplex using B-mode, color GSV is normal. flow and spectral Doppler. CFV is compressible, spontaneous, phasic, Exam performed in department. competent, and demonstrates normal The exam was abbreviated due to the COVID 19 augmentation. protocol. FV is compressible, spontaneous, phasic, The exam was of fair technical quality due competent and demonstrates normal to pt movement. augmentation. A preliminary report was called and/or faxed POP V is compressible, spontaneous, phasic, to Opal Delaney [facility] [facility] at [facility]. competent and demonstrates normal augmentation. T/P Trunk is compressible. PTV is compressible. LT PerV is compressible. VL/Venous Duplex US, Unilateral Interpretation Summary Deep veins of the left lower extremity are patent and compressible segmentally. There is no evidence of left lower extremity deep vein thrombosis. Valvular competence appears intac t within the proximal deep venous system on the left . The left great saphenous vein appears patent a nd compressible segmentally. Ordering Physician: Opal Delaney Performed By: Gerard Odom RVT
== END ==
PROVIDERS: PCP Student in an Organized Health Care Education/Training Program; Referring Provider Nurse Practitioner Acute Care; Visit Provider Nurse Practitioner Acute Care
DX: R60.0 Localized edema (principal); I48.91 Unspecified atrial fibrillation; Z85.9 Personal history of malignant neoplasm, unspecified
CPT/HCPCS: 93971

== ENCOUNTER → 2021-09-12 08:46 | Outpatient (CLI) | payer MEDICARE, MEDICAID, SELFPAY ==
[2021-09-12] VITALS (8 sets, daily range): BP systolic 110–129; BP diastolic 70–89; PULSE 106–127; RESP 16–22; O2SAT 91–96; BMI 28.1
--- NOTE | 2021-09-12 08:48 | CT_ITS ---
PROCEDURE: COMPUTERIZED TOMOGRAPHIC GUIDANCE DURING PERCUTANEOUS NEPHROSTOMY PROCEDURE. DATE OF EXAMINATION: 09/12/2021. INDICATION: Male, 70 years old. PHYSICIAN: Luis Darling M.D. CONSENT: The patient''s history and physical findings were reviewed. Prior to the procedure the percutaneous nephrostomy and attempted right ureteral stent insertion were described to the patient and patient''s who then signed a consent. SEDATION: 2 mg of VERSED and 50 mcg of FENTANYL intravenously. Conscious patient was started at 10:05 AM and terminated at 1025 the patient was independently monitored by the department nurse. CTDIvol : 11 DLP : 400.24 Individualized dose optimization techniques were utilized. TECHNIQUE: A 8 Iraqi percutaneous right nephrostomy catheter was inserted under CT guidance. Contrast was injected through the right nephrostomy catheter which opacified the right upper collecting system A loop of the pigtail catheter was formed within the right renal pelvis and locked in this position. There is dilatation of the upper collecting system . The catheter was secured to the skin surface and covered with a sterile dressing. The catheter was attached to a drainage bag attached to the patient''s leg. CT/Nephrotube Placement CT IMPRESSION: 1. The percutaneous right nephrostomy catheter is in good position with the pigtail portion located in the right renal pelvis. 2. Conscious sedation protocol was followed. Electronically Signed: Luis Darling MD at 10:46 EST , Service support ,
--- NOTE | 2021-09-12 09:21 | NURSING ---
PT'S STS DOES NOT KNOW HOME MEDS BUT DOES KNOW HE HAS A NEW RX FOR SEROQUEL AND A MUSCLE RELAXER.
[2021-09-12] MEDS: fentaNYL 100 MCG/2 ML Ampul IV (10:05)
[2021-09-12] MEDS: Midazolam 2 MG/2 ML Syringe IV (10:05)
[2021-09-12] MEDS: Lidocaine 2% (20 ml mdv) 20 ML Vial INFILT (10:20)
[2021-09-12] MEDS: 0.9% Saline Lock 10 ML Syringe IV (11:25)
== END | disposition home or self-care (01) ==
PROVIDERS: PCP Student in an Organized Health Care Education/Training Program
DX: N13.5 Crossing vessel and stricture of ureter without hydronephrosis (principal); C67.9 Malignant neoplasm of bladder, unspecified; I48.0 Paroxysmal atrial fibrillation; I10 Essential (primary) hypertension; E78.5 Hyperlipidemia, unspecified; K21.9 Gastro-esophageal reflux disease without esophagitis; Z79.82 Long term (current) use of aspirin; Z79.899 Other long term (current) drug therapy; Z87.891 Personal history of nicotine dependence
CPT/HCPCS: 50432; 99156; J7040; A4216

== ENCOUNTER 2021-09-16 14:24 | Inpatient (IN) | payer MEDICARE, MEDICAID, SELFPAY ==
[2021-09-16] VITALS (7 sets, daily range): BP systolic 82–101; BP diastolic 52–80; PULSE 101–112; RESP 16–22; TEMP 36.3–37.2; O2SAT 93–98; BMI 29.5
--- NOTE | 2021-09-16 15:25 | EX.ED.DYSGE1 ---
HPI History of Present Illness Chief Complaint: Weakness Detail of Chief Complaint: Weakness and concern for sepsis Informant: family Narrative Narrative: Patient presents to the emergency department with generalized weakness for the last for 5 days. Patient has stage IV bladder cancer that is metastatic to lymph nodes. Patient not currently receiving any further chemotherapy. Patient was placed on hospice recently. Family noted that he had a fever 4 days ago and has been more lethargic. Family started to notice some drainage from the left nephrostomy tube and there is concern for sepsis as he has had sepsis in the past. The right nephrostomy tube was changed within the last week. Patient is DNR Comfort Care arrest and family does not want intubation or CPR. They are comfortable with fluids and antibiotics and comfort measures. Patient had had narcotic pain medication prior to arrival in the emergency department and really cannot give much history. Family states that patient had blood work yesterday that showed an elevated white blood cell count and a low hemoglobin. Prior similar symptoms: Yes PFSH PFSH Medical History Ascending aorta dilation Atrial fibrillation with RVR Bladder tumor Chronic pain Essential hypertension Former smoker GERD (gastroesophageal reflux disease) GERD (gastroesophageal reflux disease) Hyperlipemia Kidney disease Lung nodule Malignant neoplasm of urinary bladder Malignant pericardial effusion Paroxysmal atrial fibrillation Home Medications tamsulosin 0.4 mg capsule 0.4 mg PO QHS 09/03/18 [History Last Taken 1 Week Ago ~09/09/21] cyanocobalamin (vitamin B-12) 1,000 mcg PO DAILY 08/03/19 [History Last Taken 1 Week Ago ~09/09/21] cholecalciferol (vitamin D3) 2,000 unit PO DAILY 08/18/19 [History Last Taken 1 Week Ago ~09/09/21] rosuvastatin 10 mg PO QHS 08/18/19 [History Last Taken 1 Week Ago ~09/09/21] aspirin 81 mg tablet,delayed release 81 mg PO DAILY 08/27/19 [History Last Taken 3 Days Ago ~09/13/21] duloxetine 60 mg PO DAILY 10/29/20 [History Last Taken 2 Days Ago ~09/14/21] duloxetine 30 mg PO DAILY 08/07/21 [History Last Taken 2 Days Ago ~09/14/21] oxybutynin chloride 10 mg PO DAILY 08/07/21 [History Last Taken 09/16/21] oxycodone 10 mg PO Q4H PRN PRN 7 Days #28 tab 08/10/21 [Rx Last Taken 09/16/21] acetaminophen 1,000 mg PO TID PRN 08/18/21 [History Last Taken 2 Days Ago ~09/14/21] ascorbic acid (vitamin C) 500 mg PO DAILY 08/18/21 [History Last Taken 1 Week Ago ~09/09/21] lidocaine 3 patch TOPICAL DAILY 08/18/21 [History Last Taken 3 Days Ago ~09/13/21] omeprazole magnesium [Prilosec OTC] 20 mg PO DAILY 08/18/21 [History Last Taken 09/16/21] ondansetron HCl [Zofran] 4 mg PO Q8H 08/18/21 [History Last Taken 2 Days Ago ~09/14/21] polyethylene glycol 3350 [Miralax] 17 g PO DAILY PRN 08/18/21 [History Last Taken 2 Weeks Ago ~09/02/21] sennosides-docusate sodium [Stool Softener-Stimulant Laxat] 2 tab PO BID 08/18/21 [History Last Taken Unknown] levofloxacin 750 mg PO DAILY #10 tab 08/20/21 [Rx Last Taken 09/16/21] metoprolol tartrate 25 mg tablet 25 mg PO BID 08/26/21 [History Last Taken 1 Week Ago ~09/09/21] Allergy/AdvReac Type Severity Reaction Status Date / Time No Known Allergies Allergy Verified 09/16/21 14:38 Family History Mother Cancer Lung Father Cancer Stomach Brother Seizures Sister Cancer Bone Surgical History History of bladder surgery (~06/03/18) History of parathyroidectomy S/P pericardiocentesis (~08/04/19) Social History household members: significant other Smoking Status: Former smoker alcohol intake: current details: rare substance use type: does not use ROS ROS ED Constitutional Constitutional ED: Reports systems reviewed and no addt'l complaints, except as documented and fever(s); Denies body ache(s), change in weight or chills Eyes Eyes: Denies acute decrease in peripheral vision, change in vision, double vision or loss of vision ENT ENT ED: Reports none; Denies ear pain, lip swelling, loss taste/smell, neck pain, otalgia or sore throat Cardiovascular Cardiovascular: Reports none; Denies abdominal pain, chest pain with activity, leg edema, lightheadedness, palpitations, rapid heart rate or syncope Respiratory/Chest Respiratory/Chest: Reports none; Denies change in mental status, dry cough, dyspnea, hemoptysis, shortness of breath at rest or shortness of breath with exertion Gastrointestinal Gastrointestinal: Reports none; Denies abdominal pain, change in stool character, diarrhea, hematemesis, hematochezia, melena, rectal bleeding or vomiting Genitourinary Genitourinary ED: Reports none; Denies abdominal discomfort, anuria, dysuria, genital pain or polyuria Musculoskeletal Musculoskeletal: Reports none and back pain; Denies arthralgias, difficulty walking, extremity pain, muscle weakness or myalgias Integumentary Reports none; Denies abscess or rash Neurologic Neurologic: Reports none and weakness; Denies abnormal gait, confusion, focal weakness, frequent falls, headache(s), loss of vision, numbness, paresthesias, radicular pain or vertigo Psychiatric Psychiatric: Reports systems reviewed and no addt'l complaints, except as documented and none; Denies behavioral changes, confusion, difficulty concentrating, hallucinations, suicidal ideation, tactile hallucinations or visual hallucinations Endocrine Endocrinology: Denies none, cold intolerance, excessive sweating, fatigue or heat intolerance Hematologic/Lymphatic Hematologic/Lymphatic: Reports none; Denies anemia, easy bleeding or easy bruising Allergic/Immunologic Allergic/Immunologic ED: Denies as per HPI, none, lip swelling, mouth swelling, throat swelling, tongue swelling or hives EXAM Physical Exam Const Vital Signs: 09/16/21 14:25 09/16/21 14:38 09/16/21 16:09 Temperature 97.3 F L 97.3 F L 98.9 F Temperature Source Temporal Temporal Temporal Pulse Rate 111 H 111 H 112 H Respiratory Rate 18 18 22 H Respiratory Effort Normal Non-Labored Blood Pressure 95/56 L 95/56 L 88/52 L Blood Pressure Mean 69 69 64 Pulse Ox 96 96 98 Oxygen Delivery Method Nasal Cannula Nasal Cannula Nasal Cannula Oxygen Flow Rate (L/min) 2 2 2 09/16/21 17:01 Temperature 98.9 F Temperature Source Temporal Pulse Rate 110 H Respiratory Rate 18 Respiratory Effort Blood Pressure 101/80 Blood Pressure Mean 87 Pulse Ox 97 Oxygen Delivery Method Nasal Cannula Oxygen Flow Rate (L/min) 2 Positive well nourished and well developed General Appearance ED: well developed and NAD HEENT Reports TM's clear and moist mucous membranes normocephalic and atraumatic; Negative for trauma or tenderness Tympanic Membrane ED: Yes TM's clear Eyes PERRL and EOMs intact bilaterally General Eye ED: Negative for pale conjunctiva or scleral icterus Neck no lymphadenopathy, supple and no JVD General: Negative for tenderness Chest Wall inspection of chest normal and palpation of chest normal Chest: Negative for tenderness Resp normal respiratory effort and clear to auscultation bilaterally Effort and Inspection: Negative for respiratory distress or pain with movement Auscultation: Negative for rhonchi, wheezes or diminished lung sounds Cardio regular rate, regular rhythm, S1 normal heart sound, S2 normal heart sound and no murmurs Peripheral Pulses: pulses 2+ throughout GI soft to palpation and no masses Inspection: abdominal distention Palpation: tender Back/Spine no CVA tenderness and no thoracic nor lumbar tenderness Extremity normal to inspection General Extremety ED: Negative for edema General Extremity: Negative for edema Neuro oriented x3, CN's II-XII intact bilaterally, no sensory deficits noted and gait normal Sensorium / Orientation: awake, alert, oriented to person, oriented to place and oriented to time Motor Exam: strength 5/5 throughout and strength abnormal Psych mental status grossly normal Appearance: other Somnolent and paucity of speech Skin no rashes or lesions noted and no wounds MDM MDM MDM Narrative Medical decision making narrative: IV line established on arrival via his port in his right chest. Blood cultures were ordered. Patient was empirically started on Zosyn and vancomycin IV. Patient initially had low blood pressures with systolic in the 90s and did respond to fluids and currently is with systolic in the 110s. Patient's white blood cell count is gone from 16,000 yesterday to 26,000 today. Patient's lactate 3.6 and he has acute kidney injury. Lab Data Attestation: I reviewed the patient's lab results. Labs: Laboratory Results - last 24 hr 09/16/21 09/16/21 09/16/21 16:04 16:04 16:04 WBC 26.1 H RBC 3.40 L Hgb 8.1 L Hct 28.8 L MCV 84.7 MCH 23.8 L MCHC 28.1 L RDW Std Deviation 55.7 H RDW Coeff of Rosie 18.6 H Plt Count 409 MPV 10.9 Immature Gran % (Auto) 1.200 H Neut % (Auto) 93.2 H Lymph % (Auto) 1.8 L [place] % (Auto) 3.7 Eos % (Auto) 0.0 Baso % (Auto) 0.1 Absolute Neuts (auto) 24.4 H Absolute Lymphs (auto) 0.47 L Nucleated RBC % 0.1 Differential Comment SEE COMMENTS Diff Path Review May foll Platelet Estimate SLT INC RBC Morphology N CHROM Hypochromasia RARE Anisocytosis RARE Sodium 138 Potassium 4.6 Chloride 100 Carbon Dioxide 17.0 L Anion Gap 21 H BUN 98 H Creatinine 2.83 H Estim Creat Clear Calc 24.17 Est GFR (MDRD) Af Amer 29 L Est GFR (MDRD) Non-Af 24 L BUN/Creatinine Ratio 34.6 H Glucose 108 H Lactic Acid 3.6 H* Calcium 8.9 Total Bilirubin 0.40 AST 180 H ALT 39 Alkaline Phosphatase 168 H Total Protein 6.4 Albumin 1.6 L Globulin 4.8 H Albumin/Globulin Ratio 0.3 L Urine Color Urine Clarity Urine pH Ur Specific Harrison U Specif Grav (Refrac) Urine Protein Urine Glucose (UA) Urine Ketones Urine Occult Blood Urine Nitrite Urine Bilirubin Urine Urobilinogen Ur Leukocyte Esterase Urine RBC Urine WBC Ur Squamous Epith Cells Ur Transition Epith Cell Ur Renal Epithelial Cell Calcium Oxalate Crystal Uric Acid Crystals Triple Phos Crystals Other Crystals Amorphous Sediment Urine Bacteria Hyaline Casts Fine Granular Casts Coarse Granular Casts Waxy Casts RBC Casts WBC Casts Urine Mucus Urine Trichomonas Urine Yeast 09/16/21 16:58 WBC RBC Hgb Hct MCV MCH MCHC RDW Std Deviation RDW Coeff of Rosie Plt Count MPV Immature Gran % (Auto) Neut % (Auto) Lymph % (Auto) [place] % (Auto) Eos % (Auto) Baso % (Auto) Absolute Neuts (auto) Absolute Lymphs (auto) Nucleated RBC % Differential Comment Diff Path Review Platelet Estimate RBC Morphology Hypochromasia Anisocytosis Sodium Potassium Chloride Carbon Dioxide Anion Gap BUN Creatinine Estim Creat Clear Calc Est GFR (MDRD) Af Amer Est GFR (MDRD) Non-Af BUN/Creatinine Ratio Glucose Lactic Acid Calcium Total Bilirubin AST ALT Alkaline Phosphatase Total Protein Albumin Globulin Albumin/Globulin Ratio Urine Color Cancelled Urine Clarity Cancelled Urine pH Cancelled Ur Specific [place] Cancelled U Specif Grav (Refrac) Cancelled Urine Protein Cancelled Urine Glucose (UA) Cancelled Urine Ketones Cancelled Urine Occult Blood Cancelled Urine Nitrite Cancelled Urine Bilirubin Cancelled Urine Urobilinogen Cancelled Ur Leukocyte Esterase Cancelled Urine RBC Cancelled Urine WBC Cancelled Ur Squamous Epith Cells Cancelled Ur Transition Epith Cell Cancelled Ur Renal Epithelial Cell Cancelled Calcium Oxalate Crystal Cancelled Uric Acid Crystals Cancelled Triple Phos Crystals Cancelled Other Crystals Cancelled Amorphous Sediment Cancelled Urine Bacteria Cancelled Hyaline Casts Cancelled Fine Granular Casts Cancelled Coarse Granular Casts Cancelled Waxy Casts Cancelled RBC Casts Cancelled WBC Casts Cancelled Urine Mucus Cancelled Urine Trichomonas Cancelled Urine Yeast Cancelled Radiography Chest X-Ray - ED: 1 View Diagnostic Testing: Clinical Impression(s) from Imaging Studies Chest X-Ray 09/16/21 16:05 IMPRESSION: Diminished inspiratory effort and mild diffuse interstitial thickening more pronounced the lower lobes. Possibility of inflammatory disease not excluded and clinical correlation is recommended Electronically Signed: Gil Knight MD at 16:36 EST , Service support , X-ray obtained interpreted by myself as increased markings lower lobes and suspect this may be atelectasis. Radiology in agreement although they raise possibility of inflammatory disease not being excluded. Discharge Plan Triage Chief Complaint: Weakness ED Provider: Kilo Gonzales Dx/Rx/DC Orders Clinical Impression: Sepsis, Acute kidney injury, Acute UTI, Weakness Prescriptions: No Action tamsulosin 0.4 mg capsule 0.4 mg PO QHS RF: 0 aspirin [Adult Aspirin Regimen] 81 mg tablet,delayed release (DR/EC) 81 mg PO DAILY RF: 0 cyanocobalamin (vitamin B-12) 1,000 MCG tablet 1,000 mcg PO DAILY RF: 0 rosuvastatin 10 MG tablet 10 mg PO QHS RF: 0 cholecalciferol (vitamin D3) 2,000 UNIT capsule 2,000 unit PO DAILY RF: 0 duloxetine 60 MG capsule 60 mg PO DAILY RF: 0 duloxetine 30 mg capsule,delayed release(DR/EC) 30 mg PO DAILY RF: 0 oxybutynin chloride 10 mg tablet extended release 24hr 10 mg PO DAILY RF: 0 oxycodone 5 mg Tablet 10 mg PO Q4H PRN PRN (Reason: Pain Score 6-10) 7 Days Qty: 28 RF: 0 ascorbic acid (vitamin C) 500 mg Tablet 500 mg PO DAILY RF: 0 polyethylene glycol 3350 [Miralax] 17 gram/dose Powder 17 g PO DAILY PRN (Reason: Constipation) RF: 0 omeprazole magnesium [Prilosec OTC] 20 mg Tablet,Delayed Release (Dr/Ec) 20 mg PO DAILY RF: 0 ondansetron HCl [Zofran] 4 mg tablet 4 mg PO Q8H RF: 0 sennosides-docusate sodium [Stool Softener-Stimulant Laxat] 8.6-50 mg tablet 2 tab PO BID RF: 0 acetaminophen 500 mg tablet 1,000 mg PO TID PRN (Reason: Pain) RF: 0 lidocaine 5 % adhesive patch,medicated 3 patch topical DAILY RF: 0 levofloxacin 750 mg tablet 750 mg PO DAILY Qty: 10 RF: 0 metoprolol tartrate 25 mg tablet 25 mg PO BID RF: 0 Primary Care Provider: Jaswinder Hill Referrals: Jaswinder Hill DO [Primary Care Provider] - Disposition Disposition: Acute Care Hospital [facility]
[2021-09-16] MEDS: 0.9% Normal Saline 1,000 ML 1000 ML IV (15:50)
--- NOTE | 2021-09-16 16:05 | RAD_ITS ---
STUDY: X-RAY CHEST REASON FOR EXAM: Male, 70 years old. weakness TECHNIQUE: AP portable COMPARISON: 08/07/2021 FINDINGS: Less than optimal inspiratory effort is noted Mildly diffusely increased interstitial thickening more pronounced in the lower lobes.. Cannot definitively exclude possibility of inflammatory disease There is no demonstrated pleural abnormality. Mediport catheter seen on the right with tip at the atrial caval junction. Borderline cardiac enlargement Normal mediastinum and ashley. Normal visualized pulmonary arteries. Tortuous aortic arch and descending thoracic aorta. Normal visualized thoracic spine. Normal visualized ribs, clavicles, and shoulders. There is no demonstrated abnormality of the visualized soft tissue structures of the upper abdomen. RAD/Chest 1 View (Portable) IMPRESSION: Diminished inspiratory effort and mild diffuse interstitial thickening more pronounced the lower lobes. Possibility of inflammatory disease not excluded and clinical correlation is recommended Electronically Signed: Gil Knight MD at 16:36 EST , Service support ,
[2021-09-16 16:12] LABS: Absolute Lymphocyte Count 0.47 X10^3/uL (0.83-4.51); Absolute Neutrophil Count 24.4 X10^3/uL (2.0-7.7); Basophil# 0.03 X10^3/uL; Basophil% 0.1 % (0-1); Hematocrit 28.8 % (40-54); Hemoglobin 8.1 g/dL (13.0-16.5); Lymphocyte # 0.47 X10^3/ul (0.83-4.51); Lymphocyte % 1.8 % (19-41); Mean Corp Hgb Conc 28.1 g/dL (32-36); Mean Corpuscular Hgb 23.8 pg (27.0-32.0); Mean Corpuscular Volume 84.7 fL (80-94); Mean Platelet Vol. 10.9 fl (6.2-12.0); Monocyte# 0.97 X10^3/uL; Monocyte% 3.7 % (0-10); NRBC Flagged by Analyzer 0.1 % (0-5); Neutrophil # 24.35 X10^3/uL (2.7-7.7); Neutrophil % 93.2 % (47-70); POSITIVE DIFFERENTIAL YES; Platelet Count 409 K/mm3 (150-450); RBC Distribution Width CV 18.6 % (11.6-14.6); RBC Distribution Width SD 55.7 fl (35.1-43.9); White Blood Count 26.1 K/mm3 (4.4-11.0)
[2021-09-16 16:16] LABS: Differential Indicated SCAN CRITERIA MET
[2021-09-16 16:32] LABS: ALB/GLOB Ratio 0.3 RATIO (0.9-2.4); AST(SGOT) 180 U/L (15-37); Alanine Aminotransfer ALT/SGPT 39 U/L (16-61); Albumin, Serum 1.6 g/dL (3.2-5.0); Alkaline Phosphatase 168 U/L (45-117); Anion Gap 21 (5-15); BUN 98 mg/dL (7-18); BUN/Creat Ratio 34.6 RATIO (10-20); Calcium,Total 8.9 mg/dL (8.5-10.1); Chloride 100 mmol/L (98-107); Creatinine, Serum 2.83 mg/dL (0.70-1.30); EST Glomerular Filtration Rate 24 mL/min (>60); Est Glom Filt Rate - Afr Amer 29 mL/min (>60); Estimated Creatinine Clearance 24.17 ml/min; Globulin 4.8 g/dL (2.2-4.2); Glucose 108 mg/dL (74-106); Potassium 4.6 mmol/L (3.5-5.1); Protein, Total 6.4 g/dL (6.4-8.2); Sodium Level 138 mmol/L (136-145)
[2021-09-16 16:33] LABS: Differential Comment SEE COMMENTS; Platelet Estimate SLT INC (ADEQ)
[2021-09-16 16:34] LABS: Anisocytosis RARE; Hypochromasia RARE; Red Cell Morphology N CHROM NORMAL (NORM C&C)
[2021-09-16 16:54] LABS: Lactic Acid 3.6 mmol/L (0.4-1.9)
[2021-09-16] MEDS: 0.9% Normal Saline 1,000 ML 999 ML IV (17:23)
--- NOTE | 2021-09-16 17:25 | HP.PCM.HOS_ITS ---
HPI - General HPI Narrative SERG ZAVALA, is a 70 M with a PMH as outlined who presents via the ED on 09/16/2021 with a complaint of generalised weakness for 5 days prior to admission. Radha was placed on hospice recently for metastatic bladder cancer. He had a fever about 4 days ago, and had become more lethargic. He also has a nephrostomy tube in place and family had noted some drainage from it, so there concern for infection. Patient couldnt give much of a history. Vitals showed Bp of 101/80, MT of 110, RR of 18 and temp of 98.9F with oxygen sats of 97% on 2L of oxygen. CBC showed wbc of 26.1, and Hb of 8.1, and platelets of 409. Chemistry showed sodium of 138 with bicarb of 17, and anion gap of 21. Cr was 2.83 and lactic acid of 3.6. He was initially hypotensive, but BP responded to fluids. He is being admitted to be managed for sepsis due to possible infected nephrostomy tube. [facility] Medical History Ascending aorta dilation Atrial fibrillation with RVR Bladder tumor Chronic pain Essential hypertension Former smoker GERD (gastroesophageal reflux disease) GERD (gastroesophageal reflux disease) Hyperlipemia Kidney disease Lung nodule Malignant neoplasm of urinary bladder Malignant pericardial effusion Paroxysmal atrial fibrillation Home Medications tamsulosin 0.4 mg capsule 0.4 mg PO QHS 09/03/18 [History Last Taken 1 Week Ago ~09/09/21] cyanocobalamin (vitamin B-12) 1,000 mcg PO DAILY 08/03/19 [History Last Taken 1 Week Ago ~09/09/21] cholecalciferol (vitamin D3) 2,000 unit PO DAILY 08/18/19 [History Last Taken 1 Week Ago ~09/09/21] rosuvastatin 10 mg PO QHS 08/18/19 [History Last Taken 1 Week Ago ~09/09/21] aspirin 81 mg tablet,delayed release 81 mg PO DAILY 08/27/19 [History Last Taken 3 Days Ago ~09/13/21] duloxetine 60 mg PO DAILY 10/29/20 [History Last Taken 2 Days Ago ~09/14/21] duloxetine 30 mg PO DAILY 08/07/21 [History Last Taken 2 Days Ago ~09/14/21] oxybutynin chloride 10 mg PO DAILY 08/07/21 [History Last Taken 09/16/21] oxycodone 10 mg PO Q4H PRN PRN 7 Days #28 tab 08/10/21 [Rx Last Taken 09/16/21] acetaminophen 1,000 mg PO TID PRN 08/18/21 [History Last Taken 2 Days Ago ~09/14/21] ascorbic acid (vitamin C) 500 mg PO DAILY 08/18/21 [History Last Taken 1 Week Ago ~09/09/21] lidocaine 3 patch TOPICAL DAILY 08/18/21 [History Last Taken 3 Days Ago ~09/13/21] omeprazole magnesium [Prilosec OTC] 20 mg PO DAILY 08/18/21 [History Last Taken 09/16/21] ondansetron HCl [Zofran] 4 mg PO Q8H 08/18/21 [History Last Taken 2 Days Ago ~09/14/21] polyethylene glycol 3350 [Miralax] 17 g PO DAILY PRN 08/18/21 [History Last Taken 2 Weeks Ago ~09/02/21] sennosides-docusate sodium [Stool Softener-Stimulant Laxat] 2 tab PO BID 08/18/21 [History Last Taken Unknown] levofloxacin 750 mg PO DAILY #10 tab 08/20/21 [Rx Last Taken 09/16/21] metoprolol tartrate 25 mg tablet 25 mg PO BID 08/26/21 [History Last Taken 1 Week Ago ~09/09/21] Allergy/AdvReac Type Severity Reaction Status Date / Time No Known Allergies Allergy Verified 09/16/21 14:38 Family History Mother Cancer Lung Father Cancer Stomach Brother Seizures Sister Cancer Bone Surgical History History of bladder surgery (~06/03/18) History of parathyroidectomy S/P pericardiocentesis (~08/04/19) Social History household members: significant other Smoking Status: Former smoker alcohol intake: current details: rare substance use type: does not use ROS Review of Systems ROS Unobtainable: due to encephalopathy Vital Signs Vital Signs Vital Signs: 09/16/21 14:25 09/16/21 14:38 09/16/21 16:09 Temperature 97.3 F L 97.3 F L 98.9 F Temperature Source Temporal Temporal Temporal Pulse Rate 111 H 111 H 112 H Respiratory Rate 18 18 22 H Respiratory Effort Normal Non-Labored Blood Pressure 95/56 L 95/56 L 88/52 L Blood Pressure Mean 69 69 64 Pulse Ox 96 96 98 Oxygen Delivery Method Nasal Cannula Nasal Cannula Nasal Cannula Oxygen Flow Rate (L/min) 2 2 2 09/16/21 17:01 Temperature 98.9 F Temperature Source Temporal Pulse Rate 110 H Respiratory Rate 18 Respiratory Effort Blood Pressure 101/80 Blood Pressure Mean 87 Pulse Ox 97 Oxygen Delivery Method Nasal Cannula Oxygen Flow Rate (L/min) 2 Weight Weight: 194 lb 7.163 oz Body Mass Index (BMI) 29.5 Physical Exam Const Constitutional Narrative: lethargic, HEENT normocephalic, head/scalp atraumatic and hearing grossly normal bilaterally HEENT Narrative: dry mucosal membranes Eyes PERRL, EOMs intact bilaterally and conjunctivae normal Neck no lymphadenopathy Resp normal respiratory effort, no retractions, no use of accessory muscles and clear to auscultation bilaterally Cardio regular rate, regular rhythm, S1 normal heart sound, S2 normal heart sound and no murmurs GI normal to inspection, nondistended, normoactive bowel sounds, soft to palpation, non-tender and non-distended GI Narrative: has bilateral nephrostomy tubes in place Extremity normal to inspection, full ROM and no clubbing, cyanosis or edema Peripheral Pulses: Yes pulses 2+ throughout Skin no rashes or lesions noted Neuro Neuro Narrative: lethargic. Psych Psych Narrative: lethargic, drowsy Results Lab / Micro Data Result Diagrams: 09/16/21 16:04 09/16/21 16:04 Labs: Laboratory Results - last 24 hr 09/16/21 16:04: WBC 26.1 H, RBC 3.40 L, Hgb 8.1 L, Hct 28.8 L, MCV 84.7, MCH 23.8 L, MCHC 28.1 L, RDW Std Deviation 55.7 H, RDW Coeff of Rosie 18.6 H, Plt C ount 409, MPV 10.9, Immature Gran % (Auto) 1.200 H, Neut % (Auto) 93.2 H, Lymph % (Auto) 1.8 L, [place] % (Auto) 3.7, Eos % (Auto) 0.0, Baso % (Auto) 0.1, Absolute Neuts (auto) 24.4 H, Absolute Lymphs (auto) 0.47 L, Nucleated RBC % 0.1, Differential Comment SEE COMMENTS, Diff Path Review May foll, Platelet Estimate SLT INC, RBC Morphology N CHROM, Hypochromasia RARE, Anisocytosis RARE 09/16/21 16:04: Sodium 138, Potassium 4.6, Chloride 100, Carbon Dioxide 17.0 L, Anion Gap 21 H, BUN 98 H, Creatinine 2.83 H, Estim Creat Clear Calc 24.17, Est GFR (MDRD) Af Amer 29 L, Est GFR (MDRD) Non-Af 24 L, BUN/Creatinine Ratio 34.6 H , Glucose 108 H, Calcium 8.9, Total Bilirubin 0.40, AST 180 H, ALT 39, Alkaline Phosphatase 168 H, Total Protein 6.4, Albumin 1.6 L, Globulin 4.8 H, A lbumin/Globulin Ratio 0.3 L 09/16/21 16:04: Lactic Acid 3.6 H* 09/16/21 16:58: Urine Color Cancelled, Urine Clarity Cancelled, Urine pH Cancelled, Ur Specific [place] Cancelled, U Specif Grav (Refrac) Cancelled, Urine Protein Cancelled, Urine Glucose (UA) Cancelled, Urine Ketones Cancelled, Urine Occult Blood Cancelled, Urine Nitrite Cancelled, Urine Bilirubin Cancelled, Urine Urobilinogen Cancelled, Ur Leukocyte Esterase Cancelled, Urine RBC Cancelled, Urine WBC Cancelled, Ur Squamous Epith Cells Cancelled, Ur Tra nsition Epith Cell Cancelled, Ur Renal Epithelial Cell Cancelled, Calcium Oxalate Crystal Cancelled, Uric Acid Crystals Cancelled, Triple Phos Crystals Cancelled, Other Crystals Cancelled, Amorphous Sediment Cancelled, Urine Bacteria Cancelled, Hyaline Casts Cancelled, Fine Granular Casts Cancelled, Coarse Granular Casts Cancelled, Waxy Casts Cancelled, RBC Casts Cancelled, WBC Casts Cancelled, Urine Mucus Cancelled, Urine Trichomonas Cancelled, Urine Yeast Cancelled Micro: Microbiology 09/16/21 16:04 Nasal Secretion SARS-CoV-2 Antigen (Rapid) - Final Radiology Impression Chest X-Ray 09/16/21 16:05 IMPRESSION: Diminished inspiratory effort and mild diffuse interstitial thickening more pronounced the lower lobes. Possibility of inflammatory disease not excluded and clinical correlation is recommended Electronically Signed: Gil Knight MD at 16:36 EST , Service support , Assessment & Plan Assessment/Plan (1) Pyelonephritis: (2) UTI (urinary tract infection): QUALIFIERS: Urinary tract infection type: acute pyelonephritis Qualified Code(s): N10 - Acute pyelonephritis (3) Sepsis: PLAN: #Sepsis due to infected nephrostomy tube * WBC is elevated 26,000 he was also tachycardic on admission and there is a source of infection being the nephrostomy tube and UTI * Admit to PCU. Hydrate aggressively with IV fluids. * Get blood cultures and urine cultures * Nephrostomy tube will have to be changed. This will likely have to wait till Sunday when radiology is available * Started on broad-spectrum antibiotics namely IV vancomycin and Zosyn * Consult ID #Acute metabolic encephalopathy due to UTI and infected nephrostomy tube #Lactic acidosis: Lactic acid is 3.6. This is likely due to sepsis. Should improve with hydration and treatment of infection. #Anion gap metabolic acidosis due to UTI * This is likely due to sepsis. Hydrate with IV fluid and start on empiric antibiotics and monitor. #SILVIA: Creatinine is 2.83 with a baseline of around 0.72. Will hydrate with IV fluids and trend. #History of metastatic bladder cancer * Currently no longer on treatment as patient had opted for hospice care * On Flomax and oxybutynin * #DVT prophylaxis: Lovenox renally dosed CODE STATUS: * DNR CCA no intubation * I discussed CODE STATUS with patient's and daughter at length. Patient was initially placed on hospice about 3 days ago because family thought his deterioration was due to cancer. However they wish to revoke hospice now since it is clear he has an infection and want to give him a chance to improve. According to his daughter, they want patient to from cancer not from anything that they can help him with. As such they are okay with antibiotics and pain medication as well as blood if needed and also okay with vasopressors but do not want any intubation or CPR. * Total algu-am-yocc time 17 minutes. Charges/Coding Visit Charges Inpatient E&M: 48017 Init Hosp L3
[2021-09-16] MEDS: Morphine 4 MG/ML Syringe IV (17:33)
[2021-09-16] MEDS: 0.9% Normal Saline 1,000 ML 150 ML IV (19:30)
--- NOTE | 2021-09-16 19:46 | PCM.RX.CS ---
Consult Pharmacy has been consulted to manage selected antiobiotic: Vancomycin Type of Consult: New start Suspected Infection: Sepsis Labs: Sodium 138 mmol/L (136-145) 09/16/21 16:04 Potassium 4.6 mmol/L (3.5-5.1) 09/16/21 16:04 Chloride 100 mmol/L (98-107) 09/16/21 16:04 Carbon Dioxide 17.0 mmol/L (21.0-32.0) L 09/16/21 16:04 Anion Gap 21 (5-15) H 09/16/21 16:04 BUN 98 mg/dL (7-18) H 09/16/21 16:04 Creatinine 2.83 mg/dL (0.70-1.30) H 09/16/21 16:04 Est GFR (MDRD) Af Amer 29 mL/min (>60) L 09/16/21 16:04 Est GFR (MDRD) Non-Af 24 mL/min (>60) L 09/16/21 16:04 BUN/Creatinine Ratio 34.6 RATIO (10-20) H 09/16/21 16:04 Glucose 108 mg/dL (74-106) H 09/16/21 16:04 Microbiology: Microbiology 09/16/21 16:04 Nasal Secretion SARS-CoV-2 Antigen (Rapid) - Final Goal Trough: 15-20 mcg/mL Pharmacy Plan for Drug Dosing: NEW START IV VANCOMYCIN Consulting Physician: Dr. Landin Indication: Sepsis Goal Trough: 15-20 SrCr: 2.83 CrCl: 24 mL/min Comments: Had 1250mg IV x1 in ED 09/16/21 @1724. Loading dose ordered upon admission- will start scheduled dosing earlier in lieu of a supplemental dose Vancomcyin Dose: 1250mg IV Q24hr to start 09/17/21 @1300 Pending Level: 09/18/21 @1230, prior to 4th total dose per protocol Pharmacy Service will continue to monitor and adjust dosing as required.
[2021-09-16 20:08] LABS: Reflex Lactate? Y
--- NOTE | 2021-09-16 20:17 | NURSING ---
attempted to get admit questions completed, pt would only tell me his name, i tryed multiple times to ask him questions about his history and why he has a med port and nephrostomy tubes and he would not say a thing. while sitting in the room he was moaning occ. and calling out other peoples names when i asked him who they were that he was calling out for he would not answer me, bed alarm is on, call light within reach
--- NOTE | 2021-09-16 20:30 | NURSING ---
pt would not talk to RN or follow commands, so hs PO meds were held
[2021-09-16 22:23] LABS: Lactic Acid 2.9 mmol/L (0.4-1.9)
--- NOTE | 2021-09-16 23:17 | PCS.PANDOC ---
PANDEMIC DOCUMENTATION INITIATED: Date: 06/13/2021 Time: 190
[2021-09-17] VITALS (11 sets, daily range): BP systolic 101–127; BP diastolic 61–85; PULSE 100–115; RESP 14–20; TEMP 36.2–36.6; O2SAT 93–94
[2021-09-17] MEDS: 0.9% Normal Saline 1,000 ML 150 ML IV ×2 (02:15→11:29)
[2021-09-17 06:39] LABS: Absolute Lymphocyte Count 0.48 X10^3/uL (0.83-4.51); Absolute Neutrophil Count 18.3 X10^3/uL (2.0-7.7); Basophil# 0.04 X10^3/uL; Basophil% 0.2 % (0-1); Hematocrit 28.7 % (40-54); Hemoglobin 8.3 g/dL (13.0-16.5); Lymphocyte # 0.48 X10^3/ul (0.83-4.51); Lymphocyte % 2.4 % (19-41); Mean Corp Hgb Conc 28.9 g/dL (32-36); Mean Corpuscular Hgb 24.1 pg (27.0-32.0); Mean Corpuscular Volume 83.4 fL (80-94); Mean Platelet Vol. 10.5 fl (6.2-12.0); Monocyte# 0.95 X10^3/uL; Monocyte% 4.7 % (0-10); NRBC Flagged by Analyzer 0 % (0-5); Neutrophil # 18.31 X10^3/uL (2.7-7.7); Neutrophil % 91.4 % (47-70); POSITIVE DIFFERENTIAL YES; Platelet Count 373 K/mm3 (150-450); RBC Distribution Width CV 18.6 % (11.6-14.6); RBC Distribution Width SD 54.3 fl (35.1-43.9); Red Blood Count 3.44 M/mm3 (4.6-6.2); White Blood Count 20.1 K/mm3 (4.4-11.0)
[2021-09-17 06:40] LABS: Differential Indicated SCAN CRITERIA MET
[2021-09-17 06:54] LABS: Anisocytosis 2+; Polychromasia 1+
[2021-09-17 07:04] LABS: Anion Gap 19 (5-15); BUN 96 mg/dL (7-18); BUN/Creat Ratio 39.7 RATIO (10-20); Calcium,Total 8.7 mg/dL (8.5-10.1); Chloride 104 mmol/L (98-107); Creatinine, Serum 2.42 mg/dL (0.70-1.30); EST Glomerular Filtration Rate 28 mL/min (>60); Est Glom Filt Rate - Afr Amer 34 mL/min (>60); Estimated Creatinine Clearance 28.26 ml/min; Glucose 97 mg/dL (74-106); Potassium 4.2 mmol/L (3.5-5.1); Sodium Level 139 mmol/L (136-145)
[2021-09-17] MEDS: Lidocaine 5% Patch 3 PATCH TOPICAL (09:36)
[2021-09-17] MEDS: Tolterodine Tartrate 4 MG CAP.SA PO (09:40)
[2021-09-17] MEDS: Senna/Docusate Sodium 1 Tablet 2 TABLET PO ×2 (09:41→21:52)
[2021-09-17] MEDS: Ascorbic Acid 500 MG Tablet PO (09:41)
[2021-09-17] MEDS: Enoxaparin 30 MG/0.3 ML Syringe SC (09:42)
[2021-09-17] MEDS: Aspirin E.C. 81 MG Tablet PO (09:42)
[2021-09-17] MEDS: DULoxetine Hcl 30 MG Capsule PO (09:42)
[2021-09-17] MEDS: Pantoprazole Sodium 20 MG Tablet PO (09:43)
[2021-09-17] MEDS: DULoxetine Hcl 60 MG Capsule PO (09:43)
[2021-09-17] MEDS: Cyanocobalamin 500 MCG Tablet 1000 MCG PO (09:44)
[2021-09-17] MEDS: Cholecalciferol (VIT D3) 25 MCG TABLET (1,000 UNITS) 50 MCG PO (09:44)
[2021-09-17] MEDS: Ondansetron 8 MG Tablet PO ×2 (09:46→13:38)
[2021-09-17] MEDS: oxyCODONE 5 MG Tablet 10 MG PO ×2 (09:48→17:39)
[2021-09-17 10:28] LABS: Color, Urine Yellow (Yellow); Glucose, Dipstick Normal (Normal); Ketone-Dipstick 5 mg/dl (Negative); Leukocyte Esterase-Dipstick 500 /ul (Negative); Mucous, Urine 0 SEEN /hpf (<or=2+); Nitrite-Dipstick Negative (Negative); Occult Blood-Urine 250 /ul (Negative); Protein-Dipstick 30 mg/dl (Negative); Specific Gravity, Urine 1.025 (1.002-1.030); Urine Bilirubin Dipstick Negative (Negative); Urine Clarity Cloudy (Clear); Urine Urobilinogen Normal (Normal)
[2021-09-17 10:36] LABS: Amorphous Sediment 3+; Red Blood Cells-Urine 0-5 SEEN /hpf (0-5); White Blood Cells 50-100 SEEN /hpf (0-5)
[2021-09-17 10:37] LABS: Bacteria 1+ /hpf (None Seen); Squamous Epithelial Cells - UA 0-5 SEEN /hpf (0-5)
--- NOTE | 2021-09-17 15:25 | CASEMGMT ---
Readmission chart review: 08/07-08/10/21 Sepsis-Home w/ HHC, palliative and W/C 08/18-08/20/21 Sepsis 2nd pyelo-Home w/ [facility] 09/16/21-current Sepsis Pt with multiple admits for sepsis and per notes, had just recently been placed on hospice for metastatic bladder cancer but family revoked due to wanting antibx treatment for his sepsis. Pt does have nephrostomy tubes and family is worried that they are infected. SW aware and to place call to hospice/palliative regarding pt. Pt tachycardic on admission with elev WBC's and plan is for nephrostomy tube to be changed. ID is consulte. CM to follow for further discharge planning/needs. SSttalia BRADFORD CM
--- NOTE | 2021-09-17 16:12 | PN.HOSP_ITS ---
Subjective Subjective Patient seen and examined. He still lethargic but more responsive today. No active events overnight. He still remains tachycardic. WBC is trending downwards. Review of systems otherwise negative. Creatinine trended down to 2.42 lactic acid also trended downwards. Objective Data Objective Data Vital Signs: Vital Signs Temp Pulse Resp BP Pulse Ox 98 F 113 H 14 101/61 94 09/17/21 13:42 09/17/21 15:15 09/17/21 13:42 09/17/21 13:42 09/17/21 13:42 Oxygen Flow Rate (L/min) 2 Oxygen Delivery Method Nasal Cannula Weight: 186 lb 8.177 oz Body Mass Index (BMI) 29.5 Intake & Output: Intake and Output for Last 24 Hours 09/15/21 09/16/21 09/17/21 23:59 23:59 23:59 Intake Total 2375 / 2375 2812.5 / 2812.5 Output Total 550 / 550 Balance 2375 / 2375 2262.5 / 2262.5 Medical Nutrition Assessment Dietitian: Malnutrition Criteria Met Start: 09/17/21 12:27 Freq: Status: Active Protocol: Document 09/17/21 12:27 AG (Rec: 09/17/21 12:27 [id number]) Nutrition Malnutrition Evidence of Malnutrition Exists Yes Malnutrition (severe): Chronic Evidenced By Suboptimal Energy Intake ( Severe),Weight Loss (Severe) Clinical Problem Chronic Disease or Condition Related Malnutrition Etiology severe, chronic malnutrition r /t inadequate energy intake w/ increased energy needs d/t metastatic disease Signs/Symptoms as evidenced by estimated PO intake meeting <75% of estimated nutritional needs >3 months; unintentional wt loss of 23.7#/11.2% over past 3-4 months Status Active Problem Recommendation Dietitian Recommendations/Changes liberalize diet to regular given malnutrition; 4 oz ensure compact w/ meals Lab / Micro Data Result Diagrams: 09/17/21 06:22 09/17/21 06:22 Labs: Laboratory Results - last 24 hr 09/16/21 16:04: WBC 26.1 H, RBC 3.40 L, Hgb 8.1 L, Hct 28.8 L, MCV 84.7, MCH 23.8 L, MCHC 28.1 L, RDW Std Deviation 55.7 H, RDW Coeff of Rosie 18.6 H, Plt Count 409, MPV 10.9, Immature Gran % (Auto) 1.200 H, Neut % (Auto) 93.2 H, Lymph % (Auto) 1.8 L, [place] % (Auto) 3.7, Eos % (Auto) 0.0, Baso % (Auto) 0.1, Absolute Neuts (auto) 24.4 H, Absolute Lymphs (auto) 0.47 L, Nucleated RBC % 0.1, Differential Comment SEE COMMENTS, Diff Path Review Shaunna yang, Platelet Estimate SLT INC, RBC Morphology N CHROM, Hypochromasia RARE, Anisocytosis RARE 09/16/21 16:04: Sodium 138, Potassium 4.6, Chloride 100, Carbon Dioxide 17.0 L, Anion Gap 21 H, BUN 98 H, Creatinine 2.83 H, Estim Creat Clear Calc 24.17, Est GFR (MDRD) Af Amer 29 L, Est GFR (MDRD) Non-Af 24 L, BUN/Creatinine Ratio 34.6 H , Glucose 108 H, Calcium 8.9, Total Bilirubin 0.40, AST 180 H, ALT 39, Alkaline Phosphatase 168 H, Total Protein 6.4, Albumin 1.6 L, Globulin 4.8 H, Albumin/Globulin Ratio 0.3 L 09/16/21 16:04: Lactic Acid 3.6 H* 09/16/21 16:58: Urine Color Cancelled, Urine Clarity Cancelled, Urine pH Cancelled, Ur Specific [place] Cancelled, U Specif Grav (Refrac) Cancelled, Urine Protein Cancelled, Urine Glucose (UA) Cancelled, Urine Ketones Cancelled, Urine Occult Blood Cancelled, Urine Nitrite Cancelled, Urine Bilirubin Cancelled, Urine Urobilinogen Cancelled, Ur Leukocyte Esterase Cancelled, Urine RBC Cancelled, Urine WBC Cancelled, Ur Squamous Epith Cells Cancelled, Ur Transition Epith Cell Cancelled, Ur Renal Epithelial Cell Cancelled, Calcium Oxalate Crystal Cancelled, Uric Acid Crystals Cancelled, Triple Phos Crystals Cancelled, Other Crystals Cancelled, Amorphous Sediment Cancelled, Urine Bacteria Cancelled, Hyaline Casts Cancelled, Fine Granular Casts Cancelled, Coarse Granular Casts Cancelled, Waxy Casts Cancelled, RBC Casts Cancelled, WBC Casts Cancelled, Urine Mucus Cancelled, Urine Trichomonas Cancelled, Urine Yeast Cancelled 09/16/21 21:03: Lactic Acid 2.9 H* 09/17/21 06:22: WBC 20.1 H, RBC 3.44 L, Hgb 8.3 L, Hct 28.7 L, MCV 83.4, MCH 24.1 L, MCHC 28.9 L, RDW Std Deviation 54.3 H, RDW Coeff of Rosie 18.6 H, Plt Count 373, MPV 10.5, Immature Gran % (Auto) 1.300 H, Neut % (Auto) 91.4 H, Lymph % (Auto) 2.4 L, [place] % (Auto) 4.7, Eos % (Auto) 0.0, Baso % (Auto) 0.2, Absolute Neuts (auto) 18.3 H, Absolute Lymphs (auto) 0.48 L, Nucleated RBC % 0, Polychromasia 1+, Anisocytosis 2+ 09/17/21 06:22: Sodium 139, Potassium 4.2, Chloride 104, Carbon Dioxide 16.0 L, Anion Gap 19 H, BUN 96 H, Creatinine 2.42 H, Estim Creat Clear Calc 28.26, Est GFR (MDRD) Af Amer 34 L, Est GFR (MDRD) Non-Af 28 L, BUN/Creatinine Ratio 39.7 H , Glucose 97, Calcium 8.7 09/17/21 09:20: Urine Color Yellow, Urine Clarity Cloudy, Urine pH 5.0, Ur Specific [place] 1.025, Urine Protein 30 H, Urine Glucose (UA) Normal, Urine Ketones 5 H, Urine Occult Blood 250 H, Urine Nitrite Negative, Urine Bilirubin Negative, Urine Urobilinogen Normal, Ur Leukocyte Esterase 500 H, Urine RBC 0-5 SEEN, Urine WBC 50-100 SEEN, Ur Squamous Epith Cells 0-5 SEEN, Amorphous Sediment 3+, Urine Bacteria 1+, Urine Mucus 0 SEEN Micro: Microbiology 09/16/21 16:58 Urine, Clean Catch Urine Culture - Preliminary Mixed Gram Positive Organisms 09/16/21 16:04 Nasal Secretion SARS-CoV-2 Antigen (Rapid) - Final Radiography Diagnostic Testing: Radiology Impression Chest X-Ray 09/16/21 16:05 IMPRESSION: Diminished inspiratory effort and mild diffuse interstitial thickening more pronounced the lower lobes. Possibility of inflammatory disease not excluded and clinical correlation is recommended Electronically Signed: Gil Knight MD at 16:36 EST , Service support , Physical Exam Const Constitutional Narrative: lethargic, Exam Limitations: altered mental status HEENT normocephalic, head/scalp atraumatic and hearing grossly normal bilaterally Head and Scalp: normocephalic Eyes PERRL, EOMs intact bilaterally and conjunctivae normal Neck no lymphadenopathy Resp normal respiratory effort, no retractions, no use of accessory muscles and clear to auscultation bilaterally Cardio regular rate, regular rhythm, S1 normal heart sound, S2 normal heart sound and no murmurs GI normal to inspection, nondistended, normoactive bowel sounds, soft to palpation, non-tender and non-distended GI Narrative: has bilateral nephrostomy tubes in place, draining pus like urine. Extremity normal to inspection, full ROM and no clubbing, cyanosis or edema Peripheral Pulses: Yes pulses 2+ throughout Skin no rashes or lesions noted Neuro Neuro Narrative: lethargic. Psych Psych Narrative: lethargic, drowsy Assessment & Plan Assessment/Plan (1) Pyelonephritis: (2) UTI (urinary tract infection): QUALIFIERS: Urinary tract infection type: acute pyelonephritis Qualified Code(s): N10 - Acute pyelonephritis (3) Sepsis: PLAN: #Sepsis due to infected nephrostomy tube and UTI * WBC has trended down to 20,000 today * ID consulted the patient will be seen on Sunday. On IV vancomycin and Zosyn. * Blood and urine cultures pending. * Continue hydration with IV fluids. * #Acute metabolic encephalopathy due to UTI and infected nephrostomy tube * Management as above #Lactic acidosis: This trended downwards. Will monitor. This is due to sepsis and SILVIA #Anion gap metabolic acidosis due to UTI * Bicarb is down to 16 today with anion gap of 19. Will hydrate with Ringer's lactate. * #SILVIA: * Creatinine is down to 2.42 with hydration. * BUN is 96. Continue hydration. * We will switch Ringer's lactate now. * If it persists consult nephrology. * * #History of metastatic bladder cancer * Currently no longer on treatment as patient had opted for hospice care * On Flomax and oxybutynin * #DVT prophylaxis: Lovenox renally dosed CODE STATUS: * DNR CCA no intubation * Charges/Coding Visit Charges Inpatient E&M: 52113 Subs Hosp L3
--- NOTE | 2021-09-17 16:37 | CM.ED ---
SW Note SW was advised that patient was on hospice but revoked it. NEVILLE called [facility] and spoke to Heidy, distribution analyst. SHe said that patient revoked Hospice on 09/16/21. She indicated patient wanted more advanced treatment, at that time, when the Hospice team, including the social service liaison met with them on 09/16/21. She is unsure of the future plans regarding patient and if the families desire. NEVILLE updated CM Leanne Dorantes
[2021-09-17] MEDS: Lactated Ringers 1,000 ML 125 ML IV (17:34)
[2021-09-18] VITALS (13 sets, daily range): BP systolic 91–107; BP diastolic 54–69; PULSE 99–108; RESP 14–18; TEMP 36.3–36.7; O2SAT 90–96
[2021-09-18] MEDS: Morphine 2 MG/ML Syringe IV ×3 (00:39→23:06)
[2021-09-18] MEDS: 0.9% Saline Lock 10 ML Syringe IV ×2 (00:39→23:09)
[2021-09-18] MEDS: Lactated Ringers 1,000 ML 125 ML IV ×2 (02:11→10:35)
--- NOTE | 2021-09-18 05:54 | PCM.HOSP.N ---
Hospitalist Note Right nephrostomy tube displaced. Patient currently being treated for sepsis, infected potential urostomy tube (L sided). Given this new findings, likely occurred while moving in bed, will request Urology consultation.
[2021-09-18 06:07] LABS: Absolute Lymphocyte Count 0.57 X10^3/uL (0.83-4.51); Absolute Neutrophil Count 20.6 X10^3/uL (2.0-7.7); Basophil# 0.03 X10^3/uL; Basophil% 0.1 % (0-1); Eosinophil# 0.02 X10^3/uL; Eosinophils% 0.1 % (0-5); Hematocrit 29.2 % (40-54); Hemoglobin 8.4 g/dL (13.0-16.5); Lymphocyte # 0.57 X10^3/ul (0.83-4.51); Lymphocyte % 2.5 % (19-41); Mean Corp Hgb Conc 28.8 g/dL (32-36); Mean Corpuscular Hgb 24.1 pg (27.0-32.0); Mean Corpuscular Volume 83.9 fL (80-94); Mean Platelet Vol. 10.8 fl (6.2-12.0); Monocyte# 1.03 X10^3/uL; Monocyte% 4.5 % (0-10); NRBC Flagged by Analyzer 0.1 % (0-5); Neutrophil # 20.63 X10^3/uL (2.7-7.7); Neutrophil % 91.1 % (47-70); POSITIVE DIFFERENTIAL YES; Platelet Count 402 K/mm3 (150-450); RBC Distribution Width CV 19.2 % (11.6-14.6); RBC Distribution Width SD 55.6 fl (35.1-43.9); Red Blood Count 3.48 M/mm3 (4.6-6.2); White Blood Count 22.7 K/mm3 (4.4-11.0)
[2021-09-18 06:14] LABS: Differential Indicated SCAN CRITERIA MET
[2021-09-18 06:34] LABS: Anion Gap 16 (5-15); BUN 96 mg/dL (7-18); BUN/Creat Ratio 42.9 RATIO (10-20); Calcium,Total 8.9 mg/dL (8.5-10.1); Chloride 107 mmol/L (98-107); Creatinine, Serum 2.24 mg/dL (0.70-1.30); EST Glomerular Filtration Rate 31 mL/min (>60); Est Glom Filt Rate - Afr Amer 38 mL/min (>60); Estimated Creatinine Clearance 30.54 ml/min; Glucose 99 mg/dL (74-106); Potassium 3.9 mmol/L (3.5-5.1); Sodium Level 141 mmol/L (136-145)
[2021-09-18] MEDS: Enoxaparin 30 MG/0.3 ML Syringe SC (08:42)
[2021-09-18] MEDS: Lidocaine 5% Patch 3 PATCH TOPICAL (08:42)
[2021-09-18] MEDS: Cyanocobalamin 500 MCG Tablet 1000 MCG PO (08:43)
[2021-09-18] MEDS: Senna/Docusate Sodium 1 Tablet 2 TABLET PO ×2 (08:43→22:15)
[2021-09-18] MEDS: DULoxetine Hcl 60 MG Capsule PO (08:43)
[2021-09-18] MEDS: DULoxetine Hcl 30 MG Capsule PO (08:43)
[2021-09-18] MEDS: Aspirin E.C. 81 MG Tablet PO (08:44)
[2021-09-18] MEDS: Ondansetron 8 MG Tablet PO ×2 (08:44→22:28)
[2021-09-18] MEDS: Tolterodine Tartrate 4 MG CAP.SA PO (08:44)
[2021-09-18] MEDS: Ascorbic Acid 500 MG Tablet PO (08:45)
[2021-09-18] MEDS: Pantoprazole Sodium 20 MG Tablet PO (08:45)
[2021-09-18] MEDS: Cholecalciferol (VIT D3) 25 MCG TABLET (1,000 UNITS) 50 MCG PO (08:46)
[2021-09-18] MEDS: oxyCODONE 5 MG Tablet 10 MG PO (08:54)
--- NOTE | 2021-09-18 11:22 | PN.HOSP_ITS ---
Subjective Subjective Patient seen and examined. He is more alert today but still does have some confusion. Unable to do review of systems on account of confusion. His blood pressure remains marginally low at 91/54. He is otherwise hemodynamically stable. He is on 2 L of oxygen. Objective Data Objective Data Vital Signs: Vital Signs Temp Pulse Resp BP Pulse Ox 97.8 F 100 15 91/54 L 94 09/18/21 08:31 09/18/21 08:31 09/18/21 08:31 09/18/21 08:31 09/18/21 08:31 Oxygen Flow Rate (L/min) 2 Oxygen Delivery Method Nasal Cannula Weight: 186 lb 8.177 oz Body Mass Index (BMI) 29.5 Intake & Output: Intake and Output for Last 24 Hours 09/16/21 09/17/21 09/18/21 23:59 23:59 23:59 Intake Total 2375 / 2375 4047.91 / 4047.91 1332.92 / 1332.92 Output Total 700 / 840 260 / 260 Balance 2375 / 2375 3347.91 / 3207.91 1072.92 / 1072.92 Medical Nutrition Assessment Dietitian: Malnutrition Criteria Met Start: 09/17/21 12:27 Freq: Status: Active Protocol: Document 09/17/21 12:27 AG (Rec: 09/17/21 12:27 AG [id number]) Nutrition Malnutrition Evidence of Malnutrition Exists Yes Malnutrition (severe): Chronic Evidenced By Suboptimal Energy Intake ( Severe),Weight Loss (Severe) Clinical Problem Chronic Disease or Condition Related Malnutrition Etiology severe, chronic malnutrition r /t inadequate energy intake w/ increased energy needs d/t metastatic disease Signs/Symptoms as evidenced by estimated PO intake meeting <75% of estimated nutritional needs >3 months; unintentional wt loss of 23.7#/11.2% over past 3-4 months Status Active Problem Recommendation Dietitian Recommendations/Changes liberalize diet to regular given malnutrition; 4 oz ensure compact w/ meals Lab / Micro Data Result Diagrams: 09/18/21 05:20 09/18/21 05:20 Labs: Laboratory Results - last 24 hr 09/18/21 05:20: WBC 22.7 H, RBC 3.48 L, Hgb 8.4 L, Hct 29.2 L, MCV 83.9, MCH 24.1 L, MCHC 28.8 L, RDW Std Deviation 55.6 H, RDW Coeff of Rosie 19.2 H, Plt Count 402, MPV 10.8, Immature Gran % (Auto) 1.700 H, Neut % (Auto) 91.1 H, Lymph % (Auto) 2.5 L, [place] % (Auto) 4.5, Eos % (Auto) 0.1, Baso % (Auto) 0.1, Absolute Neuts (auto) 20.6 H, Absolute Lymphs (auto) 0.57 L, Nucleated RBC % 0.1 09/18/21 05:20: Sodium 141, Potassium 3.9, Chloride 107, Carbon Dioxide 18.0 L, Anion Gap 16 H, BUN 96 H, Creatinine 2.24 H, Estim Creat Clear Calc 30.54, Est GFR (MDRD) Af Amer 38 L, Est GFR (MDRD) Non-Af 31 L, BUN/Creatinine Ratio 42.9 H , Glucose 99, Calcium 8.9 Micro: Microbiology 09/16/21 16:58 Urine, Clean Catch Urine Culture - Preliminary Presumptive Lactobacillus sp. Coag Negative Staph 09/16/21 16:04 Nasal Secretion SARS-CoV-2 Antigen (Rapid) - Final Physical Exam Const Constitutional Narrative: lethargic, confused Exam Limitations: altered mental status HEENT normocephalic, head/scalp atraumatic and hearing grossly normal bilaterally Head and Scalp: normocephalic Eyes PERRL, EOMs intact bilaterally and conjunctivae normal Neck no lymphadenopathy Resp normal respiratory effort, no retractions, no use of accessory muscles and clear to auscultation bilaterally Cardio regular rate, regular rhythm, S1 normal heart sound, S2 normal heart sound and no murmurs GI normal to inspection, nondistended, normoactive bowel sounds, soft to palpation, non-tender and non-distended GI Narrative: has left nephrostomy tube in place. Right nephrostomy tube fell out Extremity normal to inspection, full ROM and no clubbing, cyanosis or edema Peripheral Pulses: Yes pulses 2+ throughout Skin no rashes or lesions noted Neuro Neuro Narrative: lethargic. Psych Psych Narrative: lethargic, drowsy Assessment & Plan Assessment/Plan (1) Pyelonephritis: (2) UTI (urinary tract infection): QUALIFIERS: Urinary tract infection type: acute pyelonephritis Qualified Code(s): N10 - Acute pyelonephritis (3) Sepsis: PLAN: #Sepsis due to infected nephrostomy tube and UTI * wbc is up to 22 today * ON IV vancomycin and zosyn. ID consulted. * blood and urine cultures pending. * to have nephrostomy tubes changed by radiology tomorrow * #Acute metabolic encephalopathy due to UTI and infected nephrostomy tube * Management as above #Lactic acidosis: This trended downwards. Will monitor. This is due to sepsis and SILVIA #Anion gap metabolic acidosis due to UTI * Bicarb is 18 today, with anion gap of 16. * remains on Ringer's lactate. * #SILVIA: * Creatinine is down to 2.24 with hydration. * BUN is 96. Continue hydration. * on Ringer's lactate * consult nephrology; will likely improve once nephrostomy tubes are changed. * his baseline is ~ 0.72 * #History of metastatic bladder cancer * Currently no longer on treatment as patient had opted for hospice care * On Flomax and oxybutynin * #DVT prophylaxis: Lovenox renally dosed CODE STATUS: * DNR CCA no intubation * Prognosis: poor. Daughter is his healthcare POA. She says she wants her dad to from cancer, and not from anything else that can be treated. Family the refore wants him to have antibiotics and fluids as well as blood if needed. Charges/Coding Visit Charges Inpatient E&M: 31441 Subs Hosp L3
[2021-09-18] MEDS: fentaNYL 25 MCG Patch TD (11:34)
[2021-09-18 12:48] LABS: Vancomycin, Trough Level 12.8 ug/mL (5.0-15.0)
[2021-09-18] MEDS: Morphine 2 MG/ML Syringe 1 MG IV (13:00)
--- NOTE | 2021-09-18 14:21 | PCM.RX.CS ---
Consult Pharmacy has been consulted to manage selected antiobiotic: Vancomycin Type of Consult: Follow-up Labs: Sodium 141 mmol/L (136-145) 09/18/21 05:20 Potassium 3.9 mmol/L (3.5-5.1) 09/18/21 05:20 Chloride 107 mmol/L (98-107) 09/18/21 05:20 Carbon Dioxide 18.0 mmol/L (21.0-32.0) L 09/18/21 05:20 Anion Gap 16 (5-15) H 09/18/21 05:20 BUN 96 mg/dL (7-18) H 09/18/21 05:20 Creatinine 2.24 mg/dL (0.70-1.30) H 09/18/21 05:20 Est GFR (MDRD) Af Amer 38 mL/min (>60) L 09/18/21 05:20 Est GFR (MDRD) Non-Af 31 mL/min (>60) L 09/18/21 05:20 BUN/Creatinine Ratio 42.9 RATIO (10-20) H 09/18/21 05:20 Glucose 99 mg/dL (74-106) 09/18/21 05:20 Vancomycin Trough 12.8 ug/mL (5.0-15.0) 09/18/21 12:10 Microbiology: Microbiology 09/17/21 09:20 Urine, Nephrostomy Urine Culture - Preliminary Yeast 09/17/21 09:20 Urine, Nephrostomy Urine Culture - Preliminary Staphylococcus species Presumptive Lactobacillus sp. 09/16/21 16:58 Urine, Clean Catch Urine Culture - Preliminary Presumptive Lactobacillus sp. Coag Negative Staph 09/16/21 16:04 Nasal Secretion SARS-CoV-2 Antigen (Rapid) - Final Goal Trough: 15-20 mcg/mL Pharmacy Plan for Drug Dosing: VANCOMYCIN LEVEL RECEIVED Current Vancomycin Dose: 750mg q24h (1300) Number of Doses Received: 1250mg x1, 750mg x1 Vancomycin Level: 12.8 Hours Since Last Dose: 22.5 Renal Function: SrCr 2.24 Renal Function Trend: SrCr decreasing (2.83, 2.4, now 2.24) Lab/Micro: Vancomycin Plan/Comments: pt likely not at steady state yet. recommend continuing current dose of 750mg q24. checking trough before the 3rd dose Pending Level: 09/20/21 at 1230 Pharmacy Service will continue to monitor and adjust dosing as required. Follow-Up Labs: Trough Vancomycin - 09/20/21 at 1230
[2021-09-18] MEDS: Atorvastatin Calcium 20 MG Tablet PO (22:14)
[2021-09-18] MEDS: Tamsulosin HCl 0.4 MG Capsule PO (22:14)
[2021-09-18] MEDS: QUEtiapine 25 MG Tablet PO (22:20)
[2021-09-19] VITALS (27 sets, daily range): BP systolic 84–133; BP diastolic 50–107; PULSE 77–132; RESP 13–25; TEMP 36.3–36.8; O2SAT 90–97; BMI 28.7
[2021-09-19 05:32] LABS: Absolute Lymphocyte Count 0.48 X10^3/uL (0.83-4.51); Absolute Neutrophil Count 18.1 X10^3/uL (2.0-7.7); Basophil# 0.02 X10^3/uL; Basophil% 0.1 % (0-1); Eosinophil# 0.01 X10^3/uL; Eosinophils% 0.1 % (0-5); Hematocrit 27.9 % (40-54); Lymphocyte # 0.48 X10^3/ul (0.83-4.51); Lymphocyte % 2.4 % (19-41); Mean Corp Hgb Conc 28.7 g/dL (32-36); Mean Corpuscular Hgb 24.3 pg (27.0-32.0); Mean Corpuscular Volume 84.8 fL (80-94); Monocyte# 0.86 X10^3/uL; Monocyte% 4.4 % (0-10); NRBC Flagged by Analyzer 0 % (0-5); Neutrophil # 18.14 X10^3/uL (2.7-7.7); POSITIVE DIFFERENTIAL YES; Platelet Count 313 K/mm3 (150-450); RBC Distribution Width CV 19.7 % (11.6-14.6); RBC Distribution Width SD 57.6 fl (35.1-43.9); Red Blood Count 3.29 M/mm3 (4.6-6.2); White Blood Count 19.7 K/mm3 (4.4-11.0)
[2021-09-19 05:45] LABS: Differential Indicated SCAN CRITERIA MET
[2021-09-19 05:46] LABS: Anion Gap 16 (5-15); BUN 97 mg/dL (7-18); BUN/Creat Ratio 40.2 RATIO (10-20); Chloride 108 mmol/L (98-107); Creatinine, Serum 2.41 mg/dL (0.70-1.30); EST Glomerular Filtration Rate 29 mL/min (>60); Est Glom Filt Rate - Afr Amer 35 mL/min (>60); Estimated Creatinine Clearance 28.38 ml/min; Glucose 92 mg/dL (74-106); Potassium 4.3 mmol/L (3.5-5.1); Sodium Level 142 mmol/L (136-145)
[2021-09-19 07:26] LABS: Anisocytosis 1+; Hypochromasia 2+; Platelet Estimate ADEQUATE (ADEQ); Polychromasia RARE; Stomatocyte RARE
--- NOTE | 2021-09-19 07:53 | PN.HOSP_ITS ---
Objective Data Objective Data Vital Signs: Vital Signs Temp Pulse Resp BP Pulse Ox 97.8 F 110 H 18 100/58 L 94 09/19/21 06:20 09/19/21 06:20 09/19/21 06:20 09/19/21 06:20 09/19/21 06:20 Oxygen Flow Rate (L/min) 2 Oxygen Delivery Method Nasal Cannula Weight: 186 lb 8.177 oz Body Mass Index (BMI) 29.5 Intake & Output: Intake and Output for Last 24 Hours 09/17/21 09/18/21 09/19/21 23:59 23:59 23:59 Intake Total 4047.91 / 4047.91 2967.92 / 2967.92 Output Total 700 / 840 380 / 600 250 / 250 Balance 3347.91 / 3207.91 2587.92 / 2367.92 -250 / -250 Medical Nutrition Assessment Dietitian: Malnutrition Criteria Met Start: 09/17/21 12:27 Freq: Status: Active Protocol: Document 09/17/21 12:27 AG (Rec: 09/17/21 12:27 [id number]) Nutrition Malnutrition Evidence of Malnutrition Exists Yes Malnutrition (severe): Chronic Evidenced By Suboptimal Energy Intake ( Severe),Weight Loss (Severe) Clinical Problem Chronic Disease or Condition Related Malnutrition Etiology severe, chronic malnutrition r /t inadequate energy intake w/ increased energy needs d/t metastatic disease Signs/Symptoms as evidenced by estimated PO intake meeting <75% of estimated nutritional needs >3 months; unintentional wt loss of 23.7#/11.2% over past 3-4 months Status Active Problem Recommendation Dietitian Recommendations/Changes liberalize diet to regular given malnutrition; 4 oz ensure compact w/ meals Lab / Micro Data Result Diagrams: 09/19/21 04:44 09/19/21 04:44 Labs: Laboratory Results - last 24 hr 09/18/21 12:10: Vancomycin Trough 12.8 09/19/21 04:44: WBC 19.7 H, RBC 3.29 L, Hgb 8.0 L, Hct 27.9 L, MCV 84.8, MCH 24.3 L, MCHC 28.7 L, RDW Std Deviation 57.6 H, RDW Coeff of Rosie 19.7 H, Plt Count 313, MPV 11.0, Immature Gran % (Auto) 1.000 H, Neut % (Auto) 92.0 H, Lymph % (Auto) 2.4 L, [place] % (Auto) 4.4, Eos % (Auto) 0.1, Baso % (Auto) 0.1, Absolute Neuts (auto) 18.1 H, Absolute Lymphs (auto) 0.48 L, Nucleated RBC % 0, Platelet Estimate ADEQUATE, Polychromasia RARE, Hypochromasia 2+, Anisocytosis 1+, Stomatocytes RARE 09/19/21 04:44: Sodium 142, Potassium 4.3, Chloride 108 H, Carbon Dioxide 18.0 L , Anion Gap 16 H, BUN 97 H, Creatinine 2.41 H, Estim Creat Clear Calc 28.38, Est GFR (MDRD) Af Amer 35 L, Est GFR (MDRD) Non-Af 29 L, BUN/Creatinine Ratio 40.2 H , Glucose 92, Calcium 9.0 Micro: Microbiology 09/17/21 09:20 Urine, Nephrostomy Urine Culture - Preliminary Yeast 09/17/21 09:20 Urine, Nephrostomy Urine Culture - Preliminary Staphylococcus species Presumptive Lactobacillus sp. 09/16/21 16:58 Urine, Clean Catch Urine Culture - Preliminary Presumptive Lactobacillus sp. Coag Negative Staph 09/16/21 16:04 Nasal Secretion SARS-CoV-2 Antigen (Rapid) - Final Assessment & Plan Assessment/Plan (1) Pyelonephritis: (2) UTI (urinary tract infection): QUALIFIERS: Urinary tract infection type: acute pyelonephritis Qualified Code(s): N10 - Acute pyelonephritis (3) Sepsis: PLAN: #Sepsis due to infected nephrostomy tube and UTI * wbc is up to 22 today * ON IV vancomycin and zosyn. ID consulted. * blood and urine cultures pending. * to have nephrostomy tubes changed by radiology tomorrow * #Acute metabolic encephalopathy due to UTI and infected nephrostomy tube * Management as above #Lactic acidosis: This trended downwards. Will monitor. This is due to sepsis and SILVIA #Anion gap metabolic acidosis due to UTI * Bicarb is 18 today, with anion gap of 16. * remains on Ringer's lactate. * #SILVIA: * Creatinine is down to 2.24 with hydration. * BUN is 96. Continue hydration. * on Ringer's lactate * consult nephrology; will likely improve once nephrostomy tubes are changed. * his baseline is ~ 0.72 * #History of metastatic bladder cancer * Currently no longer on treatment as patient had opted for hospice care * On Flomax and oxybutynin * #DVT prophylaxis: Lovenox renally dosed CODE STATUS: * DNR CCA no intubation * Prognosis: poor. Daughter is his healthcare POA. She says she wants her dad to from cancer, and not from anything else that can be treated. Family therefore wants him to have antibiotics and fluids as well as blood if needed.
[2021-09-19 09:24] LABS: International Normalized Ratio 1.3; Prothrombin Time (Protime)PT. 15.3 SECONDS (11.7-14.9)
[2021-09-19 09:25] LABS: Partial Thromboplast Time 30.4 Seconds (24.1-36.2)
--- NOTE | 2021-09-19 10:00 | RAD_ITS ---
PROCEDURE: Nephrostomy tube exchange DATE OF EXAMINATION: 09/19/2021 INDICATION: Male, 70 years old. Bladder cancer obstruction PHYSICIAN: Janett FLUOROSCOPY TIME (if supplied): (4 minutes 10 seconds) minutes/seconds CONSENT: The risks, benefits and alternatives to the procedure were explained to the patient, and the patient agreed to the procedure and signed the consent. SEDATION: VERSED 1 mg +1 mg and FENTANYL 50 mcg PROCEDURE/TECHNIQUE: (All elements of maximal sterile barrier technique followed, including US elements as applicable) The risks, benefits, and alternatives to the procedure were explained to the patient and his daughter, and they agreed to the procedure and consent was signed for the procedure. A timeout was performed to confirm the patient''s identity, the type of procedure, to be performed and the site of entry. The patient was draped and prepared in sterile fashion. The left nephrostomy tube was cut. The string was isolated. A floppy end .035 wire advanced to the pigtail. However there was a kink in the pigtail. I attempted twisting and manipulating the tube but it was fixed. I finally retracted the tube and the wire didn''t advance curling in the collecting system. I then removed the old tube and placed a new 8 Georgian catheter. When I injected contrast there is opacification of what was felt to represent the collecting system and normal caliber proximal right ureter. However on subsequent CT the pigtail is not within the collecting system. Therefore this catheter is ultimately removed. Procedure patient entered the room at 10:29 AM and was exiting at 11:34 AM. Patient subsequently went to CT for nephrostomy tube placement on the right. The anterior the CT suite at 11:39 AM and exited 12:34 PM. RAD/Nephrostomy Tube Exchange IMPRESSION: Exchange of right sided nephrostomy tube. However, this tube is subsequently found at CT to not be within the collecting system and was removed. However it is reassuring that there is no hydronephrosis and the right ureter is of expected caliber. Therefore a right nephrostomy tube was not replaced. Electronically Signed: Aroldo Rowland MD at 16:23 EST Tel , Service support ,
[2021-09-19] MEDS: Midazolam 2 MG/2 ML Syringe IV (10:29)
--- NOTE | 2021-09-19 10:30 | CT_ITS ---
PROCEDURE: CT guided left nephrostomy tube placement DATE OF EXAMINATION: 09/19/2021 INDICATION: Male, 70 years old. Hydronephrosis, bladder cancer PHYSICIAN: Janett CONSENT: The risks, benefits and alternatives to the procedure were explained to the patient and his daughter, and they both agreed to the procedure and the consent was signed. Typical risks including pain bleeding infection and allergic reaction damage to adjacent structures and need for further intervention was explained to the patient. SEDATION: VERSED and FENTANYL with dosing as recorded in nurse charting. STERILE BARRIER TECHNIQUE: The following sterile barrier precautions were used during the procedure: hand hygiene; use of 2% chlorhexidine aseptic; use of a mask, sterile gloves, sterile body drape, and a sterile sheet. PROCEDURE/TECHNIQUE A timeout was performed to confirm the patient''s identity, the type of procedure, to be performed and the site of entry. Initial CT performed. The nephrostomy tube that was previously exchanged on the right is in not within the collecting system. There is contrast within the collecting system of the right kidney suggesting the tube was in place but is no longer. However, there is no hydronephrosis of the right kidney. Therefore, I did not replace the right nephrostomy tube. I did plan for approach to place a new left-sided nephrostomy tube at the mid pole left kidney. Patient with was draped and prepared in sterile fashion. Approximately 5 cc LIDOCAINE 1% used as local anesthetic. AccuStick kit used. 21-gauge needle used to access the collecting system using CT fluoroscopy. Microcatheter wire was coiled in the renal pelvis. Then I placed a 4 [place]ian dilator and exchange for a typical 0.038 wire. 7 [place]ian and 8 Namibian dilator used to create tract. Finally an 8 Namibian drain was placed in the collecting system. There is excellent urine return. Urine was slightly bloody but it was clearing during the short time while in CT. Postprocedural imaging also confirmed good placement. CT/Nephrotube Placement CT IMPRESSION: Placement of left sided 8 [place]ibian nephrostomy tube. Conscious sedation utilized. Right nephrostomy tube was removed. There is no hydronephrosis on the right; therefore, the right nephrostomy tube was not replaced. Electronically Signed: Aroldo Rowland MD at 13:17 EST Tel , Service support ,
[2021-09-19] MEDS: fentaNYL 100 MCG/2 ML Ampul IV (10:31)
--- NOTE | 2021-09-19 11:07 | CON.PCM.RE_ITS ---
Assessment & Plan Assessment/Plan (1) Acute kidney injury: PLAN: Baseline creatinine is normal. Admitted with a creatinine of around 2 and has been around the same number since then. Today is about 2.4. Has pyelonephritis currently on antibiotics. Nephrostomy tube came out on the right side. Scheduled for left nephrostomy exchange and new placement of right nephrostomy today. I think most likely cause of SILVIA is pyelonephritis, nephrostomy tube malfunction. We'll repeat kidney function after tube replacement/exchange. No acute indications for dialysis. Blood pressure is borderline low. Discussed with hospitalist HPI Consult Data Date of Consult: 09/19/21 HPI Narrative HPI Narrative: SERG ZAVALA, is a 70 M who presents to the hospital with pyelonephritis. Nephrology consulted for acute renal failure. He has known history of bladder cancer with mets. Presented to the hospital late last week with pyelonephritis. Was treated with antibiotics. He has a longstanding history of bilateral nephrostomy tubes. He was noted to have some discharge from one of the tube sites. During the hospital course, he pulled out one of his nephrostomy tubes. He is scheduled for exchange of left nephrostomy and placement of new right nephrostomy today. [facility] Medical History Ascending aorta dilation Atrial fibrillation with RVR Bladder tumor Chronic pain Essential hypertension Former smoker GERD (gastroesophageal reflux disease) GERD (gastroesophageal reflux disease) Hyperlipemia Kidney disease Lung nodule Malignant neoplasm of urinary bladder Malignant pericardial effusion Paroxysmal atrial fibrillation Home Medications tamsulosin 0.4 mg capsule 0.4 mg PO QHS 09/03/18 [History Last Taken 1 Week Ago ~09/09/21] cyanocobalamin (vitamin B-12) 1,000 mcg PO DAILY 08/03/19 [History Last Taken 1 Week Ago ~09/09/21] cholecalciferol (vitamin D3) 2,000 unit PO DAILY 08/18/19 [History Last Taken 1 Week Ago ~09/09/21] rosuvastatin 10 mg PO QHS 08/18/19 [History Last Taken 1 Week Ago ~09/09/21] aspirin 81 mg tablet,delayed release 81 mg PO DAILY 08/27/19 [History Last Taken 3 Days Ago ~09/13/21] duloxetine 60 mg PO DAILY 10/29/20 [History Last Taken 2 Days Ago ~09/14/21] duloxetine 30 mg PO DAILY 08/07/21 [History Last Taken 2 Days Ago ~09/14/21] oxybutynin chloride 10 mg PO DAILY 08/07/21 [History Last Taken 09/16/21] oxycodone 10 mg PO Q4H PRN PRN 7 Days #28 tab 08/10/21 [Rx Last Taken 09/16/21] acetaminophen 1,000 mg PO TID PRN 08/18/21 [History Last Taken 2 Days Ago ~09/14/21] ascorbic acid (vitamin C) 500 mg PO DAILY 08/18/21 [History Last Taken 1 Week Ago ~09/09/21] lidocaine 3 patch TOPICAL DAILY 08/18/21 [History Last Taken 3 Days Ago ~09/13/21] omeprazole magnesium [Prilosec OTC] 20 mg PO DAILY 08/18/21 [History Last Taken 09/16/21] ondansetron HCl [Zofran] 4 mg PO Q8H 08/18/21 [History Last Taken 2 Days Ago ~09/14/21] polyethylene glycol 3350 [Miralax] 17 g PO DAILY PRN 08/18/21 [History Last Taken 2 Weeks Ago ~09/02/21] sennosides-docusate sodium [Stool Softener-Stimulant Laxat] 2 tab PO BID 08/18/21 [History Last Taken Unknown] levofloxacin 750 mg PO DAILY #10 tab 08/20/21 [Rx Last Taken 09/16/21] metoprolol tartrate 25 mg tablet 25 mg PO BID 08/26/21 [History Last Taken 1 Week Ago ~09/09/21] quetiapine [Seroquel] 25 mg PO QHS 09/18/21 [History Last Taken Unknown] Allergy/AdvReac Type Severity Reaction Status Date / Time No Known Allergies Allergy Verified 09/16/21 14:38 Family History Mother Cancer Lung Father Cancer Stomach Brother Seizures Sister Cancer Bone Surgical History History of bladder surgery (~06/03/18) History of parathyroidectomy S/P pericardiocentesis (~08/04/19) Social History household members: significant other Smoking Status: Former smoker alcohol intake: current details: rare substance use type: does not use ROS ROS Narrative Except history Physical Exam Narrative no obvious distress no pallor no icterus no JVD s1s2 no murmurs lungs clear abdomen soft no organomegaly no edema no cyanosis Nephrostomy Medical Records Data Medical Nutrition Assessment Dietitian: Malnutrition Criteria Met Start: 09/17/21 12:27 Freq: Status: Active Protocol: Document 09/17/21 12:27 AG (Rec: 09/17/21 12:27 [id number]) Nutrition Malnutrition Evidence of Malnutrition Exists Yes Malnutrition (severe): Chronic Evidenced By Suboptimal Energy Intake ( Severe),Weight Loss (Severe) Clinical Problem Chronic Disease or Condition Related Malnutrition Etiology severe, chronic malnutrition r /t inadequate energy intake w/ increased energy needs d/t metastatic disease Signs/Symptoms as evidenced by estimated PO intake meeting <75% of estimated nutritional needs >3 months; unintentional wt loss of 23.7#/11.2% over past 3-4 months Status Active Problem Recommendation Dietitian Recommendations/Changes liberalize diet to regular given malnutrition; 4 oz ensure compact w/ meals Lab / Micro Data Result Diagrams: 09/19/21 04:44 09/19/21 04:44 Labs: Laboratory Results - last 24 hr 09/18/21 12:10: Vancomycin Trough 12.8 09/19/21 04:44: WBC 19.7 H, RBC 3.29 L, Hgb 8.0 L, Hct 27.9 L, MCV 84.8, MCH 24.3 L, MCHC 28.7 L, RDW Std Deviation 57.6 H, RDW Coeff of Rosie 19.7 H, Plt Count 313, MPV 11.0, Immature Gran % (Auto) 1.000 H, Neut % (Auto) 92.0 H, Lymph % (Auto) 2.4 L, [place] % (Auto) 4.4, Eos % (Auto) 0.1, Baso % (Auto) 0.1, Absolute Neuts (auto) 18.1 H, Absolute Lymphs (auto) 0.48 L, Nucleated RBC % 0, Platelet Estimate ADEQUATE, Polychromasia RARE, Hypochromasia 2+, Anisocytosis 1+, Stomatocytes RARE 09/19/21 04:44: Sodium 142, Potassium 4.3, Chloride 108 H, Carbon Dioxide 18.0 L , Anion Gap 16 H, BUN 97 H, Creatinine 2.41 H, Estim Creat Clear Calc 28.38, Est GFR (MDRD) Af Amer 35 L, Est GFR (MDRD) Non-Af 29 L, BUN/Creatinine Ratio 40.2 H , Glucose 92, Calcium 9.0 09/19/21 09:10: PT 15.3 H, INR 1.3, APTT 30.4 Micro: Microbiology 09/16/21 16:58 Urine, Clean Catch Urine Culture - Final Presumptive Lactobacillus sp. Staphylococcus epidermidis 09/17/21 09:20 Urine, Nephrostomy Urine Culture - Preliminary Yeast 09/17/21 09:20 Urine, Nephrostomy Urine Culture - Preliminary Staphylococcus species Presumptive Lactobacillus sp.
--- NOTE | 2021-09-19 13:39 | CASEMGMT ---
SW met with patient's daughter and . Introduced self and role at [facility]. Patient's daughter, Rosy said up until a week ago patient was independent. Rosy said the plan is home, but they need to see how he does medically. SW told them that SW will continue to follow and assist with d/c planning. Nahomy Godwin [employer] [facility]
--- NOTE | 2021-09-19 13:41 | PN.HOSP_ITS ---
Documented by User: Jamin SELLERS 09/19/21 13:54 Subjective Subjective Patient is a 70-year-old male lying in bed and recovering status post nephrostomy tube replacement. Patient unable to provide insight into his current condition as he was sleeping at the time of my evaluation. Does not appear to be in acute distress. Objective Data Objective Data Vital Signs: Vital Signs Temp Pulse Resp BP Pulse Ox 97.8 F 113 H 19 H 94/56 L 93 09/19/21 13:16 09/19/21 13:16 09/19/21 13:16 09/19/21 13:16 09/19/21 13:16 Oxygen Flow Rate (L/min) [10] 5 Oxygen Flow Rate (L/min) [9] 5 Oxygen Flow Rate (L/min) [8] 5 Oxygen Flow Rate (L/min) [7] 5 Oxygen Flow Rate (L/min) [6] 5 Oxygen Flow Rate (L/min) [5] 5 Oxygen Flow Rate (L/min) [4] 5 Oxygen Flow Rate (L/min) [3] 5 Oxygen Flow Rate (L/min) [2] 5 Oxygen Flow Rate (L/min) [1 ( 4 Initial Baseline)] Oxygen Flow Rate (L/min) 5 Oxygen Delivery Method [10] Nasal Cannula Oxygen Delivery Method [9] Nasal Cannula Oxygen Delivery Method [8] Nasal Cannula Oxygen Delivery Method [7] Nasal Cannula Oxygen Delivery Method [6] Nasal Cannula Oxygen Delivery Method [5] Nasal Cannula Oxygen Delivery Method [4] Nasal Cannula Oxygen Delivery Method [3] Nasal Cannula Oxygen Delivery Method [2] Nasal Cannula Oxygen Delivery Method [1 ( Nasal Cannula Initial Baseline)] Oxygen Delivery Method Nasal Cannula Weight: 189 lb Body Mass Index (BMI) 28.7 Intake & Output: Intake and Output for Last 24 Hours 09/17/21 09/18/21 09/19/21 23:59 23:59 23:59 Intake Total 4047.91 / 4047.91 2967.92 / 2967.92 43.75 / 43.75 Output Total 700 / 840 380 / 600 250 / 250 Balance 3347.91 / 3207.91 2587.92 / 2367.92 -206.25 / -206.25 Medical Nutrition Assessment Dietitian: Malnutrition Criteria Met Start: 09/17/21 12:27 Freq: Status: Active Protocol: Document 09/17/21 12:27 (Rec: 09/17/21 12:27 [id number]) Nutrition Malnutrition Evidence of Malnutrition Exists Yes Malnutrition (severe): Chronic Evidenced By Suboptimal Energy Intake ( Severe),Weight Loss (Severe) Clinical Problem Chronic Disease or Condition Related Malnutrition Etiology severe, chronic malnutrition r /t inadequate energy intake w/ increased energy needs d/t metastatic disease Signs/Symptoms as evidenced by estimated PO intake meeting <75% of estimated nutritional needs >3 months; unintentional wt loss of 23.7#/11.2% over past 3-4 months Status Active Problem Recommendation Dietitian Recommendations/Changes liberalize diet to regular given malnutrition; 4 oz ensure compact w/ meals Lab / Micro Data Result Diagrams: 09/19/21 04:44 09/19/21 04:44 Labs: Laboratory Results - last 24 hr 09/19/21 04:44: WBC 19.7 H, RBC 3.29 L, Hgb 8.0 L, Hct 27.9 L, MCV 84.8, MCH 24.3 L, MCHC 28.7 L, RDW Std Deviation 57.6 H, RDW Coeff of Rosie 19.7 H, Plt Count 313, MPV 11.0, Immature Gran % (Auto) 1.000 H, Neut % (Auto) 92.0 H, Lymph % (Auto) 2.4 L, [place] % (Auto) 4.4, Eos % (Auto) 0.1, Baso % (Auto) 0.1, Absolute Neuts (auto) 18.1 H, Absolute Lymphs (auto) 0.48 L, Nucleated RBC % 0, Platelet Estimate ADEQUATE, Polychromasia RARE, Hypochromasia 2+, Anisocytosis 1+, Stomatocytes RARE 09/19/21 04:44: Sodium 142, Potassium 4.3, Chloride 108 H, Carbon Dioxide 18.0 L , Anion Gap 16 H, BUN 97 H, Creatinine 2.41 H, Estim Creat Clear Calc 28.38, Est GFR (MDRD) Af Amer 35 L, Est GFR (MDRD) Non-Af 29 L, BUN/Creatinine Ratio 40.2 H , Glucose 92, Calcium 9.0 09/19/21 09:10: PT 15.3 H, INR 1.3, APTT 30.4 Micro: Microbiology 09/16/21 16:02 Blood Culture (Wb) - Anticubital Left Blood Culture - Preliminary No growth in 48 hours. 09/16/21 16:00 Blood Culture (Wb) - Anticubital Right Blood Culture - Preliminary No growth in 48 hours. 09/16/21 16:58 Urine, Clean Catch Urine Culture - Final Presumptive Lactobacillus sp. Staphylococcus epidermidis 09/17/21 09:20 Urine, Nephrostomy Urine Culture - Preliminary Yeast 09/17/21 09:20 Urine, Nephrostomy Urine Culture - Preliminary Staphylococcus species Presumptive Lactobacillus sp. 09/16/21 16:04 Nasal Secretion SARS-CoV-2 Antigen (Rapid) - Final Radiography Diagnostic Testing: Radiology Impression Nephrostomy Tube Change 09/19/21 10:30 IMPRESSION: Placement of left sided 8 Portuguese nephrostomy tube. Conscious sedation utilized. Right nephrostomy tube was removed. There is no hydronephrosis on the right; therefore, the right nephrostomy tube was not replaced. Electronically Signed: Aroldo Rowland MD at 13:17 EST Tel , Service support , Physical Exam Const no apparent distress Constitutional Narrative: Unable to assess due to patient sleeping after surgery. Exam Limitations: other limitations HEENT head/scalp atraumatic and moist oral mucous membranes Head and Scalp: normocephalic Eyes Eyes Narrative: Unable to assess due to patient sleeping after surgery. Neck no lymphadenopathy, supple and no JVD Resp normal respiratory effort, no retractions, no use of accessory muscles and clear to auscultation bilaterally Resp Narrative: Satting 93% on 5 L via nasal cannula. Cardio regular rhythm, no murmurs and no JVD Rate: tachycardic GI normal to inspection, nondistended, normoactive bowel sounds, soft to palpation and non-tender Extremity normal to inspection, full ROM and no clubbing, cyanosis or edema Skin no rashes or lesions noted, no wounds and skin turgor normal Neuro CN's II-XII intact bilaterally Psych affect normal Assessment & Plan Assessment/Plan (1) Sepsis: (2) Acute UTI: (3) Acute kidney injury: (4) Pyelonephritis: PLAN: Day 3 Discharge planning: To be determined 1) sepsis due to infected nephrostomy tube and acute recurrent UTI Still meets criteria for sepsis as patient is tachycardic with variable rates of tachypnea, white count is still 19,000, creatinine is 2.4 and last lactic acid was 2.9 although this is trended down from admission. On vancomycin, cefepime and fluconazole.. Urine nephrostomy tubes grew Staphylococcus species and yeast with presumptive lactobacillus species. Patient underwent nephrostomy tube replacement that was successful on the right and unsuccessful on the left. Patient no longer has nephrostomy tube on the left side. ID and nephrology following. We will continue antibiotics and continue to monitor CBC. 2) acute metabolic encephalopathy due to UTI and infected nephrostomy tube As above. 3) acute kidney injury Creatinine currently 2.4, down from mission although up from yesterday. Nephrology is following and would like to continue with antibiotics and IV fluids and does not believe dialysis is indicated at this time. Nephrology will continue to follow. We will continue to monitor BMP. 4) history of metabolic bladder cancer Patient follows with a urologist and oncologist at [facility]. Patient has opted for hospice care in regards to his cancer treatment. On F renate and oxybutynin. DVT prophylaxis - Lovenox Patient seen by Jamin Salas PA-C, under the supervision of Dr. Smith. Documented by User: Dr. Mamadou Smith MD 09/19/21 16:05 Subjective Subjective I was called by radiology department in the morning today. Patient had pulled out the right nephrostomy tube. Plan for exchanging the left nephrostomy tube and try to insert right nephrostomy tube. Outreach Associate is consulted for worsening BUN/creatinine 97/2.41, bicarb 18. Patient has leukocytosis 19.7 thousand. Chronic normocytic normochromic anemia hemoglobin stable around 8 g%. Lactic acid 2.9 Objective Data Lab / Micro Data Result Diagrams: 09/19/21 04:44 09/19/21 04:44 Physical Exam Narrative Seen in afternoon after the nephrostomy procedure. General: Patient mildly sedated. Blood pressure on lower side 99/53. HEENT: Atraumatic, PERRLA, EOMI, Normocephalic Oral: No Gingival or Mucosal Lesions/ Ulcerations Neck: Supple, No JVD, Negative Carotid Bruits Lungs: Air entry diminished in bilateral lung bases. No crepitation/rhonchi Cardiovascular: Regular rate, Regular Rhythm, Normal S1, Normal S2, No murmurs Abdomen: Bowel Sounds Present, Soft, Non Tender, Non-Distended : No renal angle tenderness. No suprapubic tenderness. Extremities: Generalized lower extremity edema, pitting in nature, Capillary Refill Less than 3 Seconds Skin: No rashes, No breakdown Musculoskeletal: Mild contracture, ROM of lower extremities at hip and knee joints. No Tenderness to Palpation of Joints or Extremities Neurological: Cranial nerves II-XII grossly intact, DTR 2+/4 and Symmetrical, Neuro grossly intact Psych/Mental Status: Mildly sedated. Assessment & Plan Assessment/Plan (1) Sepsis: PLAN: This patient was seen in conjunction with MARLO Bray. I have independently interviewed and examined the patient and reviewed pertinent history, examination findings, laboratory and plan of management. I have reviewed the note and agree with the documented findings with the few additional points. In brief, patient is admitted for fatigue, lethargy fever and fall drainage around nephrostomy tube for 4 to 5 days consistent with SIRS with sepsis (tachycardia, lactic acidosis, leukocytosis with left shift, SILVIA) due to infected nephrostomy tube, acute on recurrent UTI. Patient is acute metabolic insulin due to UTI. Outreach Associate consulted for SILVIA. Baseline creatinine 0.7 in August 20, 2021. Discussed with the ornamental metal erector apprentice. On IV vancomycin and cefepime and fluconazole. Urine nephrostomy growing staph species and yeast, Ashley not albicans. Patient was seen by ID. Patient history of metastatic bladder cancer. IR inserted left nephrostomy tube but no right hydronephrosis therefore right nephrostomy tube not attempted. Other comorbidities as mentioned above I have discussed my assessment with MARLO Bray and orders have been reviewed. Charges/Coding Visit Charges Inpatient E&M: 17829 Subs Hosp L2
[2021-09-19] MEDS: Fluconazole 100 MG in Viaflex Bag 1 BAG 50 MG IV (14:13)
[2021-09-19] MEDS: 0.9% Saline Lock 10 ML Syringe IV ×4 (14:14→23:22)
--- NOTE | 2021-09-19 15:14 | NURSING ---
This RN reviewed all SN charting and was with SN during all medication administration
[2021-09-19] MEDS: Lidocaine 5% Patch 3 PATCH TOPICAL (15:34)
--- NOTE | 2021-09-19 15:35 | CON.PCM.ID_ITS ---
Assessment & Plan Assessment/Plan (1) Pyelonephritis: PLAN: Neph tube cxs with MSSE, lactobacillus, yeast. On vanc/cef epime/fluc. Will follow, thank you HPI Consult Data Date of Consult: 09/19/21 HPI Narrative HPI Narrative: SERG ZAVALA, is a 70 M with metastatic bladder cancer, presented 09/16 with 4-5 days of fatigue, lethargy, fever, and foul drainage around neph tube. History obtained from his at bedside. Came to ED, admitted on vanc/cefepime, fluc added. Taken to procedure today, L tube changed, R tube removed. Unable to provide history s/p sedation PFSH Medical History Acute pyelonephritis due to bacteria Ascending aorta dilation Atrial fibrillation with RVR Bladder tumor Cancer of the bladder, stage IV Chronic anemia Chronic pain Essential hypertension Former smoker GERD (gastroesophageal reflux disease) GERD (gastroesophageal reflux disease) Hyperlipemia Kidney disease Lung nodule Malignant neoplasm of urinary bladder Malignant pericardial effusion Paroxysmal atrial fibrillation Home Medications tamsulosin 0.4 mg capsule 0.4 mg PO QHS 09/03/18 [History Last Taken 1 Week Ago ~09/09/21] cyanocobalamin (vitamin B-12) 1,000 mcg PO DAILY 08/03/19 [History Last Taken 1 Week Ago ~09/09/21] cholecalciferol (vitamin D3) 2,000 unit PO DAILY 08/18/19 [History Last Taken 1 Week Ago ~09/09/21] rosuvastatin 10 mg PO QHS 08/18/19 [History Last Taken 1 Week Ago ~09/09/21] aspirin 81 mg tablet,delayed release 81 mg PO DAILY 08/27/19 [History Last Taken 3 Days Ago ~09/13/21] duloxetine 60 mg PO DAILY 10/29/20 [History Last Taken 2 Days Ago ~09/14/21] duloxetine 30 mg PO DAILY 08/07/21 [History Last Taken 2 Days Ago ~09/14/21] oxybutynin chloride 10 mg PO DAILY 08/07/21 [History Last Taken 09/16/21] oxycodone 10 mg PO Q4H PRN PRN 7 Days #28 tab 08/10/21 [Rx Last Taken 09/16/21] acetaminophen 1,000 mg PO TID PRN 08/18/21 [History Last Taken 2 Days Ago ~09/14/21] ascorbic acid (vitamin C) 500 mg PO DAILY 08/18/21 [History Last Taken 1 Week Ago ~09/09/21] lidocaine 3 patch TOPICAL DAILY 08/18/21 [History Last Taken 3 Days Ago ~09/13/21] omeprazole magnesium [Prilosec OTC] 20 mg PO DAILY 08/18/21 [History Last Taken 09/16/21] ondansetron HCl [Zofran] 4 mg PO Q8H 08/18/21 [History Last Taken 2 Days Ago ~09/14/21] polyethylene glycol 3350 [Miralax] 17 g PO DAILY PRN 08/18/21 [History Last Taken 2 Weeks Ago ~09/02/21] sennosides-docusate sodium [Stool Softener-Stimulant Laxat] 2 tab PO BID 08/18/21 [History Last Taken Unknown] levofloxacin 750 mg PO DAILY #10 tab 08/20/21 [Rx Last Taken 09/16/21] metoprolol tartrate 25 mg tablet 25 mg PO BID 08/26/21 [History Last Taken 1 Week Ago ~09/09/21] quetiapine [Seroquel] 25 mg PO QHS 09/18/21 [History Last Taken Unknown] Allergy/AdvReac Type Severity Reaction Status Date / Time No Known Allergies Allergy Verified 09/16/21 14:38 Family History Mother Cancer Lung Father Cancer Stomach Brother Seizures Sister Cancer Bone Surgical History History of bladder surgery (~06/03/18) History of parathyroidectomy S/P pericardiocentesis (~08/04/19) Social History household members: significant other Smoking Status: Former smoker alcohol intake: current details: rare substance use type: does not use Physical Exam Const no apparent distress General Appearance: lethargic HEENT normocephalic and head/scalp atraumatic Eyes PERRL and EOMs intact bilaterally Neck supple and No nodes Resp normal air movement and clear to auscultation bilaterally Cardio regular rate and regular rhythm GI normal to inspection, nondistended, normoactive bowel sounds Extremity no clubbing, cyanosis or edema Skin no rashes or lesions noted Medical Records Data Medical Nutrition Assessment Dietitian: Malnutrition Criteria Met Start: 09/17/21 12:27 Freq: Status: Active Protocol: Document 09/19/21 15:11 RMA (Rec: 09/19/21 15:11 RMA [id number]) Nutrition Malnutrition Evidence of Malnutrition Exists Yes Malnutrition (severe): Chronic Evidenced By Suboptimal Energy Intake ( Severe),Weight Loss (Severe) Clinical Problem Chronic Disease or Condition Related Malnutrition Etiology severe, chronic malnutrition r /t inadequate energy intake w/ increased energy needs d/t metastatic disease Signs/Symptoms as evidenced by estimated PO intake meeting <75% of estimated nutritional needs >3 months; unintentional wt loss of 23.7#/11.2% over past 3-4 months Status Active Problem Recommendation Dietitian Recommendations/Changes Resume regular diet given malnutrition and 4 oz ensure compact w/ meals as previously ordered. Lab / Micro Data Result Diagrams: 09/19/21 04:44 09/19/21 04:44 Labs: Laboratory Results - last 24 hr 09/19/21 04:44: WBC 19.7 H, RBC 3.29 L, Hgb 8.0 L, Hct 27.9 L, MCV 84.8, MCH 24.3 L, MCHC 28.7 L, RDW Std Deviation 57.6 H, RDW Coeff of Rosie 19.7 H, Plt Count 313, MPV 11.0, Immature Gran % (Auto) 1.000 H, Neut % (Auto) 92.0 H, Lymph % (Auto) 2.4 L, [place] % (Auto) 4.4, Eos % (Auto) 0.1, Baso % (Auto) 0.1, Absolute Neuts (auto) 18.1 H, Absolute Lymphs (auto) 0.48 L, Nucleated RBC % 0, Platelet Estimate ADEQUATE, Polychromasia RARE, Hypochromasia 2+, Anisocytosis 1+, Stomatocytes RARE 09/19/21 04:44: Sodium 142, Potassium 4.3, Chloride 108 H, Carbon Dioxide 18.0 L , Anion Gap 16 H, BUN 97 H, Creatinine 2.41 H, Estim Creat Clear Calc 28.38, Est GFR (MDRD) Af Amer 35 L, Est GFR (MDRD) Non-Af 29 L, BUN/Creatinine Ratio 40.2 H , Glucose 92, Calcium 9.0 09/19/21 09:10: PT 15.3 H, INR 1.3, APTT 30.4 Micro: Microbiology 09/16/21 16:02 Blood Culture (Wb) - Anticubital Left Blood Culture - Preliminary No growth in 48 hours. 09/16/21 16:00 Blood Culture (Wb) - Anticubital Right Blood Culture - Preliminary No growth in 48 hours. 09/16/21 16:58 Urine, Clean Catch Urine Culture - Final Presumptive Lactobacillus sp. Staphylococcus epidermidis 09/17/21 09:20 Urine, Nephrostomy Urine Culture - Preliminary Yeast 09/17/21 09:20 Urine, Nephrostomy Urine Culture - Preliminary Staphylococcus species Presumptive Lactobacillus sp. Radiology Impression Nephrostomy Tube Change 09/19/21 10:30 IMPRESSION: Placement of left sided 8 Frisian nephrostomy tube. Conscious sedation utilized. Right nephrostomy tube was removed. There is no hydronephrosis on the right; therefore, the right nephrostomy tube was not replaced. Electronically Signed: Aroldo Rowladn MD at 13:17 EST Tel , Service support ,
[2021-09-19] MEDS: Morphine 2 MG/ML Syringe IV ×2 (15:50→23:22)
--- NOTE | 2021-09-19 17:26 | NURSING ---
Offered dinner, pt stated leave me alone and pushing staff away. Have attempted multiple times today to reposition pt, pt prefers laying on left side and will readjust himself back to laying on left side.
--- NOTE | 2021-09-19 21:25 | NURSING ---
Pt lethargic and resistive to care. cannot turn pt or sit up. not safe for PO medications at this time.
--- NOTE | 2021-09-19 22:23 | NURSING ---
updated daughter Rosy on pt condition and POC.
[2021-09-20] VITALS (11 sets, daily range): BP systolic 82–101; BP diastolic 51–67; PULSE 100–120; RESP 15–18; TEMP 36.3–36.7; O2SAT 90–94
--- NOTE | 2021-09-20 01:32 | NURSING ---
pt pulling off O2 consistently. when RN rounded on pt again, O2 was off. checked SPO2 which read between 90%-92%. Will leave O2 off at this time since pt refuses to leave it on. Will continue to monitor.
[2021-09-20] MEDS: 0.9% Saline Lock 10 ML Syringe IV (02:50)
[2021-09-20] MEDS: Morphine 2 MG/ML Syringe IV ×3 (02:50→13:21)
[2021-09-20 06:14] LABS: Absolute Lymphocyte Count 0.47 X10^3/uL (0.83-4.51); Absolute Neutrophil Count 22.5 X10^3/uL (2.0-7.7); Basophil# 0.03 X10^3/uL; Basophil% 0.1 % (0-1); Hematocrit 28.6 % (40-54); Lymphocyte # 0.47 X10^3/ul (0.83-4.51); Lymphocyte % 1.9 % (19-41); Mean Corpuscular Hgb 24.3 pg (27.0-32.0); Mean Corpuscular Volume 86.9 fL (80-94); Mean Platelet Vol. 11.3 fl (6.2-12.0); Monocyte# 1.14 X10^3/uL; Monocyte% 4.7 % (0-10); NRBC Flagged by Analyzer 0.1 % (0-5); Neutrophil # 22.49 X10^3/uL (2.7-7.7); Neutrophil % 92.1 % (47-70); POSITIVE DIFFERENTIAL YES; Platelet Count 322 K/mm3 (150-450); RBC Distribution Width CV 19.9 % (11.6-14.6); RBC Distribution Width SD 59.4 fl (35.1-43.9); Red Blood Count 3.29 M/mm3 (4.6-6.2); White Blood Count 24.4 K/mm3 (4.4-11.0)
[2021-09-20 06:39] LABS: Differential Indicated SCAN CRITERIA MET
[2021-09-20 06:52] LABS: Anion Gap 16 (5-15); BUN 109 mg/dL (7-18); BUN/Creat Ratio 37.6 RATIO (10-20); Calcium,Total 9.3 mg/dL (8.5-10.1); Chloride 109 mmol/L (98-107); EST Glomerular Filtration Rate 23 mL/min (>60); Est Glom Filt Rate - Afr Amer 28 mL/min (>60); Estimated Creatinine Clearance 23.59 ml/min; Glucose 97 mg/dL (74-106); Potassium 4.9 mmol/L (3.5-5.1); Sodium Level 142 mmol/L (136-145)
[2021-09-20] MEDS: Fluconazole 100 MG in Viaflex Bag 1 BAG 50 MG IV (10:08)
[2021-09-20] MEDS: Enoxaparin 30 MG/0.3 ML Syringe SC (10:47)
--- NOTE | 2021-09-20 11:50 | CASEMGMT ---
Addendum entered by Nahomy Godwin 09/20/21 13:45: NEVILLE faxed DNR and d/c instructions to Hospice. Nahomy Godwin [employer]ICATION OFFICER Addendum entered by Nahomy Godwin 09/20/21 13:18: NEVILLE spoke with MARLO Neville and patient was accepted in the inpatient Hospice unit. Nahomy Godwin POTATO SEED CUTTERArias VALLES Addendum entered by Nahomy Godwin 09/20/21 13:00: NEVILLE received a return call from Hospice and Dr Lambert would like to talk with physician about transfer to the inpatient unit. Dr Lambert [phone]. NEVILLE notified Dr Smith and he asked that SW ask MARLO Gonzalez to call. NEVILLE gave Jamin Gonzalez this information. Nahomy VALLES Original Note: Physician and PA spoke with patient and his . They would like the inpatient Hospice unit for patient. NEIVLLE called [facility] in [place] and made referral to Nessa. NEVILLE also faxed over information. Await return call from Hospice on next steps. Nahomy VALLES
[2021-09-20] MEDS: Lidocaine 5% Patch 3 PATCH TOPICAL (11:52)
--- NOTE | 2021-09-20 13:19 | PCM.DC ---
Discharge Instructions Diet Discharge Diet: No restrictions Activity Discharge Activity: Return to Normal Activity Weight Bearing Status: Weight bearing as tolerated Dressing / Incision Call your doctor if you observe: Fever of 101 or Higher, Numbness or Tingling, Shortness of breath, Dizziness, Chest pain, Increased palpitations (irregular heartbeat) and Calf discomfort Follow Up Care Please Follow Up With: Primary care provider When: Within the next two weeks. Test Results: Test results from this visit will be discussed in further detail at your follow-up appointment, if applicable. Discharge Plan Admission Admit Date/Time: 09/16/21 17:34 Primary Reason for Your Visit: Infected nephrostomy tube Attending Provider: Mamadou Smith Primary Care Provider: Jaswinder Hill Consulting Providers: Carlton Castro ; Reymundo Campuzano Discharge Orders/Prescriptions Prescriptions: Continued tamsulosin 0.4 mg capsule 0.4 mg PO QHS RF: 0 aspirin [Adult Aspirin Regimen] 81 mg tablet,delayed release (DR/EC) 81 mg PO DAILY RF: 0 cyanocobalamin (vitamin B-12) 1,000 MCG tablet 1,000 mcg PO DAILY RF: 0 rosuvastatin 10 MG tablet 10 mg PO QHS RF: 0 cholecalciferol (vitamin D3) 2,000 UNIT capsule 2,000 unit PO DAILY RF: 0 duloxetine 60 MG capsule 60 mg PO DAILY RF: 0 duloxetine 30 mg capsule,delayed release(DR/EC) 30 mg PO DAILY RF: 0 oxybutynin chloride 10 mg tablet extended release 24hr 10 mg PO DAILY RF: 0 oxycodone 5 mg Tablet 10 mg PO Q4H PRN PRN (Reason: Pain Score 6-10) 7 Days Qty: 28 RF: 0 ascorbic acid (vitamin C) 500 mg Tablet 500 mg PO DAILY RF: 0 polyethylene glycol 3350 [Miralax] 17 gram/dose Powder 17 g PO DAILY PRN (Reason: Constipation) RF: 0 omeprazole magnesium [Prilosec OTC] 20 mg Tablet,Delayed Release (Dr/Ec) 20 mg PO DAILY RF: 0 ondansetron HCl [Zofran] 4 mg tablet 4 mg PO Q8H RF: 0 sennosides-docusate sodium [Stool Softener-Stimulant Laxat] 8.6-50 mg tablet 2 tab PO BID RF: 0 acetaminophen 500 mg tablet 1,000 mg PO TID PRN (Reason: Pain) RF: 0 lidocaine 5 % adhesive patch,medicated 3 patch topical DAILY RF: 0 quetiapine [Seroquel] 25 mg Tablet 25 mg PO QHS RF: 0 metoprolol tartrate 25 mg tablet 25 mg PO BID RF: 0 Discontinued levofloxacin 750 mg tablet 750 mg PO DAILY Qty: 10 RF: 0 Referrals / Follow Up: Jaswinder Hill DO [Primary Care Provider] - Within 2 Weeks Disposition Disposition (needs filled in before D/C Order can be placed): Hospice in Medical Facility
--- NOTE | 2021-09-20 13:55 | CASEMGMT ---
NEVILLE spoke with lAyssia at Hospice. Alyssia said their unit is not running today so SW will need to set up transport. NEVILLE will talk with RN and . Nahomy Godwin [employer]
--- NOTE | 2021-09-20 13:59 | DS.PCM_ITS ---
Documented by User: Jamin SELLERS 09/20/21 14:17 Providers Date of Admission: 09/16/21 Primary Care Physician: Dr. Jaswinder Hill, Consultations 09/18/21 10:46 Consult: Infectious Disease Routine Consulting Provider: Reymundo Campuzano Reason for Consult: sepsis EMERGENT Consult: No Notified: Yes Date Notified: 09/19/21 Time Notified: 06:31 Method of Notification: Answering Service 09/18/21 11:36 Consult: Nephrology Routine Consulting Provider: Carlton Castro Reason for Consult: SILVIA EMERGENT Consult: No Notified: Yes Date Notified: 09/18/21 Time Notified: 11:36 Method of Notification: Text Reason For Visit: SEPSIS Diagnosis Discharge Diagnosis (1) Sepsis: Status: Acute Code(s): A41.9 - Sepsis, unspecified organism Medications at Discharge Home Medications tamsulosin 0.4 mg capsule 0.4 mg PO QHS 09/03/18 cyanocobalamin (vitamin B-12) 1,000 mcg PO DAILY 08/03/19 cholecalciferol (vitamin D3) 2,000 unit PO DAILY 08/18/19 rosuvastatin 10 mg PO QHS 08/18/19 aspirin 81 mg tablet,delayed release 81 mg PO DAILY 08/27/19 duloxetine 60 mg PO DAILY 10/29/20 duloxetine 30 mg PO DAILY 08/07/21 oxybutynin chloride 10 mg PO DAILY 08/07/21 oxycodone 10 mg PO Q4H PRN PRN 7 Days #28 tab 08/10/21 acetaminophen 1,000 mg PO TID PRN 08/18/21 ascorbic acid (vitamin C) 500 mg PO DAILY 08/18/21 lidocaine 3 patch TOPICAL DAILY 08/18/21 omeprazole magnesium [Prilosec OTC] 20 mg PO DAILY 08/18/21 ondansetron HCl [Zofran] 4 mg PO Q8H 08/18/21 polyethylene glycol 3350 [Miralax] 17 g PO DAILY PRN 08/18/21 sennosides-docusate sodium [Stool Softener-Stimulant Laxat] 2 tab PO BID 08/18/21 metoprolol tartrate 25 mg tablet 25 mg PO BID 08/26/21 quetiapine [Seroquel] 25 mg PO QHS 09/18/21 Hospital Course Summary of Care Provided Minutes Spent on Discharge: 35 Hospital Course: Patient is a 70-year-old male who was admitted to the hospital on 09/16/2021 for management of sepsis and acute metabolic encephalopathy secondary to infected nephrostomy tube. Patient was initiated on vancomycin and Zosyn empirically, cultures were obtained, ID was consulted and nephrostomy tubes were scheduled to be changed. Urine nephrostomy culture grew lactobacillus, Staph epidermidis and yeast. Fluconazole was added to patient's antibiotic regimen. Patient underwent nephrostomy tube repair and the nephrostomy tubes were able to be exchanged on the right. The left nephrostomy tubes were not able to be replaced. Patient was seen by residential remodeling subcontractor who did not believe that patient was indicated for dialysis due to his creatinine being around baseline, no additional recommendations were made at the time. Patient course had not significantly improved for admission as patient was still lethargic, confused and in pain. Patient's white count remained elevated at 24,000, despite antibiotic therapy and patient's vital signs remained tachycardic. Patient came from hospice and home and it was discussed with family that patient would be appropriate for inpatient hospice facility. The decision was discussed with the patient's and daughters and it was decided that they would like to have patient transferred to inpatient hospice facility. Dr. Lambert was contacted and agreed to take patient. Patient will be transferred today 09/20/2021. Patient seen by Jamin Salas PA-C, under the supervision of Dr. Smith. Physical Exam Narrative Patient is a 70-year-old male lying in bed disoriented and confused. Patient cannot provide much insight into current condition as he is acutely encephalopathic due to ongoing nephrostomy tube infection. Const General Appearance: in distress Positive for mild and uncooperative Orientation / Consciousness: confused, disoriented and lethargic HEENT normocephalic, head/scalp atraumatic and hearing grossly normal bilaterally Eyes Eyes Narrative: Cannot assess due to patient confusion. Neck no lymphadenopathy, supple and no JVD Resp normal respiratory effort, no retractions, no use of accessory muscles and clear to auscultation bilaterally Cardio regular rhythm, no murmurs and no JVD Rate: tachycardic GI normal to inspection, nondistended, normoactive bowel sounds and soft to palpation GI Narrative: Draining nephrostomy tube on the right side. Extremity General Extremity: edema bilateral (Bilateral lower extremity edema) lower extre mity Skin no rashes or lesions noted, no wounds and skin turgor normal Neuro Neuro Narrative: Cannot assess due to patient confusion. Psych Psych Narrative: Cannot assess due to patient confusion. Medical Records Data Medical Nutrition Assessment Dietitian: Malnutrition Criteria Met Start: 09/17/21 12:27 Freq: Status: Active Protocol: Document 09/19/21 15:11 RMA (Rec: 09/19/21 15:11 RMA [id number]) Nutrition Malnutrition Evidence of Malnutrition Exists Yes Malnutrition (severe): Chronic Evidenced By Suboptimal Energy Intake ( Severe),Weight Loss (Severe) Clinical Problem Chronic Disease or Condition Related Malnutrition Etiology severe, chronic malnutrition r /t inadequate energy intake w/ increased energy needs d/t metastatic disease Signs/Symptoms as evidenced by estimated PO intake meeting <75% of estimated nutritional needs >3 months; unintentional wt loss of 23.7#/11.2% over past 3-4 months Status Active Problem Recommendation Dietitian Recommendations/Changes Resume regular diet given malnutrition and 4 oz ensure compact w/ meals as previously ordered. Weight / BMI Weight Weight: 189 lb Body Mass Index (BMI) 28.7 ABG / Lab / Microbiology Data Result Diagrams: 09/20/21 04:58 09/20/21 04:58 Laboratory: Laboratory Results - last 24 hr 09/20/21 04:58: WBC 24.4 H, RBC 3.29 L, Hgb 8.0 L, Hct 28.6 L, MCV 86.9, MCH 24.3 L, MCHC 28.0 L, RDW Std Deviation 59.4 H, RDW Coeff of Rosie 19.9 H, Plt Count 322, MPV 11.3, Immature Gran % (Auto) 1.200 H, Neut % (Auto) 92.1 H, Lymph % (Auto) 1.9 L, Gonzales % (Auto) 4.7, Eos % (Auto) 0.0, Baso % (Auto) 0.1, Absolute Neuts (auto) 22.5 H, Absolute Lymphs (auto) 0.47 L, Nucleated RBC % 0.1 09/20/21 04:58: Sodium 142, Potassium 4.9, Chloride 109 H, Carbon Dioxide 17.0 L , Anion Gap 16 H, BUN 109 H*, Creatinine 2.90 H, Estim Creat Clear Calc 23.59, Est GFR (MDRD) Af Amer 28 L, Est GFR (MDRD) Non-Af 23 L, BUN/Creatinine Ratio 37.6 H, Glucose 97, Calcium 9.3 Microbiology: Microbiology 09/17/21 09:20 Urine, Nephrostomy Urine Culture - Final Presumptive Lactobacillus sp. Staphylococcus epidermidis 09/16/21 16:02 Blood Culture (Wb) - Anticubital Left Blood Culture - Preliminary No growth in 48 hours. 09/16/21 16:00 Blood Culture (Wb) - Anticubital Right Blood Culture - Preliminary No growth in 48 hours. 09/16/21 16:58 Urine, Clean Catch Urine Culture - Final Presumptive Lactobacillus sp. Staphylococcus epidermidis 09/17/21 09:20 Urine, Nephrostomy Urine Culture - Preliminary Yeast 09/16/21 16:04 Nasal Secretion SARS-CoV-2 Antigen (Rapid) - Final Radiography Diagnostic Testing: Radiology Impression Nephrostomy Tube Change 09/19/21 10:00 IMPRESSION: Exchange of right sided nephrostomy tube. However, this tube is subsequently found at CT to not be within the collecting system and was removed. However it is reassuring that there is no hydronephrosis and the right ureter is of expected caliber. Therefore a right nephrostomy tube was not replaced. Electronically Signed: Aroldo Rowland MD at 16:23 EST Tel , Service support , D/C Instructions Discharge Diet: No restrictions Weight Bearing Status: Weight bearing as tolerated Call your doctor if you observe: Fever of 101 or Higher, Numbness or Tingling, Shortness of breath, Dizziness, Chest pain, Increased palpitations (irregular heartbeat) and Calf discomfort Please Follow Up With: Primary care provider When: Within the next two weeks. Meaningful Use Info Meaningful Use Diagnoses (Choose all that apply): None applicable Discharge Plan Admission Admit Date/Time: 09/16/21 17:34 Primary Reason for Your Visit: Infected nephrostomy tube Attending Provider: Mamadou Smith Primary Care Provider: Jaswinder Hill Consulting Providers: Carlton Castro ; Reymundo Campuzano Discharge Orders/Prescriptions Prescriptions: Continued tamsulosin 0.4 mg capsule 0.4 mg PO QHS RF: 0 aspirin [Adult Aspirin Regimen] 81 mg tablet,delayed release (DR/EC) 81 mg PO DAILY RF: 0 cyanocobalamin (vitamin B-12) 1,000 MCG tablet 1,000 mcg PO DAILY RF: 0 rosuvastatin 10 MG tablet 10 mg PO QHS RF: 0 cholecalciferol (vitamin D3) 2,000 UNIT capsule 2,000 unit PO DAILY RF: 0 duloxetine 60 MG capsule 60 mg PO DAILY RF: 0 duloxetine 30 mg capsule,delayed release(DR/EC) 30 mg PO DAILY RF: 0 oxybutynin chloride 10 mg tablet extended release 24hr 10 mg PO DAILY RF: 0 oxycodone 5 mg Tablet 10 mg PO Q4H PRN PRN (Reason: Pain Score 6-10) 7 Days Qty: 28 RF: 0 ascorbic acid (vitamin C) 500 mg Tablet 500 mg PO DAILY RF: 0 polyethylene glycol 3350 [Miralax] 17 gram/dose Powder 17 g PO DAILY PRN (Reason: Constipation) RF: 0 omeprazole magnesium [Prilosec OTC] 20 mg Tablet,Delayed Release (Dr/Ec) 20 mg PO DAILY RF: 0 ondansetron HCl [Zofran] 4 mg tablet 4 mg PO Q8H RF: 0 sennosides-docusate sodium [Stool Softener-Stimulant Laxat] 8.6-50 mg tablet 2 tab PO BID RF: 0 acetaminophen 500 mg tablet 1,000 mg PO TID PRN (Reason: Pain) RF: 0 lidocaine 5 % adhesive patch,medicated 3 patch topical DAILY RF: 0 quetiapine [Seroquel] 25 mg Tablet 25 mg PO QHS RF: 0 metoprolol tartrate 25 mg tablet 25 mg PO BID RF: 0 Discontinued levofloxacin 750 mg tablet 750 mg PO DAILY Qty: 10 RF: 0 Referrals / Follow Up: Jaswinder Hill DO [Primary Care Provider] - Within 2 Weeks Disposition Disposition (needs filled in before D/C Order can be placed): Hospice in Medical Facility Documented by User: Dr. Mamadou Smith MD 09/20/21 15:28 Providers Date of Admission: 09/16/21 Reason For Visit: SEPSIS Medications at Discharge Home Medications tamsulosin 0.4 mg capsule 0.4 mg PO QHS 09/03/18 cyanocobalamin (vitamin B-12) 1,000 mcg PO DAILY 08/03/19 cholecalciferol (vitamin D3) 2,000 unit PO DAILY 08/18/19 rosuvastatin 10 mg PO QHS 08/18/19 aspirin 81 mg tablet,delayed release 81 mg PO DAILY 08/27/19 duloxetine 60 mg PO DAILY 10/29/20 duloxetine 30 mg PO DAILY 08/07/21 oxybutynin chloride 10 mg PO DAILY 08/07/21 oxycodone 10 mg PO Q4H PRN PRN 7 Days #28 tab 08/10/21 acetaminophen 1,000 mg PO TID PRN 08/18/21 ascorbic acid (vitamin C) 500 mg PO DAILY 08/18/21 lidocaine 3 patch TOPICAL DAILY 08/18/21 omeprazole magnesium [Prilosec OTC] 20 mg PO DAILY 08/18/21 ondansetron HCl [Zofran] 4 mg PO Q8H 08/18/21 polyethylene glycol 3350 [Miralax] 17 g PO DAILY PRN 08/18/21 sennosides-docusate sodium [Stool Softener-Stimulant Laxat] 2 tab PO BID 08/18/21 metoprolol tartrate 25 mg tablet 25 mg PO BID 08/26/21 quetiapine [Seroquel] 25 mg PO QHS 09/18/21 Hospital Course Summary of Care Provided Hospital Course: This patient was seen in conjunction with MARLO Bray. I have independently interviewed and examined the patient and reviewed pertinent history, examination findings, laboratory and plan of management. I have reviewed the note and agree with the documented findings with the few ad ditional points. In brief, patient is admitted for fatigue, lethargy, fever and fall drainage around nephrostomy tube for 4 to 5 days consistent with SIRS with sepsis (tachycardia, lactic acidosis, leukocytosis with left shift, SILVIA due to infected nephrostomy tube, acute on recurrent UTI. Fast Food Assistant Restaurant Manager consulted for SILVIA. Baseline creatinine 0.7 in August 20, 2021. Discussed with the nephrolo gist. On IV vancomycin and cefepime and fluconazole. Urine nephrostomy growing staph species and yeast, Ashley not albicans. Patient was seen by ID. Patient history of metastatic bladder cancer. IR inserted right nephrostomy tube but no left nephrostomy was not attempted. I see patient radiology note states left nephrostomy tube but patient actually has nephrostomy on the right side. Other comorbidities as mentioned above I talked to the patient's near the bedside along with patient's daughter on phone in the presence of Jamin SELLERS. We all agree for inpatient hospice as patient is very frail, not improving on 3 IV antibiotic vancomycin cefepime and fluconazole. Also talked to residential remodeling subcontractor Pepe agrees for inpatient hospice. We will see no meaningful recovery therefore hospice appropriate. Jamin talked to hospitalist attending and patient is going to transfer to inpatient hospice care I have discussed my assessment with MARLO Bray and orders have been reviewed. Physical Exam Narrative General: Hardly opens eye. Unconscious. Unresponsive to verbal and tactile stimulus. Blood pressure systolic in 80s. Sleeping, nonverbal HEENT: Pale conjunctivae. Atraumatic, PERRLA, EOMI, Normocephalic Oral: No Gingival or Mucosal Lesions/ Ulcerations Neck: Supple, No JVD, Negative Carotid Bruits Lungs: Air entry diminished in bilateral lung bases. No crepitation/rhonchi Cardiovascular: Muffled heart sound. Normal S1, Normal S2, No murmurs Abdomen: Bowel Sounds Present, Soft, Non Tender, Non-Distended : Right nephrostomy tube, urine turbid. Bladder cancer. Extremities: Generalized lower extremity edema, pitting in nature, Capillary Refill Less than 3 Seconds Skin: No rashes, No breakdown Musculoskeletal: Mild contracture, ROM of lower extremities at hip and knee joints. No Tenderness to Palpation of Joints or Extremities Neurological: Cranial nerves II-XII grossly intact, DTR 2+/4 and Symmetrical, Neuro grossly intact Psych/Mental Status: Unconscious, ABG / Lab / Microbiology Data Result Diagrams: 09/20/21 04:58 09/20/21 04:58 Discharge Plan Admission Admit Date/Time: 09/16/21 17:34 Primary Reason for Your Visit: Infected nephrostomy tube Attending Provider: Mamadou Smith Primary Care Provider: Jaswinder Hill Consulting Providers: Carlton Castro ; Reymundo Campuzano Discharge Orders/Prescriptions Prescriptions: Continued tamsulosin 0.4 mg capsule 0.4 mg PO QHS RF: 0 aspirin [Adult Aspirin Regimen] 81 mg tablet,delayed release (DR/EC) 81 mg PO DAILY RF: 0 cyanocobalamin (vitamin B-12) 1,000 MCG tablet 1,000 mcg PO DAILY RF: 0 rosuvastatin 10 MG tablet 10 mg PO QHS RF: 0 cholecalciferol (vitamin D3) 2,000 UNIT capsule 2,000 unit PO DAILY RF: 0 duloxetine 60 MG capsule 60 mg PO DAILY RF: 0 duloxetine 30 mg capsule,delayed release(DR/EC) 30 mg PO DAILY RF: 0 oxybutynin chloride 10 mg tablet extended release 24hr 10 mg PO DAILY RF: 0 oxycodone 5 mg Tablet 10 mg PO Q4H PRN PRN (Reason: Pain Score 6-10) 7 Days Qty: 28 RF: 0 ascorbic acid (vitamin C) 500 mg Tablet 500 mg PO DAILY RF: 0 polyethylene glycol 3350 [Miralax] 17 gram/dose Powder 17 g PO DAILY PRN (Reason: Constipation) RF: 0 omeprazole magnesium [Prilosec OTC] 20 mg Tablet,Delayed Release (Dr/Ec) 20 mg PO DAILY RF: 0 ondansetron HCl [Zofran] 4 mg tablet 4 mg PO Q8H RF: 0 sennosides-docusate sodium [Stool Softener-Stimulant Laxat] 8.6-50 mg tablet 2 tab PO BID RF: 0 acetaminophen 500 mg tablet 1,000 mg PO TID PRN (Reason: Pain) RF: 0 lidocaine 5 % adhesive patch,medicated 3 patch topical DAILY RF: 0 quetiapine [Seroquel] 25 mg Tablet 25 mg PO QHS RF: 0 metoprolol tartrate 25 mg tablet 25 mg PO BID RF: 0 Discontinued levofloxacin 750 mg tablet 750 mg PO DAILY Qty: 10 RF: 0 Referrals / Follow Up: Jaswinder Hill DO [Primary Care Provider] - Within 2 Weeks Disposition Disposition (needs filled in before D/C Order can be placed): Hospice in Medical Facility Charges/Coding Visit Charges Inpatient E&M: 97889 Disch Hosp
--- NOTE | 2021-09-20 14:19 | CASEMGMT ---
NEVILLE spoke with RN and anytime is okay for roll picker. NEVILLE arranged for patient to get picked up at 3p via cot. NEVILLE notified executive secretary social welfare, RN, and patient's . NEVILLE also called Hospice and notified Nessa of roll picker time. Plan: D/c to [facility]. Nahomy Godwin [employer] CAPTAIN HAI
--- NOTE | 2021-09-20 14:28 | NURSING ---
Fanny May - report called inpatient hospice
--- NOTE | 2021-09-20 14:36 | PHA.DC.MR ---
Pharmacy Service has performed discharge medication reconciliation for this patient. The patient's discharge medication list was reviewed for discrepancies and discrepancies were resolved. Home Medications tamsulosin 0.4 mg capsule 0.4 mg PO QHS 09/03/18 cyanocobalamin (vitamin B-12) 1,000 mcg PO DAILY 08/03/19 cholecalciferol (vitamin D3) 2,000 unit PO DAILY 08/18/19 rosuvastatin 10 mg PO QHS 08/18/19 aspirin 81 mg tablet,delayed release 81 mg PO DAILY 08/27/19 duloxetine 60 mg PO DAILY 10/29/20 duloxetine 30 mg PO DAILY 08/07/21 oxybutynin chloride 10 mg PO DAILY 08/07/21 oxycodone 10 mg PO Q4H PRN PRN 7 Days #28 tab 08/10/21 acetaminophen 1,000 mg PO TID PRN 08/18/21 ascorbic acid (vitamin C) 500 mg PO DAILY 08/18/21 lidocaine 3 patch TOPICAL DAILY 08/18/21 omeprazole magnesium [Prilosec OTC] 20 mg PO DAILY 08/18/21 ondansetron HCl [Zofran] 4 mg PO Q8H 08/18/21 polyethylene glycol 3350 [Miralax] 17 g PO DAILY PRN 08/18/21 sennosides-docusate sodium [Stool Softener-Stimulant Laxat] 2 tab PO BID 08/18/21 metoprolol tartrate 25 mg tablet 25 mg PO BID 08/26/21 quetiapine [Seroquel] 25 mg PO QHS 09/18/21
[2021-09-21 09:10] LABS: Pathologist Review Reviewed
== END 2021-09-20 15:25 | disposition hospice, inpatient (51) | DRG 698 ==
LOC: ED 17:41 → PCU 17:55
PROVIDERS: Admitting Provider Student in an Organized Health Care Education/Training Program; Emergency Provider Emergency Medicine; PCP Student in an Organized Health Care Education/Training Program; Visit Provider Internal Medicine
DX: T83.512A Infection and inflammatory reaction due to nephrostomy catheter, initial encounter (principal); A41.9 Sepsis, unspecified organism; G93.41 Metabolic encephalopathy; E43 Unspecified severe protein-calorie malnutrition; N17.9 Acute kidney failure, unspecified; N10 Acute pyelonephritis; C77.9 Secondary and unspecified malignant neoplasm of lymph node, unspecified; E87.2 Acidosis; B37.49 Other urogenital candidiasis; B95.8 Unspecified staphylococcus as the cause of diseases classified elsewhere; Y84.6 Urinary catheterization as the cause of abnormal reaction of the patient, or of later complication, without mention of misadventure at the time of the procedure; T83.022A Displacement of nephrostomy catheter, initial encounter; C67.9 Malignant neoplasm of bladder, unspecified; I48.0 Paroxysmal atrial fibrillation; G89.29 Other chronic pain; Z20.822 Contact with and (suspected) exposure to COVID-19; I10 Essential (primary) hypertension; E78.5 Hyperlipidemia, unspecified; K21.9 Gastro-esophageal reflux disease without esophagitis; Z79.82 Long term (current) use of aspirin; Z79.899 Other long term (current) drug therapy; Z87.891 Personal history of nicotine dependence; Z68.29 Body mass index [BMI] 29.0-29.9, adult; Z87.440 Personal history of urinary (tract) infections
CPT/HCPCS: 36415; 50432; 50435; 71045; 80048; 80053; 80202; 81001; 83605; 85025; 85610; 85730; 87040; 87077; 87086; 87088; 87186; 87426; 97162; 97166; 97802; 99156; 99157; 99285; J7030; J7040; J7050; J7120; Q9967; A4216